=== PATIENT | male | born 1940 | race Hispanic/Latino ===

== ENCOUNTER 2023-02-10 13:29 | Inpatient (IN) | payer OTHER ==
--- OUTSIDE RECORDS SUMMARY | 2023-02-10 13:38 | XMS REPORT | Continuity of Care Document ---
:1940 Author Organization [facility] t Address [address] [place] [address] [place] [id number] Care Team Providers Name Role Phone Mallory Cameron MD Primary Care Physician [phone] MALLORY CAMERON Attending Clinician Unavailable Doctor Unassigned, [place] Attending Clinician Unavailable Mallory Cameron MD Attending Clinician Hossein Herzog Rahil Attending Clinician Unavailable Deniz GREGORIO, Steph Asif Attending Clinician Unavailable TEVIN COLEY Attending Clinician Unavailable Emily Recinos DO Attending Clinician Ronald Scott DO Attending Clinician Tevin Coley MD Attending Clinician ROB DEGROOT Attending Clinician Unavailable Katlyn Mccormack MD Attending Clinician Eyad Garcia MD Attending Clinician Ravinder Porras MD Attending Clinician Rob Degroot MD Attending Clinician Miguel Amezcua Attending Clinician MIGUEL CHAHAL Attending Clinician Unavailable Valentina Del Toro DO Attending Clinician VALENTINA DEL TORO Attending Clinician Unavailable VALENTINA DEL TORO Attending Clinician Unavailable Ige-[place]_J_AH Attending Clinician Unavailable Hossein Herzog Rahil Admitting Clinician Unavailable TEVIN COLEY Admitting Clinician Unavailable Tevin Coley MD Admitting Clinician ROB DEGROOT Admitting Clinician Unavailable Rob Degroot MD Admitting Clinician ANDREIA GREENWOOD Admitting Clinician Unavailable Ige-Odmariluz_J_AH Admitting Clinician Unavailable Payers Payer Name Policy Type Policy Number Effective Date Expiration Date S alexa MEDICARE PART A [id number] 2022 \\T\\ B 00:00:00 MCR MCR [id number] [facility] [place] - [id number] 2019 [place] 00:00:00 (MEDICARE REPLACEMENT/ADVANT AGE - HMO) Problems Condition Condition Condition Status Onset Resolution Last Treating Co mments Source Name Details Category Date Date Treatment Clinician Date Pulmonary Pulmonary Disease Active Uni vers hypertensi hypertensi 4-22 it y of on on 00:00: [place] [facility] Morbid Morbid Disease Active Univers obesity obesity 4-22 ity of 00:00: [place] [facility] COVID-19 COVID-19 Disease Active Unive rs virus virus 4-21 ity of infection infection 00:00: [place] 00 [facility] Acute Acute Disease Active Univers respirator respirator 4-21 it y of y failure y failure 00:00: [place] with with 00 Medical hypoxia hypoxia Branch Acute on Acute on Disease Active 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 00:00: [place] failure failure 00 Medical with with Branch preserved preserved ejection ejection fraction fraction (HFpEF) (HFpEF) Hypotensio Hypotensio Disease Active U nivers n n 4-21 ity of 00:00: [place] [facility] Type 2 Type 2 Disease Active Univers diabetes diabetes 4-21 ity of mellitus mellitus 00:00: [place] with other with other 00 Me dical specified specified Bran ch complicati complicati on on Sepsis Sepsis Disease Active Univers 4-14 ity of 00:00: [place] [facility] KERMIT (acute KERMIT (acute Disease Active U nivers kidney kidney 2-28 ity of injury) injury) 00:00: [place] [facility] Acute Acute Disease Active Univers kidney kidney 2-28 ity of injury injury 00:00: [place] superimpos superimpos 00 Me dical ed on CKD ed on CKD Bran ch Chronic Chronic Disease Active Univers stasis stasis 2-24 ity of dermatitis [place]itis [place] right 00 Medica l lower lower Branch extremity extremity Lower Lower Disease Active Univers extremity extremity 2-24 ity of lymphadeno [place]adeno [place] 00 Medical Branch Rhabdomyol Rhabdomyol Disease Active U nivers ysis ysis 2-21 ity of 00:00: [place] [facility] Non-trauma Non-trauma Disease Active U nivers tic tic 2-21 ity of rhabdomyol rhabdomyol 00:[place] y[place] ysis 00 Medical Branch No known No known Disease Unive rs active active ity of problems problems [facility] Allergies, Adverse Reactions, Alerts Allergy Allergy Status Severity Reaction(s) Onset Inactive Treating Comm ents Source Name Type Date Date Clinician NO KNOWN Drug Active Univers ALLERGIE Class ity of S [facility] Social History Social Habit Start Date Stop Date Quantity Comments Source Gender identity Universit y of [facility] Sexual orientation Univer sity of [facility] History SDOH Social Unive rsity of Connections [facility] Med ical Together Branch History SDOH Social Unive rsity of Connections [facility] Branch History SDOH Social Unive rsity of Connections [place] [facility] History SDOH Social Unive rsity of Connections [place] [facility] Meet[facility] History of tobacco Passive smoker Un iversity of use [facility] Alcohol intake 2022-11-17 2022-11-17 .29 /d University of 00:00:00 00:00:[address] [facility] Exposure to 2022-10-03 2022-10-13 Not sure University of SARS-CoV-2 (event) 00:00:00 14:00:[address] [facility] History of Social 2022-10-13 2022-10-13 Univers ity of function 00:00:00 00:00:[address] [facility] History SDOH 2022-08-30 2022-08-30 1 University o f Alcohol Frequency 00:00:00 00:00:00 [place] M ed[facility] Branch History SDOH Social 2022-08-30 2022-08-30 5 Unive rsity of Connections Phone 00:00:00 00:00:00 [place] M edical Branch History SDOH Social 2022-08-30 2022-08-30 5 Unive rsity of Connections Living 00:00:00 00:00:00 [place] [facility] History SDOH 2022-08-30 2022-08-30 2 University o f Physical Activity 00:00:00 00:00:00 [place] M edical DPW Branch History SDOH 2022-08-30 2022-08-30 1 University o f Physical Activity 00:00:00 00:00:00 [place] M edical MPS Branch History SDOH 2022-08-30 2022-08-30 5 University o f Financial 00:00:00 00:00:00 [place] [facility] History SDOH Food 2022-08-30 2022-08-30 1 Univers ity of Worry 00:00:00 00:00:00 [place] [facility] History SDOH Food 2022-08-30 2022-08-30 1 Univers ity of Scarcity 00:00:00 00:00:00 [place] [facility] History SDOH 2022-08-30 2022-08-30 2 University o f Transport Med 00:00:00 00:00:00 [place] Medic al Branch History SDOH 2022-08-30 2022-08-30 2 University o f Transport Non-Med 00:00:00 00:00:00 [place] M edical Branch History SDOH 2022-08-30 2022-08-30 2 University o f Housing Unable to 00:00:00 00:00:00 [place] M edical Pay Branch History SDOH 2022-08-30 2022-08-30 1 University o f Housing Places 00:00:00 00:00:00 [place] Medi tayo Lived Branch History SDOH 2022-08-30 2022-08-30 2 University o f Housing Homeless 00:00:00 00:00:00 [place] Me dical Last Year Branch Tobacco use and 2022-08-27 2022-08-27 Smokeless Universit y of exposure 00:00:00 00:00:00 tobacco non-user [place] Me dical Branch Education 2022-08-27 2022-08-27 21 University 00:00:00 00:00:00 [place] [facility] History SDOH 2022-07-06 2022-07-06 0 University o f Alcohol Std Drinks 00:00:00 00:00:00 [place] [facility] History SDOH 2022-07-06 2022-07-06 1 University o f Alcohol Binge 00:00:00 00:00:00 [facility] Branch Sex [birth year] At [birth year] Universit y of 00:00:00 00:00:[address] [facility] Smoking Status Start Date Stop Date Source Never smoked tobacco [facility] Medications Ordered Filled Start Stop Current Ordering Indication Dosage Frequency Signature Comments Components Source Medication Medication Date Date Medication? Clinician (SIG) Name Name hydrALAZINE Yes [id number] 100mg Take 1 Univers 100 mg 8-23 tablet by ity of tablet 00:00: mouth in [place] [address] the Medical morning Branch and 1 tablet at noon and 1 tablet in the evening. hydrALAZINE Yes [id number] 100mg Take 1 Univers 100 mg 8-23 tablet by ity of tablet 00:00: mouth in [place] [address] the Medical morning Branch and 1 tablet at noon and 1 tablet in the evening. SEMGLEE,INS 0 Yes Univer s ULIN 7-19 ity of GLARGINE-YF 00:00: [place] GN, 100 00 Medical unit/mL Branch Soln SEMGLEE,INS 2022-0 Yes Univer s ULIN 7-19 ity of GLARGINE-YF 00:00: [place] GN, 100 00 Medical unit/mL Branch Soln SEMGLEE,INS 2022-0 Yes Univer s ULIN 7-19 ity of GLARGINE-YF 00:00: [place] GN, 100 00 Medical unit/mL Branch Soln SEMGLEE,INS 2022-0 Yes Univer s ULIN 7-19 ity of GLARGINE-YF 00:00: [place] GN, 100 00 Medical unit/mL Branch Soln SEMGLEE,INS 2022-0 Yes Univer s ULIN 7-19 ity of GLARGINE-YF 00:00: [place] GN, 100 00 Medical unit/mL Branch Soln SEMGLEE,INS 2022-0 Yes Univer s ULIN 7-19 ity of GLARGINE-YF 00:00: [place] GN, 100 00 Medical unit/mL Ibrahima Eli furosemide 2022-0 Yes [id number] 40mg Take 1 Univers (LASIX) 40 7- 00 tablet by ity of mg tablet 00:00: [place] the Medical morning. Branch furosemide 2022-0 Yes [id number] 40mg Take 1 Univers (LASIX) 40 7- 00 tablet by ity of mg tablet 00:00: [place] the Medical morning. Branch furosemide 2022-0 Yes [id number] 40mg Take 1 Univers (LASIX) 40 7- 00 tablet by ity of mg tablet 00:00: [place] the Medical morning. Branch furosemide 2022-0 Yes [id number] 40mg Take 1 Univers (LASIX) 40 7- 00 tablet by ity of mg tablet 00:00: [place] the Medical morning. Branch furosemide 2022-0 Yes [id number] 40mg Take 1 Univers (LASIX) 40 7- 00 tablet by ity of mg tablet 00:00: [place] the Medical morning. Branch furosemide 2022-0 Yes [id number] 40mg Take 1 Univers (LASIX) 40 7- 00 tablet by ity of mg tablet 00:00: [place] the Medical morning. Branch furosemide 2022-0 Yes [id number] 40mg Take 1 Univers (LASIX) 40 7- 00 tablet by ity of mg tablet 00:00: [place] the Medical morning. Branch furosemide 2022-0 Yes [id number] 40mg Take 1 Univers (LASIX) 40 7- 00 tablet by ity of mg tablet 00:00: [place] the Medical morning. Branch furosemide 2022-0 Yes [id number] 40mg Take 1 Univers (LASIX) 40 7- 00 tablet by ity of mg tablet 00:00: [place] the Medical morning. Branch finasteride 2022-0 Yes [id number] 5mg Take 1 Univers 5 mg tablet 6-27 tablet by ity of 00:00: mouth in [place] 00 the Medical morning. Branch magnesium 3-0 Yes [id number] 400mg Take 1 Univers oxide 400 6-27 00 tablet by ity o f mg (241.3 00:00: [place] mg 00 the Medical magnesium) morning. Branc h tablet docusate 2022-0 Yes [id number] 100mg Take 1 Un merissa 100 mg 6-27 capsule by ity of capsule 00:00: mouth in [place] the Medical morning Branch and 1 capsule in the evening. finasteride 2022-0 Yes [id number] 5mg Take 1 Univers 5 mg tablet 6-27 tablet by ity of 00:00: mouth in [place] the Medical morning. Branch magnesium 2022-0 Yes [id number] 400mg Take 1 Univers oxide 400 6-27 00 tablet by ity o f mg (241.3 00:00: [place] mg 00 the Medical magnesium) morning. Branc h tablet docusate 2022-0 Yes [id number] 100mg Take 1 Un mer[place] 100 mg 6-27 capsule by ity of capsule 00:00: mouth in [place] the Medical morning Branch and 1 capsule in the evening. finasteride 2022-0 Yes [id number] 5mg Take 1 Univers 5 mg tablet 6-27 tablet by ity of 00:00: mouth in [place] the Medical morning. Branch magnesium 2022-0 Yes [id number] 400mg Take 1 Univers oxide 400 6-27 00 tablet by ity o f mg (241.3 00:00: [place] mg 00 the Medical magnesium) morning. Branc h tablet docusate 2022-0 Yes [id number] 100mg Take 1 Un mer[place] 100 mg 6-27 capsule by ity of capsule 00:00: mouth in [place] the Medical morning Branch and 1 capsule in the evening. finasteride 2022-0 Yes [id number] 5mg Take 1 Univers 5 mg tablet 6-27 tablet by ity of 00:00: mouth in [place] the Medical morning. Branch magnesium 3-0 Yes [id number] 400mg Take 1 Univers oxide 400 6-27 00 tablet by ity o f mg (241.3 00:00: [place] mg 00 the Medical magnesium) morning. Branc h tablet docusate 2022-0 Yes [id number] 100mg Take 1 Un mer[place] 100 mg 6-27 capsule by ity of capsule 00:00: mouth in [place] 00 the Medical morning Branch and 1 capsule in the evening. finasteride 2022-0 Yes [id number] 5mg Take 1 Univers 5 mg tablet 6-27 tablet by ity of 00:00: mouth in [place] 00 the Medical morning. Branch magnesium 2022-0 Yes [id number] 400mg Take 1 Univers oxide 400 6-27 00 tablet by ity o f mg (241.3 00:00: [place] mg 00 the Medical magnesium) morning. Branc h tablet docusate 2022-0 Yes [id number] 100mg Take 1 Un merissa 100 mg 6-27 capsule by ity of capsule 00:00: mouth in [place] the Medical morning Branch and 1 capsule in the evening. finasteride 2022-0 Yes [id number] 5mg Take 1 Univers 5 mg tablet 6-27 tablet by ity of 00:00: mouth in [place] the Medical morning. Branch magnesium 2022-0 Yes [id number] 400mg Take 1 Univers oxide 400 6-27 00 tablet by ity o f mg (241.3 00:00: [facility]) morning. Branc h tablet docusate 2022-0 Yes [id number] 100mg Take 1 Un merissa 100 mg 6-27 capsule by ity of capsule 00:00: mouth in [place] 00 the Medical morning Branch and 1 capsule in the evening. finasteride 2022-0 Yes [id number] 5mg Take 1 Univers 5 mg tablet 6-27 tablet by ity of 00:00: mouth in [place] 00 the Medical morning. Branch magnesium 2022-0 Yes [id number] 400mg Take 1 Univers oxide 400 6-27 00 tablet by ity o f mg (241.3 00:00: [facility] Medical magnesium) morning. Branc h tablet docusate 2022-0 Yes [id number] 100mg Take 1 Un mer[place] 100 mg 6-27 capsule by ity of capsule 00:00: mouth in [place] 00 the Medical morning Branch and 1 capsule in the evening. finasteride 2022-0 Yes [id number] 5mg Take 1 Univers 5 mg tablet 6-27 tablet by ity of 00:00: mouth in [place] the Medical morning. Branch magnesium 3-0 Yes [id number] 400mg Take 1 Univers oxide 400 6-27 00 tablet by ity o f mg (241.3 00:00: [place] mg 00 the Medical magnesium) morning. Branc h tablet docusate 2022-0 Yes [id number] 100mg Take 1 Un merissa 100 mg 6-27 capsule by ity of capsule 00:00: mouth in [place] the Medical morning Branch and 1 capsule in the evening. finasteride 2022-0 Yes [id number] 5mg Take 1 Univers 5 mg tablet 6-27 tablet by ity of 00:00: mouth in [place] the Medical morning. Branch magnesium 2022-0 Yes [id number] 400mg Take 1 Univers oxide 400 6-27 00 tablet by ity o f mg (241.3 00:00: [facility] the Medical magnesium) morning. Branc h tablet docusate 2022-0 Yes [id number] 100mg Take 1 Un mer[place] 100 mg 6-27 capsule by ity of capsule 00:00: mouth in [place] the Medical morning Branch and 1 capsule in the evening. finasteride 2022-0 Yes [id number] 5mg Take 1 Univers 5 mg tablet 6-27 tablet by ity of 00:00: mouth in [place] the Medical morning. Branch magnesium 2022-0 Yes [id number] 400mg Take 1 Univers oxide 400 6-27 00 tablet by ity o f mg (241.3 00:00: [facility] the Medical magnesium) morning. Branc h tablet docusate 2022-0 Yes [id number] 100mg Take 1 Un merissa 100 mg 6-27 capsule by ity of capsule 00:00: mouth in [place] the Medical morning Branch and 1 capsule in the evening. finasteride 2022-0 Yes [id number] 5mg Take 1 Univers 5 mg tablet 6-27 tablet by ity of 00:00: mouth in [place] the Medical morning. Branch magnesium 3-0 Yes [id number] 400mg Take 1 Univers oxide 400 6-27 00 tablet by ity o f mg (241.3 00:00: [place] mg 00 the Medical magnesium) morning. Branc h tablet docusate Yes [id number] 100mg Take 1 Un merissa 100 mg 6-27 capsule by ity of capsule 00:00: mouth in [place] 00 the Medical morning Branch and 1 capsule in the evening. insulin 0 2022- No inject Univers glargine 6-20 06-20 under the ity o f 100 unit/mL 14:31: 00:00 skin 2 [place] injection 21 :00 (two) Medical times Branch daily. 40 hs and 20 am tamsulosin Yes [id number] .4mg Take 1 Univers 0.4 mg 24 6-20 capsule by ity of hr capsule 00:00: mouth in [place] 00 the Medical morning. Branch pravastatin Yes [id number] TAKE 4 Univers 20 mg 6-20 TABLETS BY ity of tablet 00:00: MOUTH [place] 00 EVERY DAY Medical AT BEDTIME Branch insulin 2022-0 Yes [id number] 40 hs and Univers glargine 6-20 20 am ity of 100 unit/mL 00:00: [place] injection 00 Medical Branch tamsulosin 0 Yes [id number] .4mg Take 1 Univers 0.4 mg 24 6-20 capsule by ity of hr capsule 00:00: mouth in [place] 00 the Medical morning. Branch pravastatin 2022-0 Yes [id number] TAKE 4 Univers 20 mg 6-20 TABLETS BY ity of tablet 00:00: MOUTH [place] 00 EVERY DAY Medical AT BEDTIME Branch insulin 2022-0 Yes [id number] 40 hs and Univers glargine 6-20 20 am ity of 100 unit/mL 00:00: [place] injection 00 Medical Branch tamsulosin 2022-0 Yes [id number] .4mg Take 1 Univers 0.4 mg 24 6-20 capsule by ity of hr capsule 00:00: mouth in [place] 00 the Medical morning. Branch pravastatin 2022-0 Yes [id number] TAKE 4 Univers 20 mg 6-20 TABLETS BY ity of tablet 00:00: MOUTH [place] 00 EVERY DAY Medical AT BEDTIME Branch insulin 2022-0 Yes [id number] 40 hs and Univers glargine 6-20 20 am ity of 100 unit/mL 00:00: [place] injection 00 Medical Branch tamsulosin 2022-0 Yes [id number] .4mg Take 1 Univers 0.4 mg 24 6-20 capsule by ity of hr capsule 00:00: mouth in [place] 00 the Medical morning. Branch pravastatin 2022-0 Yes [id number] TAKE 4 Univers 20 mg 6-20 TABLETS BY ity of tablet 00:00: MOUTH [place] 00 EVERY DAY Medical AT BEDTIME Branch insulin 3-0 Yes [id number] 40 hs and Univers glargine 6-20 20 am ity of 100 unit/mL 00:00: [place] injection 00 Medical Branch tamsulosin 3-0 Yes [id number] .4mg Take 1 Univers 0.4 mg 24 6-20 capsule by ity of hr capsule 00:00: mouth in [place] 00 the Medical morning. Branch pravastatin 2022-0 Yes [id number] TAKE 4 Univers 20 mg 6-20 TABLETS BY ity of tablet 00:00: MOUTH [place] 00 EVERY DAY Medical AT BEDTIME Branch insulin 2022-0 Yes [id number] 40 hs and Univers glargine 6-20 20 am ity of 100 unit/mL 00:00: [place] injection 00 Medical Branch tamsulosin 3-0 Yes [id number] .4mg Take 1 Univers 0.4 mg 24 6-20 capsule by ity of hr capsule 00:00: mouth in [place] 00 the Medical morning. Branch pravastatin 2022-0 Yes [id number] TAKE 4 Univers 20 mg 6-20 TABLETS BY ity of tablet 00:00: MOUTH [place] 00 EVERY DAY Medical AT BEDTIME Branch insulin 3-0 Yes [id number] 40 hs and Univers glargine 6-20 20 am ity of 100 unit/mL 00:00: [place] injection 00 Medical Branch tamsulosin 3-0 Yes [id number] .4mg Take 1 Univers 0.4 mg 24 6-20 capsule by ity of hr capsule 00:00: mouth in [place] 00 the Medical morning. Branch pravastatin 2022-0 Yes [id number] TAKE 4 Univers 20 mg 6-20 TABLETS BY ity of tablet 00:00: MOUTH [place] 00 EVERY DAY Medical AT BEDTIME Branch insulin 3-0 Yes [id number] 40 hs and Univers glargine 6-20 20 am ity of 100 unit/mL 00:00: [place] injection 00 Medical Branch tamsulosin 3-0 Yes [id number] .4mg Take 1 Univers 0.4 mg 24 6-20 capsule by ity of hr capsule 00:00: mouth in [place] 00 the Medical morning. Branch pravastatin 2022-0 Yes [id number] TAKE 4 Univers 20 mg 6-20 TABLETS BY ity of tablet 00:00: MOUTH [place] 00 EVERY DAY Medical AT BEDTIME Branch insulin 3-0 Yes [id number] 40 hs and Univers glargine 6-20 20 am ity of 100 unit/mL 00:00: [place] injection 00 Medical Branch tamsulosin 3-0 Yes [id number] .4mg Take 1 Univers 0.4 mg 24 6-20 capsule by ity of hr capsule 00:00: mouth in [place] 00 the Medical morning. Branch pravastatin 2022-0 Yes [id number] TAKE 4 Univers 20 mg 6-20 TABLETS BY ity of tablet 00:00: MOUTH [place] 00 EVERY DAY Medical AT BEDTIME Branch insulin 3-0 Yes [id number] 40 hs and Univers glargine 6-20 20 am ity of 100 unit/mL 00:00: [place] injection 00 Medical Branch tamsulosin 3-0 Yes [id number] .4mg Take 1 Univers 0.4 mg 24 6-20 capsule by ity of hr capsule 00:00: mouth in [place] 00 the Medical morning. Branch pravastatin 2022-0 Yes [id number] TAKE 4 Univers 20 mg 6-20 TABLETS BY ity of tablet 00:00: MOUTH [place] 00 EVERY DAY Medical AT BEDTIME Branch insulin 3-0 Yes [id number] 40 hs and Univers glargine 6-20 20 am ity of 100 unit/mL 00:00: [place] injection 00 Medical Branch tamsulosin 3-0 Yes [id number] .4mg Take 1 Univers 0.4 mg 24 6-20 capsule by ity of hr capsule 00:00: mouth in [place] 00 the Medical morning. Branch pravastatin 2022-0 Yes [id number] TAKE 4 Univers 20 mg 6-20 TABLETS BY ity of tablet 00:00: MOUTH [place] 00 EVERY DAY Medical AT BEDTIME Branch insulin 3-0 Yes [id number] 40 hs and Univers glargine 6-20 20 am ity of 100 unit/mL 00:00: [place] injection 00 Medical Branch tamsulosin 3-0 Yes [id number] .4mg Take 1 Univers 0.4 mg 24 6-20 capsule by ity of hr capsule 00:00: mouth in [place] 00 the Medical morning. Branch pravastatin 2022-0 Yes [id number] TAKE 4 Univers 20 mg 6-20 TABLETS BY ity of tablet 00:00: MOUTH [place] 00 EVERY DAY Medical AT BEDTIME Branch insulin 2022-0 Yes [id number] 40 hs and Univers glargine 6-20 20 am ity of 100 unit/mL 00:00: [place] injection 00 Medical Branch tamsulosin 2022-0 Yes [id number] .4mg Take 1 Univers 0.4 mg 24 6-20 capsule by ity of hr capsule 00:00: mouth in [place] 00 the Medical morning. Branch pravastatin 2022-0 Yes [id number] TAKE 4 Univers 20 mg 6-20 TABLETS BY ity of tablet 00:00: MOUTH [place] 00 EVERY DAY Medical AT BEDTIME Branch insulin 2022-0 Yes [id number] 40 hs and Univers glargine 6-20 20 am ity of 100 unit/mL 00:00: [place] injection 00 Medical Branch tamsulosin 2022-0 Yes [id number] .4mg Take 1 Univers 0.4 mg 24 6-20 capsule by ity of hr capsule 00:00: mouth in [place] 00 the Medical morning. Branch pravastatin 2022-0 Yes [id number] TAKE 4 Univers 20 mg 6-20 TABLETS BY ity of tablet 00:00: MOUTH [place] 00 EVERY DAY Medical AT BEDTIME Branch insulin 2022-0 Yes [id number] 40 hs and Univers glargine 6-20 20 am ity of 100 unit/mL 00:00: [place] injection 00 Medical Branch tamsulosin 2022-0 Yes [id number] .4mg Take 1 Univers 0.4 mg 24 6-20 capsule by ity of hr capsule 00:00: mouth in [place] 00 the Medical morning. Branch pravastatin 2022-0 Yes [id number] TAKE 4 Univers 20 mg 6-20 TABLETS BY ity of tablet 00:00: MOUTH [place] 00 EVERY DAY Medical AT BEDTIME Branch insulin 3-0 Yes [id number] 40 hs and Univers glargine 6-20 20 am ity of 100 unit/mL 00:00: [place] injection 00 Medical Branch tamsulosin 3-0 Yes [id number] .4mg Take 1 Univers 0.4 mg 24 6-20 capsule by ity of hr capsule 00:00: mouth in [place] 00 the Medical morning. Branch pravastatin 2022-0 Yes [id number] TAKE 4 Univers 20 mg 6-20 TABLETS BY ity of tablet 00:00: MOUTH [place] 00 EVERY DAY Medical AT BEDTIME Branch insulin 2022-0 Yes [id number] 40 hs and Univers glargine 6-20 20 am ity of 100 unit/mL 00:00: [place] injection 00 Medical Branch sulfamethox 2022-0 Yes [id number] 1{tbl} Take 1 Univers azole-trime 6-07 tablet by ity of thoprim 00:00: mouth in [place] (BACTRIM 00 the Medical DS) 800-160 morning Branc h mg per and 1 tablet tablet in the evening. sulfamethox 2022-0 Yes [id number] 1{tbl} Take 1 Univers azole-trime 6-07 tablet by ity of thoprim 00:00: mouth in [place] (BACTRIM 00 the Medical DS) 800-160 morning Branc h mg per and 1 tablet tablet in the evening. sulfamethox 2022-0 Yes [id number] 1{tbl} Take 1 Univers azole-trime 6-07 tablet by ity of thoprim 00:00: mouth in [place] (BACTRIM 00 the Medical DS) 800-160 morning Branc h mg per and 1 tablet tablet in the evening. sulfamethox 2022-0 Yes [id number] 1{tbl} Take 1 Univers azole-trime 6-07 tablet by ity of thoprim 00:00: mouth in [place] (BACTRIM 00 the Medical DS) 800-160 morning Branc h mg per and 1 tablet tablet in the evening. sulfamethox 2022-0 Yes [id number] 1{tbl} Take 1 Univers azole-trime 6-07 tablet by ity of thoprim 00:00: mouth in [place] (BACTRIM 00 the Medical DS) 800-160 morning Branc h mg per and 1 tablet tablet in the evening. sulfamethox 2022-0 2022- No [id number] 1{tbl} Take 1 Univers azole-trime 6-07 07-05 tablet by it y of thoprim 00:00: 00:00 mouth in [place] (BACTRIM 00 :00 the Medical DS) 800-160 morning Branc h mg per and 1 tablet tablet in the evening. sulfamethox 2022-0 2022- No [id number] 1{tbl} Take 1 Univers azole-trime 6-07 07-05 tablet by it y of thoprim 00:00: 00:00 mouth in [place] (BACTRIM 00 :00 the Medical DS) 800-160 morning Branc h mg per and 1 tablet tablet in the evening. sulfamethox 2022-0 2022- No [id number] 1{tbl} Take 1 [facility] azole-trime 6-07 07-05 tablet by it y of thoprim 00:00: 00:00 mouth in [place] (BACTRIM 00 :00 the Medical DS) 800-160 morning Branc h mg per and 1 tablet tablet in the evening. sulfamethox 2022-0 2022- No [id number] 1{tbl} Take 1 [facility] azole-trime 6-07 07-05 tablet by it y of thoprim 00:00: 00:00 mouth in [place] (BACTRIM 00 :00 the Medical DS) 800-160 morning Branc h mg per and 1 tablet tablet in the evening. insulin 2022-0 Yes inject [facility] glargine 5-31 under the it[place] of 100 unit/mL 14:23: [place] 30 (two) Medical times Branch daily. 40 hs and 20 am insulin 3-0 Yes inject [facility] glargine 5-31 under the ity of 100 unit/mL 14:23: skin [place] injection 30 (two) Medical times Branch daily. 40 hs and 20 am insulin 3-0 Yes inject [facility] glargine 5-31 under the ity of 100 unit/mL 14:23: skin [place] injection 30 (two) Medical times Branch daily. 40 hs and 20 am insulin 2023-0 Yes inject [facility] glargine 5-31 under the ity of 100 unit/mL 14:23: skin [place] injection 30 (two) Medical times Branch daily. 40 hs and 20 am insulin 2023-0 Yes inject [facility] glargine 5-31 under the ity of 100 unit/mL 14:23: skin [place] injection 30 (two) Medical times Branch daily. 40 hs and 20 am insulin 2023-0 Yes inject [facility] glargine 5-31 under the ity of 100 unit/mL 14:23: skin [place] injection 30 (two) Medical times Branch daily. 40 hs and 20 am magnesium 2023-0 Yes 400mg Take 1 Unive rs oxide 400 5-23 tablet by ity o f mg (241.3 00:00: mouth [place] mg 00 the Medical magnesium) morning. Branc h tablet pravastatin 2022-0 Yes TAKE 4 Univ ers 20 mg 5-23 TABLETS BY ity of tablet 00:00: MOUTH [place] 00 EVERY DAY Medical AT BEDTIME Branch magnesium 2023-0 Yes 400mg Take 1 Unive rs oxide 400 5-23 tablet by ity o f mg (241.3 00:00: mouth in [place] mg 00 the Medical magnesium) morning. Branc h tablet pravastatin 2022-0 Yes TAKE 4 Univ ers 20 mg 5-23 TABLETS BY ity of tablet 00:00: MOUTH [place] 00 EVERY DAY Medical AT BEDTIME Branch magnesium 3-0 Yes 400mg Take 1 Unive rs oxide 400 5-23 tablet by ity o f mg (241.3 00:00: mouth in [place] mg 00 the Medical magnesium) morning. Branc h tablet pravastatin 2022-0 Yes TAKE 4 Univ ers 20 mg 5-23 TABLETS BY ity of tablet 00:00: MOUTH [place] 00 EVERY DAY Medical AT BEDTIME Branch magnesium 3-0 Yes 400mg Take 1 Unive rs oxide 400 5-23 tablet by ity o f mg (241.3 00:00: mouth [place] mg 00 the Medical magnesium) morning. Branc h tablet pravastatin 3-0 Yes TAKE 4 Univ ers 20 mg 5-23 TABLETS BY ity of tablet 00:00: MOUTH [place] 00 EVERY DAY Medical AT BEDTIME Branch magnesium 2023-0 Yes 400mg Take 1 Unive rs oxide 400 5-23 tablet by ity o f mg (241.3 00:00: mouth [place] mg 00 the Medical magnesium) morning. Branc h tablet pravastatin 3-0 Yes TAKE 4 Univ ers 20 mg 5-23 TABLETS BY ity of tablet 00:00: MOUTH [place] 00 EVERY DAY Medical AT BEDTIME Branch magnesium 2023-0 Yes 400mg Take 1 Unive rs oxide 400 5-23 tablet by ity o f mg (241.3 00:00: mouth in [place] mg 00 the Medical magnesium) morning. Branc h tablet pravastatin 3-0 Yes TAKE 4 Univ ers 20 mg 5-23 TABLETS BY ity of tablet 00:00: MOUTH [place] 00 EVERY DAY Medical AT BEDTIME Branch magnesium 3-0 Yes 400mg Take 1 Unive rs oxide 400 5-23 tablet by ity o f mg (241.3 00:00: mouth [place] mg 00 the Medical magnesium) morning. Branc h tablet magnesium 3-0 Yes 400mg Take 1 Unive rs oxide 400 5-23 tablet by ity o f mg (241.3 00:00: mouth [place] mg 00 the Medical magnesium) morning. Branc h tablet magnesium 3-0 3- No 400mg Take 1 Univ ers oxide 400 5-23 06-27 tablet by ity of mg (241.3 00:00: 00:00 mouth in [place] mg 00 :00 the Medical magnesium) morning. Branc h tablet magnesium 3-0 3- No 400mg Take 1 Univ ers oxide 400 5-23 06-27 tablet by ity of mg (241.3 00:00: 00:00 mouth in [place] mg 00 :00 the Medical magnesium) morning. Branc h tablet magnesium 3-0 3- No 400mg Take 1 Univ ers oxide 400 5-23 06-27 tablet by ity of mg (241.3 00:00: 00:00 mouth in [place] mg 00 :00 the Medical magnesium) morning. Branc h tablet pravastatin 3-0 3- No TAKE 4 Uni vers 20 mg 5-23 06-20 TABLETS BY ity of tablet 00:00: 00:00 MOUTH [place] 00 :00 EVERY DAY Medical AT BEDTIME Branch finasteride 3-0 Yes 5mg Take 1 Univ ers 5 mg tablet 5-22 tablet by ity of 00:00: mouth in [place] 00 the Medical morning. Branch finasteride 3-0 Yes 5mg Take 1 Univ ers 5 mg tablet 5-22 tablet by ity of 00:00: mouth in [place] 00 the Medical morning. Branch finasteride 3-0 Yes 5mg Take 1 Univ ers 5 mg tablet 5-22 tablet by ity of 00:00: mouth in [place] 00 the Medical morning. Branch finasteride 3-0 Yes 5mg Take 1 Univ ers 5 mg tablet 5-22 tablet by ity of 00:00: mouth in [place] 00 the Medical morning. Branch finasteride 2023-0 Yes 5mg Take 1 Univ ers 5 mg tablet 5-22 tablet by ity of 00:00: mouth in [place] 00 the Medical morning. Branch finasteride 2023-0 Yes 5mg Take 1 Univ ers 5 mg tablet 5-22 tablet by ity of 00:00: mouth in [place] 00 the Medical morning. Branch finasteride 2023-0 Yes 5mg Take 1 Univ ers 5 mg tablet 5-22 tablet by ity of 00:00: mouth in [place] 00 the Medical morning. Branch finasteride 2023-0 Yes 5mg Take 1 Univ ers 5 mg tablet 5-22 tablet by ity of 00:00: mouth in [place] 00 the Medical morning. Branch finasteride 2023-0 2023- No 5mg Take 1 Uni vers 5 mg tablet 10-04- tablet by it y of 00:00: 00:00 mouth in [place] 00 :00 the Medical morning. Branch finasteride 2023-0 2023- No 5mg Take 1 Uni vers 5 mg tablet 10-04- tablet by it y of 00:00: 00:00 mouth in [place] 00 :00 the Medical morning. Branch finasteride 2023-0 2023- No 5mg Take 1 Uni vers 5 mg tablet 10-04- tablet by it y of 00:00: 00:00 mouth in [place] 00 :00 the Medical morning. Branch HUMALOG 2022-0 Yes INJECT 6 Univer s U-100 4-26 UNITS ity of INSULIN 100 00:00: SUBCUTANEO [place] unit/mL 00 USLY IN Medical solution THE Branch MORNING AND 6 UNITS AT NOON AND 6 UNITS IN THE EVENING WITH MEALS HUMALOG 2022-0 Yes INJECT 6 Univer s U-100 4-26 UNITS ity of INSULIN 100 00:00: SUBCUTANEO [place] unit/mL 00 USLY IN Medical solution THE Branch MORNING AND 6 UNITS AT NOON AND 6 UNITS IN THE EVENING WITH MEALS HUMALOG 2022-0 Yes INJECT 6 Univer s U-100 4-26 UNITS ity of INSULIN 100 00:00: SUBCUTANEO [place] unit/mL 00 USLY IN Medical solution THE Branch MORNING AND 6 UNITS AT NOON AND 6 UNITS IN THE EVENING WITH MEALS HUMALOG 2022-0 Yes INJECT 6 Univer s U-100 4-26 UNITS ity of INSULIN 100 00:00: SUBCUTANEO [place] unit/mL 00 USLY IN Medical solution THE Branch MORNING AND 6 UNITS AT NOON AND 6 UNITS IN THE EVENING WITH MEALS HUMALOG Yes INJECT 6 Univer s U-100 4-26 UNITS ity of INSULIN 100 00:00: SUBCUTANEO [place] unit/mL 00 USLY IN Medical solution THE Branch MORNING AND 6 UNITS AT NOON AND 6 UNITS IN THE EVENING WITH MEALS HUMALOG Yes INJECT 6 Univer s U-100 4-26 UNITS ity of INSULIN 100 00:00: SUBCUTANEO [place] unit/mL 00 USLY IN Medical solution THE Branch MORNING AND 6 UNITS AT NOON AND 6 UNITS IN THE EVENING WITH MEALS sodium 0 2022- No 30g 30 g, Univers polystyrene 4-25 04-25 Oral, ity of sulfonate 14:30: 16:12 ONCE, 1 [place] (KAYEXALATE 00 :00 dose, On Medi tayo ) 15 Tue Branch gram/60 mL 09/07/22 at suspension 0930, 30 g Routine insulin Yes 40U 40 Units, Unive rs glargine 4-25 Subcutaneo ity o f (LANTUS 02:00: us, Q, [place] U-100) 00 First dose Medical injection (after Branch 40 Units last modificati on) on Tue09/06/22 at 2100, Until Discontinu ed, Routine budesonide- Yes [id number] 2{puff} Inhale 2 Univers formoteroL 4-25 Puffs in ity o f 160-4.5 00:00: the [place] mcg/actuati 00 morning Medic al on inhaler and 2 Branch Puffs in the evening. albuterol Yes [id number] 2.5mg Inhale 3 Univers 2.5 mg /3 4-25 mL every 6 ity of mL (0.083 00:00: (six) [place] %) 00 hours as Medical nebulizer needed for Bran ch solution Wheezing or Shortness of Breath. polyethylen Yes [id number] 17g Take 1 Univers e glycol 4-25 Packet by ity of 3350 17 00:00: mouth as [place] gram powder 00 needed for Me dical Constipati Branch on. docusate Yes [id number] 100mg Take 1 Un merissa 100 mg 4-25 capsule by ity of capsule 00:00: mouth in [place] 00 the Medical morning Branch and 1 capsule in the evening. calcium 2022-0 Yes [id number] 500mg Take 2 Uni vers carbonate-v 4-25 tablets by it y of itamin D3 00:00: mouth in [facility] 250 00 the [facility] mg-3.125 morning Branch mcg (125 and 2 unit) per tablets in tablet the evening. Take with meals. insulin 0 Yes [id number] 35U inject 35 U nivers glargine 4-25 Units ity of 100 unit/mL 00:00: under the [place] injection 00 skin at Medical bedtime. Branch Insulin 0 Yes [id number] 6U inject 6 Un merissa Lispro, 4-25 Units ity of Human, 00:00: under the [place] (HUMALOG 00 skin in [facility] U-100 the Branch INSULIN) morning 100 unit/mL and 6 cartridge Units at noon and 6 Units in the evening. inject with meals. budesonide- Yes [id number] 2{puff} Inhale 2 Univers formoteroL 4-25 Puffs in ity o f 160-4.5 00:00: the [place] mcg/actuati 00 morning Medic al on inhaler and 2 Branch Puffs in the evening. albuterol 0 Yes [id number] 2.5mg Inhale 3 Univers 2.5 mg /3 4-25 mL every 6 ity of mL (0.083 00:00: (six) [place] %) 00 hours as Medical nebulizer needed for Bran ch solution Wheezing or Shortness of Breath. polyethylen 0 Yes [id number] 17g Take 1 Univers e glycol 4-25 Packet by ity of 3350 17 00:00: mouth as [place] gram powder 00 needed for Me dical Constipati Branch on. docusate 0 Yes [id number] 100mg Take 1 Un merissa 100 mg 4-25 capsule by ity of capsule 00:00: mouth in [place] 00 the Medical morning Branch and 1 capsule in the evening. calcium 2022-0 Yes [id number] 500mg Take 2 Uni vers carbonate-v 4-25 tablets by it y of itamin D3 00:00: mouth in [place] 250 00 the Medical mg-3.125 morning Branch mcg (125 and 2 unit) per tablets in tablet the evening. Take with meals. insulin 2022-0 Yes [id number] 35U inject 35 U nivers glargine 4-25 Units ity of 100 unit/mL 00:00: under the [place] injection 00 skin at Medical bedtime. Branch Insulin 2022-0 Yes [id number] 6U inject 6 Un [place] Lispro, 4-25 Units ity of Human, 00:00: under the [place] (HUMALOG 00 skin in Medical U-100 the Branch INSULIN) morning 100 unit/mL and 6 cartridge Units at noon and 6 Units in the evening. inject with meals. budesonide- 2022-0 Yes [id number] 2{puff} Inhale 2 Univers formoteroL 4-25 Puffs in ity o f 160-4.5 00:00: the [place] mcg/actuati 00 morning Medic al on inhaler and 2 Branch Puffs in the evening. albuterol 2022-0 Yes [id number] 2.5mg Inhale 3 Univers 2.5 mg /3 4-25 mL every 6 ity of mL (0.083 00:00: (six) [place] %) 00 hours as Medical nebulizer needed for Bran ch solution Wheezing or Shortness of Breath. polyethylen 2022-0 Yes [id number] 17g Take 1 Univers e glycol 4-25 Packet by ity of 3350 17 00:00: mouth as [place] gram powder 00 needed for Me dical Constipati Branch on. docusate 2022-0 Yes [id number] 100mg Take 1 Un mer[place] 100 mg 4-25 capsule by ity of capsule 00:00: mouth in [place] 00 the Medical morning Branch and 1 capsule in the evening. calcium 2022-0 Yes [id number] 500mg Take 2 Uni vers carbonate-v 4-25 tablets by it y of itamin D3 00:00: mouth in [facility] s 250 00 the Medical mg-3.125 morning Branch mcg (125 and 2 unit) per tablets in tablet the evening. Take with meals. insulin 2022-0 Yes [id number] 35U inject 35 U nivers glargine 4-25 Units ity of 100 unit/mL 00:00: under the [place] injection 00 skin at Medical bedtime. Branch Insulin 2022-0 Yes [id number] 6U inject 6 Un [place] Lispro, 4-25 Units ity of Human, 00:00: under the [place] (HUMALOG 00 skin in Medical U-100 the Branch INSULIN) morning 100 unit/mL and 6 cartridge Units at noon and 6 Units in the evening. inject with meals. docusate 2022-0 Yes [id number] 100mg Take 1 Un mer[place] 100 mg 4-25 capsule by ity of capsule 00:00: mouth in [place] 00 the [facility] morning [place] and 1 capsule in the evening. docusate 2022-0 Yes [id number] 100mg Take 1 Un mer[place] 100 mg 4-25 capsule by ity of capsule 00:00: mouth in [place] 00 the [facility] morning [place] and 1 capsule in the evening. docusate 2022-0 Yes [id number] 100mg Take 1 Un merissa 100 mg 4-25 capsule by ity of capsule 00:00: mouth in [place] [address] the [facility] and 1 capsule in the evening. docusate 2022-0 Yes [id number] 100mg Take 1 Un merissa 100 mg 4-25 capsule by ity of capsule 00:00: mouth in [place] [address] the [facility] and 1 capsule in the evening. docusate 2022-0 Yes [id number] 100mg Take 1 Un merissa 100 mg 4-25 capsule by ity of capsule 00:00: mouth in [place] [address] the [facility] and 1 capsule in the evening. docusate 2022-0 Yes [id number] 100mg Take 1 Un mer[place] 100 mg 4-25 capsule by ity of capsule 00:00: mouth in [place] [address] the [facility] and 1 capsule in the evening. docusate 2022-0 Yes [id number] 100mg Take 1 Un merissa 100 mg 4-25 capsule by ity of capsule 00:00: mouth in [place] [address] the [facility] and 1 capsule in the evening. docusate 3-0 Yes [id number] 100mg Take 1 Un merissa 100 mg 4-25 capsule by ity of capsule 00:00: mouth in [place] [address] the [facility] and 1 capsule in the evening. docusate 3-0 Yes [id number] 100mg Take 1 Un merissa 100 mg 4-25 capsule by ity of capsule 00:00: mouth in [place] 00 the Medical morning Branch and 1 capsule in the evening. budesonide- Yes [id number] 2{puff} Inhale 2 Univers formoteroL 4-25 Puffs in ity o f 160-4.5 00:00: the [place] mcg/actuati 00 morning Medic al on inhaler and 2 Branch Puffs in the evening. albuterol Yes [id number] 2.5mg Inhale 3 Univers 2.5 mg /3 4-25 mL every 6 ity of mL (0.083 00:00: (six) [place] %) 00 hours as Medical nebulizer needed for Bran ch solution Wheezing or Shortness of Breath. polyethylen 0 Yes [id number] 17g Take 1 Univers e glycol 4-25 Packet by ity of 3350 17 00:00: mouth as [place] gram powder 00 needed for Me dical Constipati Branch on. docusate 0 Yes [id number] 100mg Take 1 Un [place] 100 mg 4-25 capsule by ity of capsule 00:00: mouth in [place] 00 the Medical morning Branch and 1 capsule in the evening. calcium Yes [id number] 500mg Take 2 Uni vers carbonate-v 4-25 tablets by it y of itamin D3 00:00: mouth in [facility] s 250 00 the [facility] mg-3.125 morning Branch mcg (125 and 2 unit) per tablets in tablet the evening. Take with meals. insulin Yes [id number] 35U inject 35 U nivers glargine 4-25 Units ity of 100 unit/mL 00:00: under the [place] injection 00 skin at Medical bedtime. Branch Insulin 0 Yes [id number] 6U inject 6 Un [place]issa Lispro, 4-25 Units ity of Human, 00:00: under the [place] (HUMALOG 00 skin in Medical U-100 the Branch INSULIN) morning 100 unit/mL and 6 cartridge Units at noon and 6 Units in the evening. inject with meals. docusate 0 2022- No [id number] 100mg Take 1 U nivers 100 mg 4-25 06-27 capsule by ity of capsule 00:00: 00:00 mouth in [place] 00 :00 the Medical morning Branch and 1 capsule in the evening. docusate 2022- No [id number] 100mg Take 1 U nivers 100 mg 09-07- capsule by ity of capsule 00:00: 00:00 mouth in [place] 00 :00 the Medical morning Branch and 1 capsule in the evening. docusate 2022- No [id number] 100mg Take 1 U nivers 100 mg -07 11- capsule by ity of capsule 00:00: 00:00 mouth in [place] 00 :00 the Medical morning Branch and 1 capsule in the evening. budesonide- 3- No [id number] 2{puff} Inhale 2 Univers formoteroL -07 10-31 Puffs in ity of 160-4.5 00:00: 00:00 the [place] mcg/actuati 00 :00 morning Medic al on inhaler and 2 Branch Puffs in the evening. albuterol 2022- No [id number] 2.5mg Inhale 3 Univers 2.5 mg /3 09-07- mL every 6 ity of mL (0.083 00:00: 00:00 (six) [place] %) 00 :00 hours as Medical nebulizer needed for Bran ch solution Wheezing or Shortness of Breath. polyethylen 2022- No [id number] 17g Take 1 Univers e glycol 09-07 Packet by ity o f 3350 17 00:00: 00:00 mouth as [place] gram powder 00 :00 needed for Me dical Constipati Branch on. calcium 2022- No [id number] 500mg Take 2 Un [place]issa carbonate-v 09-07-31 tablets by i ty of itamin D3 00:00: 00:00 mouth in [place] 00 :00 the Medical mg-3.125 morning Branch mcg (125 and 2 unit) per tablets in tablet the evening. Take with meals. insulin 2022- No [id number] 35U inject 35 Univers glargine 4-25 05-31 Units ity of 100 unit/mL 00:00: 00:00 under the [place] injection 00 :00 skin at Medical bedtime. Branch Insulin 3- No [id number] 6U inject 6 U nivers Lispro, - 05-31 Units ity of Human, 00:00: 00:00 under the [place] (HUMALOG 00 :00 skin in Medical U-100 the Branch INSULIN) morning 100 unit/mL and 6 cartridge Units at noon and 6 Units in the evening. inject with meals. budesonide- 2022- No [id number] 2{puff} Inhale 2 Univers formoteroL 09-07-31 Puffs in ity of 160-4.5 00:00: 00:00 the [place] mcg/actuati 00 :00 morning Medic al on inhaler and 2 Branch Puffs in the evening. albuterol 2022- No [id number] 2.5mg Inhale 3 Univers 2.5 mg /3 09-07- mL every 6 ity of mL (0.083 00:00: 00:00 (six) [place] %) 00 :00 hours as Medical nebulizer needed for Bran ch solution Wheezing or Shortness of Breath. polyethylen 2022- No [id number] 17g Take 1 Univers e glycol 09-07 Packet by analisa babb f 3350 17 00:00: 00:00 mouth as [place] gram powder 00 :00 needed for Me dical Constipati Branch on. calcium 2022- No [id number] 500mg Take 2 Un [place] carbonate-v 09-07 tablets by iram castro of itamin D3 00:00: 00:00 mouth in [place] 00 :00 the Medical mg-3.125 morning Branch mcg (125 and 2 unit) per tablets in tablet the evening. Take with meals. insulin 2022- No [id number] 35U inject 35 Univers glargine 09-07-31 Units ity of 100 unit/mL 00:00: 00:00 under the [place] injection 00 :00 skin at Medical bedtime. Branch Insulin 2022- No [id number] 6U inject 6 U nivers Lispro, 09-07-31 Units ity of Human, 00:00: 00:00 under the [place] (HUMALOG 00 :00 skin in Medical U-100 the Branch INSULIN) morning 100 unit/mL and 6 cartridge Units at noon and 6 Units in the evening. inject with meals. hydrALAZINE 2022- No [id number] 100mg Take 1 Univers 100 mg 4-25 05-26 tablet by ity of tablet 00:00: 04:59 mouth in [place] 00 :00 the [facility] morning [place] and 1 tablet at noon and 1 tablet in the evening. Do all this for 30 days. furosemide 2022- No [id number] 40mg Take 1 Univers 40 mg 4-25 05-26 tablet by ity of tablet 00:00: 04:59 mouth in [place] 00 :00 the [facility] for 30 days. hydrALAZINE 2022- No [id number] 100mg Take 1 Univers 100 mg 4-25 05-26 tablet by ity of tablet 00:00: 04:59 mouth in [place] 00 :00 the [facility] and 1 tablet at noon and 1 tablet in the evening. Do all this for 30 days. furosemide 2022- No [id number] 40mg Take 1 Univers 40 mg 4-25 05-26 tablet by ity of tablet 00:00: 04:59 mouth in [place] 00 :00 the [facility] for 30 days. hydrALAZINE 2022- No [id number] 100mg Take 1 Univers 100 mg 4-25 05-26 tablet by ity of tablet 00:00: 04:59 mouth in [place] 00 :00 the [facility] and 1 tablet at noon and 1 tablet in the evening. Do all this for 30 days. furosemide 2022- No [id number] 40mg Take 1 Univers 40 mg 4-25 05-26 tablet by ity of tablet 00:00: 04:59 mouth in [place] 00 :00 the [facility] for 30 days. predniSONE 2022- No [id number] 40mg Take 2 Univers 20 mg 4-25 04-29 tablets by ity of tablet 00:00: 04:59 mouth in [place] 00 :00 the [facility] for 3 days. predniSONE 2022-2022- No [id number] 40mg Take 2 Univers 20 mg 4-25 04-29 tablets by ity of tablet 00:00: 04:59 mouth in [place] 00 :00 the [facility] for 3 days. insulin Yes 10U 10 Units, Unive rs lispro 4-24 Subcutaneo ity of (human) 22:00: us, TID [place] (HumaLOG 00 MEALS, Medical U-100) First dose Branch injection (after 10 Units last modificati on) on 09/06/22 at 1700, Until Discontinu ed, Routine hydrALAZINE Yes 100mg 100 mg, Un [place] (APRESOLINE 24 Oral, TID, it y of ) tablet 20:15: First dose [place] 100 mg 00 (after Medical last Branch modificati on) on 09/06/22 at 1515, Until Discontinu ed, Routine furosemide Yes 20mg 20 mg, Unive rs (LASIX) 09-05 Slow IV ity of injection 14:00: Push, [place] 20 mg 00 DAILY, Medical First dose Branch (after last modificati on) on 09/05/22 at 0900, Until Discontinu ed, Routine insulin 2022- No 12U 12 Units, Univ ers lispro 09-05 Subcutaneo ity of (human) 13:00: 19:39 us, TID [place] (HumaLOG 00 :02 MEALS, Medical U-100) First dose Branch injection (after 12 Units last modificati on) on 09/05/22 at 0800, Until Discontinu ed, Routine Sliding Yes Subcutaneo Univ ers Scale 09-05 us, TID ity of Insulin - 02:00: MEALS+HS, [place] Lispro 00 First dose Medical (HumaLOG) + on Sat Branch Fsbg 09/04/22 at Testing 2100, Until Discontinu ed, Routine insulin 2022- No 45U 45 Units, Univ ers glargine 09-05 Subcutaneo ity of (LANTUS 02:00: 19:39 us, QHS, [place] U-100) 00 :02 First dose Medical injection (after Branch 45 Units last modificati on) on 09/04/22 at 2100, Until Discontinu ed, Routine insulin 2022- No 10U 10 Units, Univ ers lispro 09-04 Subcutaneo ity of (human) 17:00: 22:37 us, TID [place] (HumaLOG 00 :05 MEALS, Medical U-100) First dose Branch injection (after 10 Units last modificati on) on 09/04/22 at 1200, Until Discontinu ed, Routine hydrALAZINE No 50mg 50 mg, Uni vers (APRESOLINE 09-04 Oral, TID, i ty of ) tablet 50 13:30: 19:33 First dose [place] mg 00 :18 on Tue [facility] 09/04/22 at Branch 0830, Until Discontinu ed, Routine insulin 2022- No 35U 35 Units, Univ ers glargine 09-04 Subcutaneo ity of (LANTUS 02:00: 13:24 us, QHS, [place] U-100) 00 :34 First dose Medical injection (after Branch 35 Units last modificati on) on Tue09/03/22 at 2100, Until Discontinu ed, Routine docusate Yes 100mg 100 mg, Unive rs (COLACE) 09-04 Oral, BID, ity o f capsule 100 01:00: First dose [place] mg 00 on Tue [facility] 09/03/22 at Branch 2000, Until Discontinu ed, Routine polyethylen Yes 17g 17 g, Unive rs e glycol 09-03 Oral, ity of 3350 powder 23:30: DAILY, [place] 17 g 00 First dose Medical on Tue [place] 09/03/22 at 1830, Until Discontinu ed, Routine bisacodyL Yes 10mg 10 mg, Univer s (DULCOLAX) 09-03 Rectal, ity of suppository 23:23: QHSPRN, [place] 10 mg 08 Starting Medical on Tue [place] 09/03/22 at 1823, Until Discontinu ed, Routine, Constipati on unresolved by oral medication s insulin 2022- No 8U 8 Units, Unive rs lispro 09-03 Subcutaneo ity of (human) 22:00: 13:24 us, TID [place] (HumaLOG 00 :34 MEALS, Medical U-100) First dose Branch injection 8 (after Units last modificati on) on Tue09/03/22 at 1700, Until Discontinu ed, Routine insulin 2022- No 5U 5 Units, Unive rs lispro 09-03 Subcutaneo ity of (human) 13:00: 19:53 us, TID [place] (HumaLOG 00 :47 MEALS, Medical U-100) First dose Branch injection 5 on Fri Units 09/03/22 at 0800, Until Discontinu ed, Routine insulin 2022- No 25U 25 Units, [facility] ers glargine 09-03 Subcutaneo ity of (LANTUS 02:00: 19:53 us, QHS, [place] U-100) 00 :47 First dose Medical injection (after Branch 25 Units last modificati on) on Tue09/02/22 at 2100, Until Discontinu ed, Routine dexamethaso No 6mg 6 mg, Univ ers ne sod phos 09-02 Intravenou i ty of PF 17:30: 13:59 s, DAILY, [place] injection 6 00 :00 10 doses, Med ical mg First dose Branch on Tue09/02/22 at 1230, Last dose on Tue09/11/22 at 0900, 1 mL sulfur 2022- No [id number] 5mL 5 mL, Un [place] hexafluorid 09-02 00 Intravenou i ty of e microsphr 17:15: 17:15 s, ONCE, 1 [place] (LUMASON) 00 :00 dose, On Medica l injection 5 [place] Branch mL 09/02/22 at 1215, Routine
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 Restricted medication : [employer] furosemide 2022- No 20mg 20 mg, Univ ers (LASIX) 09-02 Slow IV ity of injection 14:30: 20:01 Push, [place] 20 mg 00 :50 Q12H, Medical First dose Branch on Tue09/02/22 at 0930, Until Discontinu ed, Routine midodrine 2022- No 5mg 5 mg, Univer s (PROAMATINE 09-02 Oral, TID, i ty of ) tablet 5 01:00: 13:45 First dose [place] mg 00 :03 on Tue Medical 09/01/22 at Branch 2000, Until Discontinu ed, Routine calcium 2022- No 2g 2 g, IV Univer s gluconate 2 09-02 Infusion, it y of g in NaCl 00:00: 02:44 at 200 [place] 100 mL 00 :00 mL/hr Medical (ISO-OSM) Administer Bran ch RTU IV over 30 infusion 2 Minutes, g ONCE, 1 dose, On Tue09/01/22 at 1900, Routine albumin 2022-2022- No 25g 25 g, IV Unive rs (ALBUMINAR 09-0120 Infusion, ity of 25%) 25 % 23:45: 01:36 ONCE, 1 [place] injection 00 :00 dose, On Medica l 25 g Tue Branch 09/01/22 at 1845, 100 mL
[place]ma cation: NON-APPROV ED INDICATION - PHARMACY WILL CALL ORDERING PROVIDER<b r>Specific Indication : Acute on chronic HFpEF in setting of hypotensio n
Facul ty Requesting Approval: TEVIN COLEY magnesium 2022- No 2g 2 g, IV Univ ers sulfate in 09-01 Piggyback, it y of water 2 23:15: 04:21 Administer [place] gram/50 mL 00 :00 over 60 Medica l (4 %) Minutes, Branch infusion 2 ONCE, 1 g dose, On Tue09/01/22 at 1815, Routine NaCl 0.9% 2022- No 500mL at 999 Univ ers (NS) bolus 09-01 mL/hr, 500 it y of infusion 23:15: 04:49 mL, IV [place] 500 mL 00 :02 Piggyback, Medical ONCE, 1 Branch dose, On Tue09/01/22 at 1815, STAT furosemide 2022- No 60mg 60 mg, IV U nivers (LASIX) 09-01 Push, ity of injection 01:00: 22:22 Q12H, [place] 60 mg 00 :11 First dose Medical (after Branch last modificati on) on Tue08/31/22 at 2000, Until Discontinu ed, Routine benzonatate Yes 100mg 100 mg, Un merissa (TESSALON 4-18 Oral, Q8H, ity of PERLES) 19:00: First dose [place] capsule 100 00 tue Medica l mg 08/31/22 at Branch 1400, Until Discontinu ed, Routine furosemide 2022- No 40mg 40 mg, Univ ers (LASIX) 08-31 Oral, ity of tablet 40 18:00: 20:42 ONCE, 1 [place] mg 00 :00 dose, On Medical [facility] 08/31/22 at 1300, Routine furosemide 2022- No 40mg 40 mg, IV U nivers (LASIX) 08-31 Push, ity of injection 01:00: 17:09 Q12H, [place] 40 mg 00 :33 First dose Medical on [facility] 08/30/22 at 2000, Until Discontinu ed, Routine levalbutero Yes 1.25mg 1.25 mg, Univers l (XOPENEX) 08-31 Inhalation it y of nebulizer 00:38: , TIDPRN, [place] solution 48 Starting Medical 1.25 mg on [facility] 08/30/22 at 1938, Until Discontinu ed, Routine, Wheezing, Shortness of Breath ammonium Yes Topical, Unive rs lactate 08-30 DAILY, ity of (LAC-HYDRIN 21:30: First dose [place] ) 12 % 00 on [facility] Medical cream 08/30/22 at Branch 1630, Until Discontinu ed, Routine calcium 2022- No 1g 1 g, IV Univer s gluconate 1 08-30 Infusion, it y of g in NaCl 14:45: 14:30 at 100 [place] 50 mL 00 :00 mL/hr Medical (ISO-OSM) Administer Bran ch RTU IV over 30 infusion 1 Minutes, g ONCE, 1 dose, On [facility] 08/30/22 at 0945, Routine calcium Yes 2{tbl} 500 mg (2 Uni vers carbonate-v 08-29 tablet), ity of itamin D3 22:00: Oral, BID [place] (OSCAL-250 00 MEALS, Medical + D) 250 First dose Branc h mg-3.125 (after mcg (125 last unit) per modificati tablet 500 on) on Sun mg 08/29/22 at 1700, Until Discontinu ed, Routine calcium 2022-0 2022- No 1g 1 g, IV Univer s gluconate 1 08-29 Infusion, it y of g in NaCl 20:00: 22:51 at 100 [place] 50 mL 00 :35 mL/hr Medical (ISO-OSM) Administer Bran ch RTU IV over 30 infusion 1 Minutes, g ONCE, 1 dose, On [place] 08/29/22 at 1500, Routine KCL 2022- No 40meq 40 mEq, Univers (KLOR-CON 08-29 Oral, ity of M20) tablet 14:30: 17:08 ONCE, 1 [place] 40 mEq 00 :00 dose, On Medical [place] Branch 08/29/22 at 0930, Routine heparin Yes 5000U 5,000 Univers (porcine) -16 Units, ity of injection 13:00: Subcutaneo [place] 5,000 Units 00 us, Q12H, Med ical First dose Branch on [place] 08/29/22 at 0800, Until Discontinu ed, Routine calcium 2022- No 1{tbl} 250 mg (1 Un mer[place] carbonate-v 08-29 tablet), ity of itamin D3 13:00: 13:36 Oral, BID [place] (OSCAL-250 00 :10 MEALS, Medical + D) 250 First dose Branc h mg-3.125 on [place] mcg (125 08/29/22 at unit) per 0800, tablet 250 Until mg Discontinu ed, Routine insulin 2022- No 10U 10 Units, [facility] ers glargine 08-29 04-20 Subcutaneo ity of (LANTUS 02:00: 23:44 us, [facility], [place] U-100) 00 :25 First dose Medical injection (after Branch 10 Units last modificati on) on [place] 08/28/22 at 2100, Until Discontinu ed, Routine lactobacill 2022-0 Yes .5mg 0.5 mg, Uni vers us 4-15 Oral, ity of acidophilus 19:30: DAILY, [place] tablet 0.5 00 First dose Med ical mg on [facility] 08/28/22 at 1430, Until Discontinu ed, Routine tamsulosin 2022-0 Yes .4mg 0.4 mg, Univ ers (FLOMAX) 4-15 Oral, ity of capsule 0.4 14:00: DAILY, [place] mg 00 First dose Medical on [facility] 08/28/22 at 0900, Until Discontinu ed, Routine verapamil 2022- No 360mg 360 mg, Uni vers SR (CALAN 08-28 Oral, ity of SR) ER 14:00: 22:30 DAILY, [place] tablet 360 00 :20 First dose Med ical mg on [place] Branch 08/28/22 at 0900, Until Discontinu ed, Routine furosemide 2022- No 40mg 40 mg, [facility] ers (LASIX) 08-28 Oral, ity of tablet 40 14:00: 20:26 QAM+PM, [place] mg 00 :41 First dose Medical on [facility] 08/28/22 at 0900, Until Discontinu ed, Routine potassium No 10meq 10 mEq, IV Univers chloride in 08-28 Piggyback, i ty of water 10 14:00: 20:28 Q1H, 6 [place] mEq/100 mL 00 :00 doses, Medical RTU 10 mEq First dose Bra nch on [place] 08/28/22 at 0900, Last dose on [place] 08/28/22 at 1400, Administer over 60 Minutes, 100 mL enoxaparin No 30mg 30 mg, [facility] ers (LOVENOX) 08-28 Subcutaneo ity of injection 14:00: 19:58 us, DAILY, [place] 30 mg 00 :23 First dose Medical on [facility] 08/28/22 at 0900, Until Discontinu ed, Routine budesonide- Yes 2{puff} 2 Puff, Univers formoteroL 08-28 Inhalation ity of (SYMBICORT) 13:00: , BID, [place] 160-4.5 00 First dose Medica l mcg/actuati on [facility] on inhaler 08/28/22 at 2 Puff 0800, Until Discontinu ed, Routine metoprolol 2022- No 50mg 50 mg, [facility] ers tartrate 08-28 Oral, BID, ity of (LOPRESSOR) 13:00: 21:52 First dose [place] tablet 50 00 :38 on [place] Medical mg 08/28/22 at Branch 0800, Until Discontinu ed, Routine KCL No 40meq 40 mEq, Univers (KLOR-CON 08-28 Oral, ity of M20) tablet 12:30: 13:43 ONCE, 1 [place] 40 mEq 00 :00 dose, On Medical Sat Branch 08/28/22 at 0730, Routine cefTRIAXone 2022- No 1000mg 1,000 mg, Univers (ROCEPHIN) 08-2819 IV ity of 1,000 mg in 04:30: 04:51 Piggyback, [place] NaCl 0.9% 00 :00 Q24H ABX, Medic al (NS) 100 mL 5 doses, Bran ch MINI-BAG First dose on Tue08/27/22 at 2330, Last dose on Tue08/31/22 at 2330, Administer over 30 Minutes, 100 mL
Reas on for Anti-Infec tive: Empiric Therapy for Suspected Infection< br>Empiric Therapy Site: Respirator y
Durat ion of therapy: 5 days azithromyci 2022- No 500mg 500 mg, IV Univers n 08-28 Piggyback, ity of (ZITHROMAX) 04:30: 19:28 Q24H ABX, [place] 500 mg in 00 :40 5 doses, Medica l NaCl 0.9% First dose Bran ch (NS) 250 mL on Tue VIAL-MATE 08/27/22 at IV 2330, Last piggyback dose on Tue08/31/22 at 2330, Administer over 60 Minutes, 250 mL
Reas on for Anti-Infec tive: Empiric Therapy for Suspected Infection< br>Empiric Therapy Site: Respirator y
Durat ion of therapy: 5 days levalbutero Yes 1.25mg 1.25 mg, Univers l (XOPENEX) 08-28 Inhalation it y of nebulizer 03:30: , TID, [place] solution 00 First dose Medic al 1.25 mg on Fri Branch 08/27/22 at 2230, Until Discontinu ed HYDROcodone Yes 1{tbl} 1 tablet, Univers -acetaminop 08-28 Oral, ity of hen (NORCO) 03:24: Q6HPRN, [place] 10-325 mg 27 Starting Medica l tablet 1 on Fri Branch tablet 08/27/22 at 2224, Until Discontinu ed, Routine, Pain (scale 7-10) acetaminoph Yes 650mg 650 mg, Un merissa en 08-28 Oral, ity of (TYLENOL) 03:24: Q6HPRN, [place] tablet 650 17 Starting Medic al mg on Tue Branch 08/27/22 at 2224, Until Discontinu ed, Routine, Pain (scale 1-3) NaCl 0.9% 2022- No 1000mL at 50 Univ ers (NS) IV 08-28-18 mL/hr, IV ity of infusion 01:15: 00:38 Infusion, [place] 1,000 mL 00 :29 CONTINUOUS Medic al , Starting Branch on Tue08/27/22 at 2015, Until 08/30/22 at 1938, Routine Sliding No Subcutaneo Uni vers Scale 08-27 us, TID ity of Insulin - 22:00: 22:37 MEALS+HS, [place] Lispro 00 :04 First dose Medical (HumaLOG) + on Tue Branch Fsbg 08/27/22 at Testing 1700, Until Discontinu ed, Routine enoxaparin 2022- No 40mg 40 mg, Univ ers (LOVENOX) 08-27 Subcutaneo ity of injection 22:00: 12:17 us, DAILY, [place] 40 mg 00 :20 First dose Medical on Tue Branch 08/27/22 at 1700, Until Discontinu ed, Routine calcium 2022- No 1g 1 g, IV Univer s gluconate 1 08-27 Infusion, it y of g in NaCl 19:30: 19:20 at 100 [place] 50 mL 00 :00 mL/hr Medical (ISO-OSM) Administer Bran ch RTU IV over 30 infusion 1 Minutes, g ONCE, 1 dose, On Tue08/27/22 at 1430, Routine aspirin 2022- No 324mg 324 mg, Unive rs chewable 08-27 Oral, ity of tablet 324 18:45: 18:13 ONCE, 1 [place] mg 00 :00 dose, On Medical Fri Branch 08/27/22 at 1345, Routine glucagon Yes 1mg 1 mg, Univers (GLUCAGEN 08-27 Intramuscu ity of DIAGNOSTIC 18:43: lar, PRN, [place] KIT) 55 Starting Medical injection 1 on Fri Branch mg 08/27/22 at 1343, Until Discontinu ed, MARIZA, Blood Glucose < or = 70 mg/dL and patient is NPO, unable to swallow or has mental changes. dextrose 50 2022-0 Yes 25mL 25 mL, Univ ers % in water 08-27 Slow IV ity of (D50W) 18:43: Push, PRN, [place] injection 55 Starting Medica l 25 mL on Fri Branch 08/27/22 at 1343, Until Discontinu ed, MARIZA, Blood Glucose < or = 70 mg/dL and patient is NPO, unable to swallow or has mental status changes. acetaminoph 2022-0 202- No 650mg 650 mg, U nivers en 08-2714 Oral, ity of (TYLENOL) 16:15: 16:22 ONCE, 1 [place] tablet 650 00 :00 dose, On Medic al mg Fri Branch 08/27/22 at 1115, MARIZA furosemide 2022-0 Yes 40mg 40 mg, Unive rs (LASIX) 3-04 Oral, ity of tablet 40 15:00: QAM+PM, [place] mg 00 First dose Medical on Sat Branch 07/17/22 at 0900, Until Discontinu ed, Routine tamsulosin 2022-0 Yes [id number] .4mg Take 1 Univers 0.4 mg 24 3-04 capsule by ity of hr capsule 00:00: mouth in [place] 00 the Medical morning. Branch tamsulosin 3-0 Yes [id number] .4mg Take 1 Univers 0.4 mg 24 3-04 capsule by ity of hr capsule 00:00: mouth in [place] 00 the Medical morning. Branch tamsulosin 3-0 Yes [id number] .4mg Take 1 Univers 0.4 mg 24 3-04 capsule by ity of hr capsule 00:00: mouth in [place] 00 the Medical morning. Branch tamsulosin 3-0 Yes [id number] .4mg Take 1 Univers 0.4 mg 24 3-04 capsule by ity of hr capsule 00:00: mouth in [place] 00 the Medical morning. Branch tamsulosin 3-0 Yes [id number] .4mg Take 1 Univers 0.4 mg 24 3-04 capsule by ity of hr capsule 00:00: mouth in [place] 00 the Medical morning. Branch tamsulosin 3-0 Yes [id number] .4mg Take 1 Univers 0.4 mg 24 3-04 capsule by ity of hr capsule 00:00: mouth in [place] 00 the Medical morning. Branch tamsulosin 2023-0 Yes [id number] .4mg Take 1 Univers 0.4 mg 24 3-04 capsule by ity of hr capsule 00:00: mouth in [place] 00 the Medical morning. Branch tamsulosin 2023-0 Yes [id number] .4mg Take 1 Univers 0.4 mg 24 3-04 capsule by ity of hr capsule 00:00: mouth in [place] 00 the Medical morning. Branch tamsulosin 3-0 Yes [id number] .4mg Take 1 Univers 0.4 mg 24 3-04 capsule by ity of hr capsule 00:00: mouth in [place] 00 the Medical morning. Branch tamsulosin 3-0 Yes [id number] .4mg Take 1 Univers 0.4 mg 24 3-04 capsule by ity of hr capsule 00:00: mouth in [place] 00 the Medical morning. Branch furosemide 3-0 Yes [id number] 40mg Take 1 Univers 40 mg 3-04 tablet by ity of tablet 00:00: mouth [place] 00 every Medical morning Branch and evening. tamsulosin 3-0 Yes [id number] .4mg Take 1 Univers 0.4 mg 24 3-04 capsule by ity of hr capsule 00:00: mouth in [place] 00 the Medical morning. Branch tamsulosin 3-0 Yes [id number] .4mg Take 1 Univers 0.4 mg 24 3-04 capsule by ity of hr capsule 00:00: mouth in [place] 00 the Medical morning. Branch tamsulosin 2023-0 2023- No [id number] .4mg Take 1 Univers 0.4 mg 24 3-04 06-20 capsule by ity of hr capsule 00:00: 00:00 mouth in [place] 00 :00 the Medical morning. Branch furosemide 2023-0 2023- No [id number] 40mg Take 1 Univers 40 mg 3-04 04-25 tablet by ity of tablet 00:00: 00:00 mouth [place] 00 :00 every Medical morning Branch and evening. ceFEPIme 2023-0 2023- No 1000mg 1,000 mg, U nivers (MAXIPIME) 07-16 IV ity of 1,000 mg in 15:15: 06:59 Piggyback, [place] NaCl 0.9% 00 :00 Q8H ABX, Medica l (NS) 50 mL 11 doses, Bran ch MINI-BAG First dose (after last modificati on) on Tue07/16/22 at 0915, Last dose on Tue07/19/22 at 1715, Administer over 240 Minutes, 50 mL
Reas on for Anti-Infec tive: Documented Infection< br>Documen anupama Infection Site: Urine
D uration of Therapy: 7 days furosemide 2022- No 40mg 40 mg, [facility] ers (LASIX) 07-16 Slow IV ity of injection 10:45: 10:07 Push, [place] 40 mg 00 :00 ONCE, 1 Medical dose, On Branch Tue07/16/22 at 0445, MARIZA cloNIDine 2022- No .1mg 0.1 mg, [facility] ers (CATAPRES) 07-16 Oral, ity of tablet 0.1 10:00: 09:56 ONCE, 1 [place] mg 00 :00 dose, On Medical Tue07/16/22 Branch at 0400, MARIZA cloNIDine 0 2022- No .1mg 0.1 mg, [facility] ers (CATAPRES) 07-16 Oral, ity of tablet 0.1 08:30: 07:58 ONCE, 1 [place] mg 00 :00 dose, On Medical Tue07/16/22 Branch at 0230, STAT furosemide 2022- No 40mg 40 mg, [facility] ers (LASIX) 07-16 Slow IV ity of injection 02:00: 15:05 Push, [place] 40 mg 00 :09 Q12H, Medical First dose Branch (after last modificati on) on [place] 07/15/22 at 2000, Until Discontinu ed, Routine budesonide- Yes [id number] 2{puff} Inhale 2 Univers formoteroL 3-03 Puffs in ity o f 160-4.5 00:00: the [place] mcg/actuati 00 morning Medic al on inhaler and 2 Branch Puffs in the evening. albuterol 2022-0 Yes [id number] 2.5mg Inhale 3 Univers 2.5 mg /3 3-03 mL 4 ity of mL (0.083 00:00: (four) [place] %) 00 times Medical nebulizer daily. Branch solution hydrALAZINE 2022-0 Yes [id number] 50mg Take 1 Univers 50 mg 3-03 tablet by ity of tablet 00:00: mouth [place] 00 every 6 Medical (six) Branch hours. insulin 2022-0 Yes [id number] 26U inject 26 Univers glargine 3-03 Units ity of 100 unit/mL 00:00: under the [place] injection 00 skin every Medi tayo 24 Branch (twenty-fo ur) hours. budesonide- 2022- No [id number] 2{puff} Inhale 2 Univers formoteroL 3-03 04-25 Puffs in ity of 160-4.5 00:00: 00:00 the [place] mcg/actuati 00 :00 morning Medic al on inhaler and 2 Branch Puffs in the evening. albuterol 2022-0 3- No [id number] 2.5mg Inhale 3 Univers 2.5 mg /3 3-03 04-25 mL 4 ity of mL (0.083 00:00: 00:00 (four) [place] %) 00 :00 times Medical nebulizer daily. Branch solution hydrALAZINE 2022-0 3- No [id number] 50mg Take 1 Univers 50 mg 3-03 04-25 tablet by ity of tablet 00:00: 00:00 mouth [place] 00 :00 every 6 Medical (six) Branch hours. insulin 0 2022- No [id number] 26U inject 26 Univers glargine 3-03 04-25 Units ity of 100 unit/mL 00:00: 00:00 under the [place] injection 00 :00 skin every Medi tayo 24 Branch (twenty-fo ur) hours. NaCl 0.9% 2022- No [id number] 1000mg Infuse Univers (NS) PgBk 3-03 03-07 1,000 mg ity o f 50 mL with 00:00: 05:59 every 8 [place] ceFEPIme 1 00 :00 (eight) Medica l gram SolR hours for Branc h 1,000 mg 3 days. insulin Yes 6U 6 Units, Univer s lispro -02 Subcutaneo ity of (human) 23:00: us, TID [place] (HumaLOG 00 MEALS, Medical U-100) First dose Branch injection 6 on [place] Units 07/15/22 at 1700, Until Discontinu ed, Routine Sliding 0 Yes Subcutaneo Univ ers Scale 3-02 us, TID ity of Insulin - 23:00: MEALS+HS, [place] Lispro 00 First dose Medical (HumaLOG) + (after Branch Fsbg last Testing modificati on) on [place] 07/15/22 at 1700, Until Discontinu ed, Routine insulin Yes 26U 26 Units, Unive rs glargine 07-15 Subcutaneo ity o f (LANTUS 23:00: us, Q24H, [place] U-100) 00 First dose Medical injection on Tue Branch 26 Units 07/15/22 at 1700, Until Discontinu ed, Routine tamsulosin Yes .4mg 0.4 mg, [facility] ers (FLOMAX) 07-15 Oral, ity of capsule 0.4 16:15: DAILY, [place] mg 00 First dose Medical on Tue Branch 07/15/22 at 1015, Until Discontinu ed, Routine hydrALAZINE Yes 50mg 50 mg, [facility] ers (APRESOLINE 02 Oral, Q6H, it y of ) tablet 50 12:30: First dose [place] mg 00 on Tue Medical 07/15/22 at Branch 0630, Until Discontinu ed, Routine insulin NPH 2022- No 15U 15 Units, Univers (HUMULIN N) 07-14 Subcutaneo i ty of injection 23:00: 21:50 us, QPM, [place] 15 Units 00 :32 First dose Medic al on Tue Branch 07/14/22 at 1700, Until Discontinu ed, Routine ceFEPIme 2022- No 1000mg 1,000 mg, U nivers (MAXIPIME) 07-14 IV ity of 1,000 mg in 15:30: 15:00 Piggyback, [place] NaCl 0.9% 00 :15 Q12H ABX, Medic al (NS) 50 mL 12 doses, Bran ch MINI-BAG First dose (after last modificati on) on Tue07/14/22 at 0930, Last dose on Tue07/19/22 at 2130, Administer over 240 Minutes, 50 mL
Reas on for Anti-Infec tive: Documented Infection< br>Documen anupama Infection Site: Urine
D uration of Therapy: 7 days Sliding 2022- No Subcutaneo Uni vers Scale 07-1302 us, TID ity of Insulin - 23:00: 21:50 MEALS+HS, [place] Lispro 00 :32 First dose Medical (HumaLOG) + on Tue Branch Fsbg 07/13/22 at Testing 1700, Until Discontinu ed, Routine ceFEPIme 2022- No 1000mg 1,000 mg, U nivers (MAXIPIME) 07-13 IV ity of 1,000 mg in 15:30: 15:02 [place], [place] NaCl 0.9% 00 :31 Q12H ABX, Medic al (NS) 50 mL 14 doses, Bran ch MINI-BAG First dose on Tue07/13/22 at 0930, Last dose on Tue07/19/22 at 213, Administer over 30 Minutes, 50 mL
Reas on for Anti-Infec tive: Documented Infection< br>Documen anupama Infection Site: Urine
D uration of Therapy: 7 days vancomycin 2022- No 2000mg 2,000 mg, Univers (VANCOCIN) 07-13 IV ity of 2,000 mg in 02:15: 05:09 [place], [place] NaCl 0.9% 00 :00 ONCE, 1 Medical (NS) 500 mL dose, On [facility] piggyback Tue07/12/22 at 2015, Administer over 120 Minutes, 500 mL
Reas on for Anti-Infec tive: Documented Infection< br>Documen anupama Infection Site: Skin / Soft Tissue
Duration of Therapy: 7 days heparin Yes 5000U 5,000 Univers (porcine) 07-13 Units, ity of injection 02:00: Subcutaneo [place] 5,000 Units 00 us, Q12H, Med ical First dose Branch on Tue07/12/22 at 1999, Until Discontinu ed, Routine furosemide 2022- No 80mg 80 mg, Univ ers (LASIX) 07-13 03 Slow IV ity of injection 02:00: 17:48 Push, [place] 80 mg 00 :15 Q12H, Medical First dose Branch (after last modificati on) on Tue07/12/22 at 1999, Until Discontinu ed, Routine cefTRIAXone 2022- No 1000mg 1,000 mg, Univers (ROCEPHIN) 07-13 Intravenou it y of 1,000 mg in 02:00: 14:54 s, Q24H [place] NaCl 0.9% 00 :17 ABX, 7 Medical (NS) 50 mL doses, Branch MINI-BAG First dose on Tue07/12/22 at 1999, Last dose on Tue07/18/22 at 1999, Administer over 30 Minutes, 50 mL
Reas on for Anti-Infec tive: Documented Infection& lt;br>Docu mented Infection Site: Urine
D uration of Therapy: 7 days methylpredn 2022- No 80mg 80 mg, Uni vers isolone sod 07-12 Intravenou i ty of succ 23:00: 23:06 s, ONCE, 1 [place] (SOLU-MEDRO 00 :00 dose, On Medi tayo L) Mon Branch injection 07/12/22 at 80 mg 1700, 2 mL sulfur 2022- No [id number] 5mL 5 mL, [facility] ers hexafluorid 07-12 Intravenou i ty of e microsphr 20:27: 20:27 s, ONCE, 1 [place] (LUMASON) 00 :00 dose, On Medica l injection 5 Mon Branch mL 07/12/22 at 1445, Routine
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 Restricted medication : SHIRA LANDRY albuterol Yes 2.5mg 2.5 mg, Univ ers (PROVENTIL) 07-12 Inhalation it y of 2.5 mg /3 15:30: , QID, [place] mL (0.083 00 First dose Medi tayo %) (after Branch nebulizer last solution modificati 2.5 mg on) on Tue07/12/22 at 0930, Until Discontinu ed, Routine ipratropium 2022-0 Yes .5mg 0.5 mg, Uni vers (ATROVENT) 07-12 Inhalation ity of 0.02 % 15:30: , QID, [place] nebulizer 00 First dose Medi tayo solution on Tue Branch 0.5 mg 07/12/22 at 0930, Until Discontinu ed, Routine budesonide- 2022-0 Yes 2{puff} 2 Puff, Univers formoteroL 07-12 Inhalation ity of (SYMBICORT) 15:30: , BID, [place] 160-4.5 00 First dose Medica l mcg/actuati on Tue on inhaler 07/12/22 at 2 Puff 0930, Until Discontinu ed, Routine dextrometho 0 Yes 5mL 5 mL, Unive rs rphan-guaif 07-11 Oral, ity of enesin 00:31: Q6HPRN, [place] (ROBITUSSIN 52 Starting Medi tayo DM) 10-100 on Tue mg/5 mL 07/10/22 at solution 5 1831, mL Until Discontinu ed, Routine, Cough albuterol 2022-0 2022- No 2.5mg 2.5 mg, Uni vers (PROVENTIL) 07-09 Inhalation i ty of 2.5 mg /3 13:41: 15:27 , Q6HPRN, [place] mL (0.083 59 :38 Starting Medica l %) on Tue nebulizer 07/09/22 at solution 0741, 2.5 mg Until Tue07/12/22 at 0927, Routine, Shortness of Breath, Wheezing hydrALAZINE 2022-0 202- No 10mg 10 mg, Uni vers (APRESOLINE 07-08 0303 Oral, ity of ) tablet 10 06:35: 15:05 Q6HPRN, [place] mg 10 :25 Starting Medical on [place] Branch 07/08/22 at 0035, Until Tue07/16/22 at 0905, Routine, SBP>160, DBP>100 nystatin 2022-0 Yes Topical, Unive rs (NYSTOP) 07-08 BID, First ity o f powder 02:00: dose on [place] 00 Wed Medical 07/07/22 at Branch 2000, Until Discontinu ed, Routine enoxaparin 2022- No 40mg 40 mg, [facility] ers (LOVENOX) 07-06 Subcutaneo ity of injection 23:00: 01:47 us, DAILY, [place] 40 mg 00 :23 First dose Medical on [facility] 07/06/22 at 1700, Until Discontinu ed, Routine ceFAZolin 2022- No 1000mg 1,000 mg, Univers (ANCEF) 07-06 Intravenou ity o f 1,000 mg in 16:00: 18:06 s, Q8H [place] NaCl 0.9% 00 :58 ABX, 15 Medical (NS) 100 mL doses, [place] MINI-BAG First dose on [facility] 07/06/22 at 1000, Last dose on [place] 07/11/22 at 0200, Administer over 30 Minutes, 100 mL
Reas on for Anti-Infec tive: Empiric Therapy for Suspected Infection< br>Empiric Therapy Site: Skin / Soft tissue
Duration of therapy: 5 days verapamiL Yes 360mg 360 mg, [facility] ers (CALAN SR) 07-06 Oral, ity of ER tablet 15:00: DAILY, [place] 360 mg 00 First dose Medical on [facility] 07/06/22 at 0900, Until Discontinu ed pantoprazol 2022- No 40mg 40 mg, Uni vers e 07-06 Oral, ity of (PROTONIX) 15:00: 20:35 DAILY, [place] EC tablet 00 :23 First dose Medi tayo 40 mg on [facility] 07/06/22 at 0900, Until Discontinu ed, Routine metoprolol Yes 50mg 50 mg, [facility] tart[facility] 07-06 Oral, BID, ity o f (LOPRESSOR) 14:00: First dose [place] tablet 50 00 on [facility] 07/06/22 at Branch 0800, Until Discontinu ed, Routine lisinopriL 2022- No 40mg 40 mg, [facility] ers (PRINIVIL,Z 07-06 Oral, BID, i ty of ESTRIL) 14:00: 00:52 First dose [place] tablet 40 00 :32 on Tue Medical mg 07/06/22 at Branch 0800, Until Discontinu ed furosemide No 40mg 40 mg, Univ ers (LASIX) 07-06 Slow IV ity of injection 14:00: 00:52 Push, [place] 40 mg 00 :33 Q12H, Medical First dose Branch on Tue07/06/22 at 0800, Until Discontinu ed, Routine Sliding No Subcutaneo Uni vers Scale 07-06 , TID ity of Insulin - 14:00: 22:28 MEALS+HS, [place] Lispro 00 :54 First dose Medical (HumaLOG) + on Tue Fsbg 07/06/22 at Testing 0800, Until Discontinu ed, Routine glucagon Yes 1mg 1 mg, Univers (GLUCAGEN 07-06 Intramuscu ity of DIAGNOSTIC 10:18: lar, PRN, [place] KIT) 57 Starting Medical injection 1 on Tue Branch mg 07/06/22 at 0418, Until Discontinu ed, MARIZA, Blood Glucose < or = 70 mg/dL and patient is NPO, unable to swallow or has mental changes. dextrose 50 Yes 25mL 25 mL, Univ ers % in water 07-06 Slow IV ity of (D50W) 10:18: Push, PRN, [place] injection 57 Starting Medica l 25 mL on [facility] Branch 07/06/22 at 0418, Until Discontinu ed, MARIZA, Blood Glucose < or = 70 mg/dL and patient is NPO, unable to swallow or has mental status changes. ondansetron Yes 4mg 4 mg, Slow Univers (ZOFRAN 07-06 IV Push, ity of (PF)) 10:18: Q6HPRN, [place] injection 4 49 Starting Medi tayo mg on Branch 07/06/22 at 0418, Until Discontinu ed, Routine, Nausea and Vomiting (N/V) acetaminoph 0 Yes 650mg 650 mg, Un merissa en 07-06 Oral, ity of (TYLENOL) 10:18: Q6HPRN, [place] tablet 650 44 Starting Medic al mg on e Branch 07/06/22 at 0418, Until Discontinu ed, Routine, Pain (scale 1-3) ceFAZolin 2022- No 1000mg 1,000 mg, Univers (ANCEF) 07-06 Intravenou ity o f 1,000 mg in 07:30: 08:31 s, ONCE, 1 [place] NaCl 0.9% 00 :00 dose, On Medica l (NS) 100 mL [place] [facility] 07/06/22 at 0130, Administer over 30 Minutes, 100 mL
Reas on for Anti-Infec tive: Documented Infection< br>Documen anupama Infection Site: Skin / Soft Tissue
Duration of Therapy: Other (see Comments) D5W 0.45% 2022- No 1000mL at 100 Uni vers NaCl 07-06 02-24 mL/hr, ity of (1/2NS) IV 04:45: 04:53 1,000 mL, [place] infusion 00 :56 IV Medical 1,000 mL Infusion, Branch CONTINUOUS , Starting on 07/05/22 at 2245, Until Rosa 07/08/22 at 2253, MARIZA insulin 2021-05 Yes [id number] 80U inject 80 Univers degludec 2-27 Units ity of ([place] skin in Medical U-200) 200 the Branch unit/mL (3 morning mL) InPn and 80 Units in the evening. insulin 2021-05- No [id number] 80U inject 80 Univers degludec 2-27 03-03 Units ity of (TRESIBA 00:00: 00:00 under the [place] FLEXTOU[place] 00 :00 skin in Medical U-200) 200 the Branch unit/mL (3 morning mL) InPn and 80 Units in the evening. pravastatin Yes [id number] 80mg Take 1 Univers 80 mg 8-17 tablet by ity of tablet 00:00: mouth at [place] 00 bedtime. [facility] Branch pravastatin Yes [id number] 80mg Take 1 Univers 80 mg 8-17 tablet by ity of tablet 00:00: mouth at [place] 00 bedtime. [facility] pravastatin Yes [id number] 80mg Take 1 Univers 80 mg 8-17 tablet by ity of tablet 00:00: mouth at [place] 00 bedtime. Medical Branch lisinopriL 2021-0 Yes [id number] 40mg Take 1 U nivers 40 mg 8-17 tablet by ity of tablet 00:00: mouth in [place] 00 the Medical morning Branch and 1 tablet in the evening. insulin 2021-0 Yes [id number] 80U inject 80 Univers degludec 8-17 Units ity of (TRESIBA 00:00: under the [facility] FLEXTOUCH 00 skin 2 Medical U-200) 200 (two) Branch unit/mL (3 times mL) InPn daily. verapamiL 2021-0 Yes [id number] 360mg Take 1 U nivers 360 mg 24 8-17 capsule by ity of hr capsule 00:00: mouth at [place] 00 bedtime. Medical Branch pravastatin 2021-0 Yes [id number] 80mg Take 1 Univers 80 mg 8-17 tablet by ity of tablet 00:00: mouth at [place] 00 bedtime. Medical Branch metoprolol 2021-0 Yes [id number] 50mg Take 1 U nivers tartrate 50 8-17 tablet by ity of mg tablet 00:00: mouth in [facility] 00 the Medical morning Branch and 1 tablet in the evening. furosemide 2021-0 Yes [id number] 40mg Take 1 Univers (LASIX) 40 8-17 tablet by ity of mg tablet 00:00: [facility] the Medical morning. Branch lisinopriL 2021-0 Yes [id number] 40mg Take 1 U nivers 40 mg 8-17 tablet by ity of tablet 00:00: mouth in [place] 00 the Medical morning Branch and 1 tablet in the evening. insulin 2021-0 Yes [id number] 80U inject 80 Univers degludec 8-17 Units ity of (TRESIBA 00:00: under the [facility] s FLEXTOUCH 00 skin 2 Medical U-200) 200 (two) Branch unit/mL (3 times mL) InPn daily. verapamiL 2021-0 Yes [id number] 360mg Take 1 U nivers 360 mg 24 8-17 capsule by ity of hr capsule 00:00: mouth at [place] 00 bedtime. Medical Branch pravastatin 2021-0 Yes [id number] 80mg Take 1 Univers 80 mg 8-17 tablet by ity of tablet 00:00: mouth at [place] [address] bedtime. Medical Branch metoprolol 2021-0 Yes [id number] 50mg Take 1 U nivers tartrate 50 8-17 tablet by ity of mg tablet 00:00: mouth in the Medical morning Branch and 1 tablet in the evening. furosemide 2021-0 Yes [id number] 40mg Take 1 Univers (LASIX) 40 8-17 tablet by ity of mg tablet 00:00: mouth in [facility] the Medical morning. Branch lisinopriL 2021-0 Yes [id number] 40mg Take 1 U nivers 40 mg 8-17 tablet by ity of tablet 00:00: mouth in [place] the [facility] morning Branch and 1 tablet in the evening. insulin 2021-0 Yes [id number] 80U inject 80 Univers degludec 8-17 Units ity of (TRESIBA 00:00: under the [facility] FLEXTOUCH 00 skin 2 Medical U-200) 200 (two) Branch unit/mL (3 times mL) InPn daily. verapamiL 2021-0 Yes [id number] 360mg Take 1 U nivers 360 mg 24 8-17 capsule by ity of hr capsule 00:00: mouth at [facility] 00 bedtime. Medical Branch pravastatin 2021-0 Yes [id number] 80mg Take 1 Univers 80 mg 8-17 tablet by ity of tablet 00:00: mouth at [place] [address] bedtime. Medical Branch metoprolol 2021-0 Yes [id number] 50mg Take 1 U nivers tartrate 50 8-17 tablet by ity of mg tablet 00:00: mouth in [facility] the Medical morning Branch and 1 tablet in the evening. furosemide 2021-0 Yes [id number] 40mg Take 1 Univers (LASIX) 40 8-17 tablet by ity of mg tablet 00:00: mouth in [facility] the Medical morning. Branch lisinopriL 2021-0 Yes [id number] 40mg Take 1 U nivers 40 mg 8-17 tablet by ity of tablet 00:00: mouth in [place] [address] the [facility] morning Branch and 1 tablet in the evening. insulin 2-0 Yes [id number] 80U inject 80 Univers degludec 8-17 Units ity of (TRESIBA 00:00: under the [facility] FLEXTOUCH 00 skin 2 Medical U-200) 200 (two) Branch unit/mL (3 times mL) InPn daily. verapamiL 2021-0 Yes [id number] 360mg Take 1 U nivers 360 mg 24 8-17 capsule by ity of hr capsule 00:00: mouth at [place] 00 bedtime. Medical Branch pravastatin 2021-0 Yes [id number] 80mg Take 1 Univers 80 mg 8-17 tablet by ity of tablet 00:00: mouth at [place] 00 bedtime. Medical Branch metoprolol 2021-0 Yes [id number] 50mg Take 1 U nivers tartrate 50 8-17 tablet by ity of mg tablet 00:00: [place] the Medical morning Branch and 1 tablet in the evening. furosemide 2021-0 Yes [id number] 40mg Take 1 Univers (LASIX) 40 8-17 tablet by ity of mg tablet 00:00: [place] the Medical morning. Branch lisinopriL 2021-0 Yes [id number] 40mg Take 1 U nivers 40 mg 8-17 tablet by ity of tablet 00:00: mouth in 00 the Medical morning Branch and 1 tablet in the evening. insulin 2021-0 Yes [id number] 80U inject 80 Univers degludec 8-17 Units ity of (TRESIBA 00:00: [place] skin 2 Medical U-200) 200 (two) Branch unit/mL (3 times mL) InPn daily. verapamiL 2021-0 Yes [id number] 360mg Take 1 U nivers 360 mg 24 8-17 capsule by ity of hr capsule 00:00: mouth at [place] 00 bedtime. Medical Branch pravastatin 2021-0 Yes [id number] 80mg Take 1 Univers 80 mg 8-17 tablet by ity of tablet 00:00: mouth at [place] 00 bedtime. Medical Branch metoprolol 2021-0 Yes [id number] 50mg Take 1 U nivers tartrate 50 8-17 tablet by ity of mg tablet 00:00: [place] the Medical morning Branch and 1 tablet in the evening. furosemide 2021-0 Yes [id number] 40mg Take 1 Univers (LASIX) 40 8-17 tablet by ity of mg tablet 00:00: [place] the Medical morning. Branch lisinopriL 2022-0 Yes [id number] 40mg Take 1 U nivers 40 mg 8-17 tablet by ity of tablet 00:00: mouth in [place] 00 the Medical morning Branch and 1 tablet in the evening. insulin 2021-0 Yes [id number] 80U inject 80 Univers degludec 8-17 Units ity of (TRESIBA 00:00: [place] 00 skin 2 Medical U-200) 200 (two) Branch unit/mL (3 times mL) InPn daily. verapamiL 2021-0 Yes [id number] 360mg Take 1 U nivers 360 mg 24 8-17 capsule by ity of hr capsule 00:00: mouth at [place] 00 bedtime. Medical Branch pravastatin 2021-0 Yes [id number] 80mg Take 1 Univers 80 mg 8-17 tablet by ity of tablet 00:00: mouth at [place] [address] bedtime. Medical Branch metoprolol 2021-0 Yes [id number] 50mg Take 1 U nivers tartrate 50 8-17 tablet by ity of mg tablet 00:00: mouth in s the Medical morning Branch and 1 tablet in the evening. furosemide 2021-0 Yes [id number] 40mg Take 1 Univers (LASIX) 40 8-17 tablet by ity of mg tablet 00:00: mouth in [facility] 00 the Medical morning. Branch lisinopriL 2021-0 Yes [id number] 40mg Take 1 U nivers 40 mg 8-17 tablet by ity of tablet 00:00: mouth in [place] 00 the Medical morning Branch and 1 tablet in the evening. verapamiL 2021-0 Yes [id number] 360mg Take 1 U nivers 360 mg 24 8-17 capsule by ity of hr capsule 00:00: mouth at [place] bedtime. Medical Branch pravastatin 2021-0 Yes [id number] 80mg Take 1 Univers 80 mg 8-17 tablet by ity of tablet 00:00: mouth at [place] 00 bedtime. Medical Branch metoprolol 2021-0 Yes [id number] 50mg Take 1 U nivers tartrate 50 8-17 tablet by ity of mg tablet 00:00: mouth in [facility] 00 the Medical morning Branch and 1 tablet in the evening. furosemide 2021-0 Yes [id number] 40mg Take 1 Univers (LASIX) 40 8-17 tablet by ity of mg tablet 00:00: [place] the Medical morning. Branch verapamiL 0 Yes [id number] 360mg Take 1 U nivers 360 mg 24 8-17 capsule by ity of hr capsule 00:00: mouth at [place] 00 bedtime. Medical Branch pravastatin 0 Yes [id number] 80mg Take 1 Univers 80 mg 8-17 tablet by ity of tablet 00:00: mouth at [place] 00 bedtime. Medical Branch metoprolol Yes [id number] 50mg Take 1 U nivers tartrate 50 8-17 tablet by ity of mg tablet 00:00: [place] 00 the Medical morning Branch and 1 tablet in the evening. pravastatin 2021-0 Yes [id number] 80mg Take 1 Univers 80 mg 8-17 tablet by ity of tablet 00:00: mouth at [place] 00 bedtime. Medical Branch pravastatin 2022- No [id number] 80mg Take 1 Univers 80 mg 8-17 05-31 tablet by ity of tablet 00:00: 00:00 mouth at [place] 00 :00 bedtime. Medical Branch pravastatin 2021-2022- No [id number] 80mg Take 1 Univers 80 mg 8-17 05-31 tablet by ity of tablet 00:00: 00:00 mouth at [place] 00 :00 bedtime. Medical Branch verapamiL 2022- No [id number] 360mg Take 1 Univers 360 mg 24 8-17 04-25 capsule by ity of hr capsule 00:00: 00:00 mouth at [place] 00 :00 bedtime. Medical Branch metoprolol 2022- No [id number] 50mg Take 1 Univers tartrate 50 8-17 -25 tablet by it y of mg tablet 00:00: 00:00 mouth in [place] :00 the Medical morning Branch and 1 tablet in the evening. lisinopriL 2021-2022- No [id number] 40mg Take 1 Univers 40 mg -30 07- tablet by ity of tablet 00:00: 00:00 mouth in [place] 00 :00 the Medical morning Branch and 1 tablet in the evening. furosemide 2021-2022- No [id number] 40mg Take 1 Univers (LASIX) 40 12-30- tablet by ity of mg tablet 00:00: 00:00 mouth in [place] 00 :00 the Medical morning. Branch insulin 2021- No [id number] 80U inject 80 Univers degludec 817 12-27 Units ity of (TRESIBA 00:00: 00:00 under the [place]LEXT[place] 00 :00 skin 2 Medical U-200) 200 (two) Branch unit/mL (3 times mL) InPn daily. insulin 2021- No 75U inject 75 Univ ers degludec 08-14 08-17 Units ity of (TRESIBA 00:00: 00:00 under the [place]LE[place] 00 :00 skin 2 Medical U-200) 200 (two) Branch unit/mL (3 times mL) InPn daily. insulin 2021- No 75U inject 75 Univ ers degludec 08-14 08-17 Units ity of (TRESIBA 00:00: 00:00 under the [place]LE[place] 00 :00 skin 2 Medical U-200) 200 (two) Branch unit/mL (3 times mL) InPn daily. tadalafiL 2020-05 Yes [id number] 20mg Take 1 U nivers (CIALIS) 20 2-08 tablet by ity of mg tablet 00:00: [place] 00 needed for Medical Erectile Branch dysfunctio n. tadalafiL 2020-05 Yes [id number] 20mg Take 1 U nivers (CIALIS) 20 2-08 tablet by ity of mg tablet 00:00: mouth [place] 00 needed for Medical Erectile Branch dysfunctio n. tadalafiL 2020-05 Yes [id number] 20mg Take 1 U nivers (CIALIS) 20 2-08 tablet by ity of mg tablet 00:00: mouth [place] 00 needed for Medical Erectile Branch dysfunctio n. tadalafiL 2020-05 Yes [id number] 20mg Take 1 U nivers (CIALIS) 20 2-08 tablet by ity of mg tablet 00:00: mouth [place] 00 needed for Medical Erectile Branch dysfunctio n. tadalafiL 2020-05 Yes [id number] 20mg Take 1 U nivers (CIALIS) 20 2-08 tablet by ity of mg tablet 00:00: mouth [place] 00 needed for Medical Erectile Branch dysfunctio n. tadalafiL 2020-05 Yes [id number] 20mg Take 1 U nivers (CIALIS) 20 2-08 tablet by ity of mg tablet 00:00: mouth [place] 00 needed for Medical Erectile Branch dysfunctio n. tadalafiL 2020-05 Yes [id number] 20mg Take 1 U nivers (CIALIS) 20 2-08 tablet by ity of mg tablet 00:00: mouth [place] 00 needed for Medical Erectile Branch dysfunctio n. tadalafiL 2020-05- No [id number] 20mg Take 1 Univers (CIALIS) 20 2-08 03-03 tablet by it y of mg tablet 00:00: 00:00 mouth as [place] 00 :00 needed for Medical Erectile Branch dysfunctio n. furosemide 2020-05- No [id number] 40mg Take 1 Univers (LASIX) 40 2-08 08-17 tablet by ity of mg tablet 00:00: 00:00 mouth [place] 00 :00 daily. Medical Branch furosemide 2020-05- No [id number] 40mg Take 1 Univers (LASIX) 40 2-08 08-17 tablet by ity of mg tablet 00:00: 00:00 mouth [place] 00 :00 daily. Medical Branch insulin 2020-05 Yes [id number] 20U inject 20 Univers regular 1-12 Units ity of human 00:00: under the [place] (NOVOLIN R 00 skin 2 Medical REGULAR (two) Branch U-100 times INSULN) 100 daily unit/mL before injection breakfast and dinner. insulin 2020-05 Yes [id number] 20U inject 20 Univers regular 1-12 Units ity of human 00:00: under the [place] (NOVOLIN R 00 skin 2 Medical REGULAR (two) Branch U-100 times INSULN) 100 daily unit/mL before injection breakfast and dinner. insulin 2020-05 Yes [id number] 20U inject 20 Univers regular 1-12 Units ity of human 00:00: under the [place] (NOVOLIN R 00 skin 2 Medical REGULAR (two) Branch U-100 times INSULN) 100 daily unit/mL before injection breakfast and dinner. insulin 2020-05 Yes [id number] 20U inject 20 Univers regular 1-12 Units ity of human 00:00: under the [place] (NOVOLIN R 00 skin 2 Medical REGULAR (two) Branch U-100 times INSULN) 100 daily unit/mL before injection breakfast and dinner. insulin 2020-05 Yes [id number] 20U inject 20 Univers regular 1-12 Units ity of human 00:00: under the [place] (NOVOLIN R 00 skin 2 Medical REGULAR (two) Branch U-100 times INSULN) 100 daily unit/mL before injection breakfast and dinner. insulin 2020-05 Yes [id number] 20U inject 20 Univers regular 1-12 Units ity of human 00:00: under the [place] (NOVOLIN R 00 skin 2 Medical REGULAR (two) Branch U-100 times INSULN) 100 daily unit/mL before injection breakfast and dinner. insulin 2020-05 Yes [id number] 20U inject 20 Univers regular 1-12 Units ity of human 00:00: under the [place] (NOVOLIN R 00 skin 2 Medical REGULAR (two) Branch U-100 times INSULN) 100 daily unit/mL before injection breakfast and dinner. insulin 2020-05- No [id number] 20U inject 20 Univers regular 1-12 03-03 Units ity of human 00:00: 00:00 under the [place] (NOVOLIN R 00 :00 skin 2 Medical REGULAR (two) Branch U-100 times INSULN) 100 daily unit/mL before injection breakfast and dinner. metoprolol 2020-05- No Univer s tartrate 50 0-17 ity of mg tablet 00:00: 00:00 [place] 00 :00 Medical Branch pravastatin 2020-05- No Unive rs 80 mg -17 ity of tablet 00:00: 00:00 00 :00 Medical Branch lisinopriL 2020-05- No Univer s 40 mg 0-17 ity of tablet 00:00: 00:00 [place] 00 :00 Medical Branch verapamiL 2020-05- No Univers 360 mg 24 0-17 ity of hr capsule 00:00: 00:00 [place] 00 :00 Medical Branch metoprolol 2020-05- No Univer s tartrate 50 0 08-17 ity of mg tablet 00:00: 00:00 [place] 00 :00 [facility] Branch pravastatin 2020-05- No Unive rs 80 mg 12-30 ity of tablet 00:00: 00:00 [place] 00 :00 [facility] Branch lisinopriL 2020-05- No Univer s 40 mg 12-30 ity of tablet 00:00: 00:00 [place] 00 :00 [facility] Branch verapamiL 2020-05- No Univers 360 mg 24 12-30 ity of hr capsule 00:00: 00:00 [place] 00 :00 [facility] Immunizations Ordered Filled Date Status Comments Source Immunization Name Immunization Name SARS-COV-2 COVID-19 2020-11-02 Completed Unive rsity of VACCINE - (MODERNA) 00:00:[address] [facility] SARS-COV-2 COVID-19 2020-11-02 Completed Unive rsity of VACCINE - (MODERNA) 00:00:[address] [facility] SARS-COV-2 COVID-19 2020-11-02 Completed Unive rsity of VACCINE - (MODERNA) 00:00:[address] [facility] SARS-COV-2 COVID-19 2020-11-02 Completed Unive rsity of VACCINE - (MODERNA) 00:00:[address] [facility] SARS-COV-2 COVID-19 2020-11-02 Completed Unive rsity of VACCINE - (MODERNA) 00:00:[address] [facility] SARS-COV-2 COVID-19 2020-10-02 Completed Unive rsity of VACCINE - (MODERNA) 00:00:[address] [facility] SARS-COV-2 COVID-19 2020-10-02 Completed Unive rsity of VACCINE - (MODERNA) 00:00:[address] [facility] SARS-COV-2 COVID-19 2020-10-02 Completed Unive rsity of VACCINE - (MODERNA) 00:00:[address] [facility] SARS-COV-2 COVID-19 2020-10-02 Completed Unive rsity of VACCINE - (MODERNA) 00:00:[address] [facility] SARS-COV-2 COVID-19 2020-10-02 Completed Unive rsity of VACCINE - (MODERNA) 00:00:[address] [facility] SARS-COV-2 COVID-19 Unknown Completed Unive rsity of VACCINE - (MODERNA) [facility] SARS-COV-2 COVID-19 Unknown Completed Unive rsity of VACCINE - (MODERNA) [facility] Branch Vital Signs Vital Name Observation Time Observation Value Comments Source Systolic blood 2022-11-17 18:05:00 137 mm[Hg] Univer sity of pressure [facility] Branch Diastolic blood 2022-11-17 18:05:00 61 mm[Hg] Unive rsity of pressure [place] [facility] Heart rate 2022-11-17 18:05:00 85 /min Universi ty of [facility] Body temperature 2022-11-17 18:05:00 36.44 Yancy Univ ersity of [facility] Body weight 2022-11-17 18:05:00 125.646 kg Universi ty of [place] [facility] [place] BMI 2022-11-17 18:05:00 37.57 kg/m2 Universi ty of [facility] Systolic blood 2022-10-13 19:06:00 132 mm[Hg] Univer sity of pressure [place] [facility] Diastolic blood 2022-10-13 19:06:00 60 mm[Hg] Unive rsity of pressure [place] [facility] Heart rate 2022-10-13 19:06:00 77 /min Universi ty of [facility] Body temperature 2022-10-13 19:06:00 36.72 Yancy Univ ersity of [facility] Oxygen saturation in 2022-10-13 19:06:00 97 /min University of Arterial blood by [place] [facility] Pulse oximetry Branch Systolic blood 2022-09-07 17:15:00 178 mm[Hg] Univer sity of pressure [place] [facility] Diastolic blood 2022-09-07 17:15:00 68 mm[Hg] Unive rsity of pressure [place] [facility] Heart rate 2022-09-07 17:15:00 81 /min Universi ty of [place] [facility] Respiratory rate 2022-09-07 17:15:00 25 /min Univ ersity of [place] [facility] Oxygen saturation in 2022-09-07 17:15:00 94 /min University of Arterial blood by [place] [facility] tayo Pulse oximetry Branch Body temperature 2022-09-07 17:00:00 36.11 [place] Univ ersity of [place] [facility] Body weight 2022-09-07 10:45:00 137.032 kg Universi ty of [place] [facility] BMI 2022-09-07 10:45:00 40.97 kg/m2 Universi ty of [place] [facility] Body height 2022-08-27 23:27:00 182.9 cm Universi ty of [place] [facility] Systolic blood 2022-07-16 18:31:00 125 mm[Hg] Univer sity of pressure [place] [facility] Diastolic blood 2022-07-16 18:31:00 48 mm[Hg] Unive rsity of pressure [facility] Heart rate 2022-07-16 18:31:00 57 /min Universi ty of [facility] Body temperature 2022-07-16 18:31:00 37.06 Yancy Univ ersity of [facility] Respiratory rate 2022-07-16 18:31:00 16 /min Univ ersity of [facility] Oxygen saturation in 2022-07-16 18:31:00 94 /min [facility] Arterial blood by [facility] Pulse oximetry Branch Body weight 2022-07-16 08:59:00 136.986 kg Universi ty of [place] [facility] BMI 2022-07-16 08:59:00 40.96 kg/m2 Universi ty of [place] [facility] Body height 2022-07-16 02:04:00 182.9 cm Universi ty of [place] [facility] Systolic blood 2021-12-30 21:23:00 176 mm[Hg] Univer sity of pressure [facility] Branch Diastolic blood 2021-12-30 21:23:00 69 mm[Hg] Unive rsity of pressure [facility] Branch Heart rate 2021-12-30 21:22:00 60 /min [facility]i ty [facility] [place] [facility] Body height 2021-12-30 21:22:00 182.9 cm [facility] [place] [facility] Body weight 2021-12-30 21:22:00 135.172 kg [facility] [place] [facility] BMI 2021-12-30 21:22:00 40.42 kg/m2 [facility] [place] [facility] Procedures Procedure Date / Time Performing Clinician Source Performed HOME HEALTH - OTHER 2023-01-31 05:01:00 [facility] [place] [facility] SCANNED LAB RESULTS 2022-12-03 05:01:00 [facility] [place] EXTERNAL PROVIDER RECORDS 2022-11-22 05:01:00 Doctor Unassigned, [facility] Name [facility] HE[facility] - OTHER 2022-11-11 05:01:00 [facility] Medical [place] MEDICAL RELEASE/CLEARANCE 2022-11-03 05:01:00 Doctor Mayrassigned, [facility] FORMS [place] [facility] [place] ASSIGNMENT OF BENEFITS 2022-10-13 19:02:26 [facility] - OTHER 2022-10-06 05:01:00 Doctor Mayrassethel [facility] POCT GLUCOSE (AUTOMATED) 2022-09-07 16:55:00 Tevin Coley [facility] POCT GLUCOSE (AUTOMATED) 2022-09-07 12:48:00 Tevin Coley [facility] CBC WITHOUT DIFF 2022-09-07 09:29:00 [facility] 2022-09-07 09:29:00 Tevin Coley [facility] MAGNESIUM 2022-09-07 09:29:00 Tevin Coley [facility] BASIC METABOLIC PANEL (NA, 2022-09-07 09:29:00 Tevin Coley [facility] K, CL, CO2, GLUCOSE, BUN, Medica l Branch CREATININE, [place]) POCT GLUCOSE (AUTOMATED) 2022-09-07 01:19:00 Tevin Coley [facility] POCT GLUCOSE (AUTOMATED) 2022-09-06 21:38:00 Tevin Coley [facility] POCT GLUCOSE (AUTOMATED) 2022-09-06 16:29:00 Tevin Coley [facility] POCT GLUCOSE (AUTOMATED) 2022-09-06 12:37:00 Tevin Coley [facility] CBC WITHOUT DIFF 2022-09-06 08:54:00 [facility] 2022-09-06 08:54:00 Tevin Coley [facility] MAGNESIUM 2022-09-06 08:54:00 Vianca [facility] FERRITIN SERUM 2022-09-06 08:54:00 Ovjhon [facility] IRON 2022-09-06 08:54:00 Ovjhon [facility] TOTAL IRON BINDING 2022-09-06 08:54:00 Vianca [facility] BASIC METABOLIC PANEL (NA, 2022-09-06 08:54:00 Tevin Coley [facility] K, CL, CO2, GLUCOSE, BUN, Medica l Branch CREATININE, [place]) POCT GLUCOSE (AUTOMATED) 2022-09-06 00:42:00 Tevin Coley [facility] POCT GLUCOSE (AUTOMATED) 2022-09-05 21:19:00 Tevin Coley [facility] POCT GLUCOSE (AUTOMATED) 2022-09-05 16:22:00 Tevin Coley [facility] POCT GLUCOSE (AUTOMATED) 2022-09-05 12:54:00 [facility] 2022-09-05 10:06:00 Vianca [facility] N-TERMINAL PRO-BNP 2022-09-05 10:06:00 Vianca [facility] MAGNESIUM 2022-09-05 10:06:00 [facility] (NA, 2022-09-05 10:06:00 Tevin Coley [facility] K, CL, CO2, GLUCOSE, BUN, Medica l Branch CREATININE, [place]) POCT GLUCOSE (AUTOMATED) 2022-09-05 05:39:00 Tevin Coley [facility] POCT GLUCOSE (AUTOMATED) 2022-09-05 02:33:00 Vianca Tevin [facility] POCT GLUCOSE (AUTOMATED) 2022-09-04 21:37:00 Tevin Coley [facility] POCT GLUCOSE (AUTOMATED) 2022-09-04 16:30:00 [facility] 2022-09-04 12:24:00 OvTevin ferreira [facility] N-TERMINAL PRO-BNP 2022-09-04 08:48:00 Ovjhon [facility] MAGNESIUM 2022-09-04 08:48:00 Ovjhon [facility] BASIC METABOLIC PANEL (NA, 2022-09-04 08:48:00 Ovjhon, Tevin Whittakre [facility] K, CL, CO2, GLUCOSE, BUN, Medica l Branch CREATININE, CA) CBC WITHOUT DIFF 2022-09-04 08:48:00 Ovjhon [facility] POCT GLUCOSE (AUTOMATED) 2022-09-04 01:18:00 OvTevin ferreira [facility] POCT GLUCOSE (AUTOMATED) 2022-09-03 21:08:00 OvTevin ferreira [facility] POCT GLUCOSE (AUTOMATED) 2022-09-03 16:46:[address] [facility] 2022-09-03 14:46:00 Ovjhon Tevin [facility] POCT GLUCOSE (AUTOMATED) 2022-09-03 12:03:00 OvTevin ferreira [facility] POCT GLUCOSE (AUTOMATED) 2022-09-03 09:04:00 OvTevin ferreira [facility] N-TERMINAL PRO-BNP 2022-09-03 08:11:00 Ovjhon [facility] MAGNESIUM 2022-09-03 08:11:00 Ovjhon [facility] BASIC METABOLIC PANEL (NA, 2022-09-03 08:11:00 OvTevin ferreira [facility] K, CL, CO2, GLUCOSE, BUN, Medica l Branch CREATININE, CA) CBC WITHOUT DIFF 2022-09-03 08:11:00 Ovjhon [facility] POCT GLUCOSE (AUTOMATED) 2022-09-03 04:32:00 Tevin Coley [facility] POCT GLUCOSE (AUTOMATED) 2022-09-02 21:37:00 Tevin Coley [facility] POCT GLUCOSE (AUTOMATED) 2022-09-02 16:58:00 Tevin Coley [facility] ACUTE CARE ARTERIAL BLOOD 2022-09-02 16:46:00 Tevin Coley [facility] TRANSTHORACIC ECHO (TTE) 2022-09-02 15:58:00 OvTevin ferreira [facility] LIMITED W/ DOPPLER, COLOR Medica l Branch AND CONTRAST N-TERMINAL PRO-BNP 2022-09-02 13:29:00 Sean Bermudez K.HStanley [facility] TROPONIN I 2022-09-02 13:29:00 Sean Bermudez K.HStanley [facility] COMP. METABOLIC PANEL 2022-09-02 13:29:00 Sean Bermudez K.HStanley [facility] ([id number]) [facility] CBC WITHOUT DIFF 2022-09-02 13:29:00 Sean Bermudez K.[facility]Stan[facility] HB ECG ROUTINE & RHYTHM 2022-09-02 13:16:30 Sean Bermudez K.HStanley [facility] POCT GLUCOSE (AUTOMATED) 2022-09-02 05:08:00 Tevin Coley [facility] POCT GLUCOSE (AUTOMATED) 2022-09-02 02:22:00 Tevin Coley [facility] CBC WITH DIFF 2022-09-01 23:48:00 Vianca [facility] TROPONIN I 2022-09-01 23:48:00 Vianca [facility] BASIC METABOLIC PANEL (NA, 2022-09-01 23:48:00 Tevin Coley [facility] K, CL, CO2, GLUCOSE, BUN, Medica l Branch CREATININE, CA) XR CHEST 1 VW 2022-09-01 22:43:57 Araceli Parada [facility] ACUTE CARE ARTERIAL BLOOD 2022-09-01 22:30:00 Araceli Parada [facility] POCT GLUCOSE (AUTOMATED) 2022-09-01 21:41:00 Ronald Scott [facility] POCT GLUCOSE (AUTOMATED) 2022-09-01 16:47:00 Ronald Scott [facility] POCT GLUCOSE (AUTOMATED) 2022-09-01 13:26:00 Ronald Scott [facility] N-TERMINAL PRO-BNP 2022-09-01 10:42:00 Nikunj [facility] MAGNESIUM 2022-09-01 10:42:00 Nikunj [facility] BASIC METABOLIC PANEL (NA, 2022-09-01 10:42:00 Sheba Calvin [facility] K, CL, CO2, GLUCOSE, BUN, Medica l Branch CREATININE, CA) POCT GLUCOSE (AUTOMATED) 2022-09-01 02:27:00 Ronald Scott [facility] POCT GLUCOSE (AUTOMATED) 2022-08-31 22:02:00 Ronald Scott [facility] POCT GLUCOSE (AUTOMATED) 2022-08-31 17:55:00 Ronald Scott [facility] XR CHEST 1 VW 2022-08-31 17:35:34 Nikunj [facility] POCT GLUCOSE (AUTOMATED) 2022-08-31 13:22:00 Ronald Scott [facility] CBC WITH DIFF 2022-08-31 09:52:00 Darren Vegas [facility] BASIC METABOLIC PANEL (NA, 2022-08-31 09:52:00 Darren Vegas [facility] K, CL, CO2, GLUCOSE, BUN, Medica l Branch CREATININE, CA) POCT GLUCOSE (AUTOMATED) 2022-08-31 09:18:00 Ronald Scott [facility] POCT GLUCOSE (AUTOMATED) 2022-08-31 04:55:00 Ronald Scott [facility] POCT GLUCOSE (AUTOMATED) 2022-08-31 01:45:00 Ronald Scott [facility] POCT GLUCOSE (AUTOMATED) 2022-08-30 22:07:00 Ronald Scott [facility] IONIZED CALCIUM 2022-08-30 17:55:00 Ronald [facility] POCT GLUCOSE (AUTOMATED) 2022-08-30 17:21:00 Ronald Scott [facility] POCT GLUCOSE (AUTOMATED) 2022-08-30 13:52:00 Ronald Scott [facility] CBC WITH DIFF 2022-08-30 10:20:00 [facility] BASIC METABOLIC PANEL (NA, 2022-08-30 10:20:00 [facility], CO2, GLUCOSE, BUN, Medica l Branch CREATININE, CA) POCT GLUCOSE (AUTOMATED) 2022-08-30 00:59:00 Ronald Scott [facility] POCT GLUCOSE (AUTOMATED) 2022-08-29 22:25:00 Ronald Scott [facility] IONIZED CALCIUM 2022-08-29 17:15:00 Ronald Scott [facility] POCT GLUCOSE (AUTOMATED) 2022-08-29 17:10:00 Ronald Scott [facility] POCT GLUCOSE (AUTOMATED) 2022-08-29 13:21:00 Ronald Scott [facility] CBC WITH DIFF 2022-08-29 10:44:00 [facility] BASIC METABOLIC PANEL (NA, 2022-08-29 10:44:00 [facility], CO2, GLUCOSE, BUN, Medica l Branch CREATININE, CA) POCT GLUCOSE (AUTOMATED) 2022-08-29 01:43:00 Ronald Scott [facility] POCT GLUCOSE (AUTOMATED) 2022-08-28 22:03:00 Ronald Scott [facility] BLOOD CULTURE SCREEN 2022-08-28 20:20:00 Darren Vegas [facility] POCT GLUCOSE (AUTOMATED) 2022-08-28 16:51:00 Ronald Scott [facility] POCT GLUCOSE (AUTOMATED) 2022-08-28 12:12:00 [place], Ronald [facility] CBC WITH DIFF 2022-08-28 08:18:00 Mike [facility] BASIC METABOLIC PANEL (NA, 2022-08-28 08:18:00 Chadwick Mckeon [facility] K, CL, CO2, GLUCOSE, BUN, Medica l Branch CREATININE, CA) POCT GLUCOSE (AUTOMATED) 2022-08-28 04:46:00 Ronald Scott [facility] PNEUMOCOCCAL ANTIGEN 2022-08-28 03:52:00 Ronald Scott [facility] PROCALCITONIN 2022-08-28 01:58:00 Ronald Scott [facility] RESPIRATORY PANEL BY PCR 2022-08-28 01:58:00 Ronald Scott [facility] CREATINE KINASE 2022-08-28 01:58:[facility] 2022-08-28 01:58:00 Mike [facility] POCT GLUCOSE (AUTOMATED) 2022-08-28 01:42:00 Ronald Scott [facility] CT THORAX WO CONTRAST 2022-08-27 19:15:00 Ronald Scott [facility] XR FOREARM 2 VW RIGHT 2022-08-27 17:04:44 Emily Recinos [facility] XR WRIST 3+ VW RIGHT 2022-08-27 17:04:44 Emily Recinos [facility] XR CHEST 1 VW 2022-08-27 16:31:51 Emily Recinos [facility] HB ECG ROUTINE & RHYTHM 2022-08-27 16:20:55 Emily Recinos [facility] URINALYSIS 2022-08-27 16:18:00 Emily Recinos [facility] RAPID INFLUENZA A/B 2022-08-27 16:18:00 Emily Recinos [facility] COVID-19 (ID NOW RAPID 2022-08-27 16:18:00 Emily Recinos [facility] Medical Branch LAB ONLY COVID 2022-08-27 16:18:00 Emily Recinos [facility] INTERPRETATION [facility] TROPONIN I 2022-08-27 16:18:00 Emily Recinos [facility] COMP. METABOLIC PANEL 2022-08-27 16:18:00 Emily Recinos [facility] ([id number]) [facility] CBC WITH DIFF 2022-08-27 16:18:00 Emily Recinos [facility] POCT GLUCOSE (AUTOMATED) 2022-07-16 18:31:00 Rob Degroot iversity [facility] POCT GLUCOSE (AUTOMATED) 2022-07-16 13:08:00 Rob Degroot iversity [facility] PHOSPHORUS 2022-07-16 10:03:00 Vern [facility] MAGNESIUM 2022-07-16 10:03:00 Vern [facility] BASIC METABOLIC PANEL (NA, 2022-07-16 10:03:00 Ravinder Porras [facility] K, CL, CO2, GLUCOSE, BUN, Medica l Branch CREATININE, CA) CBC WITH DIFF 2022-07-16 10:03:00 Vern [facility] POCT GLUCOSE (AUTOMATED) 2022-07-16 03:21:00 Rob Degroot [facility] POCT GLUCOSE (AUTOMATED) 2022-07-15 22:37:00 [facility] 2022-07-15 17:44:00 [facility]ST 1 VW 2022-07-15 15:47:20 Jose [facility] PHOSPHORUS 2022-07-15 11:49:00 Vern [facility] MAGNESIUM 2022-07-15 11:49:00 Vern [facility] BASIC METABOLIC PANEL (NA, 2022-07-15 11:49:00 Ravinder Porras [facility] K, CL, CO2, GLUCOSE, BUN, Medica l Branch CREATININE, CA) CBC WITH DIFF 2022-07-15 11:49:00 Vern [facility] POCT GLUCOSE (AUTOMATED) 2022-07-15 02:49:00 [facility]) 2022-07-14 23:11:00 [facility] ([facility]OMATED) 2022-07-14 18:04:00 [facility] PO[facility]SE (AUTOMATED) 2022-07-14 13:36:00 [facility] 2022-07-14 09:52:00 Vern [facility] MAGNESIUM 2022-07-14 09:52:00 Vern [facility] BASIC METABOLIC PANEL (NA, 2022-07-14 09:52:00 Ravinder Porras [facility] K, CL, CO2, GLUCOSE, BUN, Medica l Branch CREATININE, CA) INTACT PTH CALCIUM GROUP 2022-07-14 09:52:00 Johnson Menendez [facility] VANCOMYCIN RANDOM LEVEL 2022-07-14 09:52:00 Brandy De Paz [facility] CBC WITH DIFF 2022-07-14 09:52:00 [facility]-OH 2022-07-14 09:52:00 Johnson Menendez [facility] POCT GLUCOSE (AUTOMATED) 2022-07-14 09:50:00 [facility] ([facility]) 2022-07-14 05:45:00 [facility]SE ([facility]OMATED) 2022-07-14 03:13:00 [facility] PO[facility]SE (AUTOMATED) 2022-07-14 03:12:00 [facility] PO[facility]SE ([facility]OMATED) 2022-07-14 03:09:00 [facility] PO[facility]SE (AUTOMATED) 2022-07-14 02:54:00 [facility] US RETROPERITONEAL LIMITED 2022-07-13 23:24:29 Johnson Menendez [facility] CREATININE, URINE RANDOM 2022-07-13 22:51:00 Johnson Menendez [facility] UREA NITROGEN, URINE 2022-07-13 22:51:[address] [facility] POTASSIUM, URINE RANDOM 2022-07-13 22:51:00 Johnson Menendez [facility] SODIUM, URINE RANDOM 2022-07-13 22:51:00 Johnson Menendez [facility] POCT GLUCOSE (AUTOMATED) 2022-07-13 22:24:00 [facility] PO[facility]SE (AUTOMATED) 2022-07-13 17:37:00 [facility] PO[facility]SE (AUTOMATED) 2022-07-13 13:50:00 [facility] PHOS[facility]US 2022-07-13 10:12:00 Vern [facility] CREATINE KINASE 2022-07-13 10:12:00 Gemma [facility] MAGNESIUM 2022-07-13 10:12:00 Vern [facility] BASIC METABOLIC PANEL (NA, 2022-07-13 10:12:00 Ravinder Porras [facility] K, CL, CO2, GLUCOSE, BUN, Medica l Branch CREATININE, CA) CBC WITH DIFF 2022-07-13 10:12:00 Vern [facility] BLOOD CULTURE SCREEN 2022-07-13 01:50:00 Rob Degroot [facility] CBC WITH DIFF 2022-07-13 01:50:00 Rob Degroot [facility] POCT GLUCOSE (AUTOMATED) 2022-07-13 01:50:00 [facility] PO[facility]SE (AUTOMATED) 2022-07-12 22:59:00 Eyad Garcia [facility] TRANSTHORACIC ECHO (TTE) 2022-07-12 20:29:00 Ravinder Porras [facility] COMPLETE W/ CONTRAST Medical [facility] CREATINE KINASE 2022-07-12 18:15:00 Vern [facility] BASIC METABOLIC PANEL (NA, 2022-07-12 18:15:00 Ravinder Porras [facility] K, CL, CO2, GLUCOSE, BUN, Medica l Branch CREATININE, CA) N-TERMINAL PRO-BNP 2022-07-12 18:15:00 Ravinder Porras [facility] POCT GLUCOSE (AUTOMATED) 2022-07-12 18:09:00 Eyad Garcia [facility] AC PANEL 20 + LACTIC ACID 2022-07-12 18:04:00 Ravinder Porras [facility] XR CHEST 1 VW 2022-07-12 15:57:00 Vern [facility] POCT GLUCOSE (AUTOMATED) 2022-07-12 13:31:00 Eyad Garcia [facility] POCT GLUCOSE (AUTOMATED) 2022-07-12 02:53:00 Eyad Garcia [facility] POCT GLUCOSE (AUTOMATED) 2022-07-11 23:34:00 Eyad Garcia [facility] URINE CULTURE 2022-07-11 23:28:00 [facility] URINALYSIS 2022-07-11 23:27:00 Claude [facility] POCT GLUCOSE (AUTOMATED) 2022-07-11 21:36:00 Eyad Garcia [facility] BASIC METABOLIC PANEL (NA, 2022-07-11 18:07:00 Reta Arce [facility] K, CL, CO2, GLUCOSE, BUN, Medica l Branch CREATININE, CA) CBC WITH DIFF 2022-07-11 18:07:00 Claude [facility] POCT GLUCOSE (AUTOMATED) 2022-07-11 17:43:00 Eyad [facility] POCT GLUCOSE (AUTOMATED) 2022-07-11 14:40:00 Eyad Garcia [facility] POCT GLUCOSE (AUTOMATED) 2022-07-11 13:14:00 Eyad Garcia [facility] POCT GLUCOSE (AUTOMATED) 2022-07-11 02:54:00 Eyad Garcia [facility] POCT GLUCOSE (AUTOMATED) 2022-07-10 23:11:00 Eyad Garcia [facility] POCT GLUCOSE (AUTOMATED) 2022-07-10 18:05:00 Eyad Garcia [facility] POCT GLUCOSE (AUTOMATED) 2022-07-10 14:25:00 Eyad Garcia [facility] POCT GLUCOSE (AUTOMATED) 2022-07-10 02:53:00 Eyad Garcia [facility] POCT GLUCOSE (AUTOMATED) 2022-07-09 21:43:00 Eyad Garcia [facility] XR CHEST 1 VW 2022-07-09 19:41:27 [facility] POCT GLUCOSE (AUTOMATED) 2022-07-09 18:09:00 Eyad Garcia [facility] POCT GLUCOSE (AUTOMATED) 2022-07-09 13:57:00 Eyad Garcia [facility] POCT GLUCOSE (AUTOMATED) 2022-07-09 07:25:00 Eyad Garcia [facility] POCT GLUCOSE (AUTOMATED) 2022-07-09 03:38:00 Eyad Garcia [facility] POCT GLUCOSE (AUTOMATED) 2022-07-08 23:59:00 Eyad Garcia [facility] POCT GLUCOSE (AUTOMATED) 2022-07-08 22:44:00 Eyad Garcia [facility] POCT GLUCOSE (AUTOMATED) 2022-07-08 17:29:00 Eyad Garcia [facility] POCT GLUCOSE (AUTOMATED) 2022-07-08 13:21:00 [facility]) 2022-07-08 03:18:00 Eyad Garcia Kelley [facility] POCT GLUCOSE (AUTOMATED) 2022-07-07 22:29:00 Eyad Garcia Kelley [facility] POCT GLUCOSE (AUTOMATED) 2022-07-07 17:38:00 Eyad Garcia Kelley [facility] POCT GLUCOSE (AUTOMATED) 2022-07-07 14:58:00 Eyad Garcia Kelley [facility] POCT GLUCOSE (AUTOMATED) 2022-07-07 13:56:00 Eyad Garcia [facility] CREATINE KINASE 2022-07-07 09:17:00 Claude [facility] BASIC METABOLIC PANEL (NA, 2022-07-07 09:17:00 Claude [facility] K, CL, CO2, GLUCOSE, BUN, Medica l Branch CREATININE, CA) CBC WITHOUT DIFF 2022-07-07 09:17:00 Claude [facility] N-TERMINAL PRO-BNP 2022-07-07 09:17:00 Claude [facility] POCT GLUCOSE (AUTOMATED) 2022-07-07 02:30:00 Eyad Garcia [facility] POCT GLUCOSE (AUTOMATED) 2022-07-06 22:51:00 Eyad Garcia [facility] DUPLEX VENOUS LEGS 2022-07-06 21:59:32 Claude [facility] BILATERAL - BY VASCULAR Medical Branch LAB POCT GLUCOSE (AUTOMATED) 2022-07-06 18:04:00 Eyad Garcia [facility] POCT GLUCOSE (AUTOMATED) 2022-07-06 13:39:00 Eyad Garcia [facility] CREATINE KINASE 2022-07-06 12:01:00 [facility]OL[facility] 2022-07-06 12:01:00 Eyad Garcia [facility] ([id number]) Medical Branch POCT GLUCOSE (AUTOMATED) 2022-07-06 11:42:00 Eyad Garcia [facility] POCT GLUCOSE (AUTOMATED) 2022-07-06 11:13:00 Eyad Garcia [facility] POCT GLUCOSE (AUTOMATED) 2022-07-06 10:42:00 Eyad Garcia [facility] POCT GLUCOSE (AUTOMATED) 2022-07-06 10:20:00 Eyad Garcia [facility] POCT GLUCOSE (AUTOMATED) 2022-07-06 04:37:00 Katlyn Mccormack [facility] BLOOD CULTURE SCREEN 2022-07-06 04:17:00 Katlyn Mccormack [facility] XR ANKLE 3+ VW RIGHT 2022-07-06 04:10:10 Katlyn Mccormack [facility] CREATINE KINASE 2022-07-06 04:03:00 Katlyn Mccormack [facility] COMP. METABOLIC PANEL 2022-07-06 04:03:00 Katlyn Mccormack [facility] ([id number]) [facility] CBC WITH DIFF 2022-07-06 04:03:00 Katlyn Mccormack [facility] GLYCOSYLATED HEMOGLOBIN 2022-07-06 04:03:00 Eyad Garcia [facility] (A1C) [facility] URINALYSIS 2022-07-06 04:03:00 Katlyn Mccormack [facility] HB ECG ROUTINE & RHYTHM 2022-07-06 03:34:11 Katlyn Mccormack [facility] POCT GLUCOSE (AUTOMATED) 2022-07-06 03:21:00 [facility] 2022-07-05 06:01:00 Doctor Merritt, [facility] DOCUMENTS [place] [facility] EMERGENCY SERVICES 2022-07-05 06:01:00 Doctor Merritt, [facility] AGREEMENTS AND [place] [facility] AUTHORIZATIONS INSURANCE CORRESPONDENCE 2022-02-19 05:01:00 Doctor Merritt, [facility] [place] [facility] INSURANCE CORRESPONDENCE 2022-02-05 05:01:00 Doctor Merritt, [facility] Name [facility] INSURANCE CORRESPONDENCE 2022-01-01 05:01:00 Doctor Merritt, [facility] Name [facility] POCT HEMOGLOBIN A1C TEST 2021-12-30 00:00:00 Mallory Cameron [facility] Encounters Start End Encounter Admission Attending Care Care Encounter Source Date/Time Date/Time Type Type Clinicians Facility Department ID 2022-12-08 Outpatient [facility] [id number] Common 13:40:01 [id number] [facility] 2023-02-16 2023-02-16 Outpatient Rachelle CAMERON [facility] [id number] Univers 16:15:00 16:15:00 MALLORY hauser [facility] 2023-01-31 2023-01-31 Orders Doctor ERNESTO 1.2.840.114 [id number] Univers 00:00:00 00:00:00 Only Unassigned, MIGUELANGEL 350.1.13.10 ity of [place] [facility] 4.2.7.2.686 Tristen as [phone] [address] 2023-01-04 2023-01-04 Telephone [facility] 1.2.840.114 [id number] Univers 00:00:00 00:00:00 [facility] [id number] it y of [place] 4.2.7.2.686 Tristen as CHIKIS?BLEA [phone] [address] MEDICAL OFFICE [facility] 2022-12-06 2022-12-06 Telephone [facility] 1.2.840.114 [id number] Univers 00:00:00 00:00:00 Mallory HEALTH 350.1.13.10 it y [place] 4.2.7.2.686 Tristen as CHIKIS?BLEA [phone] [address] MEDICAL OFFICE BUILDING 2022-12-06 2022-12-06 Telephone [facility] 1.2.840.114 [id number] Univers 00:00:00 00:00:00 Mallory HEALTH 350.1.13.10 it y of [place] 4.2.7.2.686 Tristen as CHIKIS?BLEA [phone] [address] MEDICAL OFFICE [facility] 2022-12-03 2022-12-03 Orders Doctor ERNESTO 1.2.840.114 [id number] Univers 00:00:00 00:00:00 Only Unassigned, MIGUELANGEL [id number] ity of [place] [facility] 4.2.7.2.686 Tristen as [phone] [address] 2022-12-01 2022-12-01 Telephone [facility] 1.2.840.114 [id number] Univers 00:00:00 00:00:00 [facility] [id number] it y of [place] 4.2.7.2.686 Tristen as CHIKIS?BLEA [id number] [address] OFFICE [facility] 2022-11-22 2022-11-22 Orders Doctor OROZCO 1.2.840.114 [id number] Univers 00:00:00 00:00:00 Only Unassigned, MIGUELANGEL 350.1.13.10 ity of [place] [facility] 4.2.7.2.686 Tristen as [phone] [address] 2022-11-17 2022-11-17 Office [facility] 1.2.840.114 [id number] Univers 13:00:00 13:30:00 Visit [facility] 350.1.13.10 it y of [place] 4.2.7.2.686 Tristen as CHIKIS?BLEA [id number] [address] OFFICE [facility] 2022-11-17 2022-11-17 Outpatient [facility] [id number] Univers 13:00:00 13:16:14 MALLORY ity [facility] 2022-11-11 2022-11-11 Orders Doctor ERNESTO 1.2.840.114 [id number] Univers 00:00:00 00:00:00 Only Unassigned, MIGUELANGEL 350.1.13.10 ity of [place] [facility] 4.2.7.2.686 Tristen as [phone] [address] 2022-11-09 2022-11-09 Refill [facility] 1.2.840.114 [id number] Univers 00:00:00 00:00:00 Mallory HEALTH 350.1.13.10 it y [place] 4.2.7.2.686 Tristen as CHIKIS?BLEA [phone] [address] MEDICAL OFFICE [facility] 2022-11-05 2022-11-05 [facility] 1.2.840.114 [id number] Univers 00:00:00 00:00:00 Mallory HEALTH 350.1.13.10 it y [place] 4.2.7.2.686 Tristen as CHIKIS?BLEA [phone] [address] MEDICAL OFFICE [facility] 2022-11-03 2022-11-03 Orders Doctor ERNESTO 1.2.840.114 [id number] Univers 00:00:00 00:00:00 Only Unassigned, MIGUELANGEL 350.1.13.10 ity of [place] [facility] 4.2.7.2.686 Tristen as [phone] [address] 2022-11-01 2022-11-01 [facility] 1.2.840.114 [id number] Univers 00:00:00 00:00:00 [facility] HEALTH 350.1.13.10 it y [place] 4.2.7.2.686 Tristen as CHIKIS?BLEA [id number] [address] MEDICAL OFFICE [facility] 2022-10-20 2022-10-20 Telephone [facility] 1.2.840.114 [id number] Univers 00:00:00 00:00:00 [facility] HEALTH 350.1.13.10 it y [place] 4.2.7.2.686 Tristen as CHIKIS?BLEA [phone] [address] MEDICAL OFFICE [facility] 2022-10-19 2022-10-19 [facility] 1.2.840.114 [id number] Univers 00:00:00 00:00:00 Mallory HEALTH 350.1.13.10 it [place] 4.2.7.2.686 Tristen as CHIKIS?BLEA [id number] [address] MEDICAL OFFICE [facility] 2022-10-19 2022-10-19 Telephone [facility] 1.2.840.114 [id number] Univers 00:00:00 00:00:00 [facility] 350.1.13.10 it y [place] 4.2.7.2.686 Tristen as CHIKIS?BLEA [id number] [address] OFFICE [facility] 2022-10-14 2022-10-14 Telephone [facility] [id number] Univers 00:00:00 00:00:00 [facility] [id number] it y of Edward [place] [id number] Tristen as CHIKIS?BLEA [phone] [address] OFFICE [facility] 2022-10-13 2022-10-13 Outpatient R [facility] [id number] [facility] 14:30:00 14:38:45 [place] ity [facility] 2022-10-13 2022-10-13 Office [facility] [id number] [facility] 14:30:00 14:38:45 Visit [facility] 350.1.13.10 it y of [place] 4.2.7.2.686 Trisetn as CHIKIS?BLEA [phone] [address] OFFICE [facility] 2022-10-13 2022-10-13 Orders Doctor OROZCO 1.2.840.114 [id number] Univers 00:00:00 00:00:00 Only Unassigned, MIGUELANGEL 350.1.13.10 ity of [place] [facility] 4.2.7.2.686 Tristen as [phone] [address] 2022-10-06 2022-10-06 Telephone [facility] 1.2.840.114 [id number] Univers 00:00:00 00:00:00 [facility] 350.1.13.10 it y of [place] 4.2.7.2.686 Tristen as CHIKIS?BLEA [id number] [address] MEDICAL OFFICE [facility] 2022-10-06 2022-10-06 Orders Doctor ERNESTO 1.2.840.114 [id number] Univers 00:00:00 00:00:00 Only Unassigned, MIGUELANGEL 350.1.13.10 ity of [place] [facility] 4.2.7.2.686 Tristen as [phone] [facility] [address] 2022-09-15 2022-10-05 Inpatient 3 ELISA Herzog CRD [id number] [facility] 19:56:00 14:19:00 Hossein 0503 Health Rehabil itation Jose Raul adame 2022-09-08 2022-09-08 Transition ROSEANN Guaman 1.2.840.114 [id number] Univers 00:00:00 00:00:00 of Care Steph CALLOWAY 350.1.13.10 i ty of [place]2.7.2.[place] [id number] [facility] [address] 2022-08-27 2022-09-07 Inpatient X VIANCA [facility] [id number] Univers 10:44:00 15:31:00 TEVIN ity of [facility] 2022-08-27 2022-09-07 Hospital Emily Recinos [facility] 1.2.84 0.114 [id number] Univers 10:44:00 15:31:00 Encounter Ronald Scott 350.1.13.10 ity of [place] 4.2.7.2.686 [facility] [phone] [facility] [address] 2022-07-05 2022-07-16 Inpatient X BABA [facility] JACKELINE [id number] Univers 21:19:00 17:02:[address] [facility] 2022-07-05 2022-07-16 [facility] Siobhanadiliatatiana Nnamdimargoth Bueno [facility] 1.2.840. 114 [id number] Univers 21:19:00 17:02:00 Encounter Eyad Garcia [facility] 350.1.13.10 ity of Ravinder Porras 4.2.7.2.686 [place] Rob Degroot [facility] [id number] [address] ([facility]) 2022-05-11 2022-05-11 [facility] 1.2.840.114 [id number] Univers 00:00:00 00:00:00 [facility] 350.1.13.10 it y of [place] 4.2.7.2.686 Tristen as CHIKIS?BLEA [id number] [address] MEDICAL OFFICE [facility] 2022-02-19 2022-02-19 Orders Doctor ERNESTO 1.2.840.114 [id number] Univers 00:00:00 00:00:00 Only Unassigned, MIGUELANGEL 350.1.13.10 ity of [place] [facility] 4.2.7.2.686 Tristen as [id number] [address] 2022-02-05 2022-02-05 Orders Doctor ERNESTO 1.2.840.114 [id number] Univers 00:00:00 00:00:00 Only Unassigned, MIGUELANGEL 350.1.13.10 ity of [place] [facility] 4.2.7.2.686 Tristen as [id number] [address] 2022-01-27 2022-01-27 Outpatient [facility] [id number] Univers 16:00:00 16:00:00 [facility] 2022-01-27 2022-01-27 Outpatient [facility] [id number] Univers 16:00:00 16:00:00 [facility] 2022-01-01 2022-01-01 Orders Doctor OROZCO 1.2.840.114 [id number] Univers 00:00:00 00:00:00 Only Unassigned, MIGUELANGEL 350.1.13.10 ity of [place] [facility]OSP[facility] 4.2.7.2.686 Tristen as [id number] [address] 2021-12-31 2021-12-31 [facility] 1.2.840.114 [id number] Univers 00:00:00 00:00:00 [facility] 350.1.13.10 it y of [place] 4.2.7.2.686 Tristen as CHIKIS?BLEA [id number] [address] MEDICAL OFFICE [facility] 2021-12-30 2021-12-30 [facility] [id number] Univers 16:15:00 16:43:34 MALLORY [facility] 2021-12-30 2021-12-30 Office [facility] 1.2.840.114 [id number] Univers 16:15:00 16:43:34 Visit [facility] 350.1.13.10 it y of [place] 4.2.7.2.686 Tristen as CHIKIS?BLEA [phone] [address] MEDICAL OFFICE [facility] 2021-12-28 2021-12-28 [facility] [id number] Univers 14:15:00 14:15:00 [facility] 2021-12-28 2021-12-28 [facility]patient [facility] [id number] Univers 14:15:00 14:15:00 [facility] 2021-12-15 2021-12-15 Orders Doctor OROZCO 1.2.840.114 [id number] Univers 00:00:00 00:00:00 Only Unassigned, MIGUELANGEL 350.1.13.10 ity of [place] [facility] 4.2.7.2.686 Tristen as [id number] [address] 2021-11-02 2021-11-02 Office [facility] 1.2.840.114 [id number] Univers 15:15:00 16:10:25 Visit [facility] 350.1.13.10 it y of [place] SANCHEZJORGE ALBERTO 4.2.7.2.686 Tristen as CHIKIS?BLEA [id number] [address] MEDICAL OFFICE [facility] 2021-11-02 2021-11-02 Outpatient [facility] [id number] Univers 15:15:00 16:10:25 MALLORY [facility] 2021-11-02 2021-11-02 Outpatient [facility] [id number] Univers 15:15:00 15:15:00 [facility] 2021-10-30 2021-10-30 [facility] 1.2.840.114 [id number] Univers 12:00:00 12:20:00 Care [facility] 350.1.13.10 it y of [place] 4.2.7.2.686 Tristen as CHIKIS?BLEA [phone] Tx tunde ALEJANDRO [address] [place] MEDICAL OFFICE [facility] 2021-10-30 2021-10-30 Outpatient R FELA [facility] [id number] Univers 12:00:00 12:00:00 MIGUEL [facility] 2021-08-18 2021-08-18 Telephone [facility] 1.2.840.114 [id number] Univers 00:00:00 00:00:00 [facility] 350.1.13.10 it y of [place] 4.2.7.2.686 Tristen as CHIKIS?BLEA [id number] Tx tunde ALEJANDRO [address] [place] [address] MEDICAL OFFICE [facility] 2021-08-13 2021-08-13 Telephone [facility] 1.2.840.114 [id number] Univers 00:00:00 00:00:00 [facility] 350.1.13.10 it y of [place] 4.2.7.2.686 Tristen as CHIKIS?BLEA [phone] Tx tunde ALEJANDRO [address] [place] [address] OFFICE [facility] 2021-08-07 2021-08-07 Telephone [facility] 1.2.840.114 [id number] [facility] 00:00:00 00:00:00 [facility] 350.1.13.10 it y of [place] 4.2.7.2.686 Tristen as CHIKIS?BLEA [id number] Tx tunde ALEJANDRO [address] [place] [address] MEDICAL OFFICE [facility] 2021-06-29 2021-06-29 Outpatient R RAKESH [facility] [id number] Univers 14:15:00 15:14:19 [facility]ALLORY [facility] 2021-06-29 2021-06-29 Office [facility] 1.2.840.114 [id number] Univers 14:15:00 15:14:19 Visit [facility] 350.1.13.10 it y of [place] 4.2.7.2.686 Tristen as CHIKIS?BLEA [phone] Tx dical KNEY [address] [place] [address] OFFICE [facility] 2021-06-25 2021-06-25 Outpatient Rachelle CAMERON [facility] [id number] Univers 10:00:00 10:00:00 MALLORY [facility] 2021-06-25 2021-06-25 Outpatient Rachelle CAMERON [facility] [id number] Univers 10:00:00 10:00:00 [facility] 2021-05-25 2021-05-25 Outpatient [facility] [id number] Univers 13:15:00 14:01:29 [facility] 2021-05-25 2021-05-25 [facility] 1.2.840.114 [id number] Univers 13:15:00 13:30:00 [place] [address].1.13.10 it y of [place] [facility] 4.2.7.2.686 Tristen as CHIKIS?BLEA [id number] Tx tunde [address] OFFICE [facility] 2021-05-25 2021-05-25 Outpatient [facility] [id number] Univers 13:15:00 13:15:00 [facility] 2021-04-22 2021-04-22 Outpatient [facility] [id number] Univers 11:00:00 11:28:28 [facility] 2021-04-22 2021-04-22 [facility] 1.2.840.114 [id number] Univers 10:55:26 11:10:26 Visit [place] [address]25.1.13.10 it y of [place] 4.2.7.2.686 Tristen as CHIKIS?BLEA [id number] T[place] mike[address] OFFICE [facility] 2021-04-22 2021-04-22 Outpatient Rachel[facility] [id number] Univers 11:00:00 11:00:00 [facility] 2021-03-27 2021-03-27 Outpatient Rachel[facility] [id number] Univers 13:30:00 14:19:09 [facility] 2021-03-27 2021-03-27 [facility] 1.2.840.114 [id number] Univers 13:40:18 14:10:18 Visit Mallory MARTINEZ 350.1.13.10 it y of [place] 4.2.7.2.686 Tristen as CHIKIS?BLEA [id number] Tx tunde ALEJANDRO [address] [place] [address] MEDICAL OFFICE BUILDING 2021-03-27 2021-03-27 Out[facility] [id number] Univers 13:30:00 13:30:00 MALLORY ity of [facility] 2021-03-27 2021-03-27 Orders Doctor ERNESTO 1.2.840.114 [id number] Univers 00:00:00 00:00:00 Only Unassigned, MIGUELANGEL 350.1.13.10 ity of [place] [facility] 4.2.7.2.686 Tristen as [phone] [facility] [address] [place] 2019-10-08 2019-10-08 Emergency Alverto, TRAUMA 1.2.667.148 [id number] Univers 18:19:03 21:38:00 [facility] 350.1.13.10 [place] [id number] [facility] [address] [place] 2019-10-08 2019-10-08 Emergency X [facility] [id number] Univers 18:19:03 21:38:00 [facility] 2019-07-04 2019-07-04 Outpatient [facility] [id number] [facility] 07:28:00 07:28:00 _J_ 12939 Family Practic e Results Test Description Test Time Test Comments Results Result Comments Source POCT GLUCOSE (AUTOMATED) 2022-09-07 16:57:00 Test Item Value Reference Range Interpretation Comme nts POCT GLU (test code = 1634767438) 189 mg/dL 70-110 H Lab Interpretation (test code = 94815-2) [facility] 13:06:28 Test Item Value Reference Range Interpretation Comments POCT GLU (test code = 7803249132) 162 mg/dL 70-110 H Lab Interpretation (test code = Abnormal 37346-0) [facility] GLUCOSE (AUTOMATED)2022-09-07 01:21:00 Test Item Value Reference Range Interpretation Comments POCT GLU (test code = 8240798941) 232 mg/dL 70-110 H Lab Interpretation (test code = Abnormal 07813-3) [facility] GLUCOSE (AUTOMATED)2022-09-06 21:39:23 Test Item Value Reference Range Interpretation Comments POCT GLU (test code = 7514139775) 195 mg/dL 70-110 H Lab Interpretation (test code = Abnormal 42864-2) [facility] GLUCOSE (AUTOMATED)2022-09-06 16:31:00 Test Item Value Reference Range Interpretation Comments POCT GLU (test code = 2287748610) 128 mg/dL 70-110 H Lab Interpretation (test code = Abnormal 13542-5) [facility] GLUCOSE (AUTOMATED)2022-09-06 12:47:36 Test Item Value Reference Range Interpretation Comments POCT GLU (test code = 1923623593) 129 mg/dL 70-110 H Lab Interpretation (test code = Abnormal 14160-6) [facility] [id number] 12:13:11 Test Item Value Reference Range Interpretation Comments FERRITIN (test code = 522.0 ng/mL 18.0-464.0 H 1096683372) CATA (test code = CATA) Biotin has been reported to cause a negative bias, interpret results relative to patient's use of biotin. Lab Interpretation (test Abnormal code = 96553-2) [facility] CenterTOTAL IRON BINDING [id number] 11:16:47 Test Item Value Reference Range Interpretation Comments TIBC (test code = 7768585926) 153 ug/dL 250-410 L % FE SAT (test code = 3181752690) 31 % 20-50 Lab Interpretation (test code = Abnormal 00891-1) [facility] Center[facility]MINAL [id number] 11:10:06 Test Item Value Reference Range Interpretation Comments NT-proBNP (test code = 84080 pg/mL <=450 H 1804847377) CATA (test code = CATA) Biotin has been reported to cause a negative bias, interpret results relative to patient's use of biotin. Lab Interpretation (test Abnormal code = 27544-5) [facility]UM2023-04-24 11:07:29 Test Item Value Reference Range Interpretation Comments MAGNESIUM (test code = 6542417450) 2.1 mg/dL 1.7-2.4 Lab Interpretation (test code = Normal 00647-4) [facility] (NA, K, CL, CO2, GLUCOSE, BUN, CREATININE, CA)2022-09-06 11:07:09 Test Item Value Reference Range Interpretation Comments NA (test code = 134 mmol/L 135-145 L 9724533566) K (test code = 5.2 mmol/L 3.5-5.0 H 5805681070) CL (test code = 98 mmol/L 98-108 2437167404) CO2 TOTAL (test code = 32 mmol/L 23-31 H 1006641852) AGAP (test code = 4 2-16 0925216125) BUN (test code = 79 mg/dL 7-23 H 6432191201) GLUCOSE (test code = 141 mg/dL 70-110 H 7744339147) CREATININE (test code = 1.65 mg/dL 0.60-1.25 H 3795773298) CALCIUM (test code = 8.2 mg/dL 8.6-10.6 L 5372874869) eGFR (test code = 40.4 mL/min/1.73m2 9786609384) CATA (test code = CATA) Association of Glomerular Filtration Rate (GFR) and Staging of Kidney Disease* + --+ --+ ------+| GFR (mL/min/1.73 m2) ?| With Kidney Damage ?| ?Without Kidney Damage+ --------+ --------+ +| ?>90 ?| ?Stage one ?| ? Normal ?+ ---+ ---+ -------+| ?60-89 ?| ?Stage two ?| ? Decreased GFR ? + --+ --+ ------+| ?30-59 ?| ?Stage three ?| ? Stage three ? + --+ --+ ------+| ?15-29 ?| ?Stage four ? | ? Stage four ?+ ---+ ---+ -------+| ?<15 (or dialysis) ? ?| ?Stage five ? | ? Stage five ?+ ---+ ---+ -------+ *Each stage assumes the associated GFR level has been in effect for at least three months. ?Stages 1 to 5, with or without kidney disease, indicate chronic kidney disease. Notes: Determination of stages one and two (with eGFR >59mL/min/1.73 m2) requires estimation of kidney damage for at least three months as defined by structural or functional abnormalities of the kidney, manifested by either:Pathological abnormalities or Markers of kidney damage (including abnormalities in the composition of the blood or urine or abnormalities in imaging tests). Lab Interpretation Abnormal (test code = 21792-0) [facility] Center[facility]20[facility] 11:06:27 Test Item Value Reference Range Interpretation Comments IRON (test code = 4170253921) 48 ug/dL 50-160 L Lab Interpretation (test code = Abnormal 39497-3) [facility] WITHOUT [id number] 09:28:19 Test Item Value Reference Range Interpretation Comments WBC (test code = 6690-2) 9.85 See_Comment [A utomated message] The system [employer] generated this result transmit anupama reference range : 4.20 - 10.70 10*3/?L. The reference range was not used to interpret this result as normal/abnormal . RBC (test code = 789-8) 3.06 See_Comment L [Au tomated message] The system [employer] generated this result transmit anupama reference range : 4.26 - 5.52 10* 6/?L. The reference r guicho was not used to interpret this result as normal/abnormal . HGB (test code = 718-7) 8.4 g/dL 12.2-16.4 L HCT (test code = 4544-3) 27.3 % 38.4-49.3 L MCH (test code = 785-6) 27.5 pg 26.1-32.7 MCV (test code = 787-2) 89.2 fL 81.7-95.6 MCHC (test code = 786-4) 30.8 g/dL 31.2-35.0 L PLT (test code = 777-3) 221 See_Comment [Au tomated message] The system [employer] generated this result transmit anupama reference range : 150 - 328 10*3/?L. The reference range was not used to interpret this result as normal/abnormal . MPV (test code = 9.1 fL 9.8-13.0 L 60411-4) RDW-CV (test code = 17.0 % 12.1-15.4 H 788-0) RDW-SD (test code = 54.6 fL 38.5-51.6 H 46332-4) NRBC x10^3 (test code = See_Comment [Au tomated message] 7986565065) The system [employer] generated this result transmit anupama reference range : 10*3/?L. The reference range was not used to interpret this result as normal/abnormal . NRBC/100 WBC (test code 0.0 See_Comment [Au tomated message] = 9639076297) The system [employer] generated this result transmit anupama reference range : 0.0 - 10.0 /100 WBC s. The reference r guicho was not used to interpret this result as normal/abnormal . IPF % (test code = 4647647421) Lab Interpretation (test Abnormal code = 71838-9) [facility] GLUCOSE (AUTOMATED)2022-09-06 00:53:18 Test Item Value Reference Range Interpretation Comments POCT GLU (test code = 7791718103) 251 mg/dL 70-110 H Lab Interpretation (test code = Abnormal 06518-0) [facility] GLUCOSE (AUTOMATED)2022-09-05 21:39:55 Test Item Value Reference Range Interpretation Comments POCT GLU (test code = 1322449977) 271 mg/dL 70-110 H Lab Interpretation (test code = Abnormal 61016-8) [facility] GLUCOSE (AUTOMATED)2022-09-05 16:23:58 Test Item Value Reference Range Interpretation Comments POCT GLU (test code = 6695368764) 205 mg/dL 70-110 H Lab Interpretation (test code = Abnormal 17831-0) [facility] GLUCOSE (AUTOMATED)2022-09-05 12:57:55 Test Item Value Reference Range Interpretation Comments POCT GLU (test code = 6030956425) 225 mg/dL 70-110 H Lab Interpretation (test code = Abnormal 51752-8) [facility] GLUCOSE (AUTOMATED)2022-09-05 05:45:41 Test Item Value Reference Range Interpretation Comments POCT GLU (test code = 2461617081) 299 mg/dL 70-110 H Lab Interpretation (test code = Abnormal 58828-8) [facility] GLUCOSE (AUTOMATED)2022-09-05 02:44:31 Test Item Value Reference Range Interpretation Comments POCT GLU (test code = 0475641865) 315 mg/dL 70-110 H Lab Interpretation (test code = Abnormal 29255-7) [facility] GLUCOSE (AUTOMATED)2022-09-04 21:43:28 Test Item Value Reference Range Interpretation Comments POCT GLU (test code = 3645205572) 406 mg/dL 70-110 H Lab Interpretation (test code = Abnormal 11171-6) [facility] GLUCOSE (AUTOMATED)2022-09-04 16:35:07 Test Item Value Reference Range Interpretation Comments POCT GLU (test code = 1797510991) 319 mg/dL 70-110 H Lab Interpretation (test code = Abnormal 50432-9) [facility] GLUCOSE (AUTOMATED)2022-09-04 12:27:35 Test Item Value Reference Range Interpretation Comments POCT GLU (test code = 7359472506) 301 mg/dL 70-110 H Lab Interpretation (test code = Abnormal 65821-8) [facility] GLUCOSE (AUTOMATED)2022-09-04 01:19:42 Test Item Value Reference Range Interpretation Comments POCT GLU (test code = 9958286869) 295 mg/dL 70-110 H Lab Interpretation (test code = Abnormal 50974-6) [facility] GLUCOSE (AUTOMATED)2022-09-03 21:11:19 Test Item Value Reference Range Interpretation Comments POCT GLU (test code = 5265618250) 279 mg/dL 70-110 H Lab Interpretation (test code = Abnormal 50296-0) [facility] GLUCOSE (AUTOMATED)2022-09-03 16:48:44 Test Item Value Reference Range Interpretation Comments POCT GLU (test code = 6125597211) 298 mg/dL 70-110 H Lab Interpretation (test code = Abnormal 60555-1) [facility] GLUCOSE (AUTOMATED)2022-09-03 14:53:37 Test Item Value Reference Range Interpretation Comments POCT GLU (test code = 5507119802) 360 mg/dL 70-110 H Lab Interpretation (test code = Abnormal 84436-3) [facility] 12:05:35 Test Item Value Reference Range Interpretation Comments POCT GLU (test code = 9902289950) 311 mg/dL 70-110 H Lab Interpretation (test code = Abnormal 04507-3) [facility] [id number] 09:24:12 Test Item Value Reference Range Interpretation Comments NT-proBNP (test code = 9510 pg/mL <=450 H 5772691609) CATA (test code = CATA) Biotin has been reported to cause a negative bias, interpret results relative to patient's use of biotin. Lab Interpretation (test Abnormal code = 86688-2) [facility]-21 09:17:32 Test Item Value Reference Range Interpretation Comments MAGNESIUM (test code = 5761889225) 1.9 mg/dL 1.7-2.4 Lab Interpretation (test code = Normal 43388-6) [facility] (NA, K, CL, CO2, GLUCOSE, BUN, CREATININE, CA)2022-09-03 09:17:12 Test Item Value Reference Range Interpretation Comments NA (test code = 135 mmol/L 135-145 6386721710) K (test code = 4.4 mmol/L 3.5-5.0 8524341865) CL (test code = 101 mmol/L 98-108 0043241424) CO2 TOTAL (test code = 24 mmol/L 23-31 6703407262) AGAP (test code = 10 2-16 9716025967) BUN (test code = 71 mg/dL 7-23 H 1272824828) GLUCOSE (test code = 314 mg/dL 70-110 H 9785267871) CREATININE (test code = 1.80 mg/dL 0.60-1.25 H 6874330365) CALCIUM (test code = 7.6 mg/dL 8.6-10.6 L 7443967123) eGFR (test code = 36.6 mL/min/1.73m2 1625298192) CATA (test code = CATA) Association of Glomerular Filtration Rate (GFR) and Staging of Kidney Disease* + --+ --+ ------+| GFR (mL/min/1.73 m2) ?| With Kidney Damage ?| ?Without Kidney Damage+ --------+ --------+ +| ?>90 ?| ?Stage one ?| ? Normal ?+ ---+ ---+ -------+| ?60-89 ?| ?Stage two ?| ? Decreased GFR ? + --+ --+ ------+| ?30-59 ?| ?Stage three ?| ? Stage three ? + --+ --+ ------+| ?15-29 ?| ?Stage four ? | ? Stage four ?+ ---+ ---+ -------+| ?<15 (or dialysis) ? ?| ?Stage five ? | ? Stage five ?+ ---+ ---+ -------+ *Each stage assumes the associated GFR level has been in effect for at least three months. ?Stages 1 to 5, with or without kidney disease, indicate chronic kidney disease. Notes: Determination of stages one and two (with eGFR >59mL/min/1.73 m2) requires estimation of kidney damage for at least three months as defined by structural or functional abnormalities of the kidney, manifested by either:Pathological abnormalities or Markers of kidney damage (including abnormalities in the composition of the blood or urine or abnormalities in imaging tests). Lab Interpretation Abnormal (test code = 74190-7) [facility]22-[facility] 09:05:39 Test Item Value Reference Range Interpretation Comments POCT GLU (test code = 0984034846) 355 mg/dL 70-110 H Lab Interpretation (test code = Abnormal 57247-6) [facility] WITHOUT [id number] 09:00:15 Test Item Value Reference Range Interpretation Comments WBC (test code = 6690-2) 4.52 See_Comment [A utomated message] The system [employer] generated this result transmit anupama reference range : 4.20 - 10.70 10*3/?L. The reference range was not used to interpret this result as normal/abnormal . RBC (test code = 789-8) 2.70 See_Comment L [Au tomated message] The system [employer] generated this result transmit anupama reference range : 4.26 - 5.52 10* 6/?L. The reference r guicho was not used to interpret this result as normal/abnormal . HGB (test code = 718-7) 7.5 g/dL 12.2-16.4 L HCT (test code = 4544-3) 23.6 % 38.4-49.3 L MCH (test code = 785-6) 27.8 pg 26.1-32.7 MCV (test code = 787-2) 87.4 fL 81.7-95.6 MCHC (test code = 786-4) 31.8 g/dL 31.2-35.0 PLT (test code = 777-3) 201 See_Comment [Au tomated message] The system [employer] generated this result transmit anupama reference range : 150 - 328 10*3/?L. The reference range was not used to interpret this result as normal/abnormal . MPV (test code = 9.6 fL 9.8-13.0 L 52878-8) RDW-CV (test code = 16.8 % 12.1-15.4 H 788-0) RDW-SD (test code = 52.4 fL 38.5-51.6 H 60045-8) NRBC x10^3 (test code = See_Comment [Au tomated message] 7747434743) The system [employer] generated this result transmit anupama reference range : 10*3/?L. The reference range was not used to interpret this result as normal/abnormal . NRBC/100 WBC (test code 0.0 See_Comment [Au tomated message] = 1784192965) The system [facility] generated this result transmit anupama reference range : 0.0 - 10.0 /100 WBC s. The reference r guicho was not used to interpret this result as normal/abnormal . IPF % (test code = 9007303521) Lab Interpretation (test Abnormal code = 78159-9) [facility] GLUCOSE (AUTOMATED)2022-09-03 04:35:30 Test Item Value Reference Range Interpretation Comments POCT GLU (test code = 2468730657) 395 mg/dL 70-110 H Lab Interpretation (test code = Abnormal 99182-4) [facility] GLUCOSE (AUTOMATED)2022-09-02 21:38:31 Test Item Value Reference Range Interpretation Comments POCT GLU (test code = 9139252268) 343 mg/dL 70-110 H Lab Interpretation (test code = Abnormal 22875-2) [facility] 17:01:38 Test Item Value Reference Range Interpretation Comments POCT GLU (test code = 2593081736) 263 mg/dL 70-110 H Lab Interpretation (test code = Abnormal 51667-0) [id number] 14:59:18 Test Item Value Reference Range Interpretation Comments TROPONIN I (test code = 0.014 ng/mL <=0.034 2471764626) CATA (test code = CATA) Reference (Normal) Range (defined by the 99th percentile reference limit): <= 0.034 ng/mL Note: Cardiac troponin begins to rise 3-4 hours after the onset of ischemia. Repeat in 4-6 hours if the sample was drawn within 3-4 hours of the onset of the symptom and found normal. Diagnosis of myocardial injury is made with acute changes in cTn concentrations with at least one serial sample above the 99th percentile upper reference limit (URL), taken together with the patient's clinical presentation. Biotin has been reported to cause a negative bias, interpret results relative to patient's use of biotin. Lab Interpretation Normal (test code = 11950-7) [id number] 14:56:16 Test Item Value Reference Range Interpretation Comments NT-proBNP (test code = 74949 pg/mL <=450 H 4907392777) CATA (test code = CATA) Biotin has been reported to cause a negative bias, interpret results relative to patient's use of biotin. Lab Interpretation (test Abnormal code = 97243-4) [facility] ([id number])2022-09-02 14:47:37 Test Item Value Reference Range Interpretation Comments NA (test code = 140 mmol/L 135-145 1512815593) K (test code = 3.7 mmol/L 3.5-5.0 8710839692) CL (test code = 103 mmol/L 98-108 3668639918) CO2 TOTAL (test code = 27 mmol/L 23-31 6188769095) AGAP (test code = 10 2-16 8659811725) BUN (test code = 74 mg/dL 7-23 H 4836164552) GLUCOSE (test code = 170 mg/dL 70-110 H 4900760802) CREATININE (test code = 1.62 mg/dL 0.60-1.25 H 6111149925) TOTAL BILI (test code = 0.5 mg/dL 0.1-1.1 3656902927) CALCIUM (test code = 7.7 mg/dL 8.6-10.6 L 6217058886) T PROTEIN (test code = 6.1 g/dL 6.3-8.2 L 3156908012) ALBUMIN (test code = 3.0 g/dL 3.5-5.0 L 6646711334) ALK PHOS (test code = 123 U/L 34-122 H 9564716627) ALTv (test code = 30 U/L 5-50 1742-6) AST(SGOT) (test code = 26 U/L 13-40 5439824250) eGFR (test code = 41.3 mL/min/1.73m2 8361181367) CATA (test code = CATA) Association of Glomerular Filtration Rate (GFR) and Staging of Kidney Disease* + --+ --+ ------+| GFR (mL/min/1.73 m2) ?| With Kidney Damage ?| ?Without Kidney Damage+ --------+ --------+ +| ?>90 ?| ?Stage one ?| ? Normal ?+ ---+ ---+ -------+| ?60-89 ?| ?Stage two ?| ? Decreased GFR ? + --+ --+ ------+| ?30-59 ?| ?Stage three ?| ? Stage three ? + --+ --+ ------+| ?15-29 ?| ?Stage four ? | ? Stage four ?+ ---+ ---+ -------+| ?<15 (or dialysis) ? ?| ?Stage five ? | ? Stage five ?+ ---+ ---+ -------+ *Each stage assumes the associated GFR level has been in effect for at least three months. ?Stages 1 to 5, with or without kidney disease, indicate chronic kidney disease. Notes: Determination of stages one and two (with eGFR >59mL/min/1.73 m2) requires estimation of kidney damage for at least three months as defined by structural or functional abnormalities of the kidney, manifested by either:Pathological abnormalities or Markers of kidney damage (including abnormalities in the composition of the blood or urine or abnormalities in imaging tests). Lab Interpretation Abnormal (test code = 53758-1) [facility] WITHOUT [id number] 14:30:33 Test Item Value Reference Range Interpretation Comments WBC (test code = 6690-2) 6.00 See_Comment [A utomated message] The system [employer] generated this result transmit anupama reference range : 4.20 - 10.70 10*3/?L. The reference range was not used to interpret this result as normal/abnormal . RBC (test code = 789-8) 2.68 See_Comment L [Au tomated message] The system [employer] generated this result transmit anupama reference range : 4.26 - 5.52 10* 6/?L. The reference r guicho was not used to interpret this result as normal/abnormal . HGB (test code = 718-7) 7.3 g/dL 12.2-16.4 L HCT (test code = 4544-3) 23.9 % 38.4-49.3 L MCH (test code = 785-6) 27.2 pg 26.1-32.7 MCV (test code = 787-2) 89.2 fL 81.7-95.6 MCHC (test code = 786-4) 30.5 g/dL 31.2-35.0 L PLT (test code = 777-3) 184 See_Comment [Au tomated message] The system [employer] generated this result transmit anupama reference range : 150 - 328 10*3/?L. The reference range was not used to interpret this result as normal/abnormal . MPV (test code = 10.5 fL 9.8-13.0 21770-0) RDW-CV (test code = 17.0 % 12.1-15.4 H 788-0) RDW-SD (test code = 54.1 fL 38.5-51.6 H 79917-6) NRBC x10^3 (test code = See_Comment [Au tomated message] 4176149017) The system [employer] generated this result transmit anupama reference range : 10*3/?L. The reference range was not used to interpret this result as normal/abnormal . NRBC/100 WBC (test code 0.0 See_Comment [Au tomated message] = 9550354311) The system [employer] generated this result transmit anupama reference range : 0.0 - 10.0 /100 WBC s. The reference r guicho was not used to interpret this result as normal/abnormal . IPF % (test code = 5449129771) Lab Interpretation (test Abnormal code = 64199-2) [facility] GLUCOSE (AUTOMATED)2022-09-02 05:10:05 Test Item Value Reference Range Interpretation Comments POCT GLU (test code = 7809807164) 298 mg/dL 70-110 H Lab Interpretation (test code = Abnormal 01292-6) [facility] GLUCOSE (AUTOMATED)2022-09-02 02:25:15 Test Item Value Reference Range Interpretation Comments POCT GLU (test code = 1768835121) 327 mg/dL 70-110 H Lab Interpretation (test code = Abnormal 75832-6) [facility] GLUCOSE (AUTOMATED)2022-09-01 21:42:43 Test Item Value Reference Range Interpretation Comments POCT GLU (test code = 7043219624) 325 mg/dL 70-110 H Lab Interpretation (test code = Abnormal 77753-6) [facility] GLUCOSE (AUTOMATED)2022-09-01 16:49:03 Test Item Value Reference Range Interpretation Comments POCT GLU (test code = 3814189063) 308 mg/dL 70-110 H Lab Interpretation (test code = Abnormal 05694-7) [facility] GLUCOSE (AUTOMATED)2022-09-01 13:26:40 Test Item Value Reference Range Interpretation Comments POCT GLU (test code = 5337339854) 257 mg/dL 70-110 H Lab Interpretation (test code = Abnormal 89955-5) [facility] [id number] 12:42:03 Test Item Value Reference Range Interpretation Comments NT-proBNP (test code = 69724 pg/mL <=450 H 2613375079) CATA (test code = CATA) Biotin has been reported to cause a negative bias, interpret results relative to patient's use of biotin. Lab Interpretation (test Abnormal code = 43560-5) [facility] 11:22:39 Test Item Value Reference Range Interpretation Comments MAGNESIUM (test code = 0546514225) 1.6 mg/dL 1.7-2.4 L Lab Interpretation (test code = Abnormal 67424-6) [facility] (NA, K, CL, CO2, GLUCOSE, BUN, CREATININE, CA)2022-09-01 11:22:33 Test Item Value Reference Range Interpretation Comments NA (test code = 139 mmol/L 135-145 6617747292) K (test code = 4.3 mmol/L 3.5-5.0 0991612474) CL (test code = 102 mmol/L 98-108 6433300130) CO2 TOTAL (test code = 25 mmol/L 23-31 1984559508) AGAP (test code = 12 2-16 5475781644) BUN (test code = 79 mg/dL 7-23 H 2101274355) GLUCOSE (test code = 203 mg/dL 70-110 H 3395198160) CREATININE (test code = 1.64 mg/dL 0.60-1.25 H 3600555918) CALCIUM (test code = 7.1 mg/dL 8.6-10.6 L 3874054634) eGFR (test code = 40.7 mL/min/1.73m2 1355885410) CATA (test code = CATA) Association of Glomerular Filtration Rate (GFR) and Staging of Kidney Disease* + --+ --+ ------+| GFR (mL/min/1.73 m2) ?| With Kidney Damage ?| ?Without Kidney Damage+ --------+ --------+ +| ?>90 ?| ?Stage one ?| ? Normal ?+ ---+ ---+ -------+| ?60-89 ?| ?Stage two ?| ? Decreased GFR ? + --+ --+ ------+| ?30-59 ?| ?Stage three ?| ? Stage three ? + --+ --+ ------+| ?15-29 ?| ?Stage four ? | ? Stage four ?+ ---+ ---+ -------+| ?<15 (or dialysis) ? ?| ?Stage five ? | ? Stage five ?+ ---+ ---+ -------+ *Each stage assumes the associated GFR level has been in effect for at least three months. ?Stages 1 to 5, with or without kidney disease, indicate chronic kidney disease. Notes: Determination of stages one and two (with eGFR >59mL/min/1.73 m2) requires estimation of kidney damage for at least three months as defined by structural or functional abnormalities of the kidney, manifested by either:Pathological abnormalities or Markers of kidney damage (including abnormalities in the composition of the blood or urine or abnormalities in imaging tests). Lab Interpretation Abnormal (test code = 56528-1) [facility] GLUCOSE (AUTOMATED)2022-09-01 02:45:08 Test Item Value Reference Range Interpretation Comments POCT GLU (test code = 3541803001) 277 mg/dL 70-110 H Lab Interpretation (test code = Abnormal 17785-6) [facility] GLUCOSE (AUTOMATED)2022-08-31 22:03:31 Test Item Value Reference Range Interpretation Comments POCT GLU (test code = 0558580030) 266 mg/dL 70-110 H Lab Interpretation (test code = Abnormal 86477-5) [facility] GLUCOSE (AUTOMATED)2022-08-31 17:56:20 Test Item Value Reference Range Interpretation Comments POCT GLU (test code = 3563252405) 241 mg/dL 70-110 H Lab Interpretation (test code = Abnormal 83013-1) [facility] GLUCOSE (AUTOMATED)2022-08-31 13:23:49 Test Item Value Reference Range Interpretation Comments POCT GLU (test code = 7416333388) 135 mg/dL 70-110 H Lab Interpretation (test code = Abnormal 03112-8) [facility] GLUCOSE (AUTOMATED)2022-08-31 09:27:25 Test Item Value Reference Range Interpretation Comments POCT GLU (test code = 9265590370) 259 mg/dL 70-110 H Lab Interpretation (test code = Abnormal 28050-5) [facility] GLUCOSE (AUTOMATED)2022-08-31 04:57:24 Test Item Value Reference Range Interpretation Comments POCT GLU (test code = 5205775658) 420 mg/dL 70-110 H Lab Interpretation (test code = Abnormal 31061-0) [facility] GLUCOSE (AUTOMATED)2022-08-31 01:46:30 Test Item Value Reference Range Interpretation Comments POCT GLU (test code = 6024529775) 358 mg/dL 70-110 H Lab Interpretation (test code = Abnormal 75264-3) [facility]:10:09 Test Item Value Reference Range Interpretation Comments POCT GLU (test code = 8155247443) 315 mg/dL 70-110 H Lab Interpretation (test code = Abnormal 07374-9) [facility] 17:21:37 Test Item Value Reference Range Interpretation Comments POCT GLU (test code = 9053748240) 304 mg/dL 70-110 H Lab Interpretation (test code = Abnormal 44125-1) [facility] GLUCOSE (AUTOMATED)2022-08-30 13:52:58 Test Item Value Reference Range Interpretation Comments POCT GLU (test code = 4915045493) 180 mg/dL 70-110 H Lab Interpretation (test code = Abnormal 22341-7) [facility] 01:01:15 Test Item Value Reference Range Interpretation Comments POCT GLU (test code = 3729852638) 297 mg/dL 70-110 H Lab Interpretation (test code = Abnormal 28387-6) [facility]22-[facility]29 22:26:37 Test Item Value Reference Range Interpretation Comments POCT GLU (test code = 8760875278) 319 mg/dL 70-110 H Lab Interpretation (test code = Abnormal 90203-6) [facility] 17:11:51 Test Item Value Reference Range Interpretation Comments POCT GLU (test code = 7536842361) 256 mg/dL 70-110 H Lab Interpretation (test code = Abnormal 54703-7) [facility] 13:23:07 Test Item Value Reference Range Interpretation Comments POCT GLU (test code = 5437799340) 226 mg/dL 70-110 H Lab Interpretation (test code = Abnormal 89334-1) [facility] GLUCOSE (AUTOMATED)2022-08-29 01:44:55 Test Item Value Reference Range Interpretation Comments POCT GLU (test code = 2421478679) 258 mg/dL 70-110 H Lab Interpretation (test code = Abnormal 36109-8) [facility] GLUCOSE (AUTOMATED)2022-08-28 22:14:24 Test Item Value Reference Range Interpretation Comments POCT GLU (test code = 9976072049) 258 mg/dL 70-110 H Lab Interpretation (test code = Abnormal 87830-0) [facility] GLUCOSE (AUTOMATED)2022-08-28 16:56:34 Test Item Value Reference Range Interpretation Comments POCT GLU (test code = 9313710481) 290 mg/dL 70-110 H Lab Interpretation (test code = Abnormal 92453-0) [facility] GLUCOSE (AUTOMATED)2022-08-28 12:23:24 Test Item Value Reference Range Interpretation Comments POCT GLU (test code = 3103603497) 101 mg/dL 70-110 Lab Interpretation (test code = Normal 21370-9) [facility] METABOLIC PANEL (NA, K, CL, CO2, GLUCOSE, BUN, CREATININE, CA)2022-08-28 11:32:42 Test Item Value Reference Range Interpretation Comments NA (test code = 145 mmol/L 135-145 0101732808) K (test code = 2.4 mmol/L 3.5-5.0 LL 0563397374) CL (test code = 103 mmol/L 98-108 3988139737) CO2 TOTAL (test code = 33 mmol/L 23-31 H 1146096034) AGAP (test code = 9 2-16 2411263773) BUN (test code = 98 mg/dL 7-23 H 7218903489) GLUCOSE (test code = 88 mg/dL 70-110 0955508147) CREATININE (test code = 1.78 mg/dL 0.60-1.25 H 0640201867) CALCIUM (test code = 6.2 mg/dL 8.6-10.6 L 0546912557) eGFR (test code = 37.1 mL/min/1.73m2 7607957474) CATA (test code = CATA) Association of Glomerular Filtration Rate (GFR) and Staging of Kidney Disease* + --+ --+ ------+| GFR (mL/min/1.73 m2) ?| With Kidney Damage ?| ?Without Kidney Damage+ --------+ --------+ +| ?>90 ?| ?Stage one ?| ? Normal ?+ ---+ ---+ -------+| ?60-89 ?| ?Stage two ?| ? Decreased GFR ? + --+ --+ ------+| ?30-59 ?| ?Stage three ?| ? Stage three ? + --+ --+ ------+| ?15-29 ?| ?Stage four ? | ? Stage four ?+ ---+ ---+ -------+| ?<15 (or dialysis) ? ?| ?Stage five ? | ? Stage five ?+ ---+ ---+ -------+ *Each stage assumes the associated GFR level has been in effect for at least three months. ?Stages 1 to 5, with or without kidney disease, indicate chronic kidney disease. Notes: Determination of stages one and two (with eGFR >59mL/min/1.73 m2) requires estimation of kidney damage for at least three months as defined by structural or functional abnormalities of the kidney, manifested by either:Pathological abnormalities or Markers of kidney damage (including abnormalities in the composition of the blood or urine or abnormalities in imaging tests). Lab Interpretation Abnormal (test code = 94746-4) [facility] WITH [id number] 09:18:37 Test Item Value Reference Range Interpretation Comments WBC (test code = 5.72 See_Comment [Automated 6589-2) message] The sy stem which generated this result transmitted reference range : 4.20 - 10.70 10*3/?L. The reference range was not used to interpret this result as normal/abnormal . RBC (test code = 2.94 See_Comment L [Automated 101-8) message] The sy stem which generated this result transmitted reference range : 4.26 - 5.52 10*6/?L. The reference range was not used to interpret this result as normal/abnormal . HGB (test code = 8.1 g/dL 12.2-16.4 L 718-7) HCT (test code = 25.7 % 38.4-49.3 L 4544-3) MCV (test code = 87.4 fL 81.7-95.6 787-2) MCH (test code = 27.6 pg 26.1-32.7 785-6) MCHC (test code = 31.5 g/dL 31.2-35.0 786-4) RDW-SD (test code = 51.4 fL 38.5-51.6 56224-1) RDW-CV (test code = 16.1 % 12.1-15.4 H 788-0) PLT (test code = 174 See_Comment [Automated 777-3) message] The sy stem which generated this result transmitted reference range : 150 - 328 10*3/ ?L. The reference r guicho was not used to interpret this result as normal/abnormal . MPV (test code = 10.9 fL 9.8-13.0 63289-5) NRBC/100 WBC (test 0.0 See_Comment [Automat ed code = 0188060627) message] The system which generated this result transmitted reference range : 0.0 - 10.0 /100 WBCs. The refer ence range was not u sed to interpret th is result as normal/abnormal . NRBC x10^3 (test code See_Comment [Auto mated = 7186782699) message] The s ystem which generated this result transmitted reference range : 10*3/?L. The reference range was not used to interpret this result as normal/abnormal . GRAN MAT (NEUT) % 67.6 % (test code = 770-8) IMM GRAN % (test code 1.20 % = 2899887469) LYMPH % (test code = 17.7 % 736-9) MONO % (test code = 12.6 % 5905-5) EOS % (test code = 0.7 % 713-8) BASO % (test code = 0.2 % 706-2) GRAN MAT x10^3(ANC) 3.87 10*3/uL 1.99-6.95 (test code = 1044836919) IMM GRAN x10^3 (test 0.07 10*3/uL 0.00-0.06 H code = 1466257129) LYMPH x10^3 (test code 1.01 10*3/uL 1.09-3.23 L = 731-0) MONO x10^3 (test code 0.72 10*3/uL 0.36-1.02 = 742-7) EOS x10^3 (test code = 0.04 10*3/uL 0.06-0.53 L 711-2) BASO x10^3 (test code 0.01-0.09 = 704-7) Lab Interpretation Abnormal (test code = 19954-3) [facility] 07:11:11 Test Item Value Reference Range Interpretation Comments Procalcitonin (test 0.52 ng/mL <=0.07 H code = 2873006718) CATA (test code = CATA) INTERPRETATION OF PROCALCITONIN RESULTS IN ADULTS >= 18 YEARS OF AGE Initiation and discontinuation of antibiotics on patients with suspected or confirmed Lower Respiratory Tract Infection in Adults >= 18 years of age. + +-------- --------+ + -----+|Procalcitonin |Interpretation ?|Antibiotic ? ? |Considerations ? |ng/mL ? | ?|recommendation | ? + +-------- --------+ + -----+| <0.1 ? | Bacterial ? ? ?| Strongly ? ? ?| ? | ?| infection very | discouraged ? | Overruling: ? | ?| unlikely ? ? ? | ? | ? Clinically unstable ? ? ? + +-------- --------+ + ? High risk for adverse ? ? | <0.25 ?| Bacterial ? ? ?| Discouraged ? | ? outcome ? | ?| infection ? ? ?| ? | ? SEE IMPORTANT NOTE ?| ?| unlikely ? ? ? | ? | ? + +-------- --------+ + -----+| >=0.25 ? ? ? | Bacterial ? ? ?| Encouraged ? ?| ? | ?| infection ? ? ?| ? | ? | ?| likely ? | ? | Consider treatment failure ?+ +------- ---------+ -+ if levels does not decrease | >0.5 ? | Bacterial ? ? ?| Strongly ? ? ?| appropriately ? | ?| infection very | encouraged ? ?| ? | ?| likely ? | ? | ? + +-------- --------+ + -----+ Discontinuation of antibiotics in high-acuity patients with suspected or confirmed sepsis in Adults >= 18 years of age. + +-------- --------+ + -----+|Procalcitonin |Interpretation ?|Antibiotic ? ? |Considerations ? |ng/mL ? | ?|recommendation | ? + +-------- --------+ + -----+| <0.25 ?| Bacterial ? ? ?| Strongly ? ? ?| ? | ?| infection very | discouraged ? | Overruling: ? | ?| unlikely ? ? ? | ? | ? Clinically unstable ? ? ? + +-------- --------+ + ? High risk for adverse ? ? | <0.5 or drop | Bacterial ? ? ?| Discouraged ? | ? outcome ? | >80% from ? ?| infection ? ? ?| ? | ? SEE IMPORTANT NOTE ?| highest PCT ?| unlikely ? ? ? | ? | ? | level ?| ?| ? | ? + +-------- --------+ + -----+| >=0.5 ?| Bacterial ? ? ?| Encouraged ? ?| ? | ?| infection ? ? ?| ? | ? | ?| likely ? | ? | Consider treatment failure ?+ +------- ---------+ -+ if levels does not decrease | >1.0 ? | Bacterial ? ? ?| Strongly ? ? ?| appropriately ? | ?| infection very | encouraged ? ?| ? | ?| likely ? | ? | ? + +-------- --------+ + -----+ Percentage of drop of Procalcitonin calculation for Discontinuation of antibiotics in high-acuity patients with suspected or confirmed sepsis in Adults >= 18 years of age. ? Procalcitonin highest{}-Procalcitonin current{}Delta Procalcitonin = x100% ? Procalcitonin current {} IMPORTANT NOTE: Procalcitonin may be elevated without bacterial infection by physiologic stress related to trauma, pearson, chronic dialysis, metastatic cancer, surgery in the past seven days, malaria, some fungal infections, and some forms of vasculitis. The interpretation algorithm may not apply to patients with immunosuppression (equivalent of >10 mg of prednisone daily), HIV with CD4 cell count < 350 cells/mm3, active malignancy on systemic chemotherapy, solid organ transplant or hematopoietic stem cell transplantation, or hospital acquired pneumonia. Additionally, some clinical trials of procalcitonin have excluded patients with shock requiring vasopressor use, acute respiratory failure requiring mechanical ventilation, or those with known lung abscess/empyema. For further information please refer to:[email or web address] Lab Interpretation Abnormal (test code = 49612-9) [facility] 04:52:21 Test Item Value Reference Range Interpretation Comments POCT GLU (test code = 8107337768) 183 mg/dL 70-110 H Lab Interpretation (test code = Abnormal 10152-5) [facility] [id number] 03:00:03 Test Item Value Reference Range Interpretation Comments TROPONIN I (test code = 0.072 ng/mL <=0.034 H 8066870151) CATA (test code = CATA) Reference (Normal) Range (defined by the 99th percentile reference limit): <= 0.034 ng/mL Note: Cardiac troponin begins to rise 3-4 hours after the onset of ischemia. Repeat in 4-6 hours if the sample was drawn within 3-4 hours of the onset of the symptom and found normal. Diagnosis of myocardial injury is made with acute changes in cTn concentrations with at least one serial sample above the 99th percentile upper reference limit (URL), taken together with the patient's clinical presentation. Biotin has been reported to cause a negative bias, interpret results relative to patient's use of biotin. Lab Interpretation Abnormal (test code = 97899-8) [facility] [id number] 02:48:03 Test Item Value Reference Range Interpretation Comments CK (test code = 0002429928) 71 U/L 33-194 Lab Interpretation (test code = Normal 11779-5) [facility] GLUCOSE (AUTOMATED)2022-08-28 01:42:51 Test Item Value Reference Range Interpretation Comments POCT GLU (test code = 0004923759) 329 mg/dL 70-110 H Lab Interpretation (test code = Abnormal 95681-7) [facility] GLUCOSE (AUTOMATED)2022-07-16 18:36:28 Test Item Value Reference Range Interpretation Comments POCT GLU (test code = 8423674438) 227 mg/dL 70-110 H Lab Interpretation (test code = Abnormal 71378-5) [facility] GLUCOSE (AUTOMATED)2022-07-16 13:24:09 Test Item Value Reference Range Interpretation Comments POCT GLU (test code = 2737563890) 246 mg/dL 70-110 H Lab Interpretation (test code = Abnormal 39885-2) [facility] GLUCOSE (AUTOMATED)2022-07-16 03:22:45 Test Item Value Reference Range Interpretation Comments POCT GLU (test code = 5665381763) 222 mg/dL 70-110 H Lab Interpretation (test code = Abnormal 70834-5) [facility] GLUCOSE (AUTOMATED)2022-07-15 22:38:20 Test Item Value Reference Range Interpretation Comments POCT GLU (test code = 6816446848) 239 mg/dL 70-110 H Lab Interpretation (test code = Abnormal 16537-3) [facility] GLUCOSE (AUTOMATED)2022-07-15 17:45:35 Test Item Value Reference Range Interpretation Comments POCT GLU (test code = 0612715284) 286 mg/dL 70-110 H Lab Interpretation (test code = Abnormal 17687-8) [facility] METABOLIC PANEL (NA, K, CL, CO2, GLUCOSE, BUN, CREATININE, CA)2022-07-15 14:04:22 Test Item Value Reference Range Interpretation Comments NA (test code = 145 mmol/L 135-145 9465224478) K (test code = 4.6 mmol/L 3.5-5.0 1620351751) CL (test code = 104 mmol/L 98-108 2847980240) CO2 TOTAL (test code = 34 mmol/L 23-31 H 2177928295) AGAP (test code = 7 2-16 1190245531) BUN (test code = 100 mg/dL 7-23 H 1226369540) GLUCOSE (test code = 177 mg/dL 70-110 H 8456258720) CREATININE (test code = 1.54 mg/dL 0.60-1.25 H 5322248888) CALCIUM (test code = 8.1 mg/dL 8.6-10.6 L 8095957212) eGFR (test code = 43.8 mL/min/1.73m2 3735060035) CATA (test code = CATA) Association of Glomerular Filtration Rate (GFR) and Staging of Kidney Disease* + --+ --+ ------+| GFR (mL/min/1.73 m2) ?| With Kidney Damage ?| ?Without Kidney Damage+ --------+ --------+ +| ?>90 ?| ?Stage one ?| ? Normal ?+ ---+ ---+ -------+| ?60-89 ?| ?Stage two ?| ? Decreased GFR ? + --+ --+ ------+| ?30-59 ?| ?Stage three ?| ? Stage three ? + --+ --+ ------+| ?15-29 ?| ?Stage four ? | ? Stage four ?+ ---+ ---+ -------+| ?<15 (or dialysis) ? ?| ?Stage five ? | ? Stage five ?+ ---+ ---+ -------+ *Each stage assumes the associated GFR level has been in effect for at least three months. ?Stages 1 to 5, with or without kidney disease, indicate chronic kidney disease. Notes: Determination of stages one and two (with eGFR >59mL/min/1.73 m2) requires estimation of kidney damage for at least three months as defined by structural or functional abnormalities of the kidney, manifested by either:Pathological abnormalities or Markers of kidney damage (including abnormalities in the composition of the blood or urine or abnormalities in imaging tests). Lab Interpretation Abnormal (test code = 41519-2) [facility] Test Item Value Reference Range Interpretation Comments PHOSPHORUS (test code = 8582049008) 3.4 mg/dL 2.5-5.0 Lab Interpretation (test code = Normal 83600-2) [facility] 12:21:48 Test Item Value Reference Range Interpretation Comments MAGNESIUM (test code = 4752243229) 2.3 mg/dL 1.7-2.4 Lab Interpretation (test code = Normal 00661-7) [facility] WITH [id number] 12:01:26 Test Item Value Reference Range Interpretation Comments WBC (test code = 6.59 See_Comment [Automated 6690-2) message] The sy stem which generated this result transmitted reference range : 4.20 - 10.70 10*3/?L. The reference range was not used to interpret this result as normal/abnormal . RBC (test code = 4.73 See_Comment [Automated 789-8) message] The sy stem which generated this result transmitted reference range : 4.26 - 5.52 10*6/?L. The reference range was not used to interpret this result as normal/abnormal . HGB (test code = 13.4 g/dL 12.2-16.4 718-7) HCT (test code = 44.2 % 38.4-49.3 4544-3) MCV (test code = 93.4 fL 81.7-95.6 787-2) MCH (test code = 28.3 pg 26.1-32.7 785-6) MCHC (test code = 30.3 g/dL 31.2-35.0 L 786-4) RDW-SD (test code = 51.8 fL 38.5-51.6 H 45402-6) RDW-CV (test code = 14.9 % 12.1-15.4 788-0) PLT (test code = 245 See_Comment [Automated 777-3) message] The sy stem which generated this result transmitted reference range : 150 - 328 10*3/ ?L. The reference r guicho was not used to interpret this result as normal/abnormal . MPV (test code = 9.8 fL 9.8-13.0 32478-3) NRBC/100 WBC (test 0.0 See_Comment [Automat ed code = 8200998417) message] The system which generated this result transmitted reference range : 0.0 - 10.0 /100 WBCs. The refer ence range was not u sed to interpret th is result as normal/abnormal . NRBC x10^3 (test code See_Comment [Auto mated = 9952615950) message] The s ystem which generated this result transmitted reference range : 10*3/?L. The reference range was not used to interpret this result as normal/abnormal . GRAN MAT (NEUT) % 80.2 % (test code = 770-8) IMM GRAN % (test code 0.60 % = 6308553729) LYMPH % (test code = 8.5 % 736-9) MONO % (test code = 10.2 % 5905-5) EOS % (test code = 0.3 % 713-8) BASO % (test code = 0.2 % 706-2) GRAN MAT x10^3(ANC) 5.29 10*3/uL 1.99-6.95 (test code = 6904093302) IMM GRAN x10^3 (test 0.04 10*3/uL 0.00-0.06 code = 5721509619) LYMPH x10^3 (test code 0.56 10*3/uL 1.09-3.23 L = 731-0) MONO x10^3 (test code 0.67 10*3/uL 0.36-1.02 = 742-7) EOS x10^3 (test code = 0.06-0.53 L 711-2) BASO x10^3 (test code 0.01-0.09 = 704-7) Lab Interpretation Abnormal (test code = 87001-8) [facility] GLUCOSE (AUTOMATED)2022-07-15 02:50:26 Test Item Value Reference Range Interpretation Comments POCT GLU (test code = 5128464706) 265 mg/dL 70-110 H Lab Interpretation (test code = Abnormal 92574-6) [facility] GLUCOSE (AUTOMATED)2022-07-14 23:14:44 Test Item Value Reference Range Interpretation Comments POCT GLU (test code = 8682015228) 290 mg/dL 70-110 H Lab Interpretation (test code = Abnormal 72257-7) [facility] [id number] 19:41:55 Test Item Value Reference Range Interpretation Comments PTH-INTACT (test code = 116.4 pg/mL 12.0-88.0 H 7037094016) PTH-CA Interpretation Furthe r clinical (test code = 8800825451) arturo a needed for interpretation. CALCIUM (test code = 7.6 mg/dL 8.6-10.6 L 2899211588) Lab Interpretation (test Abnormal code = 07781-6) [facility], [id number] 18:50:36 Test Item Value Reference Range Interpretation Comments VIT D 25OH (test code = 25-80 L 07573-5) CATA (test code = CATA) Deficiency: <20 ng/mLInsufficiency: 20-24 ng/mLOptimal: 25-80 ng/mL Lab Interpretation (test Abnormal code = 34127-1) [facility]14 18:11:38 Test Item Value Reference Range Interpretation Comments POCT GLU (test code = 8817434182) 228 mg/dL 70-110 H Lab Interpretation (test code = Abnormal 59362-0) [facility] GLUCOSE (AUTOMATED)2022-07-14 13:37:32 Test Item Value Reference Range Interpretation Comments POCT GLU (test code = 7669981717) 211 mg/dL 70-110 H Lab Interpretation (test code = Abnormal 86738-6) [facility] CenterVancomycin Random [id number] 11:45:18 Test Item Value Reference Range Interpretation Comments VANCO RANDOM (test code = 9.9 ug/mL 4959247473) [facility] 11:40:18 Test Item Value Reference Range Interpretation Comments PHOSPHORUS (test code = 2301309449) 6.1 mg/dL 2.5-5.0 H Lab Interpretation (test code = Abnormal 49239-5) [facility] 11:40:18 Test Item Value Reference Range Interpretation Comments MAGNESIUM (test code = 0112542694) 2.6 mg/dL 1.7-2.4 H Lab Interpretation (test code = Abnormal 00325-4) [facility] (NA, K, CL, CO2, GLUCOSE, BUN, CREATININE, CA)2022-07-14 11:40:18 Test Item Value Reference Range Interpretation Comments NA (test code = 141 mmol/L 135-145 5376040561) K (test code = 4.9 mmol/L 3.5-5.0 6381003689) CL (test code = 106 mmol/L 98-108 0384102018) CO2 TOTAL (test code = 31 mmol/L 23-31 7442041795) AGAP (test code = 4 2-16 3776271558) BUN (test code = 113 mg/dL 7-23 H 6019749834) GLUCOSE (test code = 283 mg/dL 70-110 H 2528655249) CREATININE (test code = 2.46 mg/dL 0.60-1.25 H 4390221315) CALCIUM (test code = 7.6 mg/dL 8.6-10.6 L 9587473689) eGFR (test code = 25.5 mL/min/1.73m2 6441673649) CATA (test code = CATA) Association of Glomerular Filtration Rate (GFR) and Staging of Kidney Disease* + --+ --+ ------+| GFR (mL/min/1.73 m2) ?| With Kidney Damage ?| ?Without Kidney Damage+ --------+ --------+ +| ?>90 ?| ?Stage one ?| ? Normal ?+ ---+ ---+ -------+| ?60-89 ?| ?Stage two ?| ? Decreased GFR ? + --+ --+ ------+| ?30-59 ?| ?Stage three ?| ? Stage three ? + --+ --+ ------+| ?15-29 ?| ?Stage four ? | ? Stage four ?+ ---+ ---+ -------+| ?<15 (or dialysis) ? ?| ?Stage five ? | ? Stage five ?+ ---+ ---+ -------+ *Each stage assumes the associated GFR level has been in effect for at least three months. ?Stages 1 to 5, with or without kidney disease, indicate chronic kidney disease. Notes: Determination of stages one and two (with eGFR >59mL/min/1.73 m2) requires estimation of kidney damage for at least three months as defined by structural or functional abnormalities of the kidney, manifested by either:Pathological abnormalities or Markers of kidney damage (including abnormalities in the composition of the blood or urine or abnormalities in imaging tests). Lab Interpretation Abnormal (test code = 24284-8) [facility] WITH [id number] 10:24:08 Test Item Value Reference Range Interpretation Comments WBC (test code = 6.24 See_Comment [Automated 6690-2) message] The sy stem which generated this result transmitted reference range : 4.20 - 10.70 10*3/?L. The reference range was not used to interpret this result as normal/abnormal . RBC (test code = 4.39 See_Comment [Automated 789-8) message] The sy stem which generated this result transmitted reference range : 4.26 - 5.52 10*6/?L. The reference range was not used to interpret this result as normal/abnormal . HGB (test code = 12.4 g/dL 12.2-16.4 718-7) HCT (test code = 41.0 % 38.4-49.3 4544-3) MCV (test code = 93.4 fL 81.7-95.6 787-2) MCH (test code = 28.2 pg 26.1-32.7 785-6) MCHC (test code = 30.2 g/dL 31.2-35.0 L 786-4) RDW-SD (test code = 51.2 fL 38.5-51.6 17523-4) RDW-CV (test code = 14.8 % 12.1-15.4 788-0) PLT (test code = 226 See_Comment [Automated 777-3) message] The sy stem which generated this result transmitted reference range : 150 - 328 10*3/ ?L. The reference r guicho was not used to interpret this result as normal/abnormal . MPV (test code = 9.7 fL 9.8-13.0 L 21520-3) NRBC/100 WBC (test 0.0 See_Comment [Automat ed code = 6925114269) message] The system which generated this result transmitted reference range : 0.0 - 10.0 /100 WBCs. The refer ence range was not u sed to interpret th is result as normal/abnormal . NRBC x10^3 (test code See_Comment [Auto mated = 2033874724) message] The s ystem which generated this result transmitted reference range : 10*3/?L. The reference range was not used to interpret this result as normal/abnormal . GRAN MAT (NEUT) % 86.5 % (test code = 770-8) IMM GRAN % (test code 0.50 % = 9638690827) LYMPH % (test code = 5.1 % 736-9) MONO % (test code = 7.9 % 5905-5) EOS % (test code = 0.0 % 713-8) BASO % (test code = 0.0 % 706-2) GRAN MAT x10^3(ANC) 5.40 10*3/uL 1.99-6.95 (test code = 8970793011) IMM GRAN x10^3 (test 0.03 10*3/uL 0.00-0.06 code = 9098517283) LYMPH x10^3 (test code 0.32 10*3/uL 1.09-3.23 L = 731-0) MONO x10^3 (test code 0.49 10*3/uL 0.36-1.02 = 742-7) EOS x10^3 (test code = 0.06-0.53 L 711-2) BASO x10^3 (test code 0.01-0.09 = 704-7) Lab Interpretation Abnormal (test code = 57032-2) [facility] GLUCOSE (AUTOMATED)2022-07-14 10:01:30 Test Item Value Reference Range Interpretation Comments POCT GLU (test code = 7100829073) 281 mg/dL 70-110 H Lab Interpretation (test code = Abnormal 25496-9) [facility] GLUCOSE (AUTOMATED)2022-07-14 05:48:04 Test Item Value Reference Range Interpretation Comments POCT GLU (test code = 5447812552) 347 mg/dL 70-110 H Lab Interpretation (test code = Abnormal 64355-0) [facility] GLUCOSE (AUTOMATED)2022-07-14 03:20:12 Test Item Value Reference Range Interpretation Comments POCT GLU (test code = 420 mg/dL 70-110 H Notifi ed Provider 9049110488) Lab Interpretation (test Abnormal code = 98352-5) [facility] GLUCOSE (AUTOMATED)2022-07-14 03:20:12 Test Item Value Reference Range Interpretation Comments POCT GLU (test code = 4539218793) 324 mg/dL 70-110 H Lab Interpretation (test code = Abnormal 79300-9) [facility] GLUCOSE (AUTOMATED)2022-07-14 03:20:12 Test Item Value Reference Range Interpretation Comments POCT GLU (test code = 6143106345) 307 mg/dL 70-110 H Lab Interpretation (test code = Abnormal 29017-1) [facility] GLUCOSE (AUTOMATED)2022-07-14 02:58:06 Test Item Value Reference Range Interpretation Comments POCT GLU (test code = 3960829617) 318 mg/dL 70-110 H Lab Interpretation (test code = Abnormal 54182-5) [facility] GLUCOSE (AUTOMATED)2022-07-13 22:34:50 Test Item Value Reference Range Interpretation Comments POCT GLU (test code = 9945272436) 306 mg/dL 70-110 H Lab Interpretation (test code = Abnormal 86020-7) [facility] [id number] 22:30:56 Test Item Value Reference Range Interpretation Comments CK (test code = 0494698956) 1057 U/L 33-194 H Lab Interpretation (test code = Abnormal 07561-7) [facility] GLUCOSE (AUTOMATED)2022-07-13 17:41:03 Test Item Value Reference Range Interpretation Comments POCT GLU (test code = 4992816482) 308 mg/dL 70-110 H Lab Interpretation (test code = Abnormal 77791-8) [facility] GLUCOSE (AUTOMATED)2022-07-13 14:40:01 Test Item Value Reference Range Interpretation Comments POCT GLU (test code = 6297429284) 263 mg/dL 70-110 H Lab Interpretation (test code = Abnormal 57529-3) [facility] 11:03:10 Test Item Value Reference Range Interpretation Comments PHOSPHORUS (test code = 1112123326) 8.4 mg/dL 2.5-5.0 H Lab Interpretation (test code = Abnormal 17064-0) [facility]10 Test Item Value Reference Range Interpretation Comments MAGNESIUM (test code = 9472146077) 2.9 mg/dL 1.7-2.4 H Lab Interpretation (test code = Abnormal 38160-1) [facility] METABOLIC PANEL (NA, K, CL, CO2, GLUCOSE, BUN, CREATININE, CA)2022-07-13 11:03:09 Test Item Value Reference Range Interpretation Comments NA (test code = 139 mmol/L 135-145 2961864179) K (test code = 5.0 mmol/L 3.5-5.0 4403561478) CL (test code = 104 mmol/L 98-108 0318134031) CO2 TOTAL (test code = 28 mmol/L 23-31 1288589248) AGAP (test code = 7 2-16 7936343693) BUN (test code = 107 mg/dL 7-23 H 8759434612) GLUCOSE (test code = 262 mg/dL 70-110 H 9541885889) CREATININE (test code = 3.03 mg/dL 0.60-1.25 H 6099845391) CALCIUM (test code = 7.4 mg/dL 8.6-10.6 L 3881212464) eGFR (test code = 20.1 mL/min/1.73m2 6438213747) CATA (test code = CATA) Association of Glomerular Filtration Rate (GFR) and Staging of Kidney Disease* + --+ --+ ------+| GFR (mL/min/1.73 m2) ?| With Kidney Damage ?| ?Without Kidney Damage+ --------+ --------+ +| ?>90 ?| ?Stage one ?| ? Normal ?+ ---+ ---+ -------+| ?60-89 ?| ?Stage two ?| ? Decreased GFR ? + --+ --+ ------+| ?30-59 ?| ?Stage three ?| ? Stage three ? + --+ --+ ------+| ?15-29 ?| ?Stage four ? | ? Stage four ?+ ---+ ---+ -------+| ?<15 (or dialysis) ? ?| ?Stage five ? | ? Stage five ?+ ---+ ---+ -------+ *Each stage assumes the associated GFR level has been in effect for at least three months. ?Stages 1 to 5, with or without kidney disease, indicate chronic kidney disease. Notes: Determination of stages one and two (with eGFR >59mL/min/1.73 m2) requires estimation of kidney damage for at least three months as defined by structural or functional abnormalities of the kidney, manifested by either:Pathological abnormalities or Markers of kidney damage (including abnormalities in the composition of the blood or urine or abnormalities in imaging tests). Lab Interpretation Abnormal (test code = 61325-8) [facility] WITH [id number] 10:21:03 Test Item Value Reference Range Interpretation Comments WBC (test code = 6.13 See_Comment [Automated 2435-2) message] The sy stem which generated this result transmitted reference range : 4.20 - 10.70 10*3/?L. The reference range was not used to interpret this result as normal/abnormal . RBC (test code = 4.36 See_Comment [Automated 892-8) message] The sy stem which generated this result transmitted reference range : 4.26 - 5.52 10*6/?L. The reference range was not used to interpret this result as normal/abnormal . HGB (test code = 12.2 g/dL 12.2-16.4 718-7) HCT (test code = 40.8 % 38.4-49.3 4544-3) MCV (test code = 93.6 fL 81.7-95.6 787-2) MCH (test code = 28.0 pg 26.1-32.7 785-6) MCHC (test code = 29.9 g/dL 31.2-35.0 L 786-4) RDW-SD (test code = 53.2 fL 38.5-51.6 H 11069-4) RDW-CV (test code = 15.2 % 12.1-15.4 788-0) PLT (test code = 196 See_Comment [Automated 857-3) message] The sy stem which generated this result transmitted reference range : 150 - 328 10*3/ ?L. The reference r guicho was not used to interpret this result as normal/abnormal . MPV (test code = 9.5 fL 9.8-13.0 L 41413-4) NRBC/100 WBC (test 0.0 See_Comment [Automat ed code = 1134831572) message] The system which generated this result transmitted reference range : 0.0 - 10.0 /100 WBCs. The refer ence range was not u sed to interpret th is result as normal/abnormal . NRBC x10^3 (test code See_Comment [Auto mated = 5622912870) message] The s ystem which generated this result transmitted reference range : 10*3/?L. The reference range was not used to interpret this result as normal/abnormal . GRAN MAT (NEUT) % 91.6 % (test code = 770-8) IMM GRAN % (test code 0.30 % = 0926633041) LYMPH % (test code = 5.5 % 736-9) MONO % (test code = 2.4 % 5905-5) EOS % (test code = 0.0 % 713-8) BASO % (test code = 0.2 % 706-2) GRAN MAT x10^3(ANC) 5.61 10*3/uL 1.99-6.95 (test code = 9551258634) IMM GRAN x10^3 (test 0.00-0.06 code = 7313308059) LYMPH x10^3 (test code 0.34 10*3/uL 1.09-3.23 L = 731-0) MONO x10^3 (test code 0.15 10*3/uL 0.36-1.02 L = 742-7) EOS x10^3 (test code = 0.06-0.53 L 711-2) BASO x10^3 (test code 0.01-0.09 = 704-7) Lab Interpretation Abnormal (test code = 52980-3) [facility] GLUCOSE (AUTOMATED)2022-07-13 01:55:13 Test Item Value Reference Range Interpretation Comments POCT GLU (test code = 4771132611) 194 mg/dL 70-110 H Lab Interpretation (test code = Abnormal 32635-3) [facility] GLUCOSE (AUTOMATED)2022-07-12 23:01:35 Test Item Value Reference Range Interpretation Comments POCT GLU (test code = 2540908048) 190 mg/dL 70-110 H Lab Interpretation (test code = Abnormal 87470-6) [facility] [id number] 18:51:11 Test Item Value Reference Range Interpretation Comments NT-proBNP (test code = 1780 pg/mL <=450 H 9836552415) CATA (test code = CATA) Biotin has been reported to cause a negative bias, interpret results relative to patient's use of biotin. Lab Interpretation (test Abnormal code = 86012-6) [facility] [id number] 18:43:09 Test Item Value Reference Range Interpretation Comments CK (test code = 0556408176) 782 U/L 33-194 H Lab Interpretation (test code = Abnormal 34222-7) [facility] (NA, K, CL, CO2, GLUCOSE, BUN, CREATININE, CA)2022-07-12 18:43:09 Test Item Value Reference Range Interpretation Comments NA (test code = 137 mmol/L 135-145 2661743945) K (test code = 4.8 mmol/L 3.5-5.0 7897015972) CL (test code = 104 mmol/L 98-108 2437173356) CO2 TOTAL (test code = 26 mmol/L 23-31 9923654972) AGAP (test code = 7 2-16 1337187859) BUN (test code = 102 mg/dL 7-23 H 4407341889) GLUCOSE (test code = 160 mg/dL 70-110 H 6413418460) CREATININE (test code = 2.83 mg/dL 0.60-1.25 H 6362155184) CALCIUM (test code = 7.3 mg/dL 8.6-10.6 L 4387107676) eGFR (test code = 21.7 mL/min/1.73m2 9121527412) CATA (test code = CATA) Association of Glomerular Filtration Rate (GFR) and Staging of Kidney Disease* + --+ --+ ------+| GFR (mL/min/1.73 m2) ?| With Kidney Damage ?| ?Without Kidney Damage+ --------+ --------+ +| ?>90 ?| ?Stage one ?| ? Normal ?+ ---+ ---+ -------+| ?60-89 ?| ?Stage two ?| ? Decreased GFR ? + --+ --+ ------+| ?30-59 ?| ?Stage three ?| ? Stage three ? + --+ --+ ------+| ?15-29 ?| ?Stage four ? | ? Stage four ?+ ---+ ---+ -------+| ?<15 (or dialysis) ? ?| ?Stage five ? | ? Stage five ?+ ---+ ---+ -------+ *Each stage assumes the associated GFR level has been in effect for at least three months. ?Stages 1 to 5, with or without kidney disease, indicate chronic kidney disease. Notes: Determination of stages one and two (with eGFR >59mL/min/1.73 m2) requires estimation of kidney damage for at least three months as defined by structural or functional abnormalities of the kidney, manifested by either:Pathological abnormalities or Markers of kidney damage (including abnormalities in the composition of the blood or urine or abnormalities in imaging tests). Lab Interpretation Abnormal (test code = 80024-1) [facility] + Lactic [id number] 18:20:56 Test Item Value Reference Range Interpretation Comments PH (test code = 2) 7.40 7.35-7.45 PCO2 (test code = 41 See_Comment [Automate d 1454426174) message] The sy stem which generated this result transmitted reference range : 35 - 45 mmHg. The reference range was not used to interpret this result as normal/abnormal . PO2 (test code = 81 See_Comment [Automated 4415094975) message] The sy stem which generated this result transmitted reference range : 80 - 100 mmHg. The reference range was not used to interpret this result as normal/abnormal . HCO3 (test code = 25 See_Comment [Automate d 7274851346) message] The sy stem which generated this result transmitted reference range : 22 - 26 mEq/L. The reference range was not used to interpret this result as normal/abnormal . BE (test code = 0.2 See_Comment [Automated 6743988720) message] The sy stem which generated this result transmitted reference range : -3.0 - 3.0 mEq/ L. The reference r guicho was not used to interpret this result as normal/abnormal . THB (test code = 13.1 g/dL 13.5-18.0 L 9661028694) %O2HB (test code = 93.5 % 94.0-99.0 L 4876704420) %COHB ART (test code = 1.7 % 0.0-1.5 H 2436211565) %METHB ART (test code = 0.6 % 0.4-1.5 2976721393) VOL%O2 ART (test code = 17.3 % 15.0-23.0 0340754314) NA (test code = 138 mmol/L 135-145 3909087702) K+ (test code = 4.7 mmol/L 3.5-5.0 6453518522) AC CA IONZ (test code = 4.10 mg/dL 4.50-5.30 L 4276592911) GLUCOSE (test code = 164 mg/dL 70-110 H 9077586202) LACTIC ACID (test code 0.72 mmol/L 0.50-2.20 = 7972068491) Lab Interpretation Abnormal (test code = 94959-5) [facility] GLUCOSE (AUTOMATED)2022-07-12 18:10:06 Test Item Value Reference Range Interpretation Comments POCT GLU (test code = 5855666619) 168 mg/dL 70-110 H Lab Interpretation (test code = Abnormal 84869-5) [facility] GLUCOSE (AUTOMATED)2022-07-12 13:33:16 Test Item Value Reference Range Interpretation Comments POCT GLU (test code = 4144055336) 158 mg/dL 70-110 H Lab Interpretation (test code = Abnormal 22503-0) [facility] GLUCOSE (AUTOMATED)2022-07-12 02:54:47 Test Item Value Reference Range Interpretation Comments POCT GLU (test code = 6125470041) 161 mg/dL 70-110 H Lab Interpretation (test code = Abnormal 03999-6) [facility] GLUCOSE (AUTOMATED)2022-07-11 23:35:31 Test Item Value Reference Range Interpretation Comments POCT GLU (test code = 3883824390) 177 mg/dL 70-110 H Lab Interpretation (test code = Abnormal 04427-8) [facility] GLUCOSE (AUTOMATED)2022-07-11 21:37:32 Test Item Value Reference Range Interpretation Comments POCT GLU (test code = 1973803999) 212 mg/dL 70-110 H Lab Interpretation (test code = Abnormal 12619-2) [facility] GLUCOSE (AUTOMATED)2022-07-11 18:03:13 Test Item Value Reference Range Interpretation Comments POCT GLU (test code = 1303994705) 223 mg/dL 70-110 H Lab Interpretation (test code = Abnormal 59636-5) [facility] GLUCOSE (AUTOMATED)2022-07-11 14:41:26 Test Item Value Reference Range Interpretation Comments POCT GLU (test code = 2721940521) 185 mg/dL 70-110 H Lab Interpretation (test code = Abnormal 87131-1) [facility] GLUCOSE (AUTOMATED)2022-07-11 13:16:28 Test Item Value Reference Range Interpretation Comments POCT GLU (test code = 2277846047) 215 mg/dL 70-110 H Lab Interpretation (test code = Abnormal 85965-5) [facility] GLUCOSE (AUTOMATED)2022-07-11 02:55:24 Test Item Value Reference Range Interpretation Comments POCT GLU (test code = 5679752712) 266 mg/dL 70-110 H Lab Interpretation (test code = Abnormal 63666-3) [facility] GLUCOSE (AUTOMATED)2022-07-10 23:12:15 Test Item Value Reference Range Interpretation Comments POCT GLU (test code = 8641614392) 181 mg/dL 70-110 H Lab Interpretation (test code = Abnormal 25547-2) [facility] GLUCOSE (AUTOMATED)2022-07-10 18:06:30 Test Item Value Reference Range Interpretation Comments POCT GLU (test code = 1587591616) 195 mg/dL 70-110 H Lab Interpretation (test code = Abnormal 07065-8) [facility] GLUCOSE (AUTOMATED)2022-07-10 14:26:08 Test Item Value Reference Range Interpretation Comments POCT GLU (test code = 7868379452) 114 mg/dL 70-110 H Lab Interpretation (test code = Abnormal 04822-2) [facility] GLUCOSE (AUTOMATED)2022-07-10 02:54:41 Test Item Value Reference Range Interpretation Comments POCT GLU (test code = 7033031519) 171 mg/dL 70-110 H Lab Interpretation (test code = Abnormal 19155-1) [facility] 21:44:03 Test Item Value Reference Range Interpretation Comments POCT GLU (test code = 4025297432) 152 mg/dL 70-110 H Lab Interpretation (test code = Abnormal 69511-3) [facility] GLUCOSE (AUTOMATED)2022-07-09 18:10:11 Test Item Value Reference Range Interpretation Comments POCT GLU (test code = 0805030491) 176 mg/dL 70-110 H Lab Interpretation (test code = Abnormal 70771-2) [facility] GLUCOSE (AUTOMATED)2022-07-09 13:58:10 Test Item Value Reference Range Interpretation Comments POCT GLU (test code = 2157089020) 122 mg/dL 70-110 H Lab Interpretation (test code = Abnormal 74344-4) [facility] GLUCOSE (AUTOMATED)2022-07-09 07:26:45 Test Item Value Reference Range Interpretation Comments POCT GLU (test code = 0208312984) 208 mg/dL 70-110 H Lab Interpretation (test code = Abnormal 03504-0[facility] 03:38:49 Test Item Value Reference Range Interpretation Comments POCT GLU (test code = 8946980409) 313 mg/dL 70-110 H Lab Interpretation (test code = Abnormal 30210-8) [facility] GLUCOSE (AUTOMATED)2022-07-09 00:00:27 Test Item Value Reference Range Interpretation Comments POCT GLU (test code = 6249761635) 295 mg/dL 70-110 H Lab Interpretation (test code = Abnormal 88820-8) [facility] 22:45:20 Test Item Value Reference Range Interpretation Comments POCT GLU (test code = 5387022167) 182 mg/dL 70-110 H Lab Interpretation (test code = Abnormal 06841-8) [facility] 17:31:11 Test Item Value Reference Range Interpretation Comments POCT GLU (test code = 9554345868) 157 mg/dL 70-110 H Lab Interpretation (test code = Abnormal 89212-5) [facility] GLUCOSE (AUTOMATED)2022-07-08 13:22:18 Test Item Value Reference Range Interpretation Comments POCT GLU (test code = 2144054902) 315 mg/dL 70-110 H Lab Interpretation (test code = Abnormal 68405-9) [facility] GLUCOSE (AUTOMATED)2022-07-08 03:19:18 Test Item Value Reference Range Interpretation Comments POCT GLU (test code = 9434135600) 153 mg/dL 70-110 H Lab Interpretation (test code = Abnormal 35433-9) [facility] GLUCOSE (AUTOMATED)2022-07-07 22:31:16 Test Item Value Reference Range Interpretation Comments POCT GLU (test code = 1918350475) 189 mg/dL 70-110 H Lab Interpretation (test code = Abnormal 86029-4) [facility] GLUCOSE (AUTOMATED)2022-07-07 17:39:20 Test Item Value Reference Range Interpretation Comments POCT GLU (test code = 8805990840) 127 mg/dL 70-110 H Lab Interpretation (test code = Abnormal 38221-2) [facility] GLUCOSE (AUTOMATED)2022-07-07 14:58:59 Test Item Value Reference Range Interpretation Comments POCT GLU (test code = 4713087108) 131 mg/dL 70-110 H Lab Interpretation (test code = Abnormal 22497-4) [facility] GLUCOSE (AUTOMATED)2022-07-07 13:58:11 Test Item Value Reference Range Interpretation Comments POCT GLU (test code = 2742837416) 66 mg/dL 70-110 L Lab Interpretation (test code = Abnormal 71520-4) [facility] GLUCOSE (AUTOMATED)2022-07-07 02:32:10 Test Item Value Reference Range Interpretation Comments POCT GLU (test code = 5396067592) 153 mg/dL 70-110 H Lab Interpretation (test code = Abnormal 04013-2) [facility] GLUCOSE (AUTOMATED)2022-07-06 22:52:13 Test Item Value Reference Range Interpretation Comments POCT GLU (test code = 6638087366) 135 mg/dL 70-110 H Lab Interpretation (test code = Abnormal 77724-0) [facility] GLUCOSE (AUTOMATED)2022-07-06 18:05:47 Test Item Value Reference Range Interpretation Comments POCT GLU (test code = 3274061987) 170 mg/dL 70-110 H Lab Interpretation (test code = Abnormal 47790-9) [facility] GLUCOSE (AUTOMATED)2022-07-06 13:41:06 Test Item Value Reference Range Interpretation Comments POCT GLU (test code = 7593834947) 112 mg/dL 70-110 H Lab Interpretation (test code = Abnormal 33158-3) [facility] GLUCOSE (AUTOMATED)2022-07-06 11:56:40 Test Item Value Reference Range Interpretation Comments POCT GLU (test code = 8847954780) 112 mg/dL 70-110 H Lab Interpretation (test code = Abnormal 13687-7) [facility] GLUCOSE (AUTOMATED)2022-07-06 11:19:55 Test Item Value Reference Range Interpretation Comments POCT GLU (test code = 6487190768) 75 mg/dL 70-110 Lab Interpretation (test code = Normal 99403-7) [facility] GLUCOSE (AUTOMATED)2022-07-06 10:45:01 Test Item Value Reference Range Interpretation Comments POCT GLU (test code = 7558966992) 65 mg/dL 70-110 L Lab Interpretation (test code = Abnormal 63675-2) [facility] GLUCOSE (AUTOMATED)2022-07-06 10:26:42 Test Item Value Reference Range Interpretation Comments POCT GLU (test code = 2117680184) 26 mg/dL 70-110 LL Lab Interpretation (test code = Abnormal 74441-3) [facility] GLUCOSE (AUTOMATED)2022-07-06 04:40:48 Test Item Value Reference Range Interpretation Comments POCT GLU (test code = 8304582045) 92 mg/dL 70-110 Lab Interpretation (test code = Normal 39602-9) [facility] GLUCOSE (AUTOMATED)2022-07-06 03:26:01 Test Item Value Reference Range Interpretation Comments POCT GLU (test code = 9805324834) 61 mg/dL 70-110 L Lab Interpretation (test code = Abnormal 55687-5) [facility] HEMOGLOBIN A1C [id number] 21:48:00 Test Item Value Reference Range Interpretation Comments POCT HBA1C (test code = 4548-4) 9.4 % 4-6 A Lab Interpretation (test code = Abnormal 21410-3) [facility] [id number] 21:48:00 Test Item Value Reference Range Interpretation Comments POCT HBA1C (test code = 4548-4) 9.4 % 4-6 A Lab Interpretation (test code = Abnormal 51037-2) [facility]"
[2023-02-10] MEDS ORDERED: NA CHLORIDE 0.9% 100 ML ONE (14:17)
[2023-02-10] MEDS ORDERED: PIPERACIL/TAZO 3.375 GM VIAL IV ONE (14:17)
--- NOTE | 2023-02-10 14:17 | RAD REPORT ---
EXAM DESCRIPTION: RAD - Foot Right 3 View - 02/10/2023 2:07 pm CLINICAL HISTORY: rule out osteo COMPARISON: No comparisons TECHNIQUE: Right foot, 3 views. FINDINGS: Pronounced forefoot soft tissue swelling, most notable along the big toe, with soft tissue irregularity. No discrete foci of soft tissue gas. Subtle cortical lucency along the lateral head of the big toe proximal phalanx, as well as questionab le cortical lucency along the plantar aspect of the distal phalanx. No fracture, dislocation or periosteal reaction. Scattered degenerative changes. Vascular phlebolith along the anterior lower leg and other vascular c alcifications noted IMPRESSION: Findings concerning for osteomyelitis at the head of the big toe proximal phalanx latera lly and possibly along the plantar aspect of the distal phalanx.
[2023-02-10 14:18] LABS: Absolute Lymphocytes (CBC) 0.9 K/uL (0.7-4.9); Hematocrit 33.1 % (39.6-49.0); Lymphocytes % 7.5 % (15.3-44.8); MCV 83.2 fL (80-100); MPV 7.5 fL (7.6-11.3); Platelets 287 thou/uL (152-406); RBC Red Blood Cell Count 3.97 M/uL (4.33-5.43)
[2023-02-10 14:30] LABS: Protime INR 1.12
[2023-02-10 14:37] LABS: Albumin 2.7 g/dL (3.4-5.0); Bilirubin Total 0.5 mg/dL (0.2-1.0); Potassium 4.2 mEq/L (3.5-5.1)
--- NOTE | 2023-02-10 14:49 | EDPHYS ---
Physician Documentation [facility] Name: Donell Schneider Age: 82 yrs Sex: Male : 1940 Arrival Date: 02/10/2023 Time: 13:29 Bed 3 Private MD: ED Physician Anand Badillo HPI: 02/10 14:02 This 82 yrs old Male presents to ER via Ambulatory with complaints of Toe rn Injury, Other. 14:02 The patient presents with an injury, pain, swelling. The complaints affect the right rn foot. Onset: The symptoms/episode began/occurred 2 week(s) ago. Modifying factors: The symptoms are alleviated by nothing, the symptoms are aggravated by nothing. Severity of symptoms: At their worst the symptoms were moderate, in the emergency department the symptoms are unchanged. The patient has not experienced similar symptoms in the past. Patient reports was trying to cut toenails 2 weeks ago using pruning angel from the garage. Did okay initially but right great toe began to swell and turn blue.. Historical: - Allergies: 13:42 No Known Allergies; nj1 - PMHx: 13:42 Diabetes mellitus; Hypertensive disorder; Hypercholesterolemia; Congestive heart nj1 failure; Chronic obstructive lung disease; - PSHx: 13:42 Hernia repair, abdominal; nj1 - Immunization history:: Client reports receiving the 2nd dose of the Covid vaccine. - Social history:: Smoking status: Patient denies any tobacco usage or history of. - Family history:: not pertinent. - Hospitalizations: : No recent hospitalization is reported. ROS: 14:02 MS/extremity: Positive for swelling, warmth, rn Exam: 14:01 Constitutional: This is a well developed, well nourished patient who is awake, alert, rn and in no acute distress. Cardiovascular: Regular rate and rhythm. MS/ Extremity: Right great toe with significant swelling and fluctuance, bluish discoloration with warmth. Patient with peripheral neuropathy and cannot appreciate pain to wound 17:06 ECG was reviewed by the Attending Physician. rn Vital Signs: 13:36 BP 138 / 52; Pulse 62; Resp 18; Temp 98.8; Pulse Ox 96% ; Weight 117.48 kg; Height 6 nj1 ft. 0 in. ; Pain 0/10; 14:19 BP 155 / 66; Pulse 67; Resp 18; Pulse Ox 94% on R/A; ld1 15:51 BP 166 / 53; Pulse 72; Resp 18; Pulse Ox 94% on R/A; ph 16:59 BP 164 / 70; Pulse 67; Resp 18; Pulse Ox 92% on R/A; ld1 19:30 BP 140 / 49; Pulse 63; Resp 18; Pulse Ox 96% on R/A; cm10 13:36 Body Mass Index 35.13 (117.48 kg, 182.88 cm) nj1 13:36 Pain Scale: Adult nj1 MDM: 13:33 Patient medically screened. rn 14:46 Differential diagnosis: cellulitis, Osteomyelitis. Data reviewed: vital signs, nurses rn notes, lab test result(s), radiologic studies, plain films, and as a result, I will admit patient. Consideration of Admission/Observation Patient was admitted/placed on observation. Escalation of care including admission/observation considered. 14:47 Management of patient was discussed with the following: Ride Mechanic: wilson Avila rn patient admitted to hospitalist service with IV Zosyn coverage. Independent interpretation of the following test(s) in the Emergency Department X-Ray: My interpretation is X-ray right foot shows possible osteo involving the right first toe per my interpretation. Care significantly affected by the following chronic conditions: Diabetes, Hypertension. Counseling: I had a detailed discussion with the patient and/or guardian regarding the historical points, exam findings, and any diagnostic results supporting the discharge/admit diagnosis, lab results, radiology results, the need for further work-up and treatment in the hospital. 02/10 13:47 Order name: Blood Culture Adult (2) rn 02/10 13:47 Order name: CBC with Diff; Complete Time: 14:42 rn 02/10 13:47 Order name: CMP; Complete Time: 14:42 rn 02/10 13:47 Order name: Lactate w/ 2H reflex if indic.; Complete Time: 14:42 rn 02/10 13:47 Order name: Protime (+inr); Complete Time: 14:42 rn 02/10 13:47 Order name: Ptt, Activated; Complete Time: 14:42 rn 02/10 15:49 Order name: Lactate w/ 2H reflex if indic. EDMS 02/10 15:49 Order name: Urinalysis w/ reflexes EDNE 02/10 15:49 Order name: Basic Metabolic Panel EDNE 02/10 15:49 Order name: Basic Metabolic Panel EDMS 02/10 15:49 Order name: Basic Metabolic Panel EDMS 02/10 15:49 Order name: Basic Metabolic Panel EDMS 02/10 15:49 Order name: CBC with Automated Diff EDMS 02/10 15:49 Order name: CBC with Automated Diff EDMS 02/10 15:49 Order name: CBC with Automated Diff EDMS 02/10 15:49 Order name: CBC with Automated Diff EDMS 02/10 15:49 Order name: Magnesium EDMS 02/10 15:49 Order name: Magnesium EDMS 02/10 15:49 Order name: Magnesium EDMS 02/10 15:49 Order name: Magnesium EDMS 02/10 15:49 Order name: Phosphorus EDMS 02/10 15:49 Order name: Phosphorus EDMS 02/10 15:49 Order name: Phosphorus EDMS 02/10 15:49 Order name: Phosphorus EDMS 02/10 13:47 Order name: XRAY Foot RIGHT 3 View; Complete Time: 14:42 rn 02/10 13:47 Order name: EKG; Complete Time: 13:48 rn 02/10 15:49 Order name: CONS Physician Consult EDMS 02/10 15:49 Order name: NPO EDMS 02/10 15:58 Order name: No Concentrated Sweets Diet EDMS 02/10 13:47 Order name: Accucheck; Complete Time: 13:58 rn 02/10 13:47 Order name: Cardiac monitoring; Complete Time: 14:03 rn 02/10 13:47 Order name: EKG - Nurse/Tech; Complete Time: 14:03 rn 02/10 13:47 Order name: IV Saline Lock - Large Bore; Complete Time: 13:59 rn 02/10 13:47 Order name: Labs collected and sent; Complete Time: 13:59 rn 02/10 13:47 Order name: O2 Per Protocol; Complete Time: 13:59 rn 02/10 13:47 Order name: O2 Sat Monitoring; Complete Time: 13:59 rn 02/10 13:47 Order name: Vital Signs; Complete Time: 13:58 rn EC:06 Rate is 63 beats/min. Rhythm is regular. QRS [place] is Normal. [place] interval is normal. QRS rn interval is normal. QT interval is normal. No Q waves. T waves are Normal. No ST changes noted. Clinical impression: Normal ECG. Interpreted by me. Reviewed by me. Administered Medications: 14:19 Drug: Piperacillin-Tazobactam IVPB 3.375 grams IVPB once over 60 mins; (mix in NS 100 ld1 mL) Route: IVPB; Infused Over: 60 mins; Site: right antecubital; 19:41 Follow up: Response: No adverse reaction; IV Status: Completed infusion cm10 14:56 Drug: NS 0.9% IV 500 ml IV at bolus once Route: IV; Rate: bolus; Site: right ph antecubital; 19:40 Follow up: Response: No adverse reaction; IV Status: Completed infusion; IV Intake: cm10 500ml Disposition Summary: 02/10/23 14:48 Hospitalization Ordered Notes: Hospitalization Status: Inpatient Admission rn Provider: Jreald Bravo [facility]n [facility] rn Condition: Stable rn Problem: new rn Symptoms: have improved rn Bed/Room Type: Standard rn Room Assignment: 213(02/10/23 17:17) rd2 Diagnosis - Osteomyelitis, unspecified - Right 1st toe rn - Cellulitis of right toe rn Forms: - Medication Reconciliation Form rn - SBAR form rn - Leadership Thank You Letter rn Signatures: Dispatcher [employer] EDMS Anand Badillo MD MD rn Hall, Patricia RN RN Lolly Kee RN RN ld1 Kathy Chao, RN RN rd2 Ailyn Pereira, RN RN nj1 Leandra Bell RN cm10 Corrections: (The following items were deleted from the chart) 17:17 14:48 rn rd2
--- NOTE | 2023-02-10 14:49 | ER ---
Nurse's Notes [facility] Name: Donell Schneider Age: 82 yrs Sex: Male : 1940 Arrival Date: 02/10/2023 Time: 13:29 Bed 3 Private MD: Diagnosis: Osteomyelitis, unspecified-Right 1st toe;Cellulitis of right toe Presentation: 02/10 13:36 Chief complaint: Patient's son or daughter states: Instructed to come to ED by Dr elmira Camacho. Pt has been getting wound care on right big toe. Has home health coming to see patient, toe has gotten more swollen. Dr Camacho to come see patient in ED. Coronavirus screen: Vaccine status: Patient reports receiving the 2nd dose of the covid vaccine. Ebola Screen: Patient denies travel to an Ebola-affected area in the 21 days before illness onset. Initial Sepsis Screen: Does the patient meet any 2 criteria? No. Patient's initial sepsis screen is negative. Does the patient have a suspected source of infection? No. Patient's initial sepsis screen is negative. Risk Assessment: Do you want to hurt yourself or someone else? Patient reports no desire to harm self or others. Onset of symptoms was January 2023. 13:36 Method Of Arrival: Ambulatory [facility] 13:36 Acuity: SATHYA 3 nj1 Historical: - Allergies: 13:42 No Known Allergies; nj1 - PMHx: 13:42 Diabetes mellitus; Hypertensive disorder; Hypercholesterolemia; Congestive heart nj1 failure; Chronic obstructive lung disease; - PSHx: 13:42 Hernia repair, abdominal; nj1 - Immunization history:: Client reports receiving the 2nd dose of the Covid vaccine. - Social history:: Smoking status: Patient denies any tobacco usage or history of. - Family history:: not pertinent. - Hospitalizations: : No recent hospitalization is reported. Screenin:01 [facility] ED Fall Risk Assessment (Adult) History of falling in the last 3 months, ph including since admission No falls in past 3 months (0 pts) Confusion or Disorientation No (0 pts) Intoxicated or Sedated No (0 pts) Impaired Gait Yes (1 pt) Mobility Assist Device Used Yes (1 pt) Altered Elimination Yes (1 pt) Score/Fall Risk Level 3 or more points = High Risk Oriented to surroundings, Maintained a safe environment, Hourly rounding (assess needs \T\ fall precautionary measures) done, Used ambulatory aids as needed (educated on \T\ assisted with). Abuse screen: Denies threats or abuse. Denies injuries from another. Nutritional screening: No deficits noted. Tuberculosis screening: No symptoms or risk factors identified. Assessment: 13:59 General: Appears in no apparent distress. comfortable, Behavior is calm, cooperative, ph appropriate for age. Pain: Complains of pain in right foot. Neuro: Level of Consciousness is awake, alert, obeys commands, Oriented to person, place, time, situation. Cardiovascular: Capillary refill < 3 seconds in bilateral fingers Patient's skin is warm and dry. Respiratory: Airway is patent Respiratory effort is even, unlabored. GI: No signs and/or symptoms were reported involving the gastrointestinal system. Derm: Skin is pink, warm \T\ dry. Derm: Wound noted plantar aspect of right first toe, right first toe and Right first toenail. Musculoskeletal: Circulation, motion, and sensation intact. Range of motion: intact in all extremities. Musculoskeletal:. 14:19 Reassessment: Patient appears in no apparent distress at this time. No changes from ld1 previously documented assessment. Patient and/or family updated on plan of care and expected duration. Pain level reassessed. Patient is alert, oriented x 3, equal unlabored respirations, skin warm/dry/pink. 15:55 Reassessment: Patient appears in no apparent distress at this time. Patient and/or ph family updated on plan of care and expected duration. Pain level reassessed. Patient is alert, oriented x 3, equal unlabored respirations, skin warm/dry/pink. Son's contact info: Stephen Schneider [phone]. 16:59 Reassessment: Patient appears in no apparent distress at this time. No changes from ld1 previously documented assessment. Patient and/or family updated on plan of care and expected duration. Pain level reassessed. Patient is alert, oriented x 3, equal unlabored respirations, skin warm/dry/pink. 17:44 Reassessment: Attempted to call report twice. Nurse denying phone call. ld1 Vital Signs: 13:36 BP 138 / 52; Pulse 62; Resp 18; Temp 98.8; Pulse Ox 96% ; Weight 117.48 kg; Height 6 nj1 ft. 0 in. ; Pain 0/10; 14:19 BP 155 / 66; Pulse 67; Resp 18; Pulse Ox 94% on R/A; ld1 15:51 BP 166 / 53; Pulse 72; Resp 18; Pulse Ox 94% on R/A; ph 16:59 BP 164 / 70; Pulse 67; Resp 18; Pulse Ox 92% on R/A; ld1 19:30 BP 140 / 49; Pulse 63; Resp 18; Pulse Ox 96% on R/A; cm10 13:36 Body Mass Index 35.13 (117.48 kg, 182.88 cm) nj1 13:36 Pain Scale: Adult [facility] ED Course: 13:32 Patient arrived in ED. ts1 13:33 Anand Badillo MD is Attending Physician. rn 13:42 Triage completed. nj1 13:45 Arm band placed on left wrist. nj1 14:01 Patient has correct armband on for positive identification. Bed in low position. Call ph light in reach. Side rails up X 1. Pulse ox on. NIBP on. Door closed. Noise minimized. Warm blanket given. 14:09 XRAY Foot RIGHT 3 View In Process Unspecified. EDMS 14:19 Lolly Trinidad, JG is Primary Nurse. ld1 14:19 No provider procedures requiring assistance completed. Inserted saline lock: 20 gauge ld1 in right antecubital area, using aseptic technique. Blood collected. 14:48 Jerald Bravo MD is Hospitalizing Provider. rn 19:41 Provided Education on: ER Process and procedures. . cm10 19:42 Patient admitted, IV remains in place. cm10 Administered Medications: 14:19 Drug: Piperacillin-Tazobactam IVPB 3.375 grams IVPB once over 60 mins; (mix in NS 100 ld1 mL) Route: IVPB; Infused Over: 60 mins; Site: right antecubital; 19:41 Follow up: Response: No adverse reaction; IV Status: Completed infusion cm10 14:56 Drug: NS 0.9% IV 500 ml IV at bolus once Route: IV; Rate: bolus; Site: right ph antecubital; 19:40 Follow up: Response: No adverse reaction; IV Status: Completed infusion; IV Intake: cm10 500ml Medication: 14:01 VIS not applicable for this client. ph Intake: 19:40 IV: 500ml; Total: 500ml. cm10 Outcome: 14:48 Decision to Hospitalize by Provider. rn 19:41 Admitted to Med/surg accompanied by nurse, via stretcher, room 213, Report called to cm10 JG Sevilla 19:41 Condition: good 19:58 Patient left the ED. 10 Signatures: Dispatcher [employer] EDMS Anand Badillo MD MD rn Hall, Patricia RN RN Lolly Trinidad RN RN ld1 Ailyn Pereira RN RN nj1 Araceli Jose PAS PAS ts1 Leandra Bell, RN RN 10
[2023-02-10] MEDS ORDERED: NA CHLORIDE 0.9% 500 ML ONE (15:02)
[2023-02-10] MEDS ORDERED: PIPER TAZO 3.375 GM in NA CHLORIDE 0.9% 100 ML IV SCH (17:00)
--- NOTE | 2023-02-10 17:35 | P.HP ---
Certification for Inpatient Patient admitted to: Inpatient With expected LOS: >2 Midnights Patient will require the following post-hospital care: Home Health Services Practitioner: I am a practitioner with admitting privileges, knowledge of patient current condition, hospital course, and medical plan of care. Services: Services provided to patient in accordance with Admission requirements found in Title 42 Section 412.3 of the Code of Federal Regulations Patient History Date of Service: 02/10/23 Reason for admission: right great toe injury History of Present Illness: Donell Schneider is an 82-year-old male with past medical history of hypertension, hypothyroidism, insulin-dependent diabetes type 2, BPH who presents to the ER with pain to right great toe. Patient reports clipping his toenails with garden angel approximately 3 weeks ago. He stopped when he noticed the bleeding. Patient reports not feeling much pain in his feet likely due to neuropathy. Right great toe with large purple blister present, right foot x-ray revealing osteomyelitis to big toe proximal phalanx laterally and possibly on plantar aspect. White blood cells 12.6, platelets 287, lactic 2.2, blood pressure 165/115, Zosyn started and will continue as inpatient. General surgery, Dr. Camacho consulted and requesting admission for I&D of right great toe. Allergies No Known Allergies Allergy (Verified 12/03/22 12:32) Home Medications: Docusate [Colace Cap] 100 mg PO DAILY 12/03/22 Finasteride [Proscar] 5 mg PO DAILY 12/03/22 Furosemide [Lasix] 40 mg PO DAILY 12/03/22 Hydralazine HCl 100 mg PO BID 12/03/22 Insulin Glargine,Hum.rec.anlog [Lantus] 20 unit SQ DAILY 12/03/22 Insulin Glargine,Hum.rec.anlog [Lantus] 40 unit SQ BEDTIME 12/03/22 Magnesium Oxide [Mag 0X Tab] 400 mg PO DAILY 12/03/22 Pravastatin Sodium 20 mg PO BEDTIME 12/03/22 Tamsulosin [Flomax] 0.4 mg PO DAILY 12/03/22 - Past Medical/Surgical History Diabetic: Yes - Social History Alcohol use: Yes Review of Systems General: Malaise Eyes: Unremarkable ENT: Unremarkable Respiratory: Unremarkable Cardiovascular: Unremarkable Gastrointestinal: Unremarkable Genitourinary: Unremarkable Musculoskeletal: Foot Pain (Right foot mild pain) Integumentary: Other (purple blister to right great toe) Neurological: Unremarkable Physical Examination - Physical Exam General: Alert, In no apparent distress, Oriented x3 HEENT: Atraumatic, Normocephalic, PERRLA Neck: Supple, 2+ carotid pulse no bruit, JVD not distended Respiratory: Clear to auscultation bilaterally, Normal air movement Cardiovascular: Normal pulses, Regular rate/rhythm, Normal S1 S2, Edema (BLE) Capillary refill: <2 Seconds Gastrointestinal: Normal bowel sounds, Hypoactive, Soft and benign (Obese) Musculoskeletal: No clubbing, Swelling (BLE) Integumentary: Erythema (Right great toe) Neurological: Normal speech, Normal strength at 5/5 x4 extr - Studies Laboratory Data (last 24 hrs) 02/10/23 02/10/23 02/10/23 14:00 14:00 14:00 WBC 12.60 H Hgb 11.1 L Hct 33.1 L Plt Count 287 PT 12.3 INR 1.12 APTT 37.7 H Sodium 137 Potassium 4.2 BUN 43 H Creatinine 1.51 H Glucose 279 H Total Bilirubin 0.5 AST 16 ALT 23 Alkaline Phosphatase 72 Assessment and Plan - Plan Assessment and Plan Osteomylitis of right great toe -General surgery consulted -plan for surgery -NPO after midnight -Zosyn -WBC 12.6, lactic 2.2 will repeat 0.9 KERMIT -BUN/Creatinine 43/1.51 -IVF Anemic H/H 11.1/33.1 BPH -leo (POA) -UA -will consult urology for recommendations Hypothyroidism -restart home medication HTN -restart home medications Full Code DVT ppx: SCD to left leg LOS > 2 nights NPO after midnight Discharge Plan: Home Plan to discharge in: Greater than 2 days - Advance Directives Does patient have a Living Will: No Does patient have a Durable POA for Healthcare: No
[2023-02-10] MEDS ORDERED: INSULIN REGULAR (HUMAN) 100 UNIT/ML SQ SCH (20:31)
[2023-02-10] MEDS ORDERED: D50W 25 GM/50 ML SYRINGE IV PRN (20:31)
[2023-02-10] MEDS ORDERED: GLUCAGON 1 MG/VIAL IM PRN (20:31)
[2023-02-10] MEDS ORDERED: D10W 125 ML IV PRN (20:38)
[2023-02-10] MEDS: NA CHLORIDE 0.9% 1,000 ML IV SCH (22:57)
[2023-02-10] MEDS: PIPER TAZO 3.375 GM in NA CHLORIDE 0.9% 100 ML IV SCH (22:57)
[2023-02-11 03:40] LABS: Absolute Lymphocytes (CBC) 1.1 K/uL (0.7-4.9); Hematocrit 30.6 % (39.6-49.0); MCV 83.2 fL (80-100); MPV 7.3 fL (7.6-11.3); Platelets 271 thou/uL (152-406); RBC Red Blood Cell Count 3.68 M/uL (4.33-5.43)
[2023-02-11 04:11] LABS: Magnesium 2.4 mg/dL (1.6-2.4); Phosphorus 3.5 mg/dL (2.5-4.9); Potassium 3.8 mEq/L (3.5-5.1)
[2023-02-11 04:39] VITALS: BMI 50.5
[2023-02-11] MEDS: PIPER TAZO 3.375 GM in NA CHLORIDE 0.9% 100 ML IV SCH ×2 (05:46→15:42)
[2023-02-11] MEDS: INSULIN REGULAR (HUMAN) 100 UNIT/ML SQ SCH (12:00)
--- NOTE | 2023-02-11 12:13 | RAD REPORT ---
EXAM DESCRIPTION: MRI - Foot Right Wo Cont - 02/11/2023 12:02 pm CLINICAL HISTORY: eval for osteo COMPARISON: Foot Right 3 View dated 02/10/2023 TECHNIQUE MR imaging obtained of the right foot using a noncontrast osteomyelitis protocol. FINDINGS: Abnormal T1 hypointensity, T2 hyperintensity within the great toe distal and proximal phal anx. The signal abnormality is within the proximal aspect of the distal phalanx and distal aspect of the proximal phalanx consistent with the presence of osteomyelitis. There is edema present within the subcutaneous tissues. Along the dorsal aspect of the toe there is evidence of abnormal soft tissue t hickening which extends along the extensor tendon although with of the level of the metatarsal. . No fractures identified. IMPRESSION: Positive for osteomyelitis involving the great toe distal and proximal phalanx. No absce ss identified.
[2023-02-11] MEDS ORDERED: NA CHLORIDE 0.9% 1,000 ML ONE (13:01)
[2023-02-11] MEDS ORDERED: FENTANYL CITR 100 MCG/2 ML ONE (13:39)
[2023-02-11] MEDS ORDERED: ONDANSETRON 4 MG/2 ML VIAL ONE (13:39)
[2023-02-11] MEDS ORDERED: propofoL 200 MG/20 ML VIAL IV ONE (13:39)
[2023-02-11] MEDS ORDERED: LIDOCAINE 2% MPF 5 ML VIAL ONE (13:40)
[2023-02-11] MEDS ORDERED: BUPIVACAINE 0.25% PF 30 ML VIAL ONE (13:47)
--- NOTE | 2023-02-11 14:14 | EKG ---
Test Date: 2023-02-10 Test Time: 14:13:12 Scale Expert: Yefri SUN MEASUREMENT RESULTS: Intervals: Rate: 63 VA: 160 QRSD: 96 QT: 428 QTc: 437 [place]: P: 49 VA: 160 QRS: 48 T: 16 INTERPRETIVE STATEMENTS: Normal sinus rhythm Normal ECG Compared to ECG 12/03/2022 12:44:32 Sinus bradycardia no longer present Electronically Signed On 02-11-23 14:11:50 CDT by Brant Marcos
--- NOTE | 2023-02-11 14:59 | P.OP ---
Preoperative diagnosis: RIGHT Great Toe Osteomyelitis Postoperative diagnosis: RIGHT Great Toe Osteomyelitis Primary procedure: Amputation of RIGHT Great Toe Anesthesia: GETA + Local Estimated blood loss: <5cc Specimen: Great Toe Findings: Osteomyelitis, abscess Complications: None Transferred to: Recovery Room Condition: Good
--- NOTE | 2023-02-11 15:01 | P.PN ---
Subjective Date of Service: 02/11/23 Chief Complaint: right great toe injury Subjective: No new changes, NPO (for surgery) HPI 02/10: Donell Schneider is an 82-year-old male with past medical history of hypertension, hypothyroidism, insulin-dependent diabetes type 2, BPH who presents to the ER with pain to right great toe. Patient reports clipping his toenails with garden angel approximately 3 weeks ago. He stopped when he noticed the bleeding. Patient reports not feeling much pain in his feet likely due to neuropathy. Right great toe with large purple blister present, right foot x-ray revealing osteomyelitis to big toe proximal phalanx laterally and possibly on plantar aspect. White blood cells 12.6, platelets 287, lactic 2.2, blood pressure 165/115, Zosyn started and will continue as inpatient. General surgery, Dr. Camacho consulted and requesting admission for I&D of right great toe. 02/11: patient awake in bed, alert and oriented but at times confused. Patient does not know home medications at this time, will need to reach out to son for medication list. NPO since midnight, surgery planned for today. Hyperglycemic through the night, adjustments made to SSI. Patient denies fever, chills, N/V/D, CP, SOB, and ARBOLEDA. Review of Systems General: Unremarkable Eyes: Unremarkable ENT: Unremarkable Respiratory: Unremarkable Cardiovascular: Unremarkable Gastrointestinal: Unremarkable Musculoskeletal: Foot Pain (right great toe pain, mild) Integumentary: Other (right great toe with purple blister and red foot) Neurological: Confusion Physical Examination - Vital Signs Temperature: 97.6 F Blood Pressure: 186/78 Pulse: 58 Respirations: 18 Pulse Ox (%): 97 - Physical Exam General: Alert, In no apparent distress, Oriented x3 HEENT: Atraumatic, Normocephalic, PERRLA Neck: Supple, 2+ carotid pulse no bruit, JVD not distended Respiratory: Clear to auscultation bilaterally, Normal air movement Cardiovascular: Edema (to right foot and leg) Capillary refill: <2 Seconds Gastrointestinal: Normal bowel sounds Musculoskeletal: No clubbing, No contractures, Erythema (to right foot) Integumentary: Skin breakdown (right great toe) Neurological: Normal gait, Normal speech, Normal strength at 5/5 x4 extr Assessment And Plan - Plan Assessment and Plan Osteomylitis of right great toe -General surgery managing -plan for surgery today -NPO since midnight -Zosyn -WBC 10.7 -Consult wound care Hypertensive -BP 158/65 -HR 56 -continue to monitor Diabetes mellitus type 2 -Serum glucose 204, accucheck 244 this AM -Accucheck with SSI -SSI moderate, change from yesterday KERMIT -BUN/Creatinine 34/1.33 -IVF Anemic H/H 10.4/30.6 BPH -leo (POA) -UA -will consult urology for recommendations Hypothyroidism -restart home medication HTN -restart home medications Full Code DVT ppx: SCD to left leg LOS > 2 nights NPO after midnight Discharge Plan: Home (resume home health for leo and now wound care) Plan to discharge in: Greater than 2 days Time Spent Managing PTS Care (In Minutes): 35
[2023-02-11] MEDS ORDERED: HYDROCODONE/APAP 5/325 MG TAB PO PRN (15:17)
[2023-02-11] MEDS: NA CHLORIDE 0.9% 1,000 ML IV SCH (15:42)
--- NOTE | 2023-02-11 15:56 | CON ---
History Of Present Illness: Donell Schneider is an 82-year-old male with significant history of diabetes mellitus and diabetic neuropathy, coming in after cutting his big toenail with garden scissors. The patient also bumped his foot when he was walking outside in the yard and then purplish discoloration and swelling of the big toe. He has significant past medical history of hypertension, hypothyroidis m, insulin-dependent diabetes mellitus type 2, benign prostatic hypertrophy with indwelling Jacques cat heter. Denies any headache, nausea, vomiting, chest pain, abdominal pain, constipation, or diarrhea; currently on Zosyn. Past Medical History: As per HPI. Social History: Nonsmoker, nondrinker. Family History: Noncontributory. Medications: See [place] for medications. Allergies: NO KNOWN DRUG ALLERGIES. Review of Systems: A 10-point review was performed. Physical Examination: General: This is an 82-year-old male, lying in bed, about to go for an MRI. Vital SIGNS: Temperature 97.7, pulse 59, respirations 16, and blood pressure 152/57. HEENT: Unremarkable. Neck: Supple. Lungs: Clear to auscultation. Heart: S1 and S2 regular. Abdomen: Soft, nontender. Bowel sounds present. Extremities: Right foot big toe eschar tissue and purplish discoloration with bullae formation noted . Laboratory Data: Shows WBC 10, down from previous labs; hemoglobin 10, and platelets are 275. BUN i s 34 and creatinine 1.3 with GFR of 54. Micro data pending cultures. X-ray of the foot concerning osteomyelitis of the big toe. Assessment And Plan: Osteomyelitis of right big toe with diabetic foot ulcer, status post traumatic injury from garden scissors. We will recommend to continue Zosyn. Consider giving tetanus booster. Apply Betadine to the wound site and cover with Kerlix and gauze. Consider opening the bullae lesio n and pending cultures from the fluid of the bullae. Diabetes mellitus, diabetic neuropathy, hypothy roidism, and benign prostatic hypertrophy. We will continue current treatment for 6 weeks. Consider adding vancomycin if MRSA comes back positive. We will follow the patient closely. Thank you, Dr. Bravo, for consulting. NF/MODL Voice ID: [id number] Report ID: [id number]
[2023-02-11] MEDS ORDERED: VANCOMYCIN 1.25 GM in NA CHLORIDE 0.9% 250 ML IVPB ONE (17:00)
[2023-02-11] MEDS: CEFEPIME 2 GM in NA CHLORIDE 0.9% 100 ML IV SCH (17:25)
[2023-02-11] MEDS ORDERED: VANCOMYCIN 1.5 GM in NA CHLORIDE 0.9% 500 ML IVPB SCH (19:00)
--- NOTE | 2023-02-12 01:18 | OP ---
Date of Procedure: 02/11/2023 Surgeon: Desean Camacho MD, Brief Hpi: This is an 82-year-old male known to me from hospitalization in the past who presents aft er injuring his right great toe with a pruning shear several weeks ago. The toe got progressively wo rse infected. He came to the hospital. MRI showed evidence of osteomyelitis of the right great toe into the distal and proximal phalanx. He had worsening swelling, pain, tenderness, and drainage of a bscess material and this was deemed appropriate for operative intervention. Preoperative Diagnosis: Right great toe osteomyelitis. Postoperative Diagnosis: Right great toe osteomyelitis. Procedure Performed: Amputation of right great toe. Anesthesia: General endotracheal plus local with 0.25% Marcaine. Estimated Blood Loss: 5 cc. Specimen: Right great toe and culture sent for aerobic and anaerobic speciation. Findings: Osteomyelitis with abscess appreciated, abscess traveled all the way to the proximal inter phalangeal joint construct to the metatarsophalangeal joint. Complications: None immediate. Disposition: Patient transferred to recovery room in good condition. Procedure In Detail: After informed consent was obtained, the patient was brought to the operating r oom, prepped and draped in the usual sterile fashion. After adequate anesthesia achieved, I made a p lantar flap distribution incision over the right great toe down through subcutaneous tissues with a 1 0 blade down to subcutaneous tissues. Electrocautery was used to dissect down circumferentially arou nd. Ultimately, I exposed the metatarsophalangeal joint using electrocautery. I then used a periost eal elevator to push back periosteum and allow for separation using sharp dissection of the tissues a nd tendons attached to the phalanx. At this point, the phalanx was removed in its entirety, sent off for pathologic examination. There was still abscess type material. This was all cultured for both aerobic and anaerobic speciation. The area was copiously irrigated until completely clear. All nonv iable tissue was debrided sharply and with a combination of electrocautery as well. After good hemos tasis was achieved, I reapproximated the edges of the incision based on the plantar flap using interr upted 2-0 nylon sutures and placed a Vashe soaked wick into the incision to allow for drainage and co ntinue antibiotic application and then a sterile dressing placed over the top. The patient tolerated the procedure without complications, transferred to PACU in good condition. All counts were correct at the end of the case. ANABELLA/ABDIEL Voice ID: [id number] Report ID: [id number]
[2023-02-12 04:16] LABS: Absolute Lymphocytes (CBC) 1.1 K/uL (0.7-4.9); Hematocrit 27.9 % (39.6-49.0); MPV 7.4 fL (7.6-11.3); Platelets 299 thou/uL (152-406); RBC Red Blood Cell Count 3.33 M/uL (4.33-5.43)
[2023-02-12 04:35] LABS: Magnesium 2.2 mg/dL (1.6-2.4); Phosphorus 3.3 mg/dL (2.5-4.9); Potassium 4.1 mEq/L (3.5-5.1)
[2023-02-12] MEDS: CEFEPIME 2 GM in NA CHLORIDE 0.9% 100 ML IV SCH ×2 (04:57→16:30)
[2023-02-12] MEDS ORDERED: GLUCAGON 1 MG/VIAL IM PRN (08:06)
[2023-02-12] MEDS ORDERED: D50W 25 GM/50 ML SYRINGE IV PRN (08:06)
[2023-02-12] MEDS: INSULIN REGULAR (HUMAN) 100 UNIT/ML SQ SCH ×5 (08:36→23:14)
--- NOTE | 2023-02-12 11:27 | P.PN ---
Subjective Date of Service: 02/12/23 Chief Complaint: right great toe injury Subjective: Tolerating diet HPI 02/10: Donell Schneider is an 82-year-old male with past medical history of hypertension, hypothyroidism, insulin-dependent diabetes type 2, BPH who presents to the ER with pain to right great toe. Patient reports clipping his toenails with garden angel approximately 3 weeks ago. He stopped when he noticed the bleeding. Patient reports not feeling much pain in his feet likely due to neuropathy. Right great toe with large purple blister present, right foot x-ray revealing osteomyelitis to big toe proximal phalanx laterally and possibly on plantar aspect. White blood cells 12.6, platelets 287, lactic 2.2, blood pressure 165/115, Zosyn started and will continue as inpatient. General surgery, Dr. Camacho consulted and requesting admission for I&D of right great toe. 02/11: patient awake in bed, alert and oriented but at times confused. Patient does not know home medications at this time, will need to reach out to son for medication list. NPO since midnight, surgery planned for today. Hyperglycemic through the night, adjustments made to SSI. Patient denies fever, chills, N/V/D, CP, SOB, and ARBOLEDA. 02/12: Patient awake in bed this AM, no acute distress, resting comfortably. R ight great toe amputation yesterday, pain level is low. Blood culture showing gram positive cocci in clusters, pairs, and chains, sensitivity pending. Patient denies fever, chills, ARBOLEDA, abdominal pain, CP, and SOB. <Kriss Steele - Last Filed: 02/12/23 11:40> Date of Service: 02/12/23 <Jerald Bravo - Last Filed: 02/12/23 18:29> Review of Systems General: Unremarkable Eyes: Unremarkable ENT: Unremarkable Respiratory: Unremarkable Cardiovascular: Unremarkable Gastrointestinal: Unremarkable Musculoskeletal: Foot Pain (right foot pain s/p great toe amputation) Neurological: Unremarkable <Kriss Steele - Last Filed: 02/12/23 11:40> Physical Examination - Vital Signs Temperature: 98.2 F Blood Pressure: 152/52 Pulse: 60 Respirations: 16 Pulse Ox (%): 91 - Studies Microbiology Data (last 24 hrs): 02/10/23 14:17 Blood - Blood Blood Culture Gram Stain - Final 02/10/23 14:17 Blood - Blood Gram Stain - Final <Kriss Steele - Last Filed: 02/12/23 11:40> - Studies Microbiology Data (last 24 hrs): 02/10/23 14:17 Blood - Blood Blood Culture Gram Stain - Final 02/10/23 14:17 Blood - Blood Gram Stain - Final <Jerald Bravo - Last Filed: 02/12/23 18:29> Assessment And Plan - Plan Assessment and Plan Osteomylitis of right great toe -General surgery managing -right great toe amputation -tolerating PO diet -cefepime and vanc -WBC 10.8 -blood culture showing gram positive cocci in clusters, chains, and pairs -following for sensitivity Hypertensive -BP 173/74 -HR 61 -started home hydralazine -continue to monitor Diabetes mellitus type 2 -Serum glucose 180, accucheck 172 this AM -Accucheck with SSI -SSI moderate, change from yesterday KERMIT -BUN/Creatinine 32/1.22 -IVF Anemic H/H 9.5/27.9 BPH -leo (POA) -UA -will consult urology for recommendations Hypothyroidism -restart home medication Full Code DVT ppx: SCD to left leg LOS > 2 nights NPO after midnight Discharge Plan: Home Plan to discharge in: Greater than 2 days Time Spent Managing PTS Care (In Minutes): 35 <Kriss Steele - Last Filed: 02/12/23 11:40> Physician Review: Patient Assessed, Agree with Above Assessment and Plan Physician Review Additional Text: 1/ blood cultures returned positive for coagulase-positive Staphylococcus. He is currently on vancomycin and cefepime. Repeat blood cultures have been obtained. Transthoracic echocardiogram was requested. He appears well clinically and his pain is well controlled. Jerald Bravo M.D. <Jerald Bravo - Last Filed: 02/12/23 18:29>
[2023-02-12] MEDS ORDERED: HOME MED 1 EA UNK (Hydralazine Hcl [Hydralazine Hcl] 100 MG Tablet) PO SCH (14:00)
[2023-02-12] MEDS: HYDRALAZINE HCL 25 MG TABLET PO SCH ×2 (16:30→22:49)
[2023-02-12] MEDS ORDERED: VANCOMYCIN 1 GM in NA CHLORIDE 0.9% 250 ML IVPB SCH (17:00)
[2023-02-12] MEDS ORDERED: HOME MED 1 EA UNK (Pravastatin Sodium [Pravastatin Sodium] 20 MG Tablet) PO SCH (21:00)
[2023-02-12] MEDS: NA CHLORIDE 0.9% 1,000 ML IV SCH (21:20)
[2023-02-12] MEDS: ATORVASTATIN 10 MG TAB PO SCH (22:50)
[2023-02-13 03:44] LABS: Absolute Lymphocytes (CBC) 1.1 K/uL (0.7-4.9); Hematocrit 30.9 % (39.6-49.0); Lymphocytes % 11.3 % (15.3-44.8); MCV 83.6 fL (80-100); MPV 7.9 fL (7.6-11.3); Platelets 274 thou/uL (152-406)
[2023-02-13 04:08] LABS: Phosphorus 2.4 mg/dL (2.5-4.9)
[2023-02-13] MEDS: CEFEPIME 2 GM in NA CHLORIDE 0.9% 100 ML IV SCH (07:23)
[2023-02-13] MEDS: CEFAZOLIN 1 GM in NA CHLORIDE 0.9% 50 ML IVPB SCH ×2 (08:39→17:01)
[2023-02-13] MEDS: TAMSULOSIN 0.4 MG SR CAP PO SCH (08:39)
[2023-02-13] MEDS: HYDRALAZINE HCL 25 MG TABLET PO SCH ×3 (08:39→22:27)
[2023-02-13] MEDS: INSULIN REGULAR (HUMAN) 100 UNIT/ML SQ SCH ×4 (08:39→21:00)
[2023-02-13] MEDS: FINASTERIDE 5 MG TAB PO SCH (08:40)
--- NOTE | 2023-02-13 10:59 | P.PN ---
Subjective Date of Service: 02/13/23 Chief Complaint: right great toe injury HPI 02/10: Donell Schneider is an 82-year-old male with past medical history of hypertension, hypothyroidism, insulin-dependent diabetes type 2, BPH who presents to the ER with pain to right great toe. Patient reports clipping his toenails with garden angel approximately 3 weeks ago. He stopped when he noticed the bleeding. Patient reports not feeling much pain in his feet likely due to neuropathy. Right great toe with large purple blister present, right foot x-ray revealing osteomyelitis to big toe proximal phalanx laterally and possibly on plantar aspect. White blood cells 12.6, platelets 287, lactic 2.2, blood pressure 165/115, Zosyn started and will continue as inpatient. General surgery, Dr. Camacho consulted and requesting admission for I&D of right great toe. 02/11: patient awake in bed, alert and oriented but at times confused. Patient does not know home medications at this time, will need to reach out to son for medication list. NPO since midnight, surgery planned for today. Hyperglycemic through the night, adjustments made to SSI. Patient denies fever, chills, N/V/D, CP, SOB, and ARBOLEDA. 02/12: Patient awake in bed this AM, no acute distress, resting comfortably. Right great toe amputation yesterday, pain level is low. Blood culture showing gram positive cocci in clusters, pairs, and chains, sensitivity pending. Patient denies fever, chills, ARBOLEDA, abdominal pain, CP, and SOB. 02/13: Donell is awake sitting on the side of the bed eating breakfast but says he doesn't have much of an appetite. Bilateral peripheral pulses, dressing to right foot C/D/I, Edema to right leg. BP stable on home hydralazine, on RA, and denies fever,chills, CP, SOB, ARBOLEDA, abdominal pain, and n/v/d. Likely PICC tomorrow if culutres are 48 hours cleared. <Kriss Steele - Last Filed: 02/13/23 11:05> Date of Service: 02/13/23 <Jerald Bravo - Last Filed: 02/13/23 18:19> Review of Systems 10-point ROS is otherwise unremarkable <Kriss Steele - Last Filed: 02/13/23 11:05> Physical Examination - Vital Signs Temperature: 98.0 F Blood Pressure: 194/66 Pulse: 68 Respirations: 18 Pulse Ox (%): 94 - Physical Exam General: Alert, In no apparent distress, Oriented x3 HEENT: Atraumatic, Normocephalic, PERRLA Neck: Supple, 2+ carotid pulse no bruit, JVD not distended Respiratory: Clear to auscultation bilaterally, Normal air movement Cardiovascular: Normal pulses, Regular rate/rhythm, Normal S1 S2, Edema (RLE) Capillary refill: <2 Seconds Gastrointestinal: Normal bowel sounds, Soft and benign Musculoskeletal: No clubbing, No swelling, No contractures Integumentary: Other (surgical wound to right foot) Neurological: Normal speech, Normal strength at 5/5 x4 extr, Normal tone Urinary: Leo catheter (chronic leo for BPH) - Studies Microbiology Data (last 24 hrs): 02/10/23 14:17 Blood - Blood Aerobic Blood Culture - Final Staph Aureus 02/10/23 14:17 Blood - Blood Blood Culture Gram Stain - Final 02/10/23 14:17 Blood - Blood Anaerobic Blood Culture - Final Staph Aureus 02/10/23 14:17 Blood - Blood Gram Stain - Final <Kriss Steele - Last Filed: 02/13/23 11:05> - Studies Microbiology Data (last 24 hrs): 02/10/23 14:17 Blood - Blood Aerobic Blood Culture - Final Staph Aureus 02/10/23 14:17 Blood - Blood Blood Culture Gram Stain - Final 02/10/23 14:17 Blood - Blood Anaerobic Blood Culture - Final Staph Aureus 02/10/23 14:17 Blood - Blood Gram Stain - Final <Jerald Bravo - Last Filed: 02/13/23 18:19> Assessment And Plan - Plan Physical Exam General: Alert, In no apparent distress, Oriented x3 HEENT: Atraumatic, Normocephalic, PERRLA Neck: Supple, 2+ carotid pulse no bruit, JVD not distended Respiratory: Clear to auscultation bilaterally, Normal air movement Cardiovascular: Normal pulses, Regular rate/rhythm, Normal S1 S2, Edema (RLE) Capillary refill: <2 Seconds Gastrointestinal: Normal bowel sounds, Soft and benign Musculoskeletal: No clubbing, No swelling, No contractures Integumentary: Other (surgical wound to right foot) Neurological: Normal speech, Normal strength at 5/5 x4 extr, Normal tone Urinary: Leo catheter (chronic leo for BPH) Assessment and Plan Osteomylitis of right great toe -General surgery managing -right great toe amputation, romulo bandage -tolerating PO diet -cefepime and vanc -WBC 9.6 -blood culture showing MSSA -likely PICC tomorrow based on culutres 48 hrs cleared Hypertensive -BP 162/53 -HR 67 -home hydralazine 100 mg TID -continue to monitor Diabetes mellitus type 2 -Serum glucose 206 -Accucheck with SSI moderate KERMIT -BUN/Creatinine 30/1.27 -IVF Anemic -H/H 10.4/30.9 -stable BPH -leo (POA) -UA -will consult urology for recommendations Hypothyroidism - home medication not listed Full Code DVT ppx: SCD to left leg LOS > 2 nights ADA Physician Review: Patient Assessed, Agree with Above Assessment and Plan <Kriss Steele - Last Filed: 02/13/23 11:05> Physician Review: Patient Assessed, Agree with Above Assessment and Plan Physician Review Additional Text: He was seen on rounds this morning. He is doing well clinically. 2/4 blood cultures have returned positive for methicillin-sensitive Staphylococcus Aureus. Transthoracic echocardiogram is pending for tomorrow to evaluate for valvular vegetations. Once his blood cultures have been negative for 48 hours, plan for PICC line placement as he will require IV antibiotics as an outpatient. Jerald Bravo MD <Jerald Bravo - Last Filed: 02/13/23 18:19>
--- NOTE | 2023-02-13 12:33 | CON ---
Date of Consultation: 02/11/2023 Brief History Of Present Illness: The patient is a pleasant 82-year-old man known to me from previou s encounters, who was using shrub trimmers to cut his toenails recently about a week and a half to 2 weeks ago. On several occasions possibly as far as 3 weeks ago on multiple occasions, he was trimmin g the right great toe and noted that the area started to bleed. He did not have much pain from the a ashish and as he has a history of neuropathy, as such the toe continued to get larger, swollen, red, and drainage and a foul odor emanated from that and as such he came to the emergency room. When this oc curred he originally called my office after which we confirmed required immediate evaluation. As suc h, we sent him to the ER and he was compliant. He went to the ER with a swollen great toe of the rig ht foot. Past Medical History: Significant for hypertension, hypothyroidism, diabetes, BPH, neuropathy. Allergies: NO KNOWN DRUG ALLERGIES. Medications: Home medications include Colace, Proscar, Lasix, hydralazine, Lantus, Mag-Ox, pravastat in, Flomax. Social History: He drinks alcohol socially. He denies recreational drug use. Denies smoking curren tly. Review of Systems: 10-point review of systems other than HPI, denies. Physical Examination: At the time of examination: Vital Signs: Blood pressure 115/59, pulse 89, respiratory rate 16, temperature 97.7. O2 sat was 96% on room air. General: He is awake, alert, and oriented. Psychiatric: He is appropriate, conversive. HEENT: Normocephalic. Sclerae anicteric. Mucous membranes moist. Oropharynx clear. Neck: Supple without JVD. Chest: Normal expansion and excursion. Cardiovascular: Regular rate and rhythm. Pulmonary: Clear to auscultation bilaterally. Abdomen: Soft. EXTREMITIES: Focused exam of his extremities, looking at his right great toe it is red, tender, swol stoney, draining abscess type material consistent with a significant infection to the area with cellulit is coming out of the foot. Laboratory Data: Revealed a white blood cell count of 10.7, hemoglobin 10.4, hematocrit 30.6, platel et of 271, neutrophil 78%. Sodium 141, potassium 3.8, chloride 108, carbon dioxide 28, BUN 34, creat inine 1.3, glucose is 204, phosphorus 3.4. His magnesium was 2.4. He had an imaging performed, whic h included MRI which was officially read as positive for osteomyelitis involving the right great toe distal and proximal phalanx. No abscess appreciated. Assessment And Plan: This is an 82-year-old male who comes in with osteomyelitis of the right great toe after an injury using pruning angel. 1.IV fluid hydration. 2.Medical management. 3.IV antibiotics. 4.I have explained the risks, benefits, and alternatives of debridement and likely amputation of the right great toe including, but not limited to bleeding, infection, damage to surrounding tissues, ne ed for further operation and procedures. The patient agrees to proceed as indicated. ANABELLA/ABDIEL Voice ID: [id number] Report ID: [id number]
[2023-02-13] MEDS: NA CHLORIDE 0.9% 1,000 ML IV SCH (12:40)
[2023-02-13] MEDS: ATORVASTATIN 10 MG TAB PO SCH (22:27)
[2023-02-14] MEDS: CEFAZOLIN 1 GM in NA CHLORIDE 0.9% 50 ML IVPB SCH ×2 (01:30→09:14)
[2023-02-14] MEDS: NA CHLORIDE 0.9% 1,000 ML IV SCH ×2 (01:31→13:20)
[2023-02-14] MEDS: MELATONIN 5 MG TABLET PO PRN ×2 (01:51→20:20)
[2023-02-14 03:25] LABS: Magnesium 1.9 mg/dL (1.6-2.4); Phosphorus 2.3 mg/dL (2.5-4.9); Potassium 3.9 mEq/L (3.5-5.1)
[2023-02-14] MEDS ORDERED: NA CHLORIDE 0.9% 50 ML ONE (08:58)
[2023-02-14] MEDS ORDERED: POTASSIUM CL SA 10 MEQ TAB PO ONE (09:00)
[2023-02-14] MEDS: POTASS/SODIUM PHOSPHATE 1 PKT POWD.PACK PO SCH ×3 (09:00→10:00)
[2023-02-14] MEDS: HYDRALAZINE HCL 25 MG TABLET PO SCH ×3 (09:07→20:16)
[2023-02-14] MEDS: INSULIN REGULAR (HUMAN) 100 UNIT/ML SQ SCH ×4 (09:08→20:17)
[2023-02-14] MEDS: TAMSULOSIN 0.4 MG SR CAP PO SCH (09:08)
[2023-02-14] MEDS: Mupirocin NASAL 2 APPL/1 GM TUBE NAS SCH ×2 (09:08→20:17)
[2023-02-14] MEDS: FINASTERIDE 5 MG TAB PO SCH (09:14)
--- NOTE | 2023-02-14 09:18 | P.PN ---
Subjective Date of Service: 02/14/23 Chief Complaint: right great toe injury Subjective: No C/O voiced Patient seen and examined at bedside. In no apparent distress, breathing comfortably on room air. Denies any new or worsening complaints at this time. No acute events reported over the weekend. Review of Systems Unremarkable Physical Examination - Vital Signs Temperature: 97.9 F Blood Pressure: 165/85 Pulse: 59 Respirations: 18 Pulse Ox (%): 91 - Physical Exam General: Alert, In no apparent distress, Oriented x3 HEENT: Atraumatic, Normocephalic Neck: Supple Respiratory: Clear to auscultation bilaterally, Normal air movement (on room air) Cardiovascular: Normal S1 S2, Edema (BLE 1+) Gastrointestinal: Normal bowel sounds, No tenderness Musculoskeletal: Other (s/p amputation right 1st toe on 02/11) Integumentary: Other (amputation site dressing with serosanguineous drainage) Neurological: Normal speech - Studies Laboratory Data - Reviewed Microbiology Data (last 24 hrs): 02/10/23 14:17 Blood - Blood Aerobic Blood Culture - Final Staph Aureus 02/10/23 14:17 Blood - Blood Blood Culture Gram Stain - Final 02/10/23 14:17 Blood - Blood Anaerobic Blood Culture - Final Staph Aureus 02/10/23 14:17 Blood - Blood Gram Stain - Final Imagings Data: - Reviewed Medications List Reviewed: Yes Assessment And Plan - Plan Problem List Osteomyelitis of Right Great toe Bacteremia Diabetes mellitus type II Hypertension Hypothyroidism BPH Osteomyelitis Bacteremia, Staphyloccocus aureus - MRI right foot 02/11: "Positive for osteomyelitis involving the great toe distal and proximal phalanx. No abscess identified." - Wound cultures 02/11: Staphylococcus aureus - Blood cultures 02/10: Staphylococcus aureus - repeat blood cultures 02/12: pending - Leukocytosis resolved. Afebrile - Zosyn switched to Ancef on 02/12 following wound and blood culture/sensitivity results - s/p amputation of right great toe on 02/[address] Camacho Recommendations - staph bacteremia: Continue antibiotic therapy for 14 days. - Osteomyelitis of right great toe s/p amputation on 02/11. - Continue wound care per Dr. Camacho. - Strict blood glucose control - Follow up with Dr. Camacho as outpatient and wound care Case discussed with Maranda Kay Physician Review: Patient Assessed, Agree with Above Assessment and Plan
--- NOTE | 2023-02-14 09:37 | P.PN ---
Subjective Date of Service: 02/14/23 Chief Complaint: right great toe injury HPI 02/10: Donell Schneider is an 82-year-old male with past medical history of hypertension, hypothyroidism, insulin-dependent diabetes type 2, BPH who presents to the ER with pain to right great toe. Patient reports clipping his toenails with garden angel approximately 3 weeks ago. He stopped when he noticed the bleeding. Patient reports not feeling much pain in his feet likely due to neuropathy. Right great toe with large purple blister present, right foot x-ray revealing osteomyelitis to big toe proximal phalanx laterally and possibly on plantar aspect. White blood cells 12.6, platelets 287, lactic 2.2, blood pressure 165/115, Zosyn started and will continue as inpatient. General surgery, Dr. Camacho consulted and requesting admission for I&D of right great toe. 02/11: patient awake in bed, alert and oriented but at times confused. Patient does not know home medications at this time, will need to reach out to son for medication list. NPO since midnight, surgery planned for today. Hyperglycemic through the night, adjustments made to SSI. Patient denies fever, chills, N/V/D, CP, SOB, and ARBOLEDA. 02/12: Patient awake in bed this AM, no acute distress, resting comfortably. Right great toe amputation yesterday, pain level is low. Blood culture showing gram positive cocci in clusters, pairs, and chains, sensitivity pending. Patient denies fever, chills, ARBOLEDA, abdominal pain, CP, and SOB. 02/13: Donell is awake sitting on the side of the bed eating breakfast but says he doesn't have much of an appetite. Bilateral peripheral pulses, dressing to right foot C/D/I, Edema to right leg. BP stable on home hydralazine, on RA, and denies fever,chills, CP, SOB, ARBOLEDA, abdominal pain, and n/v/d. Likely PICC tomorrow if culutres are 48 hours cleared. 02/14: He is awake in bed, getting positioned to eat breakfast but c/o not having a big appetitie and some pain to the RLE, blood glucose remains elevated, will start lantus 7 units HS. RLE edema, will need to elevate the leg. He denies fever, chills, Abdominal pain, ARBOLEDA, and N/V. Review of Systems 10-point ROS is otherwise unremarkable Physical Examination - Vital Signs Temperature: 97.9 F Blood Pressure: 165/85 Pulse: 59 Respirations: 18 Pulse Ox (%): 91 - Studies Microbiology Data (last 24 hrs): 02/10/23 14:17 Blood - Blood Aerobic Blood Culture - Final Staph Aureus 02/10/23 14:17 Blood - Blood Blood Culture Gram Stain - Final 02/10/23 14:17 Blood - Blood Anaerobic Blood Culture - Final Staph Aureus 02/10/23 14:17 Blood - Blood Gram Stain - Final Medications List Reviewed: Yes Assessment And Plan - Plan Physical Exam General: Alert, In no apparent distress, Oriented x3 HEENT: Atraumatic, Normocephalic, PERRLA Neck: Supple, 2+ carotid pulse no bruit, JVD not distended Respiratory: Clear to auscultation bilaterally, Normal air movement Cardiovascular: Normal pulses, Regular rate/rhythm, Normal S1 S2, Edema (RLE) Capillary refill: <2 Seconds Gastrointestinal: Normal bowel sounds, Soft and benign Musculoskeletal: No clubbing, right hand swelling, No contractures Integumentary: Other (surgical wound to right foot) Extremities: RLE 2+ edema with romulo bandage C/D/I, LLE 1+ edema, right hand swolling Neurological: Normal speech, Normal strength at 5/5 x4 extr, Normal tone Urinary: Leo catheter (chronic leo for BPH) Assessment and Plan Osteomylitis of right great toe Bacteremia -General surgery managing -right great toe amputation 02/11, romulo bandage -tolerating PO diet -cefepime and vanc stopped changed to Ancef -blood culture showing MSSA -likely PICC ordered- will need ancef IV x 14 days for bacteremia Hypertensive -BP 165/85 -HR 67 -home hydralazine 100 mg TID -continue to monitor Diabetes mellitus type 2 -Serum glucose 281 -start lantus 7 units HS -Accucheck with SSI moderate KERMIT -BUN/Creatinine 30/1.27 -IVF Anemic -H/H 10.4/30.9 -stable BPH -leo (POA) -UA -will consult urology for recommendations Hypothyroidism - home medication not listed Full Code DVT ppx: SCD to left leg LOS > 2 nights ADA Resume HH for chronic leo and now surgical wound care Discharge Plan: Home Physician Review: Patient Assessed, Agree with Above Assessment and Plan Time Spent Managing PTS Care (In Minutes): 35
[2023-02-14] MEDS: CEFAZOLIN SODIUM 2 GM in NA CHLORIDE 0.9% 50 ML IVPB SCH (18:01)
[2023-02-14] MEDS: ATORVASTATIN 10 MG TAB PO SCH (20:16)
[2023-02-14] MEDS: INSULIN GLARGINE 100 UNIT/ML SQ SCH (20:18)
[2023-02-15] MEDS: CEFAZOLIN SODIUM 2 GM in NA CHLORIDE 0.9% 50 ML IVPB SCH ×3 (00:58→17:17)
[2023-02-15] MEDS: NA CHLORIDE 0.9% 1,000 ML IV SCH (02:40)
--- NOTE | 2023-02-15 07:05 | ECHO ---
HEIGHT: 5 ft 0 in WEIGHT: 258 lb 15.985 oz DATE OF STUDY: 02/14/[address]: Jerald Bravo MD 2-DIMENSIONAL: YES M.MODE: YES DOPPLER: YES COLOR FLOW: YES TDS: PORTABLE: YES DEFINITY: BUBBLE STUDY: DIAGNOSIS: GRAM POSITIVE BACTEREMIA CARDIAC HISTORY: CATHERIZATION: NO SURGERY: NO PROSTHETIC VALVE: NO PACEMAKER: NO MEASUREMENTS (cm) DIASTOLIC (NORMALS) SYSTOLIC (NORMALS) IVSd 1.3 (0.6-1.2) LA Diam 4.2 (1.9-4.0) LVEF 58% LVIDd 4.7 (3.5-5.7) LVIDs 3.3 (2.0-3.5) %FS 31% LVPWd 1.4 (0.6-1.2) Ao Diam 3.1 (2.0-3.7) 2 DIMENSIONAL ASSESSMENT: RIGHT ATRIUM: NORMAL LEFT ATRIUM: ENLARGED RIGHT VENTRICLE: NORMAL LEFT VENTRICLE: LEFT VENTRICULAR HYPERTROPHY TRICUSPID VALVE: MILD TRICUSPID REGURGITATION MITRAL VALVE: MILD MITRAL REGURGITATION PULMONIC VALVE: NORMAL AORTIC VALVE: MILD AORTIC INSUFFICIENCY PERICARDIAL EFFUSION: NONE AORTIC ROOT: NORMAL LEFT VENTRICULAR WALL MOTION: NORMAL DOPPLER/COLOR FLOW: SEE BELOW COMMENTS: 1. NORMAL LEFT VENTRICULAR EJECTION FRACTION 55-60% 2. MILD CONCENTRIC LEFT VENTRICULAR HYPERTROPHY 3. LEFT ATRIAL ENLARGEMENT 4. MODERATE DIASTOLIC DYSFUNCTION 5. MILD TRICUSPID REGURGITATION, MITRAL REGURGITATION, AORTIC INSUFFICIENCY 6. NO CLEAR VEGETATION IS SEEN 7. 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
--- NOTE | 2023-02-15 09:01 | P.PN ---
Date of Service: 02/15/23 Chief Complaint: right great toe injury Subjective: No acute events reported overnight. Denies any new or worsening complaints at this time. Physical Examination - Vital Signs Temp Pulse Resp BP Pulse Ox 98.0 F 56 20 158/70 H 93 02/15/23 04:00 02/15/23 04:00 02/15/23 04:00 02/15/23 04:00 02/15/23 04:00 - Physical Exam General: Alert, In no apparent distress, Oriented x3 HEENT: Atraumatic, Normocephalic Neck: Supple Respiratory: Clear to auscultation bilaterally, Normal air movement. On room air. Cardiovascular: Normal S1 S2. BLE edema 1+. Gastrointestinal: Normal bowel sounds, No tenderness Musculoskeletal: Other (s/p amputation right 1st toe on 02/11) Integumentary: Amputation site dressing clean dry and intact. Neurological: Normal speech - Studies Laboratory Data - Reviewed Microbiology Data 02/10/23 14:17 Blood - Blood Aerobic Blood Culture - Final Staph Aureus 02/10/23 14:17 Blood - Blood Blood Culture Gram Stain - Final 02/10/23 14:17 Blood - Blood Anaerobic Blood Culture - Final Staph Aureus 02/10/23 14:17 Blood - Blood Gram Stain - Final Imagings Data: - Reviewed Medications List: Reviewed Assessment And Plan - Plan Problem List Osteomyelitis of Right Great toe Bacteremia Diabetes mellitus type II Hypertension Hypothyroidism BPH Staphyloccocus aureus Bacteremia secondary to Osteomyelitis, Diabetic Foot Ulcer - MRI right foot 02/11: "Positive for osteomyelitis involving the great toe distal and proximal phalanx. No abscess identified." - Wound cultures 02/11: Staphylococcus aureus - Blood cultures 02/10: Staphylococcus aureus - repeat blood cultures 02/12: pending - Leukocytosis resolved. Afebrile - Zosyn switched to Ancef on 02/12 following wound and blood culture/sensitivity results - s/p amputation of right great toe on 02/[address] Camacho Recommendations - staph bacteremia: Continue antibiotic therapy for 14 days. On Cefazolin, continue. - Osteomyelitis of right great toe s/p amputation on 02/11. - Continue wound care per Dr. Camacho. - Strict blood glucose control - Follow up with Dr. Camacho as outpatient and wound care Case discussed with Maranda Kya
[2023-02-15] MEDS: TAMSULOSIN 0.4 MG SR CAP PO SCH (09:20)
[2023-02-15] MEDS: Mupirocin NASAL 2 APPL/1 GM TUBE NAS SCH ×2 (09:20→20:46)
[2023-02-15] MEDS: HYDRALAZINE HCL 25 MG TABLET PO SCH ×3 (09:20→20:46)
[2023-02-15] MEDS: INSULIN REGULAR (HUMAN) 100 UNIT/ML SQ SCH ×4 (09:20→20:46)
[2023-02-15] MEDS: FINASTERIDE 5 MG TAB PO SCH (09:20)
--- NOTE | 2023-02-15 10:22 | P.PN ---
Subjective Date of Service: 02/15/23 Chief Complaint: right great toe injury HPI 02/10: Donell Schneider is an 82-year-old male with past medical history of hypertension, hypothyroidism, insulin-dependent diabetes type 2, BPH who presents to the ER with pain to right great toe. Patient reports clipping his toenails with garden angel approximately 3 weeks ago. He stopped when he noticed the bleeding. Patient reports not feeling much pain in his feet likely due to neuropathy. Right great toe with large purple blister present, right foot x-ray revealing osteomyelitis to big toe proximal phalanx laterally and possibly on plantar aspect. White blood cells 12.6, platelets 287, lactic 2.2, blood pressure 165/115, Zosyn started and will continue as inpatient. General surgery, Dr. Camacho consulted and requesting admission for I&D of right great toe. 02/11: patient awake in bed, alert and oriented but at times confused. Patient does not know home medications at this time, will need to reach out to son for medication list. NPO since midnight, surgery planned for today. Hyperglycemic through the night, adjustments made to SSI. Patient denies fever, chills, N/V/D, CP, SOB, and ARBOLEDA. 02/12: Patient awake in bed this AM, no acute distress, resting comfortably. Right great toe amputation yesterday, pain level is low. Blood culture showing gram positive cocci in clusters, pairs, and chains, sensitivity pending. Patient denies fever, chills, ARBOLEDA, abdominal pain, CP, and SOB. 02/13: Donell is awake sitting on the side of the bed eating breakfast but says he doesn't have much of an appetite. Bilateral peripheral pulses, dressing to right foot C/D/I, Edema to right leg. BP stable on home hydralazine, on RA, and denies fever,chills, CP, SOB, ARBOLEDA, abdominal pain, and n/v/d. Likely PICC tomorrow if culutres are 48 hours cleared. 02/14: He is awake in bed, getting positioned to eat breakfast but c/o not having a big appetitie and some pain to the RLE, blood glucose remains elevated, will start lantus 7 units HS. RLE edema, will need to elevate the leg. He denies fever, chills, Abdominal pain, ARBOLEDA, and N/V. 02/15: Donell is awake lying in bed holding his right arm c/o of aching, right hand swollen but he states this is normal. IVF stopped at this time that is infusing into the right arm. He stated he wants to ambulate in the hallway. Review of Systems Musculoskeletal: Arm Pain (Right arm aches) Physical Examination - Vital Signs Temperature: 98.0 F Blood Pressure: 158/70 Pulse: 56 Respirations: 20 Pulse Ox (%): 93 - Studies Medications List Reviewed: Yes Assessment And Plan - Plan Physical Exam General: Alert, In no apparent distress, Oriented x3 HEENT: Atraumatic, Normocephalic, PERRLA Neck: Supple, 2+ carotid pulse no bruit, JVD not distended Respiratory: Clear to auscultation bilaterally, Normal air movement Cardiovascular: Normal pulses, Regular rate/rhythm, Normal S1 S2, Edema (RLE) Capillary refill: <2 Seconds Gastrointestinal: Normal bowel sounds, Soft and benign Musculoskeletal: No clubbing, right hand swelling, No contractures Integumentary: Other (surgical wound to right foot) Extremities: RLE 2+ edema with romulo bandage C/D/I, LLE 1+ edema, right hand swelling Neurological: Normal speech, Normal strength at 5/5 x4 extr, Normal tone Urinary: Leo catheter (chronic leo for BPH) Assessment and Plan Osteomylitis of right great toe Bacteremia -General surgery managing -right great toe amputation 02/11, romulo bandage -tolerating PO diet -cefepime and vanc stopped changed to Ancef -blood culture showing MSSA -likely PICC ordered- will need ancef IV x 14 days for bacteremia Hypertensive -BP 158/70 -HR 56 -home hydralazine 100 mg TID -continue to monitor Diabetes mellitus type 2 -Serum glucose 198 AM (02/15) -start lantus 7 units HS -Accucheck with SSI moderate KERMIT -BUN/Creatinine 25/1.08- improving -IVF Anemic -H/H 10.4/30.9 -stable BPH -leo (POA) -UA -will consult urology for recommendations Hypothyroidism - home medication not listed Full Code DVT ppx: SCD to left leg LOS > 2 nights ADA Resume HH for chronic leo and now surgical wound care Discharge Plan: Home Physician Review: Patient Assessed, Agree with Above Assessment and Plan Time Spent Managing PTS Care (In Minutes): 35
[2023-02-15] MEDS: ATORVASTATIN 10 MG TAB PO SCH (20:46)
[2023-02-15] MEDS: MELATONIN 5 MG TABLET PO PRN (20:47)
[2023-02-15] MEDS: INSULIN GLARGINE 100 UNIT/ML SQ SCH (20:47)
[2023-02-15 21:40] VITALS: O2SAT 92
[2023-02-16] MEDS: CEFAZOLIN SODIUM 2 GM in NA CHLORIDE 0.9% 50 ML IVPB SCH ×2 (03:20→09:20)
[2023-02-16 08:45] LABS: Potassium 4.1 mEq/L (3.5-5.1)
[2023-02-16] MEDS ORDERED: INSULIN GLARGINE 100 UNIT/ML SQ SCH (09:00)
[2023-02-16] MEDS: HYDRALAZINE HCL 25 MG TABLET PO SCH ×2 (09:20→14:17)
[2023-02-16] MEDS: TAMSULOSIN 0.4 MG SR CAP PO SCH (09:20)
[2023-02-16] MEDS: Mupirocin NASAL 2 APPL/1 GM TUBE NAS SCH (09:20)
[2023-02-16] MEDS: FINASTERIDE 5 MG TAB PO SCH (09:25)
--- NOTE | 2023-02-16 09:31 | P.PN ---
Date of Service: 02/16/23 Chief Complaint: right great toe injury Subjective: Improving. Patient seen and examined at bedside. No acute events reported overnight. He denies any new or worsening complaints at this time. Continue current plan of care. Physical Examination Temp Pulse Resp BP Pulse Ox 98.8 F 59 16 163/73 H 90 L 02/16/23 08:00 02/16/23 08:00 02/16/23 08:00 02/16/23 08:00 02/16/23 08:00 General: Alert, In no apparent distress, Oriented x3 HEENT: Atraumatic, Normocephalic Neck: Supple Respiratory: Clear to auscultation bilaterally, Normal air movement. On room air. Cardiovascular: Normal S1 S2. BLE edema 1+. Gastrointestinal: Normal bowel sounds, No tenderness Musculoskeletal: Other (s/p amputation right 1st toe on 02/11) Integumentary: Amputation site dressing clean dry and intact. Neurological: Normal speech - Studies Laboratory Data - Reviewed Microbiology Data - Reviewed Imagings Data: - Reviewed Medications List: Reviewed Assessment And Plan Problem List Osteomyelitis of Right Great toe Bacteremia Diabetes mellitus type II Hypertension Hypothyroidism BPH Staphyloccocus aureus Bacteremia secondary to Osteomyelitis, Diabetic Foot Ulcer - MRI right foot 02/11: "Positive for osteomyelitis involving the great toe distal and proximal phalanx. No abscess identified." - Wound cultures 02/11: Staphylococcus aureus - Blood cultures 02/10: Staphylococcus aureus - repeat blood cultures 02/12: pending - Leukocytosis resolved. Afebrile - Zosyn switched to Ancef on 02/12 following wound and blood culture/sensitivity results - s/p amputation of right great toe on 02/[address] Camacho Recommendations - staph bacteremia: Continue antibiotic therapy for 14 days with Cefazolin IV. - Osteomyelitis of right great toe s/p amputation on 02/11. - Continue wound care per Dr. Camacho. - Strict blood glucose control - Follow up with Dr. Camacho as outpatient Case discussed with Maranda Kay
--- NOTE | 2023-02-16 12:24 | RAD REPORT ---
EXAM DESCRIPTION: XR Chest, 1 View CLINICAL HISTORY: Picc line placement TECHNIQUE: Frontal view of the chest. COMPARISON: No relevant prior studies available. FINDINGS: Lungs: Mild central pulmonary vascular and interstitial prominence and patchy bilateral perihilar opacities. Pleural space: Unremarkable. No pneumothorax. Heart: Unremarkable. No cardiomegaly. Mediastinum: Unremarkable. Bones/joints: Multilevel spondylosis. No acute fracture. Vasculature: Thoracic aortic atherosclerosis. Tubes, lines and devices: Left upper extremity PICC tip is difficult to visualize. The distal vis ualized portion projects over the brachiocephalic superior vena cava junction. IMPRESSION: 1. Left upper extremity PICC tip is difficult to visualize. The distal visualized po rtion projects over the brachiocephalic superior vena cava junction. 2. Findings which may be related to mild pulmonary congestion. Superimposed infection not exclude d. Electronically signed by: Kwan Collier MD 02/16/2023 1:17 AM CDT Due to temporary technical issues with the PACS/Fluency reporting system, reports are being signed by the in house radiologist without review as a courtesy to ensure prompt reporting. The interpreting r adiologist is fully responsible for the content of the report.
[2023-02-16] MEDS ORDERED: D50W 25 GM/50 ML SYRINGE IV PRN (13:36)
[2023-02-16] MEDS ORDERED: GLUCAGON 1 MG/VIAL IM PRN (13:36)
--- NOTE | 2023-02-16 15:20 | P.DS ---
Admission Date: 02/10/23 Discharge Date: 02/16/23 Disposition: DC HOME/HOME HEALTH CARE Discharge Condition: GOOD Reason for Admission: right great toe injury Brief History of Present Illness: Donell Schneider is an 82-year-old male with past medical history of hypertension, hypothyroidism, insulin-dependent diabetes type 2, BPH who presents to the ER with pain to right great toe. Patient reports clipping his toenails with garden angel approximately 3 weeks ago. He stopped when he noticed the bleeding. Patient reports not feeling much pain in his feet likely due to neuropathy. Right great toe with large purple blister present, right foot x-ray revealing osteomyelitis to big toe proximal phalanx laterally and possibly on plantar aspect. White blood cells 12.6, platelets 287, lactic 2.2, blood pressure 165/115, Zosyn started and will continue as inpatient. General surgery, Dr. Camacho consulted and requesting admission for I&D of right great toe. Hospital Course: Donell Schneider is a pleasant 82-year-old male with a past medical history significant for hypertension, hypothyroidism, insulin-dependent diabetes type 2, BPH who was admitted to the [facility] on [text] for osteomyelitis of right great toe. Donell Freedman was treated for osteomyelitis of the right great toe after cutting his toenails with garden angel. Dr. Camacho was consulted and performed surgery on On [date], [text] was seen on morning rounds and deemed medically stable for discharge. [text] was discharged with instructions to schedule follow-up appointments with [text]. [text] was provided prescriptions for [text]. The patient and family members were given the opportunity to ask questions and reported no further questions. Furthermore, all questions were answered to the best of my ability. A copy of this discharge summary will be sent to the above providers to facilitate continuity of care. Today, I personally spent [text] minutes with [text], of which greater than 50% of the time was spent in patient education, counseling, and coordination of care as described above. Donell Schneider is an 82-year-old male with past medical history of hypertension, hypothyroidism, insulin-dependent diabetes type 2, BPH who presents to the ER with pain to right great toe. Patient reports clipping his toenails with garden angel approximately 3 weeks ago. He stopped when he noticed the bleeding. Patient reports not feeling much pain in his feet likely due to neuropathy. Right great toe with large purple blister present, right foot x-ray revealing o steomyelitis to big toe proximal phalanx laterally and possibly on plantar aspect. White blood cells 12.6, platelets 287, lactic 2.2, blood pressure 165/115, Zosyn started and will continue as inpatient. General surgery, Dr. Camacho consulted and requesting admission for I&D of right great toe. Osteomylitis of right great toe -General surgery consulted -plan for surgery -NPO after midnight -Zosyn -WBC 12.6, lactic 2.2 will repeat 0.9 KERMIT -BUN/Creatinine 43/1.51 -IVF Anemic H/H 11.1/33.1 BPH -leo (POA) -UA -will consult urology for recommendations Hypothyroidism -restart home medication HTN -restart home medications Physical Exam General: Alert, In no apparent distress, Oriented x3 HEENT: Atraumatic, Normocephalic, PERRLA Neck: Supple, 2+ carotid pulse no bruit, JVD not distended Respiratory: Clear to auscultation bilaterally, Normal air movement Cardiovascular: Normal pulses, Regular rate/rhythm, Normal S1 S2, Edema (RLE) Capillary refill: <2 Seconds Gastrointestinal: Normal bowel sounds, Soft and benign Musculoskeletal: No clubbing, right hand swelling, No contractures Integumentary: Other (surgical wound to right foot) Extremities: RLE 2+ edema with romulo bandage C/D/I, LLE 1+ edema, right hand swelling Neurological: Normal speech, Normal strength at 5/5 x4 extr, Normal tone Urinary: Leo catheter (chronic leo for BPH) Vital Signs/Physical Exam: Temp Pulse Resp BP Pulse Ox 97.2 F 64 18 159/71 H 90 L 02/16/23 12:00 02/16/23 12:00 02/16/23 12:00 02/16/23 12:00 02/16/23 12:00 Laboratory Data at Discharge: WBC 9.60 thou/uL (4.3-10.9) 02/13/23 03:02 Hgb 10.4 g/dL (13.6-17.9) L D 02/13/23 03:02 Hct 30.9 % (39.6-49.0) L 02/13/23 03:02 Plt Count 274 thou/uL (152-406) 02/13/23 03:02 PT 12.3 SECONDS (9.5-12.5) 02/10/23 14:00 INR 1.12 02/10/23 14:00 APTT 37.7 SECONDS (24.3-36.9) H 02/10/23 14:00 Sodium 139 mEq/L (136-145) 02/16/23 08:13 Potassium 4.1 mEq/L (3.5-5.1) 02/16/23 08:13 BUN 23 mg/dL (7-18) H 02/16/23 08:13 Creatinine 1.02 mg/dL (0.70-1.30) 02/16/23 08:13 Glucose 225 mg/dL (74-106) H 02/16/23 08:13 Phosphorus 3.0 mg/dL (2.5-4.9) 02/15/23 02:03 Magnesium 2.0 mg/dL (1.6-2.4) 02/15/23 02:03 Total Bilirubin 0.5 mg/dL (0.2-1.0) 02/10/23 14:00 AST 16 U/L (15-37) 02/10/23 14:00 ALT 23 U/L (16-61) 02/10/23 14:00 Alkaline Phosphatase 72 U/L (45-117) 02/10/23 14:00 Home Medications: Docusate [Colace Cap*] 100 mg PO DAILY 12/03/22 Finasteride [Proscar*] 5 mg PO DAILY 12/03/22 Furosemide [Lasix*] 40 mg PO DAILY 12/03/22 Hydralazine HCl 100 mg PO TID 12/03/22 Insulin Glargine,Hum.rec.anlog [Lantus] 40 unit SQ BEDTIME 12/03/22 Magnesium Oxide [Mag 0X*] 400 mg PO DAILY 12/03/22 Tamsulosin [Flomax*] 0.4 mg PO DAILY 12/03/22 Atorvastatin Calcium [Lipitor*] 10 mg PO BEDTIME #30 tab 02/16/23 Mupirocin Calcium [Bactroban Nasal*] 1 appl HANS BID #1 tube 02/16/23 New Medications: Mupirocin Calcium [Bactroban Nasal*] 1 appl HANS BID #1 tube Atorvastatin Calcium [Lipitor*] 10 mg PO BEDTIME #30 tab Physician Discharge Instructions: Disharge home with family support Walking with assistance Diabetic diet Home health for wound shelter health for continued leo catheter shelter health for physical therapy strengthening Follow up with urologist for Leo catheter management Follow up with PCP in one week Follow up with Dr Camacho in one week Medications changes: Mupirocin for surgical wound care atorvastatin at bedtime IV ancef to be completed Diet: ADA Activity: Ad avani Followup: Desean Camacho MD [Primary Care Provider] -
[2023-02-16 16:56] VITALS: TEMP 98.2
[2023-02-16 17:32] VITALS: BP 155/70
[2023-02-16] MEDS ORDERED: INSULIN REGULAR (HUMAN) 100 UNIT/ML SQ SCH (18:00)
--- NOTE | 2023-02-16 18:19 | P.DS ---
Admission Date: 02/10/23 Discharge Date: 02/16/23 Disposition: DC HOME/HOME HEALTH CARE Discharge Condition: GOOD Reason for Admission: right great toe injury Brief History of Present Illness: Donell Schneider is an 82-year-old male with past medical history of hypertension, hypothyroidism, insulin-dependent diabetes type 2, BPH who presents to the ER with pain to right great toe. Patient reports clipping his toenails with garden angel approximately 3 weeks ago. He stopped when he noticed the bleeding. Patient reports not feeling much pain in his feet likely due to neuropathy. Right great toe with large purple blister present, right foot x-ray revealing osteomyelitis to big toe proximal phalanx laterally and possibly on plantar aspect. White blood cells 12.6, platelets 287, lactic 2.2, blood pressure 165/115, Zosyn started and will continue as inpatient. General surgery, Dr. Camacho consulted and requesting admission for I&D of right great toe. Hospital Course: Donell Schneider is a pleasant 82-year-old male with a past medical history significant for hypertension, hypothyroidism, insulin-dependent diabetes type 2, BPH who was admitted to the [facility] on 02/10/23 for osteomyelitis of right great toe. Donell Schneider was treated for osteomyelitis of the right great toe after cutting his toenails with garden angel. Dr. Camacho was consulted and performed surgery on 02/11/23 for amputation of right great toe. Dr. Rodriguez was consulted for IV antibiotic therapy. Recommendations for 14 days of IV ancef was received and he tolerated well. Donell was placed on NC OVN (02/15), Room air sats at 94%. Will resume HH for chronic leo, wound care for surgical wound on right foot, and seen by Physical Therapy and appropriate for Home health PT. His son was present for IV antibiotic therapy. On 02/10/23, Donell Schneider was seen on morning rounds and deemed medically stable for discharge. Donell Schneider was discharged with instructions to schedule follow- up appointments with Dr Camacho and PCP. Donell Schneider was provided prescriptions for atorvastatin and mupiricin. The patient and family members were given the opportunity to ask questions and reported no further questions. Furthermore, all questions were answered to the best of my ability. A copy of this discharge summary will be sent to the above providers to facilitate continuity of care. Today, I personally spent 55 minutes with Donell Schneider, of which greater than 50% of the time was spent in patient education, counseling, and coordination of care as described above. Physical Exam General: Alert, In no apparent distress, Oriented x3 HEENT: Atraumatic, Normocephalic, PERRLA Neck: Supple, 2+ carotid pulse no bruit, JVD not distended Respiratory: Clear to auscultation bilaterally, Normal air movement Cardiovascular: Normal pulses, Regular rate/rhythm, Normal S1 S2, Edema (RLE) Capillary refill: <2 Seconds Gastrointestinal: Normal bowel sounds, Soft and benign Musculoskeletal: No clubbing, right hand swelling, No contractures Integumentary: Other (surgical wound to right foot) Extremities: RLE 2+ edema with romulo bandage C/D/I, LLE 1+ edema, right hand swelling Neurological: Normal speech, Normal strength at 5/5 x4 extr, Normal tone Urinary: Leo catheter (chronic leo for BPH) Vital Signs/Physical Exam: Temp Pulse Resp BP Pulse Ox 98.2 F 59 20 155/70 H 91 02/16/23 16:00 02/16/23 16:00 02/16/23 16:00 02/16/23 16:30 02/16/23 16:00 Laboratory Data at Discharge: WBC 9.60 thou/uL (4.3-10.9) 02/13/23 03:02 Hgb 10.4 g/dL (13.6-17.9) L D 02/13/23 03:02 Hct 30.9 % (39.6-49.0) L 02/13/23 03:02 Plt Count 274 thou/uL (152-406) 02/13/23 03:02 PT 12.3 SECONDS (9.5-12.5) 02/10/23 14:00 INR 1.12 02/10/23 14:00 APTT 37.7 SECONDS (24.3-36.9) H 02/10/23 14:00 Sodium 139 mEq/L (136-145) 02/16/23 08:13 Potassium 4.1 mEq/L (3.5-5.1) 02/16/23 08:13 BUN 23 mg/dL (7-18) H 02/16/23 08:13 Creatinine 1.02 mg/dL (0.70-1.30) 02/16/23 08:13 Glucose 225 mg/dL (74-106) H 02/16/23 08:13 Phosphorus 3.0 mg/dL (2.5-4.9) 02/15/23 02:03 Magnesium 2.0 mg/dL (1.6-2.4) 02/15/23 02:03 Total Bilirubin 0.5 mg/dL (0.2-1.0) 02/10/23 14:00 AST 16 U/L (15-37) 02/10/23 14:00 ALT 23 U/L (16-61) 02/10/23 14:00 Alkaline Phosphatase 72 U/L (45-117) 02/10/23 14:00 Home Medications: Docusate [Colace Cap*] 100 mg PO DAILY 12/03/22 Finasteride [Proscar*] 5 mg PO DAILY 12/03/22 Furosemide [Lasix*] 40 mg PO DAILY 12/03/22 Hydralazine HCl 100 mg PO TID 12/03/22 Insulin Glargine,Hum.rec.anlog [Lantus] 40 unit SQ BEDTIME 12/03/22 Magnesium Oxide [Mag 0X*] 400 mg PO DAILY 12/03/22 Tamsulosin [Flomax*] 0.4 mg PO DAILY 12/03/22 Atorvastatin Calcium [Lipitor*] 10 mg PO BEDTIME #30 tab 02/16/23 Mupirocin Calcium [Bactroban Nasal*] 1 appl HANS BID #1 tube 02/16/23 New Medications: Mupirocin Calcium [Bactroban Nasal*] 1 appl HANS BID #1 tube Atorvastatin Calcium [Lipitor*] 10 mg PO BEDTIME #30 tab Physician Discharge Instructions: Disharge home with family support Walking with assistance Diabetic diet Home health for wound [facility]-way health for continued leo catheter [facility] health for physical therapy strengthening Follow up with urologist for Leo catheter management Follow up with PCP in one week Follow up with Dr Camacho in one week Medications changes: Mupirocin for surgical wound care atorvastatin at bedtime IV ancef to be completed Diet: ADA Activity: Ad avani Followup: Desean Camacho MD [Primary Care Provider] -
== END 2023-02-16 17:51 | disposition home health service (06) | DRG 853 ==
LOC: ER 13:29 → ERHOLD 15:36 → 2ND 19:49
PROVIDERS: ADMIT Internal Medicine; ATTEND Hospitalist
PROC: 02HV33Z Insertion of Infusion Device into Superior Vena Cava, Percutaneous Approach (ICD-10-PCS; 2023-02-11)
PROC: 0Y6P0Z0 Detachment at Right 1st Toe, Complete, Open Approach (ICD-10-PCS; principal; 2023-02-11 13:45)
DX: A41.01 Sepsis due to Methicillin susceptible Staphylococcus aureus (principal); G92.9 Unspecified toxic encephalopathy; M86.8X8 Other osteomyelitis, other site; Z68.43 Body mass index [BMI] 50.0-59.9, adult; N17.9 Acute kidney failure, unspecified; L03.031 Cellulitis of right toe; E66.9 Obesity, unspecified; E11.69 Type 2 diabetes mellitus with other specified complication; E11.42 Type 2 diabetes mellitus with diabetic polyneuropathy; E11.65 Type 2 diabetes mellitus with hyperglycemia; E11.621 Type 2 diabetes mellitus with foot ulcer; L97.519 Non-pressure chronic ulcer of other part of right foot with unspecified severity; E78.00 Pure hypercholesterolemia, unspecified; D64.9 Anemia, unspecified; I10 Essential (primary) hypertension; E03.9 Hypothyroidism, unspecified; N40.0 Benign prostatic hyperplasia without lower urinary tract symptoms; J44.9 Chronic obstructive pulmonary disease, unspecified; Z79.4 Long term (current) use of insulin; Z79.899 Other long term (current) drug therapy
CPT/HCPCS: 36415; 36569; 71045; 80048; 80053; 80202; 82947; 83605; 83735; 84100; 85025; 85610; 85730; 87040; 87070; 87075; 87077; 87186; 87205; 88305; 88311; 93005; 93306; 96365; 96366; 97116; 97161; 97530; 99285; J0690; J0692; J1815; J2001; J2405; J2543; J2704; J3010; J7030; J7040; J7050

== ENCOUNTER 2024-05-29 10:00 | Day surgery (SDC) | payer OTHER ==
[2024-05-24 11:46] LABS: Absolute Eosinophils 0.1 K/uL (0-0.5); Absolute Lymphocytes (CBC) 1.3 K/uL (0.7-4.9); Absolute Monocytes 0.4 K/uL (0.1-1.3); Absolute Neutrophil 4.9 K/uL (1.8-8.0); Basophils % 0.5 % (0-1.3); Eosinophils % 1.2 % (0-4.4); Hematocrit 35.3 % (39.6-49.0); Hemoglobin 11.4 g/dL (13.6-17.9); Lymphocytes % 19.4 % (15.3-44.8); MCH 27.5 pg (27.0-35.0); MCHC 32.3 g/dL (32.0-36.0); MCV 85.3 fL (80-100); MPV 7.4 fL (7.6-11.3); Monocytes % 6.4 % (3.3-12.3); Neutrophils % 72.5 % (41.7-73.7); Nucleated Red Blood Cells % 0.1 % (0-0); Platelets 356 thou/uL (152-406); RBC Red Blood Cell Count 4.13 M/uL (4.33-5.43); Red Cell Distribution Width 17.2 % (12.1-15.2)
[2024-05-24 11:48] LABS: PT Prothrombin Time 12.3 SECONDS (9.4-12.5); Protime INR 1.1
[2024-05-24 12:22] LABS: Anion Gap 14.3 mEq/L (5.0-15.0); Potassium 4.3 mEq/L (3.5-5.1)
--- NOTE | 2024-05-24 13:15 | RAD REPORT ---
EXAMINATION: TWO VIEW CHEST XR CLINICAL INDICATION: Male, 83 years old. [facility] Pre-op pending suprapubic cath placement. Hypertension TECHNIQUE: 2 view radiographs of the chest were performed. COMPARISON: CT chest 04/24/2024. Chest radiograph 02/16/2023 FINDINGS: Nodular right lower lobe opacities, appears stable compared to the prior CT. Blunting of the left cos tophrenic angle, may relate to subsegmental atelectasis. No pneumothorax or sizable effusion. The heart is normal in size. Mediastinal contours are unremarkable. IMPRESSION: No acute abnormalities. Chronic appearing findings as above.
--- NOTE | 2024-05-28 10:56 | EKG ---
Test Date: 2024-05-24 Test Time: 11:28:15 Money Examiner: ANJEL MEASUREMENT RESULTS: Intervals: Rate: 67 NV: 178 QRSD: 96 QT: 450 QTc: 475 [place]: P: 65 NV: 178 QRS: -7 T: 51 INTERPRETIVE STATEMENTS: Normal sinus rhythm Low voltage QRS Prolonged QT Abnormal ECG Compared to ECG 02/10/2023 14:13:12 Low QRS voltage now present Prolonged QT interval now present Electronically Signed On 05-28-24 10:51:42 CLERK CARRIER by Abelino Chris
[~2024-05-29 10:00] MED LIST: CIPROFLOXACIN 400mg IV 400 MG/200 ML BAG IV ONE
[2024-05-29] MEDS ORDERED: CIPROFLOXACIN 400mg IV 400 MG/200 ML BAG IV ONE (10:13)
[2024-05-29] MEDS: NA CHLORIDE 0.9% 1,000 ML ONE ×2 (10:45→14:49)
[2024-05-29] MEDS ORDERED: FENTANYL CITR 100 MCG/2 ML ONE (13:23)
[2024-05-29] MEDS ORDERED: ROCURONIUM 50 MG/5 ML VIAL IV ONE (13:23)
[2024-05-29] MEDS ORDERED: ONDANSETRON 4 MG/2 ML VIAL ONE (13:23)
[2024-05-29] MEDS ORDERED: LIDOCAINE 1% MPF 5 ML VIAL ONE (13:23)
[2024-05-29] MEDS ORDERED: propofoL 200 MG/20 ML VIAL IV ONE (13:23)
--- NOTE | 2024-05-29 14:33 | P.OP ---
Date of Service: 05/29/24 Preoperative diagnoses: Chronic urinary retention Chronic indwelling Jacques catheter Traumatic mid urethral hypospadias Metastatic prostate cancer on ADT Postoperative diagnoses: Chronic urinary retention Chronic indwelling Jacques catheter Traumatic mid urethral hypospadias Metastatic prostate cancer on ADT Principal procedures: Cystoscopy Bladder irrigation Suprapubic cystostomy 18 Panamanian suprapubic catheter placement Indication for procedure: 83-year-old gentleman who initially was seen and lost to follow-up with an elevated PSA. He returned nearly a year later with a PSA that had gone from around 20 to over 600. This was associated with the presence of metastatic disease widely observed on imaging, and he was counseled that this was likely metastatic prostate cancer and initiated on androgen deprivation therapy with Casodex for the flare and Eligard 22.5 mg for maintenance. He has subsequently consulted with medical oncology and management of his metastatic prostate cancer will continue from there. Meanwhile, with regard to his chronic urinary retention with an indwelling Jacques catheter, we counseled him on the opportunity for evaluation to include urodynamics to determine if he had adequate detrusor function and might be eligible for religious of his ability to void, but because he is grossly immobile at this point, he and his son elected to forego any efforts at further evaluation to determine if he might be able to restore voiding surgically and instead to have a suprapubic catheter placed. Procedure note: The patient was consented in the preoperative holding area before being transferred to the operative suite where general anesthesia was induced. He was given ciprofloxacin for 2 mg IV antimicrobial prophylaxis and pneumoboots were provided for DVT prophylaxis. He had been given antimicrobial therapy with Bactrim as an outpatient starting on Tuesday. He was placed in the lithotomy position, padded and secured to the table appropriately. His suprapubic region was shaved, prepped with Betadine where as his genitalia was prepped with Hibiclens and draped in standard fashion after the indwelling urethral Jacques catheter was removed. Using a 22 Panamanian rigid cystoscope, I traversed his urethra and beyond some nonocclusive stricture disease in the perineal bulbar urethra, navigating through the prostatic urethra and into his bladder beyond an elevated bladder neck. Upon entry into the bladder, I decompressed the fluid and some slightly cloudy appearing urine. The bladder was markedly trabeculated with Dome diverticular formation. As a result, I filled his bladder and irrigated it several times with saline to clarify the urine. I then retrograde filled his bladder and distended with approximately 40 cm of water pressure before placing him in the steep Trendelenburg position. I then removed the cystoscope, leaving his bladder full, and passed the Lowsley device via his urethra into his bladder. I then navigated the device tip into the desired suprapubic region where I could palpate it beneath the skin. I then incised the skin approximately 1 cm over the device tip down to the device using a 15 blade, and then passed the device through the incised tissues into the operative field through the skin. At this point, I opened the Lowsley device and placed an 18 Panamanian catheter into its jaws. I then retracted the device back into his bladder and then released the catheter from the device within. Before inflating the balloon, I passed the cystoscope back via his urethra into his bladder, and found the tip of the catheter in the bulbar urethra. As a result, I backed the catheter into the bladder lumen and under direct vision filled the balloon with about 25 cc of sterile water. The balloon did inflate appropriately, and the catheter was situated. I then secured the catheter to the skin using 2-0 nylon suture. I then remove the cystoscope and took the patient out of the steep Trendelenburg position. He was then taken out of the lithotomy position, and awakened from general anesthesia. A dressing was applied around the suprapubic cystostomy site, and the catheter was secured to his left upper thigh using a StatLock. He was then transferred to a stretcher before being transferred to the recovery room in good condition. Complications: None Discharge disposition: Follow-up should be established in about 6 to 8 weeks time for next suprapubic catheter exchange with another 18 Panamanian Jacques catheter. Surveillance culture may be obtained at that time. Antimicrobial prophylaxis may be provided with Bactrim. Findings and Operative Technique
[2024-05-29] MEDS ORDERED: CODEINE 30MG/APAP 300MG TAB PO PRN (14:51)
== END 2024-05-29 16:06 | disposition home or self-care (01) ==
LOC: OR 10:00
PROVIDERS: ATTEND Urology
PROC: 0T9B00Z Drainage of Bladder with Drainage Device, Open Approach (ICD-10-PCS; principal; 2024-05-29 13:00)
DX: N40.1 Benign prostatic hyperplasia with lower urinary tract symptoms (principal); R33.9 Retention of urine, unspecified; Q54.1 Hypospadias, penile; C79.51 Secondary malignant neoplasm of bone; C61 Malignant neoplasm of prostate
CPT/HCPCS: 51040; 93005; 87088; 85025; 87086; 80048; 36415; 85610; 82947 ×2; 87077 ×2; 87186 ×2; 71046; J2704; J2003; J3010; J2405; J0744; J7030 ×2

== ENCOUNTER 2024-09-21 12:52 | Inpatient (IN) | payer OTHER ==
--- OUTSIDE RECORDS SUMMARY | 2024-09-21 14:33 | XMS REPORT | Continuity of Care Document ---
Author Name Unknown Address [address] [facility] [address] [place] [address] [facility] Address [address] 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 Role Phone Sandy Conecpcion Primary Care Physician Mallory Cameron MD Attending Clinician + [phone] Emily Hernández MA Attending Clinician [phone] Maria Shaikh RN Attending Clinician UnavailYoly Land RN Attending Clinician UnaTEVIN Dasilva Attending Clinician Unavailable Haider Donohue DO Attending Clinician [phone] Tevin Coley MD Attending Clinician [phone] Bobby Merida MD Attending Clinician [phone] LEO PARDO Attending Clinician Unavailable LEO PARDO Attending Clinician Unavailable Leo Pardo DO Attending Clinician [phone] Carolyn Jacobs RN Attending Clinician [phone] MALLORY CAMERON Attending Clinician Unavai Hossein Freedman Rahil Attending Clinician Unavail able Morro GREGORIO, Peewee Aguirre Attending Clinician Unavail able Haider Donohue DO Attending Clinician [phone] Vianca SNIDER, Tevin Attending Clinician [phone] Ayala SNIDER, Bobby Attending Clinician [phone] Mallory Cameron MD Attending Clinician + [phone] Doctor Unassigned, [place] Attending Clinician U sulaiman Yoder YEAST PUSHER, Rosy Attending Clinician [phone] Unknown, Attending Attending Clinician Unavailab ROSY Lee Attending Clinician Unavailable Deniz GREGORIO, Steph Asif Attending Clinician Unavail able Emily Recinos DO Attending Clinician [phone] Ronald Scott DO Attending Clinician [phone] ROB DEGROOT Attending Clinician Unavailable Katlyn Mccormack MD Attending Clinician [phone] Eyad Garcia MD Attending Clinician [phone] Ravinder Porras MD Attending Clinician [phone] Rob Degroot MD Attending Clinician [phone] Israel RIVERA, Miguel Attending Clinician [phone] MIGUEL CHAHAL Attending Clinician Unavailable Valentina Del Toro DO Attending Clinician [phone] VALENTINA DEL TORO Attending Clinician Unavailable VALENTINA DEL TORO Attending Clinician Unavailable Ige-Odunuga_J_AH Attending Clinician Unavailable BOBBY MERIDA Admitting Clinician Unavailable Ayala SNIDER, Bobby Admitting Clinician [phone] Hossein Herzog Rahil Admitting Clinician Unavail able Ayala SNIDER, Bobby Admitting Clinician [phone] TEVIN COLEY Admitting Clinician Unavailable Tevin Coley MD Admitting Clinician [phone] ROB DEGROOT Admitting Clinician Unavailable Rob Degroot MD Admitting Clinician [phone] ANDREIA GREENWOOD Admitting Clinician Unavailable Ige-Oduntr_J_AH Admitting Clinician Unavailable Payers Payer Name Policy Type Policy Number Effective Date Expirati on Date Source [facility] [id number] [employer] (MEDICARE REPLACEMENT/ADVANT AGE - HMO) [id number] 2019 00:00:00 Problems Condition Name Condition Details Condition Category Status Onset Date Resolution Date Last Treatment Date Treating Clinician Comments Source Fever, unspecifie d fever cause Fever, unspecifie d fever cause Disease Active 6-12 00:00: 00 [facility] Pulmonary hypertensi on Pulmonary hypertensi on Disease Active 09-04 00:00: 00 [facility] Morbid obesity Morbid obesity Disease Active 09-04 00:00: 00 [facility] COVID-19 virus infection COVID-19 virus infection Disease Active 09-03 00:00: 00 [facility] Acute respirator y failure with hypoxia Acute respirator y failure with hypoxia Disease Active 09-03 00:00: 00 [facility] Acute on chronic heart failure with preserved ejection fraction (HFpEF) Acute on chronic heart failure with preserved ejection fraction (HFpEF) Disease Active 09-03 00:00: 00 [facility] Hypotensio n Hypotensio n Disease Active 09-03 00:00: 00 [facility] Type 2 diabetes mellitus with other specified complicati on Type 2 diabetes mellitus with other specified complicati on Disease Active 09-03 00:00: 00 [facility] Sepsis Sepsis Disease Active -14 00:00: 00 [facility] JACQUELINE (acute kidney injury) JACQUELINE (acute kidney injury) Disease Active 07-13 00:00: 00 [facility] Acute kidney injury superimpos ed on CKD Acute kidney injury superimpos ed on CKD Disease Active 07-13 00:00: 00 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 Chronic stasis dermatitis of right lower extremity Chronic stasis dermatitis of right lower extremity Disease Active 07-09 00:00: 00 [facility] Lower extremity lymphadeno chayito Lower extremity lymphadeno chayito Disease Active 07-09 00:00: 00 [facility] Rhabdomyol ysis Rhabdomyol ysis Disease Active 07-06 00:00: 00 [facility] Non-trauma tic rhabdomyol ysis Non-trauma tic rhabdomyol ysis Disease Active 07-06 00:00: 00 [facility] No known active problems No known active problems Disease 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 Problem Common [facility] Type 2 diabetes mellitus with other specified complicati on Type 2 diabetes mellitus with other specified complicati on Problem [facility] Nutritiona l anaemia Other specified nutritiona l anemias Problem [facility] Malignant tumor of prostate CA of prostate Problem Common [facility] Indwelling urinary catheter, device (physical object) Indwelling catheter present on admission Problem [facility] Essential hypertensi on Benign essential HTN Problem Common [facility] [id number] Suprapubic catheter Problem [facility] [id number] Elevated PSA Problem [facility] [id number] Urinary retention Problem [facility] [id number] BPH loc w urin obs/LUTS Problem [facility] [id number] Detrusor dysfunctio n Problem [facility] [id number] Detrusor instabilit y Problem [facility] [id number] DSD (detrusor and sphincter dyssynergi a) Problem [facility] [id number] Indwelling urethral catheter present Problem [facility] Allergies, Adverse Reactions, Alerts Allergy Name Allergy Type Status Severity Reaction(s) Onset Date Inactive Date Treating Clinician Comments Source NO KNOWN ALLERGIE S Drug Class Active [facility] Social History Social Habit Start Date Stop Date Quantity Comments Source Gender identity [facility] History of Occupation [facility] History SDOH Social Connections Get Together [facility] History SDOH Social Connections [facility] SDOH Social Connections Membership [facility] History SDOH Social Connections Meetings [facility] History of Tobacco Use [facility] Sex Assigned At [facility] Alcoholic beverage intake 2024-06-21 00:00:00 2024-06-21 00:00:00 .29 /d [facility] Alcohol intake 2023-06-08 00:00:00 2023-06-08 00:00:00 .29 /d [facility] Exposure to SARS-CoV-2 (event) 2022-10-03 00:00:00 2022-10-13 14:00:00 Not sure [facility] History of Social function 2022-10-13 00:00:00 2022-10-13 00:00:00 [facility] History SDOH Alcohol Frequency 2022-08-30 00:00:00 2022-08-30 00:00:00 1 [facility] History SDOH Social Connections Phone 2022-08-30 00:00:00 2022-08-30 00:00:00 5 [facility] History SDOH Social Connections Living 2022-08-30 00:00:00 2022-08-30 00:00:00 5 [facility] History SDOH Physical Activity DPW 2022-08-30 00:00:00 2022-08-30 00:00:00 2 [facility] History SDOH Physical Activity MPS 2022-08-30 00:00:00 2022-08-30 00:00:00 1 [facility] History SDOH Financial 2022-08-30 00:00:00 2022-08-30 00:00:00 5 [facility] History SDOH Food Worry 2022-08-30 00:00:00 2022-08-30 00:00:00 1 [facility] History SDOH Food Scarcity 2022-08-30 00:00:00 2022-08-30 00:00:00 1 [facility] History SDOH Transport Med 2022-08-30 00:00:00 2022-08-30 00:00:00 2 [facility] History SDOH Transport Non-Med 2022-08-30 00:00:00 2022-08-30 00:00:00 2 [facility] History SDOH Housing Unable to Pay 2022-08-30 00:00:00 2022-08-30 00:00:00 2 [facility] History SDOH Housing Places Lived 2022-08-30 00:00:00 2022-08-30 00:00:00 1 [facility] History SDOH Housing Homeless Last Year 2022-08-30 00:00:00 2022-08-30 00:00:00 2 [facility] Tobacco use and exposure 2022-08-27 00:00:00 2022-08-27 00:00:00 Smokeless tobacco non-user [facility] Education 2022-08-27 00:00:00 2022-08-27 00:00:00 21 [facility] History SDOH Alcohol Std Drinks 2022-07-06 00:00:00 2022-07-06 00:00:00 0 [facility] History SDOH Alcohol Binge 2022-07-06 00:00:00 2022-07-06 00:00:00 1 [facility] Smoking Status Start Date Stop Date Source Never smoked tobacco [facility] Medications Ordered Medication Name Filled Medication Name Start Date Stop Date Current Medication? Ordering Clinician Indication Dosage Frequency Signature (SIG) Comments Components Source ergocalcife rol, vitamin d2, 1,250 mcg (50,000 unit) capsule 07-02 00:00: 00 07-07 05:59 :00 Yes [id number] Take 1 capsule by mouth weekly for [address] [facility] lactulose (CEPHULAC) solution 30 mL 06-27 23:00: 00 06-27 23:00 :00 No 30mL 30 mL, Oral, ONCE, 1 dose, On Tue06/27/24 at 1700, STAT [facility] bisacodyL (DULCOLAX) suppository 10 mg 06-27 22:15: 00 06-27 23:00 :00 No 10mg 10 mg, Rectal, ONCE, 1 dose, On Tue06/27/24 at 1615, KALE [facility] hydrALAZINE (APRESOLINE ) tablet 50 mg 06-27 20:00: 00 06-28 00:44 :12 No [id number] 50mg 50 mg, Oral, Q8H, First dose (after last modificati on) on Tue06/27/24 at 1400, Until Discontinu ed, Routine [facility] predniSONE 5 mg tablet 06-27 18:44: 12 Yes 5mg Take 1 tablet by mouth in the morning and 1 tablet in the evening. [facility] abiraterone 500 mg Tab 06-27 18:44: 12 Yes 1000mg Take 2 tablets by mouth daily [facility] bumetanide 1 mg tablet 06-27 16:26: 47 06-27 00:00 :00 No 1mg Take 1 tablet by mouth every morning and evening. [facility] magnesium oxide 400 mg magnesium Tab 06-27 16:26: 47 06-27 00:00 :00 No 40mg Take 40 mg by mouth in the morning. [facility] calcium carbonate (OSCAL-500) tablet 500 mg 06-27 02:00: 00 Yes [id number] 500mg 500 mg, Oral, BID, First dose (after last modificati on) on Tue06/26/24 at 2000, Until Discontinu ed, Routine [facility] polyethylen e glycol 3350 powder 17 g 06-27 02:00: 00 06-28 00:44 :12 No [id number] 17g 17 g, Oral, DAILY, First dose on Tue06/26/24 at 2000, Until Discontinu ed, Routine [facility] hydrALAZINE 100 mg tablet 06-27 00:00: 00 07-28 04:59 :00 Yes [id number] 50mg Take 0.5 tablets by mouth in the morning and 0.5 tablets at noon and 0.5 tablets in the evening. Do all this for [address] [facility] calcium carbonate 500 mg calcium (1,250 mg) tablet 06-27 00:00: 00 07-28 04:59 :00 Yes [id number] 500mg Take 1 tablet by mouth in the morning and 1 tablet in the evening. Do all this for [address] [facility] docusate (COLACE) 100 mg capsule 06-27 00:00: 00 07-28 04:59 :00 Yes [id number] 100mg Take 1 capsule by mouth 2 (two) times daily as needed for Constipati on for up to [address] [facility] sennosides (SENNA) 8.6 mg tablet 06-27 00:00: 00 07-28 04:59 :00 Yes [id number] 8.6mg Take 1 tablet by mouth in the morning for [address] [facility] cefdinir 300 mg capsule 06-27 00:00: 00 07-02 05:59 :00 No [id number] 300mg Take 1 capsule by mouth every 12 (twelve) hours for [address] [facility] hydrALAZINE (APRESOLINE ) tablet 50 mg 06-26 14:00: 00 06-27 15:35 :07 No [id number] 50mg 50 mg, Oral, BID, First dose on Tue06/26/24 at 0800, Until Discontinu ed, Routine [facility] ergocalcife rol (vitamin d2) (CALCIFEROL ) capsule 50,000 Units 06-25 15:00: 00 Yes [id number] 50,000 Units, Oral, QWEEKLY, First dose (after last reorder) on Tue06/25/24 at 0900, Until Discontinu ed, Routine [facility] NaCl 0.9% (NS) IV infusion 1,000 mL 06-25 14:45: 00 06-27 01:54 :58 No 1000mL at 50 mL/hr, IV Infusion, CONTINUOUS , Starting on 06/25/24 at 0845, Until Tu06/26/24 at 1954, Routine [facility] predniSONE (DELTASONE) tablet 5 mg 06-24 22:30: 00 06-28 00:44 :12 No 5mg 5 mg, Oral, BIDAC, First dose (after last modificati on) on 06/24/24 at 1630, Until Discontinu ed, Routine [facility] it[facility] calcium carbonate (OSCAL-500) tablet 500 mg 06-24 18:00: 00 06-26 21:09 :09 No 500mg 500 mg, Oral, QID, First dose (after last modificati on) on 06/24/24 at 1200, Until Discontinu ed, Routine [facility] it[facility] bumetanide (BUMEX) tablet 1 mg 06-24 15:00: 00 06-25 05:32 :55 No 1mg 1 mg, Oral, QAM+PM, First dose on 06/24/24 at 0900, Until Discontinu ed, Routine [facility] it[facility] abiraterone (ZYTIGA) Tab 1,000 mg 06-24 03:00: 00 06-28 00:44 :12 No 1000mg 1,000 mg, Oral, QHS, First dose on 06/23/24 at 2100, Until Discontinu ed, Routine [facility] it[facility] predniSONE (DELTASONE) tablet 5 mg 06-24 02:00: 00 06-24 16:41 :42 No 5mg 5 mg, Oral, BID, First dose on 06/23/24 at 2000, Until Discontinu ed, Routine [facility] it[facility] ergocalcife rol (vitamin d2) (CALCIFEROL ) capsule 50,000 Units 06-23 15:00: 00 06-24 14:12 :00 No [id number] 50,000 Units, Oral, DAILY, 2 doses, First dose on Tue06/23/24 at 0900, Last dose on Tue06/24/24 at 0900, Routine [facility] calcium carbonate (OSCAL-500) tablet 500 mg 06-23 14:00: 00 06-24 16:45 :48 No 500mg 500 mg, Oral, BID MEALS, First dose on Tue06/23/24 at 0800, Until Discontinu ed, Routine [facility] azithromyci n (ZITHROMAX) tablet 500 mg 06-23 03:45: 00 06-23 14:24 :00 No 500mg 500 mg, Oral, DAILY, 2 doses, First dose on Tue06/22/24 at 2145, Last dose on Tue06/23/24 at 0900, Routine, Reason for Anti-Infec tive: Documented Infection, Documented Infection Site: Respirator y, Duration of Therapy: Other (see Comments) [facility] atorvastati n (LIPITOR) tablet 10 mg 06-23 03:00: 00 06-28 00:44 :12 No 10mg 10 mg, Oral, QHS, First dose on Tue06/22/24 at 2100, Until Discontinu ed, Routine [facility] cefTRIAXone (ROCEPHIN) 1,000 mg in water for injection, sterile 10 mL IV Push 06-23 02:00: 00 06-28 00:44 :12 No 1000mg 1,000 mg, Slow IV Push, Q24H ABX, First dose on Tue06/22/24 at 2000, Until Discontinu ed, Routine, Reason for Anti-Infec tive: Empiric Therapy for Suspected Infection, Empiric Therapy Site: Urine, Duration of therapy: [address] [facility] NaCl 0.9% (NS) IV infusion 1,000 mL 06-23 02:00: 00 06-25 14:41 :11 No 1000mL at 100 mL/hr, IV Infusion, CONTINUOUS , Starting on Tue06/22/24 at 2000, Until Tue06/25/24 at 0841, Routine [facility] calcitrioL (ROCALTROL) capsule 0.5 mcg 06-23 01:00: 00 Yes .5ug 0.5 mcg, Oral, BIDPC, First dose (after last modificati on) on Tue06/22/24 at 1900, Until Discontinu ed, Routine [facility] it[facility] finasteride (PROSCAR) tablet 5 mg 06-22 15:00: 00 06-28 00:44 :12 No 5mg 5 mg, Oral, DAILY, First dose on Tue06/22/24 at 0900, Until Discontinu ed, Routine [facility] insulin glargine (LANTUS U-100) injection 20 Units 06-22 14:00: 00 06-28 00:44 :12 No 20U 20 Units, Subcutaneo us, BID, First dose on Tue06/22/24 at 0800, Until Discontinu ed, Routine [facility] it[facility] docusate (COLACE) capsule 100 mg 06-22 14:00: 00 06-28 00:44 :12 No 100mg 100 mg, Oral, BID, First dose on Tue06/22/24 at 0800, Until Discontinu ed, Routine [facility] hydrALAZINE (APRESOLINE ) tablet 100 mg 06-22 14:00: 00 06-24 16:40 :41 No 100mg 100 mg, Oral, TID, First dose on Tue06/22/24 at 0800, Until Discontinu ed, Routine [facility] heparin (porcine) injection 5,000 Units 06-22 12:00: 00 06-28 00:44 :12 No [id number] 5,000 Units, Subcutaneo us, Q8H, First dose on Tue06/22/24 at 0600, Until Discontinu ed, Routine [facility] it[facility] calcium gluconate 2 g in NaCl 100 mL (ISO-OSM) RTU IV infusion 2 g 06-22 11:15: 00 06-22 11:44 :00 No 2g 2 g, IV Infusion, at 200 mL/hr Administer over 30 Minutes, ONCE, 1 dose, On Tue06/22/24 at 0515, Routine [facility] calcium gluconate 1 g in NaCl 50 mL (ISO-OSM) RTU IV infusion 1 g 06-22 05:45: 00 06-22 05:50 :00 No 1g 1 g, IV Infusion, at 100 mL/hr Administer over 30 Minutes, ONCE, 1 dose, On Tue06/21/24 at 2345, Routine [facility] azithromyci n (ZITHROMAX) 500 mg in NaCl 0.9% (NS) 250 mL piggyback 06-22 03:45: 00 06-22 04:45 :00 No 500mg 500 mg, IV Piggyback, Q24H ABX, 1 dose, First dose on Tue06/21/24 at 2145, Administer over 60 Minutes, 250 mL, Reason for Anti-Infec tive: Empiric Therapy for Suspected Infection, Empiric Therapy Site: Respirator y, Duration of therapy: [address] [facility] Sliding Scale Insulin-Reg ular 06-22 03:00: 00 06-28 00:44 :12 No Subcutaneo us, AC+HS, First dose on Tue06/21/24 at 2100, Until Discontinu ed, Routine [facility] glucagon HCL injection 1 mg 06-22 02:46: 24 06-28 00:44 :[address] [facility] dextrose 50 % in water (D50W) injection 25 mL 06-22 02:46: 24 06-28 00:44 :[address] [facility] ondansetron (ZOFRAN (PF)) injection 4 mg 06-22 02:46: 14 06-28 00:44 :[address] [facility] acetaminoph en (TYLENOL) tablet 650 mg 06-22 02:45: 59 06-28 00:44 :12 No 650mg 650 mg, Oral, Q6HPRN, Starting on Rosa 06/21/24 at 2045, Until 06/27/24 at 1844, Routine, Pain (scale 1-3) [facility] cefTRIAXone (ROCEPHIN) injection 1,000 mg 06-22 01:00: 00 06-22 00:57 :00 No 1000mg 1,000 mg, Slow IV Push, Q24H ABX, 1 dose, First dose on Rosa 06/21/24 at 1900, KALE, Reason for Anti-Infec tive: Empiric Therapy for Suspected Infection, Empiric Therapy Site: Urine, Duration of therapy: Once (ED) [facility] Eligard Eligard 2023-05 00:00: 00 No 22.5mg [facility] cefTRIAXone Sodium cefTRIAXone Sodium 2023-05 00:00: 00 No 250mg [facility] furosemide 40 mg tablet 10-28 13:21: 36 06-27 00:00 :00 No 1 tablet Orally Once a day [facility] HYDROcodone -acetaminop hen 5-325 mg tablet 10-28 13:21: 36 06-21 00:00 :00 No 1 tablet as needed Orally every [address] [facility] pravastatin 20 mg tablet 10-28 13:21: 36 06-21 00:00 :00 No 1 tablet Orally Once a day [facility] amoxicillin -clavulanat e 875-125 mg per tablet 10-28 00:00: 00 11-08 04:59 :00 No [id number] 1{tbl} Take 1 tablet by mouth in the morning and 1 tablet in the evening. Do all this for [address] [facility] NaCl 0.9% (NS) IV infusion 1,000 mL 10-27 16:15: 00 Yes 1000mL at 75 mL/hr, IV Infusion, CONTINUOUS , Starting on Tue10/28/23 at 1115, Until Discontinu ed, Routine Univers [facility] sodium bicarbonate (ANTACID (SODIUM BICARBONATE )) tablet 650 mg 10-27 15:15: 00 Yes 650mg 650 mg, Oral, BIDPC, First dose on Tue10/28/23 at 1130, Until Discontinu ed, Routine [facility] spironolact one (ALDACTONE) tablet 25 mg 10-27 14:00: 00 Yes 25mg 25 mg, Oral, DAILY, First dose (after last modificati on) on Tue10/28/23 at 0900, Until Discontinu ed, Routine [facility] it[facility] bumetanide (BUMEX) tablet 1 mg 10-27 14:00: 00 10-27 15:10 :04 No 1mg 1 mg, Oral, DAILY, First dose (after last modificati on) on Tue10/28/23 at 0900, Until Discontinu ed, Routine [facility] it[facility] pravastatin (PRAVACHOL) tablet 20 mg 10-27 02:00: 00 Yes 20mg 20 mg, Oral, QHS, First dose on Tue10/27/23 at 2100, Until Discontinu ed, Routine [facility] hydrALAZINE (APRESOLINE ) tablet 50 mg 10-27 01:00: 00 10-27 15:10 :04 No 50mg 50 mg, Oral, BID, First dose (after last modificati on) on Tue10/27/23 at 2000, Until Discontinu ed, Routine [facility] it[facility] finasteride (PROSCAR) tablet 5 mg 10-26 14:00: 00 Yes 5mg 5 mg, Oral, DAILY, First dose on Tue10/27/23 at 0900, Until Discontinu ed, Routine [facility] enoxaparin (LOVENOX) injection 40 mg 10-26 14:00: 00 Yes 40mg 40 mg, Subcutaneo us, DAILY, First dose on Tue10/27/23 at 0900, Until Discontinu ed, Routine [facility] spironolact one (ALDACTONE) tablet 25 mg 10-26 14:00: 00 10-26 15:40 :50 No 25mg 25 mg, Oral, DAILY, First dose on Tue10/27/23 at 0900, Until Discontinu ed, Routine Univers [facility] dapaglifloz in propanediol (FARXIGA) tablet 10 mg 10-26 14:00: 00 10-26 15:40 :50 No 10mg 10 mg, Oral, DAILY, First dose on Tue10/27/23 at 0900, Until Discontinu ed, Routine, Is this a home medication ? Yes, Has this patient brought their own medication ? No, Pharmacy will dispense the medication from inpatient. [facility] bumetanide (BUMEX) tablet 1 mg 10-26 14:00: 00 10-26 15:40 :50 No 1mg 1 mg, Oral, QAM+PM, First dose on Tue10/27/23 at 0900, Until Discontinu ed, Routine Univers [facility] insulin glargine (LANTUS U-100) injection 30 Units 10-26 13:00: 00 Yes 30U 30 Units, Subcutaneo us, BID, First dose on Tue10/27/23 at 0800, Until Discontinu ed, Routine [facility] docusate (COLACE) capsule 100 mg 10-26 13:00: 00 Yes 100mg 100 mg, Oral, BID, First dose on Tue10/27/23 at 0800, Until Discontinu ed, Routine [facility] hydrALAZINE (APRESOLINE ) tablet 100 mg 10-26 13:00: 00 10-26 15:41 :15 No 100mg 100 mg, Oral, TID, First dose on Tue10/27/23 at 0800, Until Discontinu ed, Routine [facility] Sliding Scale Insulin-Reg ular 10-26 12:30: 00 Yes Subcutaneo us, AC+HS, First dose on Tue10/27/23 at 0730, Until Discontinu ed, Routine Univers [facility] glucagon (GLUCAGEN DIAGNOSTIC KIT) injection 1 mg 10-26 11:04: 10 Yes 1mg 1 mg, Intramuscu lar, PRN, Starting on Rosa 10/27/23 at 0604, Until Discontinu ed, KALE, Blood Glucose < or = 70 mg/dL and patient is NPO, unable to swallow or has mental changes. [facility] dextrose 50 % in water (D50W) injection 25 mL 10-26 11:04: 10 Yes 25mL 25 mL, Slow IV Push, PRN, Starting on Rosa 10/27/23 at 0604, Until Discontinu ed, KALE, Blood Glucose < or = 70 mg/dL and patient is NPO, unable to swallow or has mental status changes. [facility] piperacilli n-tazobacta m (ZOSYN) 3.375 g in NaCl 0.9% (NS) 100 mL MINI-BAG 10-26 09:00: 00 10-31 08:59 :00 No 3.375g 3.375 g, IV Piggyback, Q8H ABX, 15 doses, First dose (after last reorder) on [place] 10/27/23 at 0400, Last dose on 10/31/23 at 2000, Administer over 4 Hours, 100 mL, Reason for Anti-Infec tive: Empiric Therapy for Suspected Infection, Empiric Therapy Site: Urine, Duration of therapy: Once (ED) [facility] ondansetron (ZOFRAN (PF)) injection 4 mg 10-26 04:14: [address] [facility] HYDROcodone -acetaminop hen (NORCO) 10-325 mg tablet 1 tablet 10-26 04:14: 53 Yes 1{tbl} [facility] acetaminoph en (TYLENOL) tablet 650 mg 10-26 04:14: [address] [facility] acetaminoph en (TYLENOL) tablet 650 mg 10-26 03:45: 00 10-26 03:44 :00 No 650mg 650 mg, Oral, ONCE, 1 dose, On Tue10/26/23 at 2245, [facility] piperacilli n-tazobacta m (ZOSYN) 3.375 g in NaCl 0.9% (NS) 100 mL MINI-BAG 10-26 00:45: 00 10-26 01:46 :00 No 3.375g 3.375 g, IV Piggyback, ONCE, 1 dose, On Tue10/26/23 at 1945, Administer over 30 Minutes, 100 mL, Reason for Anti-Infec tive: Empiric Therapy for Suspected Infection, Empiric Therapy Site: Urine, Duration of therapy: Once (ED) [facility] SPIRONOLACT ONE 25 mg tablet 12 00:00: 00 06-21 00:00 :00 No [id number] 00 25mg TAKE 1 TABLET BY MOUTH IN THE MORNING [facility] SPIRONOLACT ONE 25 mg tablet 5-14 00:00: 00 10-25 00:00 :00 No [id number] 00 25mg TAKE 1 TABLET BY MOUTH IN THE MORNING [facility] SPIRONOLACT ONE 25 mg tablet -15 00:00: 00 09-26 00:00 :00 No [id number] 00 25mg TAKE 1 TABLET BY MOUTH IN THE MORNING [facility] bumetanide 1 mg tablet 4-03 00:00: 00 06-21 00:00 :00 No 1mg TAKE 1 TABLET BY MOUTH IN THE MORNING AND [address] [facility] BUMETANIDE 1 mg tablet 3-05 00:00: 00 Yes 1mg TAKE 1 TABLET BY MOUTH IN THE MORNING AND [address] [facility] hydrALAZINE 100 mg tablet 2-12 00:00: 00 06-27 00:00 :00 No [id number] 100mg Take 1 tablet by mouth in the morning and 1 tablet at noon and 1 tablet in the evening. [facility] SPIRONOLACT ONE 25 mg tablet 2-06 00:00: 00 08-28 00:00 :00 No [id number] 00 25mg TAKE 1 TABLET BY MOUTH IN THE MORNING [facility] insulin glargine 100 unit/mL injection 06-13 00:00: 00 Yes [id number] 40 am [address] [facility] dapaglifloz in propanediol (FARXIGA) 10 mg tablet 06-08 00:00: 00 06-21 00:00 :00 No [id number] 10mg Take 1 tablet by mouth in the morning. [facility] furosemide 40 mg tablet 05-29 11:22: 50 Yes 1 tablet Orally Once a day [facility] HYDROcodone -acetaminop hen 5-325 mg tablet 05-29 11:22: 50 Yes 1 tablet as needed Orally every [address] [facility] pravastatin 20 mg tablet 05-29 11:22: 50 Yes 1 tablet Orally Once a day [facility] insulin glargine 100 unit/mL injection 05-29 00:00: 00 06-13 00:00 :00 No [id number] 40 am [address] [facility] atorvastati n 10 mg tablet 05-23 00:00: 00 Yes [id number] 10mg Take 1 tablet by mouth at bedtime. [facility] bumetanide 1 mg tablet 2022-05 00:00: 00 07-18 00:00 :00 No 1mg Take 1 tablet by mouth in the morning and 1 tablet in the evening. [facility] spironolact one 25 mg tablet 2022-05 00:00: 00 06-21 00:00 :00 No 25mg Take 1 tablet by mouth in the morning. [facility] dapaglifloz in propanediol (XIGA) 10 mg tablet 2022-05 00:00: 00 06-08 00:00 :00 No 10mg Take 1 tablet by mouth in the morning. [facility] pravastatin 20 mg tablet 2022-05 00:00: 00 05-23 00:00 :00 No [id number] TAKE 4 TABLETS BY MOUTH EVERY DAY AT BEDTIME [facility] SANTYL 250 unit/gram ointment 2022-05 0-18 00:00: 00 06-21 00:00 :[address] [facility] sulfamethox azole-trime thoprim 800-160 mg per tablet 2022-05 0-18 00:00: 00 06-21 00:00 :[address] [facility] bumetanide 1 mg tablet 2022-05 0-12 00:00: 00 03-28 00:00 :00 No 1mg Take 1 tablet by mouth in the morning and 1 tablet in the evening. [facility] FARXIGA 10 mg tablet 2022-05 0-12 00:00: 00 03-28 00:00 :00 No 10mg Take 1 tablet by mouth in the morning. [facility] spironolact one 25 mg tablet 2022-05 0-12 00:00: 00 03-28 00:00 :00 No 25mg Take 1 tablet by mouth in the morning. [facility] hydrALAZINE 100 mg tablet 8-23 00:00: 00 06-25 00:00 :00 No [id number] 100mg Take 1 tablet by mouth in the morning and 1 tablet at noon and 1 tablet in the evening. [facility] Lantus 100 UNIT/ML Lantus 100 UNIT/ML 7- 00:00: 00 No Lantus 100 UNIT/ML SEMGLEE,INS ULIN GLARGINE-YF GN, 100 unit/mL Soln 7- 00:00: 00 06-13 00:00 :[address] [facility] furosemide (LASIX) 40 mg tablet 7-05 00:00: 00 03-08 00:00 :00 No [id number] 00 40mg Take 1 tablet by mouth in the morning. [facility] finasteride 5 mg tablet 6-27 00:00: 00 Yes [id number] 5mg Take 1 tablet by mouth in the morning. [facility] docusate 100 mg capsule 11-09 00:00: 00 Yes [id number] 100mg Take 1 capsule by mouth in the morning and 1 capsule in the evening. [facility] magnesium oxide 400 mg (241.3 mg magnesium) tablet 11-09 00:00: 00 06-21 00:00 :00 No [id number] 00 400mg Take 1 tablet by mouth in the morning. [facility] insulin glargine 100 unit/mL injection 11-02 14:31: 21 11-02 00:00 :00 No inject under the skin 2 (two) times daily. 40 hs and [address] [facility] insulin glargine 100 unit/mL injection 11-02 00:00: 00 05-29 00:00 :00 No [id number] 40 hs and [address] [facility] pravastatin 20 mg tablet 11-02 00:00: 00 03-28 00:00 :00 No [id number] TAKE 4 TABLETS BY MOUTH EVERY DAY AT BEDTIME [facility] sulfamethox azole-trime thoprim (BACTRIM DS) 800-160 mg per tablet 10-20 00:00: 00 11-17 00:00 :00 No [id number] 1{tbl} Take 1 tablet by mouth in the morning and 1 tablet in the evening. [facility] insulin glargine 100 unit/mL injection 10-13 14:23: 30 Yes inject under the skin 2 (two) times daily. 40 hs [address] [facility] magnesium oxide 400 mg (241.3 mg magnesium) tablet 10-05 00:00: 00 11-09 00:00 :00 No 400mg Take 1 tablet by mouth in the morning. [facility] pravastatin 20 mg tablet 10-05 00:00: 00 11-02 00:00 :00 No 1 tablet Orally Once a day [facility] finasteride 5 mg tablet 10-04 00:00: 00 11-09 00:00 :00 No 5mg Take 1 tablet by mouth in the morning. [facility] HUMALOG U-100 INSULIN 100 unit/mL solution 09-08 00:00: 00 06-27 00:00 :00 No INJECT 6 UNITS SUBCUTANEO USLY IN THE MORNING AND 6 UNITS AT NOON AND 6 UNITS IN THE EVENING WITH MEALS [facility] sodium polystyrene sulfonate (KAYEXALATE ) 15 gram/60 mL suspension 30 g 09-07 14:30: 00 09-07 16:12 :00 No 30g 30 g, Oral, ONCE, 1 dose, On Tue09/07/22 at 0930, Routine [facility] insulin glargine (LANTUS U-100) injection 40 Units 09-07 02:00: 00 Yes 40U 40 Units, Subcutaneo us, QHS, First dose (after last modificati on) on Tue09/06/22 at 2100, Until Discontinu ed, Routine [facility] docusate 100 mg capsule 09-07 00:00: 00 11-09 00:00 :00 No [id number] 100mg Take 1 capsule by mouth in the morning and 1 capsule in the evening. [facility] budesonide- formoteroL 160-4.5 mcg/actuati on inhaler 09-07 00:00: 00 10-13 00:00 :00 No [id number] 2{puff} Inhale 2 Puffs in the morning and 2 Puffs in the evening. [facility] albuterol 2.5 mg /3 mL (0.083 %) nebulizer solution 09-07 00:00: 00 10-13 00:00 :00 No [id number] 2.5mg Inhale 3 mL every 6 (six) hours as needed for Wheezing or Shortness of Breath. [facility] polyethylen e glycol 3350 17 gram powder 09-07 00:00: 00 10-13 00:00 :00 No [id number] 17g Take 1 Packet by mouth as needed for Constipati on. [facility] calcium carbonate-v itamin D3 250 mg-3.125 mcg (125 unit) per tablet 09-07 00:00: 00 10-13 00:00 :00 No [id number] 500mg Take 2 tablets by mouth in the morning and 2 tablets in the evening. Take with meals. [facility] insulin glargine 100 unit/mL injection 09-07 00:00: 00 10-13 00:00 :00 No [id number] 35U inject 35 Units under the skin at bedtime. [facility] Insulin Lispro, Human, (HUMALOG U-100 INSULIN) 100 unit/mL cartridge 09-07 00:00: 00 10-13 00:00 :00 No [id number] 6U inject 6 Units under the skin in the morning and 6 Units at noon and 6 Units in the evening. inject with meals. [facility] hydrALAZINE 100 mg tablet 09-07 00:00: 00 10-08 04:59 :00 No [id number] 100mg Take 1 tablet by mouth in the morning and 1 tablet at noon and 1 tablet in the evening. Do all this for [address] [facility] furosemide 40 mg tablet 09-07 00:00: 00 10-08 04:59 :00 No [id number] 40mg 1 tablet Orally Once a day [facility] predniSONE 20 mg tablet 09-07 00:00: 00 09-11 04:59 :00 No [id number] 40mg Take 2 tablets by mouth in the morning for [address] [facility] insulin lispro (human) (HumaLOG U-100) injection 10 Units 09-06 22:00: 00 Yes 10U 10 Units, Subcutaneo us, TID MEALS, First dose (after last modificati on) on Tue09/06/22 at 1700, Until Discontinu ed, Routine [facility] hydrALAZINE (APRESOLINE ) tablet 100 mg 09-06 20:15: 00 Yes 100mg 100 mg, Oral, TID, First dose (after last modificati on) on 09/06/22 at 1515, Until Discontinu ed, Routine [facility] furosemide (LASIX) injection 20 mg 09-05 14:00: 00 Yes 20mg 20 mg, Slow IV Push, DAILY, First dose (after last modificati on) on 09/05/22 at 0900, Until Discontinu ed, Routine [facility] insulin lispro (human) (HumaLOG U-100) injection 12 Units 09-05 13:00: 00 09-06 19:39 :02 No 12U 12 Units, Subcutaneo us, TID MEALS, First dose (after last modificati on) on 09/05/22 at 0800, Until Discontinu ed, [facility] - Lispro (HumaLOG) + Fsbg Testing 09-05 02:00: 00 Yes Subcutaneo us, TID MEALS+HS, First dose on 09/04/22 at 2100, Until Discontinu ed, Routine [facility] insulin glargine (LANTUS U-100) injection 45 Units 09-05 02:00: 00 09-06 19:39 :02 No 45U 45 Units, Subcutaneo us, QHS, First dose (after last modificati on) on 09/04/22 at 2100, Until Discontinu ed, [facility]ine [facility] insulin lispro (human) (HumaLOG U-100) injection 10 Units 09-04 17:00: 00 09-04 22:37 :05 No 10U 10 Units, Subcutaneo us, TID MEALS, First dose (after last modificati on) on 09/04/22 at 1200, Until Discontinu ed, Routine [facility] hydrALAZINE (APRESOLINE ) tablet 50 mg 09-04 13:30: 00 09-06 19:33 :18 No 50mg 50 mg, Oral, TID, First dose on 09/04/22 at 0830, Until Discontinu ed, Routine [facility] insulin glargine (LANTUS U-100) injection 35 Units 09-04 02:00: 00 09-04 13:24 :34 No 35U 35 Units, Subcutaneo us, QHS, First dose (after last modificati on) on Tue09/03/22 at 2100, Until Discontinu ed, Routine [facility] docusate (COLACE) capsule 100 mg 09-04 01:00: 00 Yes 100mg 100 mg, Oral, BID, First dose on Tue09/03/22 at 2000, Until Discontinu ed, Routine [facility] polyethylen e glycol 3350 powder 17 g 09-03 23:30: 00 Yes 17g 17 g, Oral, DAILY, First dose on Tue09/03/22 at 1830, Until Discontinu ed, Routine [facility] bisacodyL (DULCOLAX) suppository 10 mg 09-03 23:23: 08 Yes 10mg 10 mg, Rectal, QHSPRN, Starting on Tue09/03/22 at 1823, Until Discontinu ed, Routine, Constipati on unresolved by oral medication s [facility] insulin lispro (human) (HumaLOG U-100) injection 8 Units 09-03 22:00: 00 09-04 13:24 :34 No 8U 8 Units, Subcutaneo us, TID MEALS, First dose (after last modificati on) on Tue09/03/22 at 1700, Until Discontinu ed, Routine [facility] insulin lispro (human) (HumaLOG U-100) injection 5 Units 09-03 13:00: 00 09-03 19:53 :47 No 5U 5 Units, Subcutaneo us, TID MEALS, First dose on Tue09/03/22 at 0800, Until Discontinu ed, Routine [facility] insulin glargine (LANTUS U-100) injection 25 Units 09-03 02:00: 00 09-03 19:53 :47 No 25U 25 Units, Subcutaneo us, QHS, First dose (after last modificati on) on Tue09/02/22 at 2100, Until Discontinu ed, Routine [facility] dexamethaso ne sod phos PF injection 6 mg 09-02 17:30: 00 09-12 13:59 :00 No 6mg 6 mg, Intravenou s, DAILY, 10 doses, First dose on Tue09/02/22 at 1230, Last dose on Tue09/11/22 at 0900, 1 mL [facility] sulfur hexafluorid e microsphr (LUMASON) injection 5 mL 09-02 17:15: 00 09-02 17:15 :00 No [id number] 00 5mL 5 mL, Intravenou s, ONCE, 1 dose, On Tue09/02/22 at 1215, Routine
cruise staff member approving Restricted medication : TAWANA PARTIDA [facility] furosemide (LASIX) injection 20 mg 09-02 14:30: 00 09-04 20:01 :50 No 20mg 20 mg, Slow IV Push, Q12H, First dose on Tue09/02/22 at 0930, Until Discontinu ed, Routine [facility] midodrine (PROAMATINE ) tablet 5 mg 09-02 01:00: 00 09-03 13:45 :03 No 5mg 5 mg, Oral, TID, First dose on Tue09/01/22 at 2000, Until Discontinu ed, Routine [facility] calcium gluconate 2 g in NaCl 100 mL (ISO-OSM) RTU IV infusion 2 g 09-02 00:00: 00 09-02 02:44 :00 No 2g 2 g, IV Infusion, at 200 mL/hr Administer over 30 Minutes, ONCE, 1 dose, On Tue09/01/22 at 1900, Routine [facility] albumin (ALBUMINAR 25%) 25 % injection 25 g 09-01 23:45: 00 09-02 01:36 :00 No 25g 25 g, IV Infusion, ONCE, 1 dose, On Tue09/01/22 at 1845, 100 mL
[place] cation: NON-APPROV ED INDICATION - PHARMACY WILL CALL ORDERING PROVIDER<b r>Specific Indication : Acute on chronic HFpEF in setting of hypotensio n
Facul ty Requesting Approval: TEVIN COLEY [facility] magnesium sulfate in water 2 gram/50 mL (4 %) infusion 2 g 09-01 23:15: 00 09-02 04:21 :00 No 2g 2 g, IV Piggyback, Administer over 60 Minutes, ONCE, 1 dose, On Tue09/01/22 at 1815, Routine [facility] NaCl 0.9% (NS) bolus infusion 500 mL 09-01 23:15: 00 09-02 04:49 :02 No 500mL at 999 mL/hr, 500 mL, IV Piggyback, ONCE, 1 dose, On Tue09/01/22 at 1815, STAT [facility] furosemide (LASIX) injection 60 mg 09-01 01:00: 00 09-01 22:22 :11 No 60mg 60 mg, IV Push, Q12H, First dose (after last modificati on) on Tue08/31/22 at 2000, Until Discontinu ed, Routine [facility] benzonatate (TESSALON PERLES) capsule 100 mg 08-31 19:00: 00 Yes 100mg 100 mg, Oral, Q8H, First dose on Tue08/31/22 at 1400, Until Discontinu ed, Routine [facility] furosemide (LASIX) tablet 40 mg 08-31 18:00: 00 08-31 20:42 :00 No 40mg 40 mg, Oral, ONCE, 1 dose, On Tue08/31/22 at 1300, Routine [facility] furosemide (LASIX) injection 40 mg 08-31 01:00: 00 08-31 17:09 :33 No 40mg 40 mg, IV Push, Q12H, First dose on Tue08/30/22 at 2000, Until Discontinu ed, Routine [facility] levalbutero l (XOPENEX) nebulizer solution 1.25 mg 08-31 00:38: 48 Yes 1.25mg 1.25 mg, Inhalation , TIDPRN, Starting on Tue08/30/22 at 1938, Until Discontinu ed, Routine, Wheezing, Shortness of Breath [facility] ammonium lactate (LAC-HYDRIN ) 12 % cream 08-30 21:30: 00 Yes Topical, DAILY, First dose on Tue08/30/22 at 1630, Until Discontinu ed, Routine [facility] calcium gluconate 1 g in NaCl 50 mL (ISO-OSM) RTU IV infusion 1 g 08-30 14:45: 00 08-30 14:30 :00 No 1g 1 g, IV Infusion, at 100 mL/hr Administer over 30 Minutes, ONCE, 1 dose, On Tue08/30/22 at 0945, Routine [facility] calcium carbonate-v itamin D3 (OSCAL-250 + D) 250 mg-3.125 mcg (125 unit) per tablet 500 mg 08-29 22:00: 00 Yes 2{tbl} 500 mg (2 tablet), Oral, BID MEALS, First dose (after last modificati on) on Tue08/29/22 at 1700, Until Discontinu ed, Routine [facility] calcium gluconate 1 g in NaCl 50 mL (ISO-OSM) RTU IV infusion 1 g 08-29 20:00: 00 08-29 22:51 :35 No 1g 1 g, IV Infusion, at 100 mL/hr Administer over 30 Minutes, ONCE, 1 dose, On Tue08/29/22 at 1500, Routine [facility] KCL (KLOR-CON M20) tablet 40 mEq 08-29 14:30: 00 08-29 17:08 :00 No 40meq 40 mEq, Oral, ONCE, 1 dose, On Tue08/29/22 at 0930, Routine [facility] heparin (porcine) injection 5,000 Units 08-29 13:00: 00 Yes 5000U 5,000 Units, Subcutaneo us, Q12H, First dose on 08/29/22 at 0800, Until Discontinu ed, Routine [facility] calcium carbonate-v itamin D3 (OSCAL-250 + D) 250 mg-3.125 mcg (125 unit) per tablet 250 mg 08-29 13:00: 00 08-29 13:36 :10 No 1{tbl} 250 mg (1 tablet), Oral, BID MEALS, First dose on [place] 08/29/22 at 0800, Until Discontinu ed, Routine [facility] insulin glargine (LANTUS U-100) injection 10 Units 08-29 02:00: 00 09-02 23:44 :25 No 10U 10 Units, Subcutaneo us, QHS, First dose (after last modificati on) on 08/28/22 at 2100, Until Discontinu ed, Routine [facility] lactobacill us acidophilus tablet 0.5 mg 08-28 19:30: 00 Yes .5mg 0.5 mg, Oral, DAILY, First dose on 08/28/22 at 1430, Until Discontinu ed, Routine [facility] verapamil SR (CALAN SR) ER tablet 360 mg 08-28 14:00: 00 09-01 22:30 :20 No 360mg 360 mg, Oral, DAILY, First dose on 08/28/22 at 0900, Until Discontinu ed, Routine [facility] furosemide (LASIX) tablet 40 mg 08-28 14:00: 00 08-30 20:26 :41 No 40mg 40 mg, Oral, QAM+PM, First dose on 08/28/22 at 0900, Until Discontinu ed, Routine [facility] potassium chloride in water 10 mEq/100 mL RTU 10 mEq 08-28 14:00: 00 08-28 20:28 :00 No 10meq 10 mEq, IV Piggyback, Q1H, 6 doses, First dose on 08/28/22 at 0900, Last dose on 08/28/22 at 1400, Administer over 60 Minutes, 100 mL [facility] enoxaparin (LOVENOX) injection 30 mg 08-28 14:00: 00 08-28 19:58 :23 No 30mg 30 mg, Subcutaneo us, DAILY, First dose on 08/28/22 at 0900, Until Discontinu ed, Routine [facility] budesonide- formoteroL (SYMBICORT) 160-4.5 mcg/actuati on inhaler 2 Puff 08-28 13:00: 00 Yes 2{puff} 2 Puff, Inhalation , BID, First dose on 08/28/22 at 0800, Until Discontinu ed, Routine [facility] metoprolol tartrate (LOPRESSOR) tablet 50 mg 08-28 13:00: 00 09-01 21:52 :38 No 50mg 50 mg, Oral, BID, First dose on 08/28/22 at 0800, Until Discontinu ed, Routine [facility] KCL (KLOR-CON M20) tablet 40 mEq 08-28 12:30: 00 08-28 13:43 :00 No 40meq 40 mEq, Oral, ONCE, 1 dose, On 08/28/22 at 0730, Routine [facility] cefTRIAXone (ROCEPHIN) 1,000 mg in NaCl 0.9% (NS) 100 mL MINI-BAG 08-28 04:30: 00 09-01 04:51 :00 No 1000mg 1,000 mg, IV Piggyback, Q24H ABX, 5 doses, First dose on Tue08/27/22 at 2330, Last dose on Tue08/31/22 at 2330, Administer over 30 Minutes, 100 mL
Reas on for Anti-Infec tive: Empiric Therapy for Suspected Infection< br>Empiric Therapy Site: Respirator y
Durat ion of therapy: [address] [facility] azithromyci n (ZITHROMAX) 500 mg in NaCl 0.9% (NS) 250 mL VIAL-MATE IV piggyback 08-28 04:30: 00 08-30 19:28 :40 No 500mg 500 mg, IV Piggyback, Q24H ABX, 5 doses, First dose on Tue08/27/22 at 2330, Last dose on Tue08/31/22 at 2330, Administer over 60 Minutes, 250 mL
Reas on for Anti-Infec tive: Empiric Therapy for Suspected Infection< br>Empiric Therapy Site: Respirator y
Durat ion of therapy: 5 days [facility] levalbutero l (XOPENEX) nebulizer solution 1.25 mg 08-28 03:30: 00 Yes 1.25mg 1.25 mg, Inhalation , TID, First dose on Tue08/27/22 at 2230, Until Discontinu ed [facility] HYDROcodone -acetaminop hen (NORCO) 10-325 mg tablet 1 tablet 08-28 03:24: 27 Yes 1{tbl} 1 tablet, Oral, Q6HPRN, Starting on Tue08/27/22 at 2224, Until Discontinu ed, Routine, Pain (scale 7-10) [facility] acetaminoph en (TYLENOL) tablet 650 mg 08-28 03:24: 17 Yes 650mg 650 mg, Oral, Q6HPRN, Starting on Tue08/27/22 at 2224, Until Discontinu ed, Routine, Pain (scale 1-3) [facility] NaCl 0.9% (NS) IV infusion 1,000 mL 08-28 01:15: 00 08-31 00:38 :29 No 1000mL at 50 mL/hr, IV Infusion, CONTINUOUS , Starting on Tue08/27/22 at 2015, Until Tue08/30/22 at 1938, Routine [facility] Sliding Scale Insulin - Lispro (HumaLOG) + Fsbg Testing 08-27 22:00: 00 09-04 22:37 :04 No Subcutaneo us, TID MEALS+HS, First dose on Tue08/27/22 at 1700, Until Discontinu ed, Routine [facility] enoxaparin (LOVENOX) injection 40 mg 08-27 22:00: 00 08-28 12:17 :20 No 40mg 40 mg, Subcutaneo us, DAILY, First dose on Tue08/27/22 at 1700, Until Discontinu ed, Routine [facility] calcium gluconate 1 g in NaCl 50 mL (ISO-OSM) RTU IV infusion 1 g 08-27 19:30: 00 08-27 19:20 :00 No 1g 1 g, IV Infusion, at 100 mL/hr Administer over 30 Minutes, ONCE, 1 dose, On Tue08/27/22 at 1430, Routine [facility] aspirin chewable tablet 324 mg 08-27 18:45: 00 08-27 18:13 :00 No 324mg 324 mg, Oral, ONCE, 1 dose, On Tue08/27/22 at 1345, Routine [facility] glucagon (GLUCAGEN DIAGNOSTIC KIT) injection 1 mg 08-27 18:43: 55 Yes 1mg 1 mg, Intramuscu lar, PRN, Starting on Tue08/27/22 at 1343, Until Discontinu ed, KALE, Blood Glucose < or = 70 mg/dL and patient is NPO, unable to swallow or has mental changes. [facility] dextrose 50 % in water (D50W) injection 25 mL 08-27 18:43: 55 Yes 25mL 25 mL, Slow IV Push, PRN, Starting on Tue08/27/22 at 1343, Until Discontinu ed, KALE, Blood Glucose < or = 70 mg/dL and patient is NPO, unable to swallow or has mental status changes. [facility] acetaminoph en (TYLENOL) tablet 650 mg 08-27 16:15: 00 08-27 16:22 :00 No 650mg 650 mg, Oral, ONCE, 1 dose, On Tue08/27/22 at 1115, [facility] furosemide (LASIX) tablet 40 mg 07-17 15:00: 00 Yes 40mg 40 mg, Oral, QAM+PM, First dose on Tue07/17/22 at 0900, Until Discontinu ed, Routine [facility] furosemide 40 mg tablet 07-17 00:00: 00 Yes [id number] 40mg Take 1 tablet by mouth every morning and evening. [facility] ceFEPIme (MAXIPIME) 1,000 mg in NaCl 0.9% (NS) 50 mL MINI-BAG 07-16 15:15: 00 07-20 06:59 :00 No 1000mg 1,000 mg, IV Piggyback, Q8H ABX, 11 doses, First dose (after last modificati on) on Tue07/16/22 at 0915, Last dose on Tue07/19/22 at 1715, Administer over 240 Minutes, 50 mL
Reas on for Anti-Infec tive: Documented Infection< br>Documen anupama Infection Site: Urine
D uration of Therapy: [address] [facility] furosemide (LASIX) injection 40 mg 07-16 10:45: 00 07-16 10:07 :00 No 40mg 40 mg, Slow IV Push, ONCE, 1 dose, On Tue07/16/22 at 0445, [facility] cloNIDine (CATAPRES) tablet 0.1 mg 07-16 10:00: 00 07-16 09:56 :00 No .1mg 0.1 mg, Oral, ONCE, 1 dose, On Tue07/16/22 at 0400, [facility] cloNIDine (CATAPRES) tablet 0.1 mg 07-16 08:30: 00 07-16 07:58 :00 No .1mg 0.1 mg, Oral, ONCE, 1 dose, On Tue07/16/22 at 0230, STAT [facility] furosemide (LASIX) injection 40 mg 07-16 02:00: 00 07-16 15:05 :09 No 40mg 40 mg, Slow IV Push, Q12H, First dose (after last modificati on) on [place] 07/15/22 at 2000, Until Discontinu ed, Routine [facility] budesonide- formoteroL 160-4.5 mcg/actuati on inhaler 07-16 00:00: 00 Yes [id number] 2{puff} Inhale 2 Puffs in the morning and 2 Puffs in the evening. [facility] albuterol 2.5 mg /3 mL (0.083 %) nebulizer solution 07-16 00:00: 00 Yes [id number] 2.5mg Inhale 3 mL 4 (four) times daily. [facility] hydrALAZINE 50 mg tablet 07-16 00:00: 00 Yes [id number] 50mg Take 1 tablet by mouth every 6 (six) hours. [facility] insulin glargine 100 unit/mL injection 07-16 00:00: 00 Yes [id number] 26U inject 26 Units under the skin every 24 (twenty-fo ur) hours. [facility] NaCl 0.9% (NS) PgBk 50 mL with ceFEPIme 1 gram SolR 1,000 mg 07-16 00:00: 00 07-20 05:59 :00 No [id number] 1000mg Infuse 1,000 mg every 8 (eight) hours for [address] [facility] insulin lispro (human) (HumaLOG U-100) injection 6 Units 07-15 23:00: 00 Yes 6U 6 Units, Subcutaneo us, TID MEALS, First dose on Tue07/15/22 at 1700, Until Discontinu ed, Routine [facility] insulin glargine (LANTUS U-100) injection 26 Units 07-15 23:00: 00 Yes 26U 26 Units, Subcutaneo us, Q24H, First dose on Tue07/15/22 at 1700, Until Discontinu ed, Routine [facility] hydrALAZINE (APRESOLINE ) tablet 50 mg 07-15 12:30: 00 Yes 50mg 50 mg, Oral, Q6H, First dose on Tue07/15/22 at 0630, Until Discontinu ed, Routine [facility] insulin NPH (HUMULIN N) injection 15 Units 07-14 23:00: 00 07-15 21:50 :32 No 15U 15 Units, Subcutaneo us, QPM, First dose on Tue07/14/22 at 1700, Until Discontinu ed, Routine [facility] ceFEPIme (MAXIPIME) 1,000 mg in NaCl 0.9% (NS) 50 mL MINI-BAG 07-14 15:30: 00 07-16 15:00 :15 No 1000mg 1,000 mg, IV Piggyback, Q12H ABX, 12 doses, First dose (after last modificati on) on Tue07/14/22 at 0930, Last dose on Tue07/19/22 at 2130, Administer over 240 Minutes, 50 mL
Reas on for Anti-Infec tive: Documented Infection< br>Documen anupama Infection Site: Urine
D uration of Therapy: [address] [facility] Sliding Scale Insulin - Lispro (HumaLOG) + Fsbg Testing 07-13 23:00: 00 07-15 21:50 :32 No Subcutaneo us, TID MEALS+HS, First dose on Tue07/13/22 at 1700, Until Discontinu ed, Routine [facility] ceFEPIme (MAXIPIME) 1,000 mg in NaCl 0.9% (NS) 50 mL MINI-BAG 07-13 15:30: 00 07-14 15:02 :31 No 1000mg 1,000 mg, IV Piggyback, Q12H ABX, 14 doses, First dose on Tue07/13/22 at 0930, Last dose on Tue07/19/22 at 2130, Administer over 30 Minutes, 50 mL
Reas on for Anti-Infec tive: Documented Infection< br>Documen anupama Infection Site: Urine
D uration of Therapy: [address] [facility] vancomycin (VANCOCIN) 2,000 mg in NaCl 0.9% (NS) 500 mL piggyback 07-13 02:15: 00 07-13 05:09 :00 No 2000mg 2,000 mg, IV Piggyback, ONCE, 1 dose, On Tue07/12/22 at 2014, Administer over 120 Minutes, 500 mL
Reas on for Anti-Infec tive: Documented Infection< br>Documen anupama Infection Site: Skin / Soft Tissue
Duration of Therapy: [address] [facility] heparin (porcine) injection 5,000 Units 07-13 02:00: 00 Yes 5000U 5,000 Units, Subcutaneo us, Q12H, First dose on Tue07/12/22 at 1999, Until Discontinu ed, Routine [facility] furosemide (LASIX) injection 80 mg 07-13 02:00: 00 07-15 17:48 :15 No 80mg 80 mg, Slow IV Push, Q12H, First dose (after last modificati on) on Tue07/12/22 at 1999, Until Discontinu ed, Routine [facility] cefTRIAXone (ROCEPHIN) 1,000 mg in NaCl 0.9% (NS) 50 mL MINI-BAG 07-13 02:00: 00 07-13 14:54 :17 No 1000mg 1,000 mg, Intravenou s, Q24H ABX, 7 doses, First dose on Tue07/12/22 at 1999, Last dose on Tue07/18/22 at 1999, Administer over 30 Minutes, 50 mL
Reas on for Anti-Infec tive: Documented Infection< br>Documen anupama Infection Site: Urine
D uration of Therapy: [address] [facility] methylpredn isolone sod succ (SOLU-MEDRO L) injection 80 mg 07-12 23:00: 00 07-12 23:06 :00 No 80mg 80 mg, Intravenou s, ONCE, 1 dose, On Tue07/12/22 at 1700, [address] [facility] sulfur hexafluorid e microsphr (LUMASON) injection 5 mL 07-12 20:27: 00 07-12 20:27 :00 No [id number] 5mL 5 mL, Intravenou s, ONCE, 1 dose, On Tue07/12/22 at 1445, Routine
cruise staff member approving Restricted medication : SHIRA LANDRY [facility] albuterol (PROVENTIL) 2.5 mg /3 mL (0.083 %) nebulizer solution 2.5 mg 07-12 15:30: 00 Yes 2.5mg 2.5 mg, Inhalation , QID, First dose (after last modificati on) on Tue07/12/22 at 0930, Until Discontinu ed, [facility] ipratrop[facility] (ATROVENT) 0.02 % nebulizer solution 0.5 mg 07-12 15:30: 00 Yes .5mg 0.5 mg, Inhalation , QID, First dose on Tue07/12/22 at 0930, Until Discontinu ed, Routine [facility] budesonide- formoteroL (SYMBICORT) 160-4.5 mcg/actuati on inhaler 2 Puff 07-12 15:30: 00 Yes 2{puff} 2 Puff, Inhalation , BID, First dose on Tue07/12/22 at 0930, Until Discontinu ed, Routine [facility] dextrometho nikki-luannef enesin (ROBITUSSIN DM) 10-100 mg/5 mL solution 5 mL 07-11 00:31: 52 Yes 5mL 5 mL, Oral, Q6HPRN, Starting on 07/10/22 at 1831, Until Discontinu ed, Routine, Cough [facility] albuterol (PROVENTIL) 2.5 mg /3 mL (0.083 %) nebulizer solution 2.5 mg 07-09 13:41: 59 07-12 15:27 :38 No 2.5mg 2.5 mg, Inhalation , Q6HPRN, Starting on Tue07/09/22 at 0741, Until Tue07/12/22 at 0927, Routine, Shortness of Breath, Wheezing [facility] hydrALAZINE (APRESOLINE ) tablet 10 mg 07-08 06:35: 10 07-16 15:05 :25 No 10mg 10 mg, Oral, Q6HPRN, Starting on Rosa 23 at 0035, Until Tue07/16/22 at 0905, Routine, SBP>160, DBP>[address] [facility] nystatin (NYSTOP) powder 07-08 02:00: 00 Yes Topical, BID, First dose on Tue07/07/22 at 2000, Until Discontinu ed, Routine [facility] enoxaparin (LOVENOX) injection 40 mg 07-06 23:00: 00 07-13 01:47 :23 No 40mg 40 mg, Subcutaneo us, DAILY, First dose on Tue07/06/22 at 1700, Until Discontinu ed, Routine [facility] ceFAZolin (ANCEF) 1,000 mg in NaCl 0.9% (NS) 100 mL MINI-BAG 07-06 16:00: 00 07-09 18:06 :58 No 1000mg 1,000 mg, Intravenou s, Q8H ABX, 15 doses, First dose on Tue07/06/22 at 1000, Last dose on Tue07/11/22 at 0200, Administer over 30 Minutes, 100 mL
Reas on for Anti-Infec tive: Empiric Therapy for Suspected Infection< br>Empiric Therapy Site: Skin / Soft tissue
Duration of therapy: 5 days [facility] verapamiL (CALAN SR) ER tablet 360 mg 07-06 15:00: 00 Yes 360mg 360 mg, Oral, DAILY, First dose on Tue07/06/22 at 0900, Until Discontinu ed [facility] pantoprazol e (PROTONIX) EC tablet 40 mg 07-06 15:00: 00 07-13 20:35 :23 No 40mg 40 mg, Oral, DAILY, First dose on Tue07/06/22 at 0900, Until Discontinu ed, Routine [facility] metoprolol tartrate (LOPRESSOR) tablet 50 mg 07-06 14:00: 00 Yes 50mg 50 mg, Oral, BID, First dose on Tue07/06/22 at 0800, Until Discontinu ed, Routine [facility] lisinopriL (PRINIVIL,Z ESTRIL) tablet 40 mg 07-06 14:00: 00 07-13 00:52 :32 No 40mg 40 mg, Oral, BID, First dose on Tue07/06/22 at 0800, Until Discontinu ed [facility] furosemide (LASIX) injection 40 mg 07-06 14:00: 00 07-13 00:52 :33 No 40mg 40 mg, Slow IV Push, Q12H, First dose on Tue07/06/22 at 0800, Until Discontinu ed, Routine [facility] Sliding Scale Insulin - Lispro (HumaLOG) + Fsbg Testing 07-06 14:00: 00 07-13 22:28 :54 No Subcutaneo us, TID MEALS+HS, First dose on Tue07/06/22 at 0800, Until Discontinu ed, Routine [facility] glucagon (GLUCAGEN DIAGNOSTIC KIT) injection 1 mg 07-06 10:18: 57 Yes 1mg 1 mg, Intramuscu lar, PRN, Starting on Tue07/06/22 at 0418, Until Discontinu ed, KALE, Blood Glucose < or = 70 mg/dL and patient is NPO, unable to swallow or has mental changes. [facility] dextrose 50 % in water (D50W) injection 25 mL 07-06 10:18: 57 Yes 25mL 25 mL, Slow IV Push, PRN, Starting on Tue07/06/22 at 0418, Until Discontinu ed, KALE, Blood Glucose < or = 70 mg/dL and patient is NPO, unable to swallow or has mental status changes. [facility] ondansetron (ZOFRAN (PF)) injection 4 mg 07-06 10:18: 49 Yes 4mg 4 mg, Slow IV Push, Q6HPRN, Starting on Tue07/06/22 at 0418, Until Discontinu ed, Routine, Nausea and Vomiting (N/V) [facility] acetaminoph en (TYLENOL) tablet 650 mg 07-06 10:18: 44 Yes 650mg 650 mg, Oral, Q6HPRN, Starting on Tue07/06/22 at 0418, Until Discontinu ed, Routine, Pain (scale 1-3) [facility] ceFAZolin (ANCEF) 1,000 mg in NaCl 0.9% (NS) 100 mL MINI-BAG 07-06 07:30: 00 07-06 08:31 :00 No 1000mg 1,000 mg, Intravenou s, ONCE, 1 dose, On Tue07/06/22 at 0130, Administer over 30 Minutes, 100 mL
Reas on for Anti-Infec tive: Documented Infection< br>Documen anupama Infection Site: Skin / Soft Tissue
Duration of Therapy: Other (see Comments) [facility] D5W 0.45% NaCl (1/2NS) IV infusion 1,000 mL 07-06 04:45: 00 07-09 04:53 :56 No 1000mL at 100 mL/hr, 1,000 mL, IV Infusion, CONTINUOUS , Starting on Tue07/05/22 at 2245, Until Tue07/08/22 at 2253, KALE [facility] insulin degludec (TRESIBA FLEXTOUCH U-200) 200 unit/mL (3 mL) InPn 2021-05 00:00: 00 Yes [id number] 80U inject 80 Units under the skin in the morning and 80 Units in the evening. [facility] pravastatin 80 mg tablet 12-30 00:00: 00 10-13 00:00 :00 No [id number] 80mg Take 1 tablet by mouth at bedtime. [facility] verapamiL 360 mg 24 hr capsule 12-30 00:00: 00 09-07 00:00 :00 No [id number] 360mg Take 1 capsule by mouth at bedtime. [facility] metoprolol tartrate 50 mg tablet 12-30 00:00: 00 09-07 00:00 :00 No [id number] 50mg Take 1 tablet by mouth in the morning and 1 tablet in the evening. [facility] lisinopriL 40 mg tablet 12-30 00:00: 00 07-16 00:00 :00 No [id number] 40mg Take 1 tablet by mouth in the morning and 1 tablet in the evening. [facility] furosemide (LASIX) 40 mg tablet 12-30 00:00: 00 07-16 00:00 :00 No [id number] 40mg Take 1 tablet by mouth in the morning. [facility] insulin degludec (TRESIBA FLEXTOUCH U-200) 200 unit/mL (3 mL) In 12-30 00:00: 00 05-11 00:00 :00 No [id number] 80U inject 80 Units under the skin 2 (two) times daily. [facility] insulin degludec (TRESIBA FLEXTOUCH U-200) 200 unit/mL (3 mL) [facility] 4- 00:00: 00 12-30 00:00 :00 No 75U inject 75 Units under the skin 2 (two) times daily. [facility] tadalafiL (CIALIS) 20 mg tablet 2020-05 2- 00:00: 00 07-16 00:00 :00 No [id number] 20mg Take 1 tablet by mouth as needed for Erectile dysfunctio n. [facility] furosemide (LASIX) 40 mg tablet 2020-05 2 00:00: 00 12-30 00:00 :00 No [id number] 40mg Take 1 tablet by mouth daily. [facility] insulin regular human (NOVOLIN R REGULAR U-100 INSULN) 100 unit/mL injection 2020-05 1- 00:00: 00 07-16 00:00 :00 No [id number] 20U inject 20 Units under the skin 2 (two) times daily before breakfast and dinner. [facility] metoprolol tartrate 50 mg tablet 2020-05 0-19 00:00: 00 12-30 00:00 :[address] [facility] pravastatin 80 mg tablet 2020-05 0- 00:00: 00 12-30 00:00 :[address] [facility] lisinopriL 40 mg tablet 2020-05 0 00:00: 00 12-30 00:00 :[address] [facility] verapamiL 360 mg 24 hr capsule 2020-05 0 00:00: 00 12-30 00:00 :[address] [facility] Finasteride 5 MG Finasteride 5 MG No 1{table t} QD Finasterid e 5 MG Docusate Sodium 100 MG Docusate Sodium 100 MG No 1{capsu le_as_n eeded} QD Docusate Sodium 100 MG hydrALAZINE HCl 100 MG hydrALAZINE HCl 100 MG No 1{table t_with_ food} BID hydrALAZIN E HCl 100 MG Calcium Carbonate Antacid 500 MG Calcium Carbonate Antacid 500 MG No 1{table t} QD Calcium Carbonate Antacid 500 MG predniSONE 5 MG predniSONE 5 MG No 1{table t_with_ food_or _milk} QD predniSONE 5 MG Atorvastati n Calcium 10 MG Atorvastati n Calcium 10 MG No 1{table t} QD Atorvastat in Calcium 10 MG Tamsulosin HCl 0.4 MG Tamsulosin HCl 0.4 MG No Tamsulosin HCl 0.4 MG Calcitriol 0.5 MCG Calcitriol 0.5 MCG No Calcitriol 0.5 MCG Abiraterone Acetate 500 MG Abiraterone Acetate 500 MG No 2{table ts} QD Abirateron e Acetate 500 MG Immunizations Ordered Immunization Name Filled Immunization Name Date Status Comments Source SARS-COV-2 COVID-19 VACCINE - (MODERNA) 2020-11-02 00:00:00 Completed [facility] SARS-COV-2 COVID-19 VACCINE - (MODERNA) 2020-11-02 00:00:00 Completed [facility] SARS-COV-2 COVID-19 VACCINE - (MODERNA) 2020-11-02 00:00:00 Completed [facility] SARS-COV-2 COVID-19 VACCINE - (MODERNA) 2020-11-02 00:00:00 Completed [facility] SARS-COV-2 COVID-19 VACCINE - (MODERNA) 2020-11-02 00:00:00 Completed [facility] SARS-COV-2 COVID-19 VACCINE - (MODERNA) 2020-11-02 00:00:00 Completed SARS-COV-2 COVID-19 VACCINE - (MODERNA) 2020-10-02 00:00:00 Completed [facility] SARS-COV-2 COVID-19 VACCINE - (MODERNA) 2020-10-02 00:00:00 Completed [facility] SARS-COV-2 COVID-19 VACCINE - (MODERNA) 2020-10-02 00:00:00 Completed [facility] SARS-COV-2 COVID-19 VACCINE - (MODERNA) 2020-10-02 00:00:00 Completed [facility] SARS-COV-2 COVID-19 VACCINE - (MODERNA) 2020-10-02 00:00:00 Completed [facility] SARS-COV-2 COVID-19 VACCINE - (MODERNA) 2020-10-02 00:00:00 Completed [facility] SARS-COV-2 COVID-19 VACCINE - (MODERNA) Unknown Completed [facility] SARS-COV-2 COVID-19 VACCINE - (MODERNA) Unknown Completed [facility] SARS-COV-2 COVID-19 VACCINE - (MODERNA) Unknown Completed [facility] SARS-COV-2 COVID-19 VACCINE - (MODERNA) Unknown Completed [facility] SARS-COV-2 COVID-19 VACCINE - (MODERNA) Unknown Completed [facility] SARS-COV-2 COVID-19 VACCINE - (MODERNA) Unknown Completed [facility] SARS-COV-2 COVID-19 VACCINE - (MODERNA) Unknown Completed [facility] SARS-COV-2 COVID-19 VACCINE - (MODERNA) Unknown Completed [facility] SARS-COV-2 COVID-19 VACCINE - (MODERNA) Unknown Completed [facility] SARS-COV-2 COVID-19 VACCINE - (MODERNA) Unknown Completed [facility] SARS-COV-2 COVID-19 VACCINE - (MODERNA) Unknown Completed [facility] SARS-COV-2 COVID-19 VACCINE - (MODERNA) Unknown Completed [facility] SARS-COV-2 COVID-19 VACCINE - (MODERNA) Unknown Completed [facility] SARS-COV-2 COVID-19 VACCINE - (MODERNA) Unknown Completed [facility] SARS-COV-2 COVID-19 VACCINE - (MODERNA) Unknown Completed [facility] SARS-COV-2 COVID-19 VACCINE - (MODERNA) Unknown Completed [facility] SARS-COV-2 COVID-19 VACCINE - (MODERNA) Unknown Completed [facility] SARS-COV-2 COVID-19 VACCINE - (MODERNA) Unknown Completed [facility] SARS-COV-2 COVID-19 VACCINE - (MODERNA) Unknown Completed [facility] SARS-COV-2 COVID-19 VACCINE - (MODERNA) Unknown Completed [facility] SARS-COV-2 COVID-19 VACCINE - (MODERNA) Unknown Completed [facility] SARS-COV-2 COVID-19 VACCINE - (MODERNA) Unknown Completed [facility] SARS-COV-2 COVID-19 VACCINE - (MODERNA) Unknown Completed [facility] SARS-COV-2 COVID-19 VACCINE - (MODERNA) Unknown Completed [facility] SARS-COV-2 COVID-19 VACCINE - (MODERNA) Unknown Completed [facility] SARS-COV-2 COVID-19 VACCINE - (MODERNA) Unknown Completed [facility] SARS-COV-2 COVID-19 VACCINE - (MODERNA) Unknown Completed [facility] SARS-COV-2 COVID-19 VACCINE - (MODERNA) Unknown Completed [facility] SARS-COV-2 COVID-19 VACCINE - (MODERNA) Unknown Completed [facility] SARS-COV-2 COVID-19 VACCINE - (MODERNA) Unknown Completed [facility] SARS-COV-2 COVID-19 VACCINE - (MODERNA) Unknown Completed [facility] SARS-COV-2 COVID-19 VACCINE - (MODERNA) Unknown Completed [facility] SARS-COV-2 COVID-19 VACCINE - (MODERNA) Unknown Completed [facility] SARS-COV-2 COVID-19 VACCINE - (MODERNA) Unknown Completed [facility] SARS-COV-2 COVID-19 VACCINE - (MODERNA) Unknown Completed [facility] SARS-COV-2 COVID-19 VACCINE - (MODERNA) Unknown Completed [facility] Vital Signs Vital Name Observation Time Observation Value Comments S ource height 2024-07-19 13:15:00 72 [in_i] Commo n [facility] weight 2024-07-19 13:15:00 246.8 [lb_av] Co mmon [facility] temperature 2024-07-19 13:15:00 97.6 [degF] Com mon [facility] bmi 2024-07-19 13:15:00 33.47 kg/m2 Comm on [facility] oximetry 2024-07-19 13:15:00 97 % Commo n [facility] respiratory rate 2024-07-19 13:15:00 18 /min [facility] blood pressure systolic 2024-07-19 13:15:00 135 mm[Hg] [facility] blood pressure diastolic 2024-07-19 13:15:00 63 mm[Hg] [facility] Systolic blood pressure 2024-06-27 22:38:00 157 mm[Hg] [facility] Diastolic blood pressure 2024-06-27 22:38:00 63 mm[Hg] [facility] Heart rate 2024-06-27 22:38:00 56 /min [facility] Body temperature 2024-06-27 22:38:00 36.33 [place] [facility] Respiratory rate 2024-06-27 22:38:00 18 /min [facility] Oxygen saturation in Arterial blood by Pulse oximetry 2024-06-27 22:38:00 92 /min [facility] Body weight 2024-06-27 09:59:00 109.997 kg [facility] BMI 2024-06-27 09:59:00 32.89 kg/m2 [facility] Body height 2024-06-22 04:12:00 182.9 cm [facility] height 2024-05-03 14:45:00 72 [in_i] Commo n [facility] weight 2024-05-03 14:45:00 250.0 [lb_av] Co mmon [facility] temperature 2024-05-03 14:45:00 97.3 [degF] Com mon [facility] bmi 2024-05-03 14:45:00 33.9 kg/m2 Commo n [facility] oximetry 2024-05-03 14:45:00 94 % Commo n [facility] respiratory rate 2024-05-03 14:45:00 18 /min Common [facility] blood pressure systolic 2024-05-03 14:45:00 99 mm[Hg] Common [facility] blood pressure diastolic 2024-05-03 14:45:00 49 mm[Hg] Common [facility] height 2024-04-26 13:15:00 72 [in_i] Commo n [facility] weight 2024-04-26 13:15:00 235 [lb_av] Comm on [facility] bmi 2024-04-26 13:15:00 31.87 kg/m2 Comm on [facility] blood pressure systolic 2024-04-26 13:15:00 165 mm[Hg] Common [facility] blood pressure diastolic 2024-04-26 13:15:00 111 mm[Hg] Common [facility] height 2024-03-23 09:45:00 72 [in_i] Commo n [facility] weight 2024-03-23 09:45:00 244.0 [lb_av] Co mmon [facility] temperature 2024-03-23 09:45:00 98.1 [degF] Com mon [facility] bmi 2024-03-23 09:45:00 33.09 kg/m2 Comm on [facility] oximetry 2024-03-23 09:45:00 95 % Commo n [facility] respiratory rate 2024-03-23 09:45:00 18 /min Common [facility] blood pressure systolic 2024-03-23 09:45:00 129 mm[Hg] Common [facility] blood pressure diastolic 2024-03-23 09:45:00 67 mm[Hg] [facility] Systolic blood pressure 2024-01-23 02:27:00 103 mm[Hg] [facility] Diastolic blood pressure 2024-01-23 02:27:00 51 mm[Hg] [facility] Heart rate 2024-01-23 02:27:00 65 /min [facility] Body temperature 2024-01-23 02:27:00 37.39 [place] [facility] Respiratory rate 2024-01-23 02:27:00 16 /min [facility] Body height 2024-01-23 02:27:00 182.9 cm [facility] Body weight 2024-01-23 02:27:00 113.399 kg [facility] BMI 2024-01-23 02:27:00 33.91 kg/m2 [facility] Oxygen saturation in Arterial blood by Pulse oximetry 2024-01-23 02:27:00 100 /min [facility] Systolic blood pressure 2023-10-29 17:00:00 149 mm[Hg] [facility] Diastolic blood pressure 2023-10-29 17:00:00 63 mm[Hg] [facility] Heart rate 2023-10-29 17:00:00 55 /min [facility] Body temperature 2023-10-29 17:00:00 36.33 [place] [facility] Respiratory rate 2023-10-29 17:00:00 16 /min [facility] Oxygen saturation in Arterial blood by Pulse oximetry 2023-10-29 17:00:00 91 /min [facility] Body weight 2023-10-29 08:44:00 111.993 kg [facility] BMI 2023-10-29 08:44:00 33.48 kg/m2 [facility] Body height 2023-10-27 05:31:00 182.9 cm [facility] Systolic blood pressure 2023-06-08 22:03:00 135 mm[Hg] [facility] Diastolic blood pressure 2023-06-08 22:03:00 56 mm[Hg] [facility] Heart rate 2023-06-08 22:03:00 54 /min [facility] Body height 2023-06-08 22:03:00 177.8 cm [facility] Body weight 2023-06-08 22:03:00 117.028 kg [facility] BMI 2023-06-08 22:03:00 37.02 kg/m2 [facility] Systolic blood pressure 2023-05-29 17:21:00 102 mm[Hg] [facility] Diastolic blood pressure 2023-05-29 17:21:00 45 mm[Hg] [facility] Heart rate 2023-05-29 17:21:00 55 /min [facility] Body temperature 2023-05-29 17:21:00 36.28 [place] [facility] Respiratory rate 2023-05-29 17:21:00 20 /min [facility] Body weight 2023-05-29 17:21:00 124.739 kg [facility] BMI 2023-05-29 17:21:00 39.46 kg/m2 [facility] Oxygen saturation in Arterial blood by Pulse oximetry 2023-05-29 17:21:00 98 /min [facility] Systolic blood pressure 2023-03-08 21:01:00 110 mm[Hg] [facility] Diastolic blood pressure 2023-03-08 21:01:00 55 mm[Hg] [facility] Heart rate 2023-03-08 21:01:00 55 /min [facility] Body temperature 2023-03-08 21:01:00 36.67 [place] [facility] Body height 2023-03-08 21:01:00 177.8 cm [facility] Body weight 2023-03-08 21:01:00 117.028 kg [facility] BMI 2023-03-08 21:01:00 37.02 kg/m2 [facility] height 2023-02-09 09:30:00 72 [in_i] Commo n [facility] weight 2023-02-09 09:30:00 253 [lb_av] Comm on [facility] temperature 2023-02-09 09:30:00 98.1 [degF] Com [facility] bmi 2023-02-09 09:30:00 34.31 kg/m2 Comm on [facility] oximetry 2023-02-09 09:30:00 97 % Commo n [facility] respiratory rate 2023-02-09 09:30:00 18 /min Common [facility] blood pressure systolic 2023-02-09 09:30:00 121 mm[Hg] [facility] blood pressure diastolic 2023-02-09 09:30:00 60 mm[Hg] [facility] height 2022-12-21 08:00:00 72 [in_i] Commo n [facility] weight 2022-12-21 08:00:00 273 [lb_av] Comm on [facility] temperature 2022-12-21 08:00:00 98.6 [degF] Com [facility] [facility]22-12-21 08:00:00 37.02 kg/m2 Comm on [facility] oximetry 2022-12-21 08:00:00 99 % Commo n [facility] respiratory rate 2022-12-21 08:00:00 18 /min Common [facility] blood pressure systolic 2022-12-21 08:00:00 120 mm[Hg] Common [facility] blood pressure diastolic 2022-12-21 08:00:00 68 mm[Hg] [facility] height 2022-12-08 14:45:00 72 [in_i] Commo n [facility] weight 2022-12-08 14:45:00 273 [lb_av] Comm on [facility] temperature 2022-12-08 14:45:00 98.2 [degF] Com mon [facility] bmi 2022-12-08 14:45:00 37.02 kg/m2 Comm on [facility] respiratory rate 2022-12-08 14:45:00 18 /min [facility] blood pressure systolic 2022-12-08 14:45:00 118 mm[Hg] [facility] blood pressure diastolic 2022-12-08 14:45:00 56 mm[Hg] [facility] Systolic blood pressure 2022-11-17 18:05:00 137 mm[Hg] [facility] Diastolic blood pressure 2022-11-17 18:05:00 61 mm[Hg] [facility] Heart rate 2022-11-17 18:05:00 85 /min [facility] Body temperature 2022-11-17 18:05:00 36.44 Yancy [facility] Body weight 2022-11-17 18:05:00 125.646 kg [facility] BMI 2022-11-17 18:05:00 37.57 kg/m2 [facility] Systolic blood pressure 2022-10-13 19:06:00 132 mm[Hg] [facility] Diastolic blood pressure 2022-10-13 19:06:00 60 mm[Hg] [facility] Heart rate 2022-10-13 19:06:00 77 /min [facility] Body temperature 2022-10-13 19:06:00 36.72 [facility] Oxygen saturation in Arterial blood by Pulse oximetry 2022-10-13 19:06:00 97 /min [facility] Systolic blood pressure 2022-09-07 17:15:00 178 mm[Hg] [facility] Diastolic blood pressure 2022-09-07 17:15:00 68 mm[Hg] [facility] Heart rate 2022-09-07 17:15:00 81 /min [facility] Respiratory rate 2022-09-07 17:15:00 25 /min [facility] Oxygen saturation in Arterial blood by Pulse oximetry 2022-09-07 17:15:00 94 /min [facility] Body temperature 2022-09-07 17:00:00 36.11 [facility] Body weight 2022-09-07 10:45:00 137.032 kg [facility] BMI 2022-09-07 10:45:00 40.97 kg/m2 [facility] Body height 2022-08-27 23:27:00 182.9 cm [facility] Systolic blood pressure 2022-07-16 18:31:00 125 mm[Hg] [facility] Diastolic blood pressure 2022-07-16 18:31:00 48 mm[Hg] [facility] Heart rate 2022-07-16 18:31:00 57 /min [facility] Body temperature 2022-07-16 18:31:00 37.06 [facility] Respiratory rate 2022-07-16 18:31:00 16 /min [facility] Oxygen saturation in Arterial blood by Pulse oximetry 2022-07-16 18:31:00 94 /min [facility] Body weight 2022-07-16 08:59:00 136.986 kg [facility] BMI 2022-07-16 08:59:00 40.96 kg/m2 [facility] Body height 2022-07-16 02:04:00 182.9 cm [facility] Systolic blood pressure 2021-12-30 21:23:00 176 mm[Hg] [facility] Diastolic blood pressure 2021-12-30 21:23:00 69 mm[Hg] [facility] Heart rate 2021-12-30 21:22:00 60 /min [facility] Body height 2021-12-30 21:22:00 182.9 cm [facility] Body weight 2021-12-30 21:22:00 135.172 kg [facility] BMI 2021-12-30 21:22:00 40.42 kg/m2 [facility] Procedures Procedure Date / Time Performed Performing Clinician Source POCT GLUCOSE (AUTOMATED) 2024-06-27 22:35:00 Zaida Coley [facility] POCT GLUCOSE (AUTOMATED) 2024-06-27 17:31:00 Zaida Coley [facility] POCT GLUCOSE (AUTOMATED) 2024-06-27 13:42:00 Zaida Coley [facility] PHOSPHORUS 2024-06-27 10:08:[address] [facility] MAGNESIUM 2024-06-27 10:08:[address] [facility] BASIC METABOLIC PANEL (NA, K, CL, CO2, GLUCOSE, BUN, CREATININE, CA) 2024-06-27 10:08:00 Zia Howard [facility] CBC WITH DIFF 2024-06-27 10:08:00 Zia Howard [facility] POCT GLUCOSE (AUTOMATED) 2024-06-27 02:33:00 Zaida Coley [facility] POCT GLUCOSE (AUTOMATED) 2024-06-26 22:21:00 Zaida Coley [facility] POCT GLUCOSE (AUTOMATED) 2024-06-26 17:43:00 Zaida Coley [facility] POCT GLUCOSE (AUTOMATED) 2024-06-26 13:41:00 Zaida Coley [facility] BASIC METABOLIC PANEL (NA, K, CL, CO2, GLUCOSE, BUN, CREATININE, CA) 2024-06-26 11:20:00 Araceli Parada [facility] CBC WITH DIFF 2024-06-26 11:20:00 Araceli Parada [facility] POCT GLUCOSE (AUTOMATED) 2024-06-26 02:02:00 Zaida Coley [facility] POCT GLUCOSE (AUTOMATED) 2024-06-25 22:21:00 Zaida Coley [facility] POCT GLUCOSE (AUTOMATED) 2024-06-25 18:04:00 Zaida Coley [facility] POCT GLUCOSE (AUTOMATED) 2024-06-25 13:45:00 Zaida Coley [facility] PHOSPHORUS 2024-06-25 09:59:[address] [facility] CREATINE KINASE 2024-06-25 09:59:00 Hammad Marcano [facility] BASIC METABOLIC PANEL (NA, K, CL, CO2, GLUCOSE, BUN, CREATININE, CA) 2024-06-25 09:59:00 Araceli Parada [facility] CBC WITH DIFF 2024-06-25 09:59:00 Araceli Parada [facility] N-TERMINAL PRO-BNP 2024-06-25 09:59:[address] [facility] URINALYSIS 2024-06-25 07:09:[address] [facility] CREATININE, URINE RANDOM 2024-06-25 07:09:00 Leanna Marcano [facility] UREA NITROGEN, URINE RANDOM 2024-06-25 07:09:00 Hammad Marcano [facility] URIC ACID, URIC RANDOM 2024-06-25 07:09:00 Klaudia Marcano ed [facility] POCT GLUCOSE (AUTOMATED) 2024-06-25 02:39:00 Zaida Coley [facility] POCT GLUCOSE (AUTOMATED) 2024-06-24 22:29:00 Zaida Coley [facility] POCT GLUCOSE (AUTOMATED) 2024-06-24 17:35:00 Zaida Coley [facility] POCT GLUCOSE (AUTOMATED) 2024-06-24 13:39:00 Zaida Coley [facility] URIC ACID 2024-06-24 10:44:00 [place], Tevin [facility] BASIC METABOLIC PANEL (NA, K, CL, CO2, GLUCOSE, BUN, CREATININE, CA) 2024-06-24 10:44:00 Araceli Parada [facility] CBC WITH DIFF 2024-06-24 10:44:00 Araceli Parada Reta [facility] POCT GLUCOSE (AUTOMATED) 2024-06-24 05:30:00 Zaida Coley [facility] POCT GLUCOSE (AUTOMATED) 2024-06-24 02:45:00 Zaida Coley [facility] US RETROPERITONEAL COMPLETE 2024-06-24 00:55:44 Araceli Parada [facility] POCT GLUCOSE (AUTOMATED) 2024-06-23 22:22:00 Zaida Coley [facility] URINE CULTURE 2024-06-23 22:20:00 Tevin Coley [facility] POCT GLUCOSE (AUTOMATED) 2024-06-23 18:31:00 Zaida Coley [facility] POCT GLUCOSE (AUTOMATED) 2024-06-23 17:32:00 Zaida Coley rayo [facility] POCT GLUCOSE (AUTOMATED) 2024-06-23 13:45:00 Zaida Coley [facility] PHOSPHORUS 2024-06-23 09:58:00 Tevin Coley [facility] MAGNESIUM 2024-06-23 09:58:00 Tevin Coley [facility] IONIZED CALCIUM 2024-06-23 09:58:00 Tevin Coley [facility] HEPATIC FUNCTION PANEL (94935) (ALB,T.PRO,BILI T,BU/BC,ALT,AST,ALK PHOS) 2024-06-23 09:58:00 Tevin Coley [facility] BASIC METABOLIC PANEL (NA, K, CL, CO2, GLUCOSE, BUN, CREATININE, CA) 2024-06-23 09:58:00 Araceli Parada Reta [facility] CBC WITH DIFF 2024-06-23 09:58:00 Tal [facility] VITAMIN D, 25-OH 2024-06-23 09:58:00 [facility] 2024-06-23 02:55:00 Zaida Coley [facility] POCT GLUCOSE (AUTOMATED) 2024-06-22 22:27:00 Zaida Coley [facility] POCT GLUCOSE (AUTOMATED) 2024-06-22 17:30:00 Zaida Coley [facility] IONIZED CALCIUM 2024-06-22 16:44:00 Bobby Merida [facility] POCT GLUCOSE (AUTOMATED) 2024-06-22 13:45:00 Zaida Coley [facility] FECES CULTURE 2024-06-22 10:55:00 Ayala [facility] OCCULT (GUAIAC) BLOOD 2024-06-22 10:55:00 Ayala [facility] CLOSTRIDIUM DIFFICILE TOXIN 2024-06-22 10:55:00 Ayala [facility] CALPROTECTIN, FECAL 2024-06-22 10:55:00 Ayala [facility] BASIC METABOLIC PANEL (NA, K, CL, CO2, GLUCOSE, BUN, CREATININE, CA) 2024-06-22 08:15:00 Ayala [facility] CBC WITH DIFF 2024-06-22 08:15:00 Ayala [facility] INFLUENZA A/B RSV COVID NAAT 2024-06-22 08:15:00 Ayala [facility] PROCALCITONIN 2024-06-22 08:15:00 Ayala [facility] LAB ONLY COVID INTERPRETATION 2024-06-22 08:15:00 Ayala [facility] POCT GLUCOSE (AUTOMATED) 2024-06-22 04:05:00 Zaida Coley [facility] COMP. METABOLIC PANEL ([id number]) 2024-06-22 00:49:00 Haider Donohue [facility] CBC WITH DIFF 2024-06-22 00:49:00 Donohue, Haider [facility] URINALYSIS 2024-06-22 00:49:00 [facility]ider [facility] LACTIC ACID WHOLE BLOOD 2024-06-22 00:49:00 Brooke Donohue [facility] XR CHEST 1 VW 2024-06-22 00:32:07 [facility]) 2023-10-29 17:01:00 Zaida Cloey [facility] POCT GLUCOSE (AUTOMATED) 2023-10-29 12:42:00 Zaida Coley [facility] PHOSPHORUS 2023-10-29 08:50:00 Tevin Coley [facility] URIC ACID 2023-10-29 08:50:00 Artem Mcghee [facility] MAGNESIUM 2023-10-29 08:50:00 Tevin Coley [facility] COMP. METABOLIC PANEL ([id number]) 2023-10-29 08:50:00 Artem Mcghee [facility] CBC WITH DIFF 2023-10-29 08:50:00 [facility] POCT GLUCOSE (AUTOMATED) 2023-10-29 08:42:00 Zaida Coley [facility] POCT GLUCOSE (AUTOMATED) 2023-10-29 01:33:00 Zaida Coley [facility] POCT GLUCOSE (AUTOMATED) 2023-10-28 21:46:00 Zaida Coley [facility] POCT GLUCOSE (AUTOMATED) 2023-10-28 16:52:00 Zaida Coley [facility] POCT GLUCOSE (AUTOMATED) 2023-10-28 13:00:00 Zaida Coley [facility] MAGNESIUM 2023-10-28 08:43:00 Tevin Coley [facility] BASIC METABOLIC PANEL (NA, K, CL, CO2, GLUCOSE, BUN, CREATININE, CA) 2023-10-28 08:43:00 Tevin Coley [facility] CBC WITH DIFF 2023-10-28 08:43:00 Suzanne Garner [facility] N-TERMINAL PRO-BNP 2023-10-28 08:43:00 Tevin Coley [facility] POCT GLUCOSE (AUTOMATED) 2023-10-28 01:35:00 Zaida Coley [facility] POCT GLUCOSE (AUTOMATED) 2023-10-27 21:46:00 Zaida Coley [facility] POCT GLUCOSE (AUTOMATED) 2023-10-27 16:46:00 Zaida Coley [facility] POCT GLUCOSE (AUTOMATED) 2023-10-27 12:59:00 Zaida Coley [facility] GLYCOSYLATED HEMOGLOBIN (A1C) 2023-10-27 09:17:00 Bobby Merida [facility] URINALYSIS 2023-10-26 23:46:00 [facility] URINE CULTURE 2023-10-26 23:46:00 Haider Donohue [facility] XR CHEST 1 VW 2023-10-26 23:40:00 Haider Donohue [facility] LIPASE 2023-10-26 23:35:00 Haider [facility] MAGNESIUM 2023-10-26 23:35:00 Haider [facility] TROPONIN I 2023-10-26 23:35:00 Haider [facility] COMP. METABOLIC PANEL ([id number]) 2023-10-26 23:35:00 Singer Haider [facility] CBC WITH DIFF 2023-10-26 23:35:00 Singer [facility] INFLUENZA A/B RSV COVID NAAT 2023-10-26 23:35:00 Singer [facility] N-TERMINAL PRO-BNP 2023-10-26 23:35:00 Singer [facility] LAB ONLY COVID INTERPRETATION 2023-10-26 23:35:00 Singer [facility] LACTIC ACID WHOLE BLOOD 2023-10-26 23:34:00 Brooke Donohue [facility] HB ECG ROUTINE & RHYTHM STRIP 2023-10-26 23:18:21 Haider Donohue [facility] DNR 2023-07-12 06:01:00 Doctor Sukhwinder igned, [place] [facility] - OTHER 2023-06-14 06:01:00 Doctor Remedios funes, [place] [facility] POCT HEMOGLOBIN A1C TEST 2023-06-08 00:00:00 Mallory Cardona [facility] POCT GLUCOSE (AUTOMATED) 2023-05-29 17:25:00 Unknown, Attending [facility] - OTHER 2023-05-04 06:01:00 Doctor Remedios funes, [place] [facility] 2023-04-13 06:01:00 Doctor Remedios funes, [place] [facility] 2023-03-17 05:01:00 Doctor Remedios funes, [place] [facility] POWER OF CLOTH BALE HEADER 2023-03-08 05:01:00 Doctor Mayra ssigned, [place] [facility] POCT HEMOGLOBIN A1C TEST 2023-03-08 00:00:00 Mallory Cardona [facility] OTHER 2023-02-10 05:01:00 Doctor Remedios jacksoned, [place] [facility] 2023-01-31 05:01:00 Doctor Remedios funes, [place] [facility] SCANNED LAB RESULTS 2022-12-03 05:01:00 Doctor Remedios funes, [place] [facility] EXTERNAL PROVIDER RECORDS 2022-11-22 05:01:00 Do ctor Unassigned, [place] [facility] 2022-11-11 05:01:00 Doctor Remedios funes, [place] [facility] MEDICAL RELEASE/CLEARANCE FORMS 2022-11-03 05:01:00 Doctor Unassigned, [place] [facility] ASSIGNMENT OF BENEFITS 2022-10-13 19:02:26 Docto r Unassigned, [place] [facility] 2022-10-06 05:01:00 Doctor Remedios funes, [place] [facility] POCT GLUCOSE (AUTOMATED) 2022-09-07 16:55:00 Zaida Coley [facility] POCT GLUCOSE (AUTOMATED) 2022-09-07 12:48:00 Zaida Coley [facility] CBC WITHOUT DIFF 2022-09-07 09:29:00 Tevin Coley [facility] N-TERMINAL PRO-BNP 2022-09-07 09:29:00 Tevin Coley [facility] MAGNESIUM 2022-09-07 09:29:00 Tevin Coley [facility] BASIC METABOLIC PANEL (NA, K, CL, CO2, GLUCOSE, BUN, CREATININE, CA) 2022-09-07 09:29:00 Tevin Coley [facility] POCT GLUCOSE (AUTOMATED) 2022-09-07 01:19:00 Zaida Coley [facility] POCT GLUCOSE (AUTOMATED) 2022-09-06 21:38:00 Zaida Coley [facility] POCT GLUCOSE (AUTOMATED) 2022-09-06 16:29:00 Zaida Coley [facility] POCT GLUCOSE (AUTOMATED) 2022-09-06 12:37:00 Zaida Coley [facility] CBC WITHOUT DIFF 2022-09-06 08:54:00 Tevin Coley [facility] N-TERMINAL PRO-BNP 2022-09-06 08:54:00 Tevin Coley [facility] MAGNESIUM 2022-09-06 08:54:00 Tevin Coley [facility] FERRITIN SERUM 2022-09-06 08:54:00 Tevin Coley [facility] IRON 2022-09-06 08:54:00 Tevin Coley [facility] TOTAL IRON BINDING CAPACITY 2022-09-06 08:54:00 Tevin Coley [facility] BASIC METABOLIC PANEL (NA, K, CL, CO2, GLUCOSE, BUN, CREATININE, CA) 2022-09-06 08:54:00 Tevin Coley [facility] POCT GLUCOSE (AUTOMATED) 2022-09-06 00:42:00 Zaida Coley [facility] POCT GLUCOSE (AUTOMATED) 2022-09-05 21:19:00 Zaida Coley [facility] POCT GLUCOSE (AUTOMATED) 2022-09-05 16:22:00 Zaida Coley [facility] POCT GLUCOSE (AUTOMATED) 2022-09-05 12:54:00 Zaida Coley [facility] CBC WITH DIFF 2022-09-05 10:06:00 Tevin Coley [facility] N-TERMINAL PRO-BNP 2022-09-05 10:06:[facility]22-09-05 10:06:00 Tevin Coley [facility] BASIC METABOLIC PANEL (NA, K, CL, CO2, GLUCOSE, BUN, CREATININE, CA) 2022-09-05 10:06[facility]00 [facility] 2022-09-05 05:39:00 Zaida Coley rayo [facility] POCT GLUCOSE (AUTOMATED) 2022-09-05 02:33:00 Zaida Coley [facility] POCT GLUCOSE (AUTOMATED) 2022-09-04 21:37:00 Zaida Coley [facility] POCT GLUCOSE (AUTOMATED) 2022-09-04 16:30:00 Zaida Coley [facility] POCT GLUCOSE (AUTOMATED) 2022-09-04 12:24:00 Zaida Coley [facility] N-TERMINAL PRO-BNP 2022-09-04 08:48:00 [facility] 2022-09-04 08:48:00 Tevin Coley [facility] BASIC METABOLIC PANEL (NA, K, CL, CO2, GLUCOSE, BUN, CREATININE, CA) 2022-09-04 08:48:00 [facility] 2022-09-04 08:48:00 Tevin Coley [facility] POCT GLUCOSE (AUTOMATED) 2022-09-04 01:18:00 Zaida Coley [facility] POCT GLUCOSE (AUTOMATED) 2022-09-03 21:08:00 Zaida Coley [facility] POCT GLUCOSE (AUTOMATED) 2022-09-03 16:46:00 Zaida Coley [facility] POCT GLUCOSE (AUTOMATED) 2022-09-03 14:46:00 Zaida Coley [facility] POCT GLUCOSE (AUTOMATED) 2022-09-03 12:03:00 Zaida Coley [facility] POCT GLUCOSE (AUTOMATED) 2022-09-03 09:04:00 Zaida Coley [facility] N-TERMINAL PRO-BNP 2022-09-03 08:11:00 Tevin Coley [facility] MAGNESIUM 2022-09-03 08:11:00 Tevin Coley [facility] BASIC METABOLIC PANEL (NA, K, CL, CO2, GLUCOSE, BUN, CREATININE, CA) 2022-09-03 08:11:00 [facility] 2022-09-03 08:11:00 Tevin Coley [facility] POCT GLUCOSE (AUTOMATED) 2022-09-03 04:32:00 Zaida Coley [facility] POCT GLUCOSE (AUTOMATED) 2022-09-02 21:37:00 Zaida Coley [facility] POCT GLUCOSE (AUTOMATED) 2022-09-02 16:58:00 Zaida Coley [facility] ACUTE CARE ARTERIAL BLOOD GAS 2022-09-02 16:46:00 [facility] TRAN[facility] (TTE) LIMITED W/ DOPPLER, COLOR AND CONTRAST 2022-09-02 15:58[facility] 2022-09-02 13:29:00 Sean Bermudez [facility] TROPONIN I 2022-09-02 13:29:00 Sean Bermudez [facility] COMP. METABOLIC PANEL ([id number]) 2022-09-02 13:29:00 Sean Bermudez [facility] CBC WITHOUT DIFF 2022-09-02 13:29:00 Sean Bermudez [facility] HB ECG ROUTINE & RHYTHM STRIP 2022-09-02 13:16:30 Sean Bermudez [facility] POCT GLUCOSE (AUTOMATED) 2022-09-02 05:08:00 Zaida Coley [facility] POCT GLUCOSE (AUTOMATED) 2022-09-02 02:22:00 Zaida Coley [facility] CBC WITH DIFF 2022-09-01 23:48:00 Tevin Coley [facility] TROPONIN I 2022-09-01 23:48:00 Vianca Tevin [facility] BASIC METABOLIC PANEL (NA, K, CL, CO2, GLUCOSE, BUN, CREATININE, CA) 2022-09-01 23:48:00 Tevin Coley [facility] XR CHEST 1 VW 2022-09-01 22:43:57 Araceli Parada [facility] ACUTE CARE ARTERIAL BLOOD GAS 2022-09-01 22:30:00 Araceli Parada [facility] POCT GLUCOSE (AUTOMATED) 2022-09-01 21:41:00 [facility] 2022-09-01 16:47:00 Mick Scott [facility] POCT GLUCOSE (AUTOMATED) 2022-09-01 13:26:00 Mick Scott [facility] N-TERMINAL PRO-BNP 2022-09-01 10:42:00 Sheba Calvin [facility] MAGNESIUM 2022-09-01 10:42:00 [facility] BASIC METABOLIC PANEL (NA, K, CL, CO2, GLUCOSE, BUN, CREATININE, CA) 2022-09-01 10:42:00 Sheba Calvin [facility] POCT GLUCOSE (AUTOMATED) 2022-09-01 02:27:00 [facility] ([facility]OMATED) 2022-08-31 22:02:00 Mick Scott [facility] POCT GLUCOSE (AUTOMATED) 2022-08-31 17:55:00 Mick Scott [facility] XR CHEST 1 VW 2022-08-31 17:35:34 Sheba Calvin [facility] POCT GLUCOSE (AUTOMATED) 2022-08-31 13:22:00 Mick Scott [facility] CBC WITH DIFF 2022-08-31 09:52:00 Darren Vegas [facility] BASIC METABOLIC PANEL (NA, K, CL, CO2, GLUCOSE, BUN, CREATININE, CA) 2022-08-31 09:52:00 Darren Vegas [facility] POCT GLUCOSE (AUTOMATED) 2022-08-31 09:18:00 Mick Scott [facility] POCT GLUCOSE (AUTOMATED) 2022-08-31 04:55:00 Mick Scott [facility] POCT GLUCOSE (AUTOMATED) 2022-08-31 01:45:00 Mick Scott [facility] POCT GLUCOSE (AUTOMATED) 2022-08-30 22:07:00 Mick Scott [facility] IONIZED CALCIUM 2022-08-30 17:55:00 Ronald Scott [facility] POCT GLUCOSE (AUTOMATED) 2022-08-30 17:21:00 Mick Scott [facility] POCT GLUCOSE (AUTOMATED) 2022-08-30 13:52:00 Mick Scott [facility] CBC WITH DIFF 2022-08-30 10:20:00 Darren Vegas [facility] BASIC METABOLIC PANEL (NA, K, CL, CO2, GLUCOSE, BUN, CREATININE, CA) 2022-08-30 10:20:00 Darren Vegas [facility] POCT GLUCOSE (AUTOMATED) 2022-08-30 00:59:00 Mick Scott [facility] POCT GLUCOSE (AUTOMATED) 2022-08-29 22:25:00 [place], D avid [facility] IONIZED CALCIUM 2022-08-29 17:15:00 Ronald Scott [facility] POCT GLUCOSE (AUTOMATED) 2022-08-29 17:10:00 Mick Scott [facility] POCT GLUCOSE (AUTOMATED) 2022-08-29 13:21:00 [facility] WITH DIFF 2022-08-29 10:44:00 Darren Vegas [facility] BASIC METABOLIC PANEL (NA, K, CL, CO2, GLUCOSE, BUN, CREATININE, CA) 2022-08-29 10:44:00 Darren Vegas [facility] POCT GLUCOSE (AUTOMATED) 2022-08-29 01:43:00 Mick Scott [facility] POCT GLUCOSE (AUTOMATED) 2022-08-28 22:03:00 Mick Scott [facility] BLOOD CULTURE SCREEN 2022-08-28 20:20:00 Renan Vegas [facility] POCT GLUCOSE (AUTOMATED) 2022-08-28 16:51:00 Mick Scott [facility] POCT GLUCOSE (AUTOMATED) 2022-08-28 12:12:00 Mick Scott [facility] CBC WITH DIFF 2022-08-28 08:18:00 Chadwick Mckeon [facility] BASIC METABOLIC PANEL (NA, K, CL, CO2, GLUCOSE, BUN, CREATININE, CA) 2022-08-28 08:18:00 Adrianna Mckeonhosh [facility] POCT GLUCOSE (AUTOMATED) 2022-08-28 04:46:00 Mick Scott [facility] PNEUMOCOCCAL ANTIGEN 2022-08-28 03:52:00 Ronald Scott [facility] PROCALCITONIN 2022-08-28 01:58[facility]00 [facility] [facility] RESPIRATORY PANEL BY PCR 2022-08-28 01:58:00 Mick Scott [facility] CREATINE KINASE 2022-08-28 01:58:00 Chadwick Mckeon [facility] TROPONIN I 2022-08-28 01:58:00 Chadwick [facility] POCT GLUCOSE (AUTOMATED) 2022-08-28 01:42:00 Mick Scott [facility] CT THORAX WO CONTRAST 2022-08-27 19:15:00 Servando Scott [facility] XR FOREARM 2 VW RIGHT 2022-08-27 17:04:44 Sa dionna Recinos [facility] XR WRIST 3+ VW RIGHT 2022-08-27 17:04:44 Negro Recinos [facility] XR CHEST 1 VW 2022-08-27 16:31:51 Emily Recinos [facility] HB ECG ROUTINE & RHYTHM STRIP 2022-08-27 16:20:55 Emily Recinos [facility] CBC WITH DIFF 2022-08-27 16:18:00 Emily Recinos [facility] URINALYSIS 2022-08-27 16:18:00 Emily Recinos [facility] RAPID INFLUENZA A/B 2022-08-27 16:18:00 Chastity Recinos ra [facility] COVID-19 (ID NOW RAPID TESTING) 2022-08-27 16:18:00 Emily Recinos [facility] LAB ONLY COVID INTERPRETATION 2022-08-27 16:18:00 Emily Recinos [facility] TROPONIN I 2022-08-27 16:18:00 Emily Recinos [facility] COMP. METABOLIC PANEL (91136) 2022-08-27 16:18:00 Emily Recinos [facility] POCT GLUCOSE (AUTOMATED) 2022-07-16 18:31:00 Yolanda Degroot [facility] POCT GLUCOSE (AUTOMATED) 2022-07-16 13:08:00 Yolanda Degroot [facility] PHOSPHORUS 2022-07-16 10:03:00 [facility] MAGNESI[facility] 2022-07-16 10:03:00 Vern [facility] BASIC METABOLIC PANEL (NA, K, CL, CO2, GLUCOSE, BUN, CREATININE, CA) 2022-07-16 10:03:00 [facility]FF 2022-07-16 10:03:00 Ravinder Porras [facility] POCT GLUCOSE (AUTOMATED) 2022-07-16 03:21:00 Yolanda Degroot [facility] POCT GLUCOSE (AUTOMATED) 2022-07-15 22:37:00 Yolanda Degroot [facility] POCT GLUCOSE (AUTOMATED) 2022-07-15 17:44:00 Yolanda Degroot [facility] XR CHEST 1 VW 2022-07-15 15:47:[address] [facility] PHOSPHORUS 2022-07-15 11:49:00 Ravinder Porras [facility] MAGNESIUM 2022-07-15 11:49:00 Ravinder Porras [facility] BASIC METABOLIC PANEL (NA, K, CL, CO2, GLUCOSE, BUN, CREATININE, CA) 2022-07-15 11:49:00 Ravinder Porras [facility] CBC WITH DIFF 2022-07-15 11:49:00 [facility] 2022-07-15 02:49:00 Yolanda Degroot [facility] POCT GLUCOSE (AUTOMATED) 2022-07-14 23:11:00 Yolanda Degroot [facility] POCT GLUCOSE (AUTOMATED) 2022-07-14 18:04:00 Yolanda Degroot [facility] POCT GLUCOSE (AUTOMATED) 2022-07-14 13:36:00 Yolanda Degroot [facility] PHOSPHORUS 2022-07-14 09:52:00 Ravinder Porras [facility] MAGNESIUM 2022-07-14 09:52:00 Vern [facility] BASIC METABOLIC PANEL (NA, K, CL, CO2, GLUCOSE, BUN, CREATININE, CA) 2022-07-14 09:52:00 Vern [facility] INTACT PTH CALCIUM GROUP 2022-07-14 09:52:00 Myles Menendez [facility] VANCOMYCIN RANDOM LEVEL 2022-07-14 09:52:00 Blanco De Paz [facility] CBC WITH DIFF 2022-07-14 09:52:00 Ravinder Porras [facility] VITAMIN D, 25-OH 2022-07-14 09:52:00 Johnson Menendez [facility] POCT GLUCOSE (AUTOMATED) 2022-07-14 09:50:00 Yolanda Degroot [facility] POCT GLUCOSE (AUTOMATED) 2022-07-14 05:45:00 BabYolanda aguirre [facility] POCT GLUCOSE (AUTOMATED) 2022-07-14 03:13:00 Yolanda Degroot [facility] POCT GLUCOSE (AUTOMATED) 2022-07-14 03:12:00 Yolanda Degroot [facility] POCT GLUCOSE (AUTOMATED) 2022-07-14 03:09:00 Yolanda Degroot [facility] POCT GLUCOSE (AUTOMATED) 2022-07-14 02:54:00 Yolanda Degroot [facility] US RETROPERITONEAL LIMITED 2022-07-13 23:24:29 Johnson Menendez [facility] CREATININE, URINE RANDOM 2022-07-13 22:51:00 Myles Menendez [facility] UREA NITROGEN, URINE RANDOM 2022-07-13 22:51:00 Johnson Menendez [facility] POTASSIUM, URINE RANDOM 2022-07-13 22:51:00 Josi Menendez [facility] SODIUM, URINE RANDOM 2022-07-13 22:51:00 Jarrod Menendez [facility] POCT GLUCOSE (AUTOMATED) 2022-07-13 22:24:00 Yolanda Degroot [facility] POCT GLUCOSE (AUTOMATED) 2022-07-13 17:37:00 Yolanda Degroot [facility] POCT GLUCOSE (AUTOMATED) 2022-07-13 13:50:00 Yolanda Degroot [facility] PHOSPHORUS 2022-07-13 10:12:00 Vern [facility] CREATINE KINASE 2022-07-13 10:12:00 Johnson Menendez [facility] MAGNESIUM 2022-07-13 10:12:00 Vern [facility] BASIC METABOLIC PANEL (NA, K, CL, CO2, GLUCOSE, BUN, CREATININE, CA) 2022-07-13 10:12:00 Vern [facility] CBC WITH DIFF 2022-07-13 10:12:00 Vern [facility] BLOOD CULTURE SCREEN 2022-07-13 01:50:00 Delmer Degroot [facility] CBC WITH DIFF 2022-07-13 01:50:00 Rob Degroot [facility] POCT GLUCOSE (AUTOMATED) 2022-07-13 01:50:00 Yolanda Degroot [facility] POCT GLUCOSE (AUTOMATED) 2022-07-12 22:59:00 Porfirio Garcia [facility] TRANSTHORACIC ECHO (TTE) COMPLETE W/ CONTRAST 2022-07-12 20:29:00 Vern [facility] CREATINE KINASE 2022-07-12 18:15:00 Ravinder Porras [facility] BASIC METABOLIC PANEL (NA, K, CL, CO2, GLUCOSE, BUN, CREATININE, CA) 2022-07-12 18:15:00 Vern [facility] N-TERMINAL PRO-BNP 2022-07-12 18:15:00 Vern [facility] POCT GLUCOSE (AUTOMATED) 2022-07-12 18:09:00 Porfirio Garcia [facility] AC PANEL 20 + LACTIC ACID 2022-07-12 18:04:00 Vern [facility] XR CHEST 1 VW 2022-07-12 15:57:00 Vern [facility] POCT GLUCOSE (AUTOMATED) 2022-07-12 13:31:00 Porfirio Garcia [facility] POCT GLUCOSE (AUTOMATED) 2022-07-12 02:53:00 Porfirio Garcia [facility] POCT GLUCOSE (AUTOMATED) 2022-07-11 23:34:00 Porfirio Garcia [facility] URINE CULTURE 2022-07-11 23:28:00 [facility] URINALYSIS 2022-07-11 23:27:00 [facility] POCT GLUCOSE (AUTOMATED) 2022-07-11 21:36:00 Porfirio Garcia [facility] BASIC METABOLIC PANEL (NA, K, CL, CO2, GLUCOSE, BUN, CREATININE, CA) 2022-07-11 18:07:00 Claude [facility] CBC WITH DIFF 2022-07-11 18:07:00 [facility] POCT GLUCOSE (AUTOMATED) 2022-07-11 17:43:00 Porfirio Garcia [facility] POCT GLUCOSE (AUTOMATED) 2022-07-11 14:40:00 Porfirio Garcia [facility] POCT GLUCOSE (AUTOMATED) 2022-07-11 13:14:00 Porfirio Garcia [facility] POCT GLUCOSE (AUTOMATED) 2022-07-11 02:54:00 Porfirio Garcia [facility] POCT GLUCOSE (AUTOMATED) 2022-07-10 23:11:00 Porfirio Garcia [facility] POCT GLUCOSE (AUTOMATED) 2022-07-10 18:05:00 Porfirio Garcia [facility] POCT GLUCOSE (AUTOMATED) 2022-07-10 14:25:00 Porfirio Garcia [facility] POCT GLUCOSE (AUTOMATED) 2022-07-10 02:53:00 Porfirio Garcia [facility] POCT GLUCOSE (AUTOMATED) 2022-07-09 21:43:00 Porfirio Garcia [facility] XR CHEST 1 VW 2022-07-09 19:41:27 [facility] POCT GLUCOSE (AUTOMATED) 2022-07-09 18:09:00 Porfirio Garcia [facility] POCT GLUCOSE (AUTOMATED) 2022-07-09 13:57:00 Jose Porfirio [facility] POCT GLUCOSE (AUTOMATED) 2022-07-09 07:25:00 Jose Porfirio [facility] POCT GLUCOSE (AUTOMATED) 2022-07-09 03:38:00 Jose [facility] POCT GLUCOSE (AUTOMATED) 2022-07-08 23:59:00 Jose [facility] POCT GLUCOSE (AUTOMATED) 2022-07-08 22:44:00 Jose [facility] POCT GLUCOSE (AUTOMATED) 2022-07-08 17:29:00 Jose [facility] POCT GLUCOSE (AUTOMATED) 2022-07-08 13:21:00 Jose [facility] POCT GLUCOSE (AUTOMATED) 2022-07-08 03:18:00 Jose [facility] POCT GLUCOSE (AUTOMATED) 2022-07-07 22:29:00 Jose [facility] POCT GLUCOSE (AUTOMATED) 2022-07-07 17:38:00 Jose [facility] POCT GLUCOSE (AUTOMATED) 2022-07-07 14:58:00 Jose [facility] POCT GLUCOSE (AUTOMATED) 2022-07-07 13:56:00 Jose [facility] CREATINE KINASE 2022-07-07 09:17:00 R[facility]ce [facility] BASIC METABOLIC PANEL (NA, K, CL, CO2, GLUCOSE, BUN, CREATININE, CA) 2022-07-07 09:17:00 Reta Arce [facility] CBC WITHOUT DIFF 2022-07-07 09:17:00 Reta Arce [facility] N-TERMINAL PRO-BNP 2022-07-07 09:17:00 Reta Arce [facility] POCT GLUCOSE (AUTOMATED) 2022-07-07 02:30:00 Jose [facility] POCT GLUCOSE (AUTOMATED) 2022-07-06 22:51:00 Jose [facility] DUPLEX VENOUS LEGS BILATERAL - BY VASCULAR LAB 2022-07-06 21:59:32 Reta Arce [facility] POCT GLUCOSE (AUTOMATED) 2022-07-06 18:04:00 Porfirio Garcia [facility] POCT GLUCOSE (AUTOMATED) 2022-07-06 13:39:00 Porfirio Garcia [facility] CREATINE KINASE 2022-07-06 12:01:00 Eyad [facility] COMP. METABOLIC PANEL (28470) 2022-07-06 12:01:00 Eyad Garcia [facility] POCT GLUCOSE (AUTOMATED) 2022-07-06 11:42:00 Porfirio Garcia [facility] POCT GLUCOSE (AUTOMATED) 2022-07-06 11:13:00 Porfirio Garcia [facility] POCT GLUCOSE (AUTOMATED) 2022-07-06 10:42:00 Porfirio Garcia [facility] POCT GLUCOSE (AUTOMATED) 2022-07-06 10:20:00 Porfirio Garcia [facility] POCT GLUCOSE (AUTOMATED) 2022-07-06 04:37:00 Cherelle Mccormack [facility] BLOOD CULTURE SCREEN 2022-07-06 04:17:00 Randall Mccormack i [facility] XR ANKLE 3+ VW RIGHT 2022-07-06 04:10:10 Randall Mccormack i [facility] CREATINE KINASE 2022-07-06 04:03:[address] [facility] COMP. METABOLIC PANEL (83438) 2022-07-06 04:03:00 Katlyn Mccormack [facility] CBC WITH DIFF 2022-07-06 04:03:00 Katlyn Mccormack [facility] GLYCOSYLATED HEMOGLOBIN (A1C) 2022-07-06 04:03:00 Eyad Garcia [facility] URINALYSIS 2022-07-06 04:03:00 Katlyn Mccormack [facility] HB ECG ROUTINE & RHYTHM STRIP 2022-07-06 03:34:11 Katlyn Mccormack [facility] POCT GLUCOSE (AUTOMATED) 2022-07-06 03:21:00 Cherelle Mccormack [facility] EMERGENCY DEPARTMENT DOCUMENTS 2022-07-05 06:01:00 Doctor Unassigned, [place] [facility] EMERGENCY SERVICES AGREEMENTS AND AUTHORIZATIONS 2022-07-05 06:01:00 Doctor Unassigned, [place] [facility] INSURANCE CORRESPONDENCE 2022-02-19 05:01:00 Doc tor Unassigned, [place] [facility] INSURANCE CORRESPONDENCE 2022-02-05 05:01:00 Doc tor Unassigned, [place] [facility] INSURANCE CORRESPONDENCE 2022-01-01 05:01:00 Doc saadia Unassigned, [place] [facility] POCT HEMOGLOBIN A1C TEST 2021-12-30 00:00:00 Mallory Cardona [facility] Encounters Start Date/Time End Date/Time Encounter Type Admission Type Attending [facility] Care Facility Care Department Encounter ID Source 2023-08-01 14:21:00 [facility] [id number] [facility] 2023-05-04 17:10:00 [facility] [id number] [facility] 2022-12-08 13:40:01 [facility] [id number] [facility] 2024-09-17 00:00:00 2024-09-17 11:01:44 Refill aMllory Cameron [facility] 1..840.114 350.1.13.10 4.2.7.2.[id number] [facility] 2024-09-03 00:00:00 2024-09-03 17:02:24 Patient Outreach Emily Hernández Sandra [address] 1..840.114 350.1.13.10 4.2.7.2.[id number] [facility] 2024-08-16 00:00:00 2024-08-16 00:00:00 (TEL) [facility] [id number] [facility] 2024-08-10 00:00:00 2024-08-10 00:00:00 ([place]) Nurse Visit [facility] [id number] [facility] 2024-07-19 00:00:00 2024-07-19 00:00:00 OFFICE VISIT ESTAB PT LEVEL 4 [facility] [id number] [facility] 2024-07-05 00:00:00 2024-07-05 10:16:28 Transition of Care Maria Shaikh Laura L [address] 1.2.840.114 350.1.13.10 4.2.7.2.[id number] [facility] 2024-06-28 00:00:00 2024-06-28 16:28:05 Transition of Care Yoly Falcon Christine A [address] 1.2.840.114 350.1.13.10 4.2.7.2.[id number] [facility] 2024-06-21 17:45:00 2024-06-27 18:40:00 Inpatient X TEVIN COLEY [facility] [id number] [facility] 2024-06-21 17:45:00 2024-06-27 18:40:00 Hospital Encounter Haider Donohue Jelani Edionwe, [facility] 1.2.840.114 350.1.13.10 4.2.7.2.[id number] [facility] 2024-05-03 00:00:00 2024-05-03 00:00:00 OFFICE VISIT ESTAB PT LEVEL 3 [facility] [id number] [facility] 2024-04-26 00:00:00 2024-04-26 00:00:00 OFFICE VISIT ESTAB PT LEVEL 5 [facility] [id number] [facility] 2024-04-03 00:00:00 2024-04-03 00:00:00 (TEL) [facility] [id number] [facility] 2024-03-23 00:00:00 2024-03-23 00:00:00 OFFICE VISIT ESTAB PT LEVEL 5 [facility] [id number] [facility] 2024-01-22 21:29:00 2024-01-22 22:29:00 Emergency X LEO PARDO TIMOT[facility] ERT [id number] [facility] 2024-01-22 21:29:00 2024-01-22 22:29:00 Emergency Leo Pardo NEDEJA AT [facility] 1..840.114 350.1.13.10 4.2.7.2.[id number] [facility] 2023-12-22 00:00:00 2024-01-09 13:38:45 Patient Outreach Carolyn Jacobs Vicki A [address] 1.2.840.114 350.1.13.10 4.2.7.2.[id number] [facility] 2023-10-29 14:25:00 2023-11-08 11:23:00 Inpatient 3 Hossein Herzog [place] [id number] [facility] Rehabil itation Jose Raul adame 2023-10-31 00:00:00 2023-10-31 14:58:41 Transition of Care Peewee [place] [facility] 1..840.114 350.1.13.10 4.2.7.2.[id number] [facility] 2023-10-26 18:13:00 2023-10-29 13:12:00 Inpatient X TEVIN COLEY [facility] [id number] [facility] 2023-10-26 18:13:00 2023-10-29 13:12:00 Hospital Encounter Donohue, Haider Coley, [facility] 1.2.840.114 350.1.13.10 4.2.7.2.[id number] [facility] 2023-10-26 00:00:00 2023-10-26 07:47:57 Sakshi Cameron Mallory [facility] CHIKIS?[facility] 1.2.840.114 350.1.13.10 4.2.7.2.[id number] [facility] 2023-10-25 00:00:00 2023-10-25 00:00:00 (TEL) [facility] [id number] [facility] 2023-09-27 00:00:00 2023-09-27 06:51:18 Sakshi Cameron Mallory [facility] CHIKIS?[facility] 1.2840.114 350.1.13.10 4.2.7.2.[id number] [facility] 2023-08-29 00:00:00 2023-08-29 00:00:00 Sakshi Cameron Mallory [facility]IKIS[facility] 1.2.840.114 350.1.13.10 4.2.7.2.[id number] [facility] 2023-08-27 00:00:00 2023-08-27 00:00:00 Sakshi LoismaribethMallory [facility] CHIKIS?[facility] 1.2.840.114 350.1.13.10 4.2.7.2.[id number] [facility] 2023-08-17 00:00:00 2023-08-17 00:00:00 Refill [facility]ory Cameron [facility] 1.84114 350.1.13.10 4.2.7.2.[id number] [facility] 2023-08-11 00:00:00 2023-08-11 00:00:00 (TEL) [facility] [id number] [facility] 2023-07-19 00:00:00 2023-07-19 00:00:00 Refill Mallory Cameron [facility] CHIKIS?[facility] 1.84114 350.1.13.10 4.2.7.2.[id number] [facility] 2023-07-12 00:00:00 2023-07-12 00:00:00 Orders Only Doctor Unassigned, [place] [facility] 1.114 350.1.13.10 4.2.7.2.[id number] [facility] 2023-07-06 00:00:00 2023-07-06 00:00:00 Telephone Mallory Cameron [facility] CHIKIS?[facility] 1.84114 350.1.13.10 4.2.7.2.[id number] [facility] 2023-07-05 00:00:00 2023-07-05 00:00:00 Telephone Mallory Cameron [facility] CHIKIS?[facility] 1.84114 350.1.13.10 4.2.7.2.[id number] [facility] 2023-06-25 00:00:00 2023-06-25 00:00:00 Refill Mallory Cameron [facility] CHIKIS?[facility] 1.2.840.114 350.1.13.10 4.2.7.2.[id number] [facility] 2023-06-24 00:00:00 2023-06-24 00:00:00 RefMallory Shah [facility] CHIKIS?[facility] 1.840.114 350.1.13.10 4.2.7.2.[id number] [facility] 2023-06-23 00:00:00 2023-06-23 00:00:00 [facility] 1.114 350.1.13.10 4.2.7.2.[id number] [facility] 2023-06-21 00:00:00 2023-06-21 00:00:00 (TEL) [facility] [id number] [facility] 2023-06-21 00:00:00 2023-06-21 00:00:00 Sakshi Cameron [facility] CHIKIS?[facility] MED[facility] OFF[facility] BUILD[facility] 1.114 350.1.13.10 4.2.7.2.[id number] [facility] 2023-06-17 00:00:00 2023-06-17 00:00:00 Telephone [facility] 1.2.114 350.1.13.10 4.2.7.2.[id number] [facility] 2023-06-14 00:00:00 2023-06-14 00:00:00 Orders Only Doctor Unassigned, [place] [facility] 1.2840.114 350.1.13.10 4.2.7.2.[id number] [facility] 2023-06-13 00:00:00 2023-06-13 00:00:00 Telephone Mallory Cameron [facility] CHIKIS?[facility] 1.2.840.114 350.1.13.10 4.2.7.2.[id number] [facility] 2023-06-13 00:00:00 2023-06-13 00:00:00 Telephone Mallory Cameron [facility] 1.2.840.114 350.1.13.10 4.2.7.2.[id number] [facility] 2023-06-08 16:15:00 2023-06-08 16:24:02 Outpatient R MALACHIMINGO MALLORY [facility] [id number] [facility] 2023-06-08 16:15:00 2023-06-08 16:24:02 Office Visit Mallory Cameron [facility] 1.2.840.114 350.1.13.10 4.2.7.2.[id number] [facility] 2023-06-02 00:00:00 2023-06-02 00:00:00 OFFICE VISIT ESTAB PT LEVEL 5 [facility] [id number] [facility] 2023-05-29 11:00:00 2023-05-29 11:20:00 Urgent Care Rosy Yoder Unknown, Attending [facility] 1.2.840.114 350.1.13.10 4.2.7.2.[id number] [facility] 2023-05-29 11:00:00 2023-05-29 11:00:00 Outpatient R ROSY YODER [facility] [id number] [facility] 2023-05-28 00:00:00 2023-05-28 00:00:00 Telephone Mallory Cameron [facility] 1.2840.114 350.1.13.10 4.2.7.2.[id number] [facility] 2023-05-20 00:00:00 2023-05-20 00:00:00 Telephone Mallory Cameron [facility] 1.2840.114 350.1.13.10 4.2.7.2.[id number] [facility] 2023-05-17 00:00:00 2023-05-17 00:00:00 Refill Rakesh [facility] 1.2840.114 350.1.13.10 4.2.7.2.[id number] [facility] 2023-05-04 00:00:00 2023-05-04 00:00:00 Orders Only Doctor Unassigned, [place] [facility] 1.2840.114 350.1.13.10 4.2.7.2.[id number] [facility] 2023-04-13 00:00:00 2023-04-13 00:00:00 Orders Only Doctor Unassigned, [place] [facility] 1.2840.114 350.1.13.10 4.2.7.2.[id number] [facility] 2023-03-28 00:00:00 2023-03-28 00:00:00 Refill [facility] 1.2840.114 350.1.13.10 4.2.7.2.[id number] [facility] 2023-03-23 00:00:00 2023-03-23 00:00:00 (PROC) Procedure STLMLC STLMLC [id number] [facility] 2023-03-19 00:00:00 2023-03-19 00:00:00 Telephone Rakes[facility] 1.2.840.114 350.1.13.10 4.2.7.2.[id number] [facility] 2023-03-17 00:00:00 2023-03-17 00:00:00 Orders Only Doctor Unassigned, [place] [facility] 1.2.840.114 350.1.13.10 4.2.7.2.[id number] [facility] 2023-03-08 16:00:00 2023-03-08 16:32:49 Outpatient R RAKESH [facility] [id number] [facility] 2023-03-08 16:00:00 2023-03-08 16:32:49 Office Visit Rakesh [facility] 1.2.840.114 350.1.13.10 4.2.7.2.[id number] [facility] 2023-03-08 00:00:00 2023-03-08 00:00:00 Orders Only Doctor Unassigned, [place] [facility] 1.2.840.114 350.1.13.10 4.2.7.2.[id number] [facility] 2023-02-17 16:03:00 2023-02-26 13:05:00 Inpatient 3 [place] [id number] [facility] [place] 2023-02-21 16:00:00 2023-02-21 16:00:00 Outpatient Rachelle CAMERON [facility] [id number] [facility] 2023-02-16 16:15:00 2023-02-16 16:15:00 Outpatient R RAKESH MALLORY [facility] [id number] [facility] [facility] 2023-02-11 00:00:00 2023-02-11 00:00:00 Telephone Mallory Cameron [facility] 1..840.114 350.1.13.10 4.2.7.2.[id number] [facility] 2023-02-10 00:00:00 2023-02-10 00:00:00 Orders Only Doctor Unassigned, [place] [facility] 1.840.114 350.1.13.10 4.2.7.2.[id number] [facility] 2023-02-09 00:00:00 2023-02-09 00:00:00 OFFICE VISIT ESTAB PT LEVEL 3 [facility] [id number] [facility] 2023-02-06 00:00:00 2023-02-06 00:00:00 (WEB) [facility] [id number] [facility] 2023-01-31 00:00:00 2023-01-31 00:00:00 Orders Only Doctor Unassigned, [place] [facility] 1..840.114 350.1.13.10 4.2.7.2.[id number] [facility] 2023-01-04 00:00:00 2023-01-04 00:00:00 Telephone Mallory Cameron [facility] 1..840.114 350.1.13.10 4.2.7.2.[id number] [facility] 2022-12-21 00:00:00 2022-12-21 00:00:00 ([place]) Nurse Visit [facility] [id number] [facility] 2022-12-08 00:00:00 2022-12-08 00:00:00 OFFICE VISIT NEW PT LEVEL 2 [facility] [id number] [facility] 2022-12-06 00:00:00 2022-12-06 00:00:00 Telephone Rakesh Mallory [facility] 1..840.114 350.1.13.10 4.2.7.2.[id number] [facility] 2022-12-06 00:00:00 2022-12-06 00:00:00 Telephone Mallory Cameron [facility] 1.840.114 350.1.13.10 4.2.7.2.[id number] [facility] 2022-12-03 00:00:00 2022-12-03 00:00:00 Orders Only Doctor Unassigned, [place] [address].840.114 350.1.13.10 4.2.7.2.[id number] [facility] 2022-12-01 00:00:00 2022-12-01 00:00:00 Telephone [facility]akesh [facility] 1.840.114 350.1.13.10 4.2.7.2.[id number] [facility] 2022-11-22 00:00:00 2022-11-22 00:00:00 Orders Only Doctor Unassigned, [place] [facility] 1.2840.114 350.1.13.10 4.2.7.2.[id number] [facility] 2022-11-17 13:00:00 2022-11-17 13:30:00 Office Visit [facility]akesh [facility] 1.2840.114 350.1.13.10 4.2.7.2.[id number] [facility] 2022-11-17 13:00:00 2022-11-17 13:16:14 Outpatient R MALLORY CAMERON [facility] [id number] [facility] 2022-11-11 00:00:00 2022-11-11 00:00:00 Orders Only Doctor Unassigned, [place] [facility] 1.2840.114 350.1.13.10 4.2.7.2.[id number] [facility] 2022-11-09 00:00:00 2022-11-09 00:00:00 Refill Rakesh [facility] 1.840.114 350.1.13.10 4.2.7.2.[id number] [facility] 2022-11-05 00:00:00 2022-11-05 00:00:00 Mallory Jiménez [facility] 1.2840.114 350.1.13.10 4.2.7.2.[id number] [facility] 2022-11-03 00:00:00 2022-11-03 00:00:00 Orders Only Doctor Unassigned, [place] [facility] 1.2840.114 350.1.13.10 4.2.7.2.[id number] [facility] 2022-11-01 00:00:00 2022-11-01 00:00:00 Refill Rakesh [facility] 1.2840.114 350.1.13.10 4.2.7.2.[id number] [facility] 2022-10-20 00:00:00 2022-10-20 00:00:00 Telephone Mallory Cameron [facility] 1.2.840.114 350.1.13.10 4.2.7.2.[id number] [facility] 2022-10-19 00:00:00 2022-10-19 00:00:00 Telephone Mallory Cameron [facility] 1..840.114 350.1.13.10 4.2.7.2.[id number] [facility] 2022-10-19 00:00:00 2022-10-19 00:00:00 Telephone Mallory Cameron [facility] 1..840.114 350.1.13.10 4.2.7.2.[id number] [facility] 2022-10-14 00:00:00 2022-10-14 00:00:00 Telephone Mallory Cameron [facility] 1.2.840.114 350.1.13.10 4.2.7.2.[id number] [facility] 2022-10-13 14:30:00 2022-10-13 14:38:45 Outpatient R MALLORY CAMERON [facility] [id number] [facility] 2022-10-13 14:30:00 2022-10-13 14:38:45 Office Visit Mallory Cameron [facility] 1.2.840.114 350.1.13.10 4.2.7.2.[id number] [facility] 2022-10-13 00:00:00 2022-10-13 00:00:00 Orders Only Doctor Unassigned, [place] [facility] 1.0.114 350.1.13.10 4.2.7.2.[id number] [facility] 2022-10-06 00:00:00 2022-10-06 00:00:00 [facility] 1..114 350.1.13.10 4.2.7.2.[id number] [facility] 2022-10-06 00:00:00 2022-10-06 00:00:00 Orders Only Doctor Unassigned, [place] [facility] 1.20.114 350.1.13.10 4.2.7.2.[id number] [facility] 2022-09-15 19:56:00 2022-10-05 14:19:00 Inpatient 3 Hossein Herzog ENCPL CRD [id number] [facility] [place] [facility] 2022-09-08 00:00:00 2022-09-08 00:00:00 Transition of Care Steph Guaman X[facility] 1..114 350.1.13.10 4.2.7.2.[id number] [facility] 2022-08-27 10:44:00 2022-09-07 15:31:00 Inpatient X TEVIN COLEY [facility] JACKELINE [id number] [facility] 2022-08-27 10:44:00 2022-09-07 15:31:00 Hospital Encounter Emily Recinos David Oville, Jelani [facility] 1..114 350.1.13.10 4.2.7.2.[id number] [facility] 2022-07-05 21:19:00 2022-07-16 17:02:00 Inpatient ROB ANDERSON [facility] JACKELINE [id number] [facility] 2022-07-05 21:19:00 2022-07-16 17:02:00 Hospital Encounter Ksenia, Katlyn Garcia, Eyad Krzysztofsarahi, Ravinder Degroot, Delmermick J [facility] 1..840.114 350.1.13.10 4.2.7.2.[id number] [facility] 2022-05-11 00:00:00 2022-05-11 00:00:00 Mallory Obrien [facility] 1..840.114 350.1.13.10 4.2.7.2.[id number] [facility] 2022-02-19 00:00:00 2022-02-19 00:00:00 Orders Only Doctor Unassigned, [place] [facility] 1.2840.114 350.1.13.10 4.2.7.2.[id number] [facility] 2022-02-05 00:00:00 2022-02-05 00:00:00 Orders Only Doctor Unassigned, [place] [facility] 1.2840.114 350.1.13.10 4.2.7.2.[id number] [facility] 2022-01-27 16:00:00 2022-01-27 16:00:00 Outpatient MALLORY GONZALEZ [facility] [id number] [facility] 2022-01-27 16:00:00 2022-01-27 16:00:00 Outpatient MALLORY GONZALEZ [facility] [id number] [facility] 2022-01-01 00:00:00 2022-01-01 00:00:00 Orders Only Doctor Unassigned, [place] [facility] 1.114 350.1.13.10 4.2.7.2.[id number] [facility] 2021-12-31 00:00:00 2021-12-31 00:00:00 Telephone Rakesh [facility] 1.84114 350.1.13.10 4.2.7.2.[id number] [facility] 2021-12-30 16:15:00 2021-12-30 16:43:34 Outpatient R LOISHIMINGO [facility] [id number] [facility] 2021-12-30 16:15:00 2021-12-30 16:43:34 Office Visit Rakesh [facility] 1.84.114 350.1.13.10 4.2.7.2.[id number] [facility] 2021-12-28 14:15:00 2021-12-28 14:15:00 Outpatient MALLORY GONZALEZ [facility] [id number] [facility] 2021-12-28 14:15:00 2021-12-28 14:15:00 Outpatient Rachelle RAKESH MALLORY [facility] [id number] [facility] 2021-12-15 00:00:00 2021-12-15 00:00:00 Orders Only Doctor Unassigned, [place] [facility] 1.114 350.1.13.10 4.2.7.2.[id number] [facility] 2021-11-02 15:15:00 2021-11-02 16:10:25 [facility] 1.84.114 350.1.13.10 4.2.7.2.[id number] [facility] 2021-11-02 15:15:00 2021-11-02 16:10:25 Outpatient MALLORY GONZALEZ [facility] [id number] [facility] 2021-11-02 15:15:00 2021-11-02 15:15:00 Outpatient R MALLORY CAMERON [facility] [id number] [facility] 2021-10-30 12:00:00 2021-10-30 12:20:00 [facility] 1.2.840.114 350.1.13.10 4.2.7.2.[id number] [facility] 2021-10-30 12:00:00 2021-10-30 12:00:00 Outpatient Rachelle CHAHAL MIGUEL [facility] [id number] [facility] 2021-08-18 00:00:00 2021-08-18 00:00:00 Telephone Mallory Cameron [facility] 1..840.114 350.1.13.10 4.2.7.2.[id number] [facility] 2021-08-13 00:00:00 2021-08-13 00:00:00 Telephone Mallory Cameron [facility] 1.2.840.114 350.1.13.10 4.2.7.2.[id number] [facility] 2021-08-07 00:00:00 2021-08-07 00:00:00 Telephone Mallory Cameron [facility] 1.2.840.114 350.1.13.10 4.2.7.2.[id number] [facility] 2021-06-29 14:15:00 2021-06-29 15:14:19 Outpatient MALLORY GONZALEZ [facility] [id number] [facility] 2021-06-29 14:15:00 2021-06-29 15:14:19 [facility] 1..840.114 350.1.13.10 4.2.7.2.[id number] [facility] 2021-06-25 10:00:00 2021-06-25 10:00:00 Outpatient R MALLORY CAMERON [facility] [id number] [facility] 2021-06-25 10:00:00 2021-06-25 10:00:00 Outpatient Rachelle MALLORY CAMERON [facility] [id number] [facility] 2021-05-25 13:15:00 2021-05-25 14:01:29 Outpatient Rachelle MALLORY CAMERON [facility] [id number] [facility] 2021-05-25 13:15:00 2021-05-25 13:30:00 Office Visit Mallory Cameron [facility] 1..840.114 350.1.13.10 4.2.7.2.[id number] [facility] 2021-05-25 13:15:00 2021-05-25 13:15:00 Outpatient R MALLORY CAMERON [facility] [id number] [facility] 2021-04-22 11:00:00 2021-04-22 11:28:28 Outpatient Rachelle MALLORY CAMERON [facility] [id number] [facility] 2021-04-22 10:55:26 2021-04-22 11:10:26 Office Visit Mallory Cameron [facility] 1..840.114 350.1.13.10 4.2.7.2.[id number] [facility] 2021-04-22 11:00:00 2021-04-22 11:00:00 Outpatient MALLORY GONZALEZ [facility] [id number] [facility] 2021-03-27 13:30:00 2021-03-27 14:19:09 Outpatient MALLORY GONZALEZ [facility] [id number] [facility] 2021-03-27 13:40:18 2021-03-27 14:10:18 Office Visit Mallory Cameron [facility] 1.2.840.114 350.1.13.10 4.2.7.2.[id number] [facility] 2021-03-27 13:30:00 2021-03-27 13:30:00 Outpatient MALLORY GONZALEZ [facility] [id number] [facility] 2021-03-27 00:00:00 2021-03-27 00:00:00 Orders Only Doctor Unassigned, [place] [facility] 1.2.840.114 350.1.13.10 4.2.7.2.[id number] [facility] 2019-10-08 18:19:03 2019-10-08 21:38:[address] [facility] 1.2840.114 350.1.13.10 4.2.7.2.[id number] [facility] 2019-10-08 18:19:03 2019-10-08 21:38:00 Emergency X ALVERTOVALENTINA HEE-KWANG [facility] ERT [id number] [facility] 2019-07-04 07:28:00 2019-07-04 07:28:00 Outpatient Ige-Elvia _J_AH VFP VFP [id number] [facility] Results Test Description Test Time Test Comments Results Result Co mments Source [facility]2024-06-27 17:33:00* Test Item Value Reference Range Interpretation Comme nts POCT GLU (test code = 9608098375) 146 mg/dL 70-110 H Lab Interpretation (test cod e = 93569-1) Abnormal [facility]2024-06-27 13:46:24* Test Item Value Reference Range Interpretation Comme nts POCT GLU (test code = 4488618951) 116 mg/dL 70-110 H Lab Interpretation (test cod e = 88608-0) Abnormal [facility]2025-02-12 11:17:43* Test Item Value Reference Range Interpretation Comme nts MAGNESIUM (test code = 0311596116) 2.1 mg/dL 1.7-2.4 Lab Interpretation (test cod e = 60531-1) Normal [facility] Metabolic Panel (NA, K, CL, CO2, GLUCOSE, BUN, CREATININE, CA)2024-06-27 11:17:22* Test Item Value Reference Range Interpretation Comme nts NA (test code = 3709140805) 140 mmol/L 135-145 K (test code = 4862520157) 4.4 mmol/L 3.5-5.0 CL (test code = 3452704234) 106 mmol/L 98-108 CO2 TOTAL (test code = 1068165008) 27 mmol/L 23-31 AGAP (test code = 0055189727) 7 2-16 BUN (test code = 5332827686) 67 mg/dL 7-23 H GLUCOSE (test code = 9596149569) 163 mg/dL 70-110 H CREATININE (test code = 2160-0) 1.77 mg/dL 0.60-1.25 H CALCIUM (test code = 9601178781) 7.8 mg/dL 8.6-10.6 L eGFR (test code = 68426-0) 38.1 mL/min/1.73m2 CKD-EPI eGFR (2020). Assuming creatinine has been stable day-to-day for at least three months, the eGFR indicates Category G3b (30 - 44 mL/min/1.73 m2) Lab Interpretation (test code = 97471-0) Abnormal [facility] Wuqnk2201-13-10 11:17:22* Test Item Value Reference Range Interpretation Comme nts PHOSPHORUS (test code = 2996965094) 3.1 mg/dL 2.5-5.0 Lab Interpretation (test cod e = 97646-5) Normal [facility] with Mjdj3227-13-63 10:47:39* Test Item Value Reference Range Interpretation Comme nts WBC (test code = 6690-2) 5.44 4.20-10.70 RBC (test code = 789-8) 3.53 4.26-5.52 L HGB (test code = 718-7) 10.1 g/dL 12.2-16.4 L HCT (test code = 4544-3) 31.3 % 38.4-49.3 L MCV (test code = 787-2) 88.7 fL 81.7-95.6 MCH (test code = 785-6) 28.6 pg 26.1-32.7 MCHC (test code = 786-4) 32.3 g/dL 31.2-35.0 RDW-SD (test code = 62609-7) 53.6 fL 38.5-51.6 H RDW-CV (test code = 788-0) 16.7 % 12.1-15.4 H PLT (test code = 777-3) 151 150-328 MPV (test code = 76988-1) 11.5 fL 9.8-13.0 NRBC/100 WBC (test code = 9179373018) 0.0 0.0-10.0 NRBC x10^3 (test code = 0731455007) See_Comment [Automated messa ge] The system which generated this result transmitted reference range: 10*3/?L. The reference range was not used to interpret this result as normal/abnormal. GRAN MAT (NEUT) % (test code = 770-8) 71.4 % IMM GRAN % (test code = 6750027155) 1.50 % LYMPH % (test code = 736-9) 18.2 % MONO % (test code = 5905-5) 7.4 % EOS % (test code = 713-8) 0.9 % BASO % (test code = 706-2) 0.6 % GRAN MAT x10^3(ANC) (test code = 5511551201) 3.89 10*3/uL 1.99-6.95 IMM GRAN x10^3 (test code = 9733726043) 0.08 10*3/uL 0.00-0.06 H LYMPH x10^3 (test code = 731-0) 0.99 10*3/uL 1.09-3.23 L MONO x10^3 (test code = 742-7) 0.40 10*3/uL 0.36-1.02 EOS x10^3 (test code = 711-2) 0.05 10*3/uL 0.06-0.53 L BASO x10^3 (test code = 704-7) 0.03 10*3/uL 0.01-0.09 Lab Interpretation (test code = 07159-3) Abnormal [facility] GLUCOSE (AUTOMATED)2024-06-27 02:34:54* Test Item Value Reference Range Interpretation Comme nts POCT GLU (test code = 8327283179) 252 mg/dL 70-110 H Lab Interpretation (test cod e = 74232-2) Abnormal [facility] GLUCOSE (AUTOMATED)2024-06-26 22:23:21* Test Item Value Reference Range Interpretation Comme nts POCT GLU (test code = 0420435832) 251 mg/dL 70-110 H Lab Interpretation (test cod e = 14632-2) Abnormal [facility] GLUCOSE (AUTOMATED)2024-06-26 17:44:24* Test Item Value Reference Range Interpretation Comme nts POCT GLU (test code = 8810280950) 251 mg/dL 70-110 H Lab Interpretation (test cod e = 69348-2) Abnormal [facility] GLUCOSE (AUTOMATED)2024-06-26 13:48:51* Test Item Value Reference Range Interpretation Comme nts POCT GLU (test code = 5348706622) 130 mg/dL 70-110 H Lab Interpretation (test cod e = 56452-9) Abnormal [facility] GLUCOSE (AUTOMATED)2024-06-26 02:04:18* Test Item Value Reference Range Interpretation Comme nts POCT GLU (test code = 5052515826) 254 mg/dL 70-110 H Lab Interpretation (test cod e = 11713-6) Abnormal [facility] GLUCOSE (AUTOMATED)2024-06-25 22:26:51* Test Item Value Reference Range Interpretation Comme nts POCT GLU (test code = 5262917130) 290 mg/dL 70-110 H Lab Interpretation (test cod e = 47240-7) Abnormal [facility] GLUCOSE (AUTOMATED)2024-06-25 18:05:18* Test Item Value Reference Range Interpretation Comme nts POCT GLU (test code = 7420988363) 281 mg/dL 70-110 H Lab Interpretation (test cod e = 42991-4) Abnormal [facility] GLUCOSE (AUTOMATED)2024-06-25 13:46:18* Test Item Value Reference Range Interpretation Comme nts POCT GLU (test code = 4033587341) 182 mg/dL 70-110 H Lab Interpretation (test cod e = 02330-5) Abnormal [facility] GLUCOSE (AUTOMATED)2024-06-25 02:40:18* Test Item Value Reference Range Interpretation Comme nts POCT GLU (test code = 6150459134) 226 mg/dL 70-110 H Lab Interpretation (test cod e = 65900-9) Abnormal [facility] GLUCOSE (AUTOMATED)2024-06-24 22:29:50* Test Item Value Reference Range Interpretation Comme nts POCT GLU (test code = 7741500497) 241 mg/dL 70-110 H Lab Interpretation (test cod e = 43072-9) Abnormal [facility] GLUCOSE (AUTOMATED)2024-06-24 17:36:51* Test Item Value Reference Range Interpretation Comme nts POCT GLU (test code = 7958865081) 216 mg/dL 70-110 H Lab Interpretation (test cod e = 92166-9) Abnormal [facility] GLUCOSE (AUTOMATED)2024-06-24 13:40:10* Test Item Value Reference Range Interpretation Comme nts POCT GLU (test code = 7118008931) 179 mg/dL 70-110 H Lab Interpretation (test cod e = 24579-3) Abnormal [facility] GLUCOSE (AUTOMATED)2024-06-24 05:31:11* Test Item Value Reference Range Interpretation Comme nts POCT GLU (test code = 2370838003) 268 mg/dL 70-110 H Lab Interpretation (test cod e = 01439-3) [facility]2024-06-24 02:46:42* Test Item Value Reference Range Interpretation Comme nts POCT GLU (test code = 1014179378) 158 mg/dL 70-110 H Lab Interpretation (test cod e = 22529-9) Abnormal [facility] Retroperitoneal jgicvked8901-90-62 01:22:44 EXAM: US RETROPERITONEAL COMPLETE HISTORY: 83 years-old Male with jacqueline and urine obstruction . TECHNIQUE: Ultrasound of kidneys and bladder was performed with grayscaleand selected color Doppler imaging. Various [employer] Teacher images were obtained forthe record. COMPARISON: Ultrasound dated 07/13/2022 FINDINGS: Limited visualization due to bowel gas and body habitus. KIDNEYS:RIGHT:Length: Normal, 12.9 cm.Parenchyma: Normal renal cortical echogenicity and thickness. No focalsolid or cystic renal lesions are detected.Collecting System: No hydronephrosis.Other: None. LEFT:Length: Normal, 12.9 cm.Parenchyma:Normal renal cortical echogenicity and thickness. No focal solidor cystic renal lesions are detected.Collecting System: Mild hydronephrosis.Other: None. BLADDER: Bladder is decompressed with Jacques's catheter. OTHER: None.[facility] GLUCOSE (AUTOMATED)2024-06-23 22:23:37* Test Item Value Reference Range Interpretation Comme nts POCT GLU (test code = 5182443448) 146 mg/dL 70-110 H Lab Interpretation (test cod e = 97951-6) Abnormal [facility] GLUCOSE (AUTOMATED)2024-06-23 18:31:41* Test Item Value Reference Range Interpretation Comme nts POCT GLU (test code = 9560280190) 195 mg/dL 70-110 H Lab Interpretation (test cod e = 46012-8) Abnormal [facility] GLUCOSE (AUTOMATED)2024-06-23 17:33:39* Test Item Value Reference Range Interpretation Comme nts POCT GLU (test code = 1336970287) 174 mg/dL 70-110 H Lab Interpretation (test cod e = 21171-7) Abnormal [facility] GLUCOSE (AUTOMATED)2024-06-23 13:46:11* Test Item Value Reference Range Interpretation Comme nts POCT GLU (test code = 2460752568) 127 mg/dL 70-110 H Lab Interpretation (test cod e = 96625-9) [facility] 02:56:07* Test Item Value Reference Range Interpretation Comme nts POCT GLU (test code = 5315281041) 123 mg/dL 70-110 H Lab Interpretation (test cod e = 14360-5) [facility] 22:30:03* Test Item Value Reference Range Interpretation Comme [facility] Procalcitonin (test code = 4775676829) 1.43 ng/mL <=0.07 H CATA (test code = CATA) INTERPRETATION OF [...] lung abscess/empyema. For further information please refer to:[email or web address] Lab Interpretation (test code = 92278-4) Abnormal [facility] GLUCOSE (AUTOMATED)2024-06-22 22:28:36* Test Item Value Reference Range Interpretation Comme nts POCT GLU (test code = 6224931310) 137 mg/dL 70-110 H Lab Interpretation (test cod e = 55545-4) Abnormal [facility] GLUCOSE (AUTOMATED)2024-06-22 17:31:35* Test Item Value Reference Range Interpretation Comme nts POCT GLU (test code = 7672729333) 199 mg/dL 70-110 H Lab Interpretation (test cod e = 04116-4) Abnormal [facility] GLUCOSE (AUTOMATED)2024-06-22 13:49:09* Test Item Value Reference Range Interpretation Comme nts POCT GLU (test code = 2148446782) 107 mg/dL 70-110 Lab Interpretation (test cod e = 73757-1) Normal [facility] Metabolic Panel (NA, K, CL, CO2, GLUCOSE, BUN, CREATININE, CA)2024-06-22 10:01:24* Test Item Value Reference Range Interpretation Comme nts NA (test code = 2961023479) 136 mmol/L 135-145 K (test code = 1108806142) 3.7 mmol/L 3.5-5.0 CL (test code = 6315985771) 106 mmol/L 98-108 CO2 TOTAL (test code = 9064713550) 23 mmol/L 23-31 AGAP (test code = 9144134059) 7 2-16 BUN (test code = 4419713774) 59 mg/dL 7-23 H GLUCOSE (test code = 6713904672) 127 mg/dL 70-110 H CREATININE (test code = 2160-0) 3.00 mg/dL 0.60-1.25 H CALCIUM (test code = 9789719268) 5.8 mg/dL 8.6-10.6 LL eGFR (test code = 95476-1) 20.2 mL/min/1.73m2 CKD-EPI eGFR (2020). Assuming creatinine has been stable day-to-day for at least three months, the eGFR indicates Category G4 (15 - 29 mL/min/1.73 m2) Lab Interpretation (test code = 47677-3) [facility] [facility] with Qgbapvmxxmie2499-33-54 08:53:39* Test Item Value Reference Range Interpretation Comme nts WBC (test code = 6690-2) 8.18 4.20-10.70 RBC (test code = 789-8) 3.52 4.26-5.52 L HGB (test code = 718-7) 10.5 g/dL 12.2-16.4 L HCT (test code = 4544-3) 31.7 % 38.4-49.3 L MCV (test code = 787-2) 90.1 fL 81.7-95.6 MCH (test code = 785-6) 29.8 pg 26.1-32.7 MCHC (test code = 786-4) 33.1 g/dL 31.2-35.0 RDW-SD (test code = 75041-2) 55.7 fL 38.5-51.6 H RDW-CV (test code = 788-0) 18.2 % 12.1-15.4 H PLT (test code = 777-3) 154 150-328 MPV (test code = 31594-2) 10.0 fL 9.8-13.0 NRBC/100 WBC (test code = 1331417834) 0.0 0.0-10.0 NRBC x10^3 (test code = 6358495475) See_Comment [Automated messa ge] The system which generated this result transmitted reference range: 10*3/?L. The reference range was not used to interpret this result as normal/abnormal. GRAN MAT (NEUT) % (test code = 770-8) 84.2 % IMM GRAN % (test code = 6488549576) 0.20 % LYMPH % (test code = 736-9) 7.3 % MONO % (test code = 5905-5) 8.1 % EOS % (test code = 713-8) 0.0 % BASO % (test code = 706-2) 0.2 % GRAN MAT x10^3(ANC) (test code = 6946078454) 6.88 10*3/uL 1.99-6.95 IMM GRAN x10^3 (test code = 2715710150) 0.00-0.06 LYMPH x10^3 (test code = 731-0) 0.60 10*3/uL 1.09-3.23 L MONO x10^3 (test code = 742-7) 0.66 10*3/uL 0.36-1.02 EOS x10^3 (test code = 711-2) 0.06-0.53 L BASO x10^3 (test code = 704-7) 0.01-0.09 Lab Interpretation (test code = 99288-7) [facility]24-[facility]-22 04:06:03* Test Item Value Reference Range Interpretation Comme nts POCT GLU (test code = 6207009663) 125 mg/dL 70-110 H Lab Interpretation (test cod e = 47423-7) Abnormal [facility] with Oqtr1808-94-63 01:57:39* Test Item Value Reference Range Interpretation Comme nts WBC (test code = 6690-2) 11.19 4.20-10.70 H RBC (test code = 789-8) 3.79 4.26-5.52 L HGB (test code = 718-7) 11.0 g/dL 12.2-16.4 L HCT (test code = 4544-3) 34.1 % 38.4-49.3 L MCV (test code = 787-2) 90.0 fL 81.7-95.6 MCH (test code = 785-6) 29.0 pg 26.1-32.7 MCHC (test code = 786-4) 32.3 g/dL 31.2-35.0 RDW-SD (test code = 14400-9) 57.1 fL 38.5-51.6 H RDW-CV (test code = 788-0) 17.5 % 12.1-15.4 H PLT (test code = 777-3) 165 150-328 MPV (test code = 93176-3) 10.4 fL 9.8-13.0 NRBC/100 WBC (test code = 5696241338) 0.0 0.0-10.0 NRBC x10^3 (test code = 3124720369) See_Comment [Automated messa ge] The system which generated this result transmitted reference range: 10*3/?L. The reference range was not used to interpret this result as normal/abnormal. GRAN MAT (NEUT) % (test code = 770-8) 81.0 % IMM GRAN % (test code = 0675813682) 0.70 % LYMPH % (test code = 736-9) 8.1 % MONO % (test code = 5905-5) 9.9 % EOS % (test code = 713-8) 0.0 % BASO % (test code = 706-2) 0.3 % GRAN MAT x10^3(ANC) (test code = 4006792801) 9.06 10*3/uL 1.99-6.95 H IMM GRAN x10^3 (test code = 1283095786) 0.08 10*3/uL 0.00-0.06 H LYMPH x10^3 (test code = 731-0) 0.91 10*3/uL 1.09-3.23 L MONO x10^3 (test code = 742-7) 1.11 10*3/uL 0.36-1.02 H EOS x10^3 (test code = 711-2) 0.06-0.53 L BASO x10^3 (test code = 704-7) 0.03 10*3/uL 0.01-0.09 Lab Interpretation (test code = 84863-7) [facility]normal [facility] (43929)2024-06-22 01:37:32* Test Item Value Reference Range Interpretation Comme nts NA (test code = 6939144191) 137 mmol/L 135-145 K (test code = 8934792780) 3.7 mmol/L 3.5-5.0 CL (test code = 0342460611) 102 mmol/L 98-108 CO2 TOTAL (test code = 1422942812) 24 mmol/L 23-31 AGAP (test code = 7527520488) 11 2-16 BUN (test code = 7723488237) 58 mg/dL 7-23 H GLUCOSE (test code = 3305416420) 131 mg/dL 70-110 H CREATININE (test code = 2160-0) 2.77 mg/dL 0.60-1.25 H TOTAL BILI (test code = 0043216591) 1.4 mg/dL 0.1-1.1 H CALCIUM (test code = 1169306380) 5.9 mg/dL 8.6-10.6 LL T PROTEIN (test code = 1940607807) 6.8 g/dL 6.3-8.2 ALBUMIN (test code = 3892657110) 3.9 g/dL 3.5-5.0 ALK PHOS (test code = 5808600918) 663 U/L 34-122 H ALTv (test code = 1742-6) 11 U/L 5-50 AST(SGOT) (test code = 3378150979) 29 U/L 13-40 eGFR (test code = 22147-7) 22.3 mL/min/1.73m2 CKD-EPI eGFR (2020). Assuming creatinine has been stable day-to-day for at least three months, the eGFR indicates Category G4 (15 - 29 mL/min/1.73 m2) Lab Interpretation (test code = 14080-4) [facility]normal [facility] 1 [id number] 01:31:12Exam: Chest (1 View), 06/21/2024 6:00 PM. Ordering Physician: HAIDER DONOHUE. History: Sepsis.. Technique: AP view of the chest. Technical Quality: Adequate. Comparison: Chest radiograph 10/26/2023. Findings: Stable cardiomegaly. ?No pleural effusion or pneumothorax. Bilateral lungbase minimal groundglass opacities and small pulmonary nodules are mostlikely atypical pneumonia. No acute osseous abnorm ality. Minimal dextroconvex curvature of thethoracic spine.[facility] CenterLactic Acid Whole Gbbqz9438-54-89 01:16:06* Test Item Value Reference Range Interpretation Comme nts LACTIC ACID (test code = 6634047275) 1.87 mmol/L 0.50-2.20 Lab Interpretation (test cod e = 44596-5) Normal [facility] CenterPSA, [id number] 00:00:00* Test Item Value Reference Range Interpretation Comme nts PSA, TOTAL (test code = 2857-1) 608.01 ng/mL See_Comment H [Automated RollSalea ge] The system which generated this result transmitted reference range: < OR = 4.00 ng/mL. The reference range was not used to interpret this result as normal/abnormal. BASIC MET [id number] 11:09:00* Test Item Value Reference Range Interpretation Comme nts GLUCOSE (test code = 23167800) 164 mg/dL 65-99 H Fasting referenc e interval For someone without known diabetes, a glucosevalue >125 mg/dL indicates that they may havediabetes and this should be confirmed with afollow-up test. UREA NITROGEN (BUN) (test code = 23464074) 52 mg/dL 7-25 H CREATININE (test code = 03082562) 1.89 mg/dL 0.70-1.22 H EGFR (test code = 94026571) 35 mL/min/1.73m2 >=60 L BUN/CREATININE RATIO (test code = 79422439) 28 (calc) 6-22 H SODIUM (test code = 91724667) 138 mmol/L 135-146 N POTASSIUM (test code = 24290503) 4.5 mmol/L 3.5-5.3 N CHLORIDE (test code = 13734879) 99 mmol/L 98-110 N CARBON DIOXIDE (test code = 93952204) 24 mmol/L 20-32 N CALCIUM (test code = 30301419) 8.2 mg/dL 8.6-10.3 L [facility] [id number] 18:20:00* Test Item Value Reference Range Interpretation Comme nts GLUCOSE (test code = 06688026) 120 mg/dL 65-99 H Fasting referenc e interval For someone without known diabetes, a glucose valuebetween 100 and 125 mg/dL is consistent withprediabetes and should be confirmed with afollow-up test. UREA NITROGEN (BUN) (test code = 89329667) 42 mg/dL 7-25 H CREATININE (test code = 75077867) 1.74 mg/dL 0.70-1.22 H EGFR (test code = 53596519) 39 mL/min/1.73m2 >=60 L BUN/CREATININE RATIO (test code = 29417464) 24 (calc) 6-22 H SODIUM (test code = 53984188) 137 mmol/L 135-146 N POTASSIUM (test code = 57865070) 4.4 mmol/L 3.5-5.3 N CHLORIDE (test code = 56927752) 103 mmol/L 98-110 N CARBON DIOXIDE (test code = 01599164) 25 mmol/L 20-32 N CALCIUM (test code = 80076270) 7.9 mg/dL 8.6-10.3 L PROTEIN, TOTAL (test code = 29603679) 6.0 g/dL 6.1-8.1 L ALBUMIN (test code = 97051844) 3.5 g/dL 3.6-5.1 L GLOBULIN (test code = 50475403) 2.5 g/dL (calc) 1.9-3.7 N ALBUMIN/GLOBULIN RATIO (test code = 77760927) 1.4 (calc) 1.0-2.5 N BILIRUBIN, TOTAL (test code = 43672274) 0.3 mg/dL 0.2-1.2 N ALKALINE PHOSPHATASE (test code = 52558943) 85 U/L 35-144 N AST (test code = 81902587) 15 U/L 10-35 N ALT (test code = 22076233) 14 U/L 9-46 N [facility] WITH [id number] 18:20:00* Test Item Value Reference Range Interpretation Comme nts INR (test code = 48432197) 1.0 N Reference Range 0.9-1.1Moderate-intensity Warfarin Therapy 2.0-3.0Higher-intensity Warfarin Therapy 3.0-4.0 PT (test code = 15637268) 10.6 sec 9.0-11.5 N For additional information, please refer [email or web address].Aframe/faq/QCJ943 (This link is being provided for informational/educational purposes only.) [facility] (DIFF/PLT)2023-10-30 18:20:00* Test Item Value Reference Range Interpretation Comme nts WHITE BLOOD CELL COUNT (test code = 72591492) 4.7 Thousand/uL 3.8-10.8 N RED BLOOD CELL COUNT (test code = 43509489) 3.91 Million/uL 4.20-5.80 L HEMOGLOBIN (test code = 36504775) 11.3 g/dL 13.2-17.1 L HEMATOCRIT (test code = 15955293) 34.6 % 38.5-50.0 L MCV (test code = 72700958) 88.5 fL 80.0-100.0 N MCH (test code = 98960818) 28.9 pg 27.0-33.0 N MCHC (test code = 15300761) 32.7 g/dL 32.0-36.0 N RDW (test code = 07590189) 14.0 % 11.0-15.0 N PLATELET COUNT (test code = 99288218) 204 Thousand/uL 140-400 N MPV (test code = 10734985) 10.4 fL 7.5-12.5 N ABSOLUTE NEUTROPHILS (test code = 98654363) 2557 cells/uL 1912-8714 N ABSOLUTE LYMPHOCYTES (test code = 60770172) 1354 cells/uL 850-3900 N ABSOLUTE MONOCYTES (test cod e = 62898064) 667 cells/uL 200-950 N ABSOLUTE EOSINOPHILS (test code = 74457242) 103 cells/uL 15-500 N ABSOLUTE BASOPHILS (test cod e = 38839488) 19 cells/uL 0-200 N NEUTROPHILS (test code = 43694700) 54.4 % N LYMPHOCYTES (test code = 15033056) 28.8 % N MONOCYTES (test code = 55834918) 14.2 % N EOSINOPHILS (test code = 32882691) 2.2 % N BASOPHILS (test code = 54009855) 0.4 % N [facility] GLUCOSE (AUTOMATED)2023-10-29 17:04:03* Test Item Value Reference Range Interpretation Comme nts POCT GLU (test code = 3384974387) 228 mg/dL 70-110 H Lab Interpretation (test cod e = 44202-9) Abnormal [facility] GLUCOSE (AUTOMATED)2023-10-29 12:43:53* Test Item Value Reference Range Interpretation Comme nts POCT GLU (test code = 8837534069) 178 mg/dL 70-110 H Lab Interpretation (test cod e = 74387-6) Abnormal [facility] GLUCOSE (AUTOMATED)2023-10-29 08:48:24* Test Item Value Reference Range Interpretation Comme nts POCT GLU (test code = 2505260433) 151 mg/dL 70-110 H Lab Interpretation (test cod e = 59012-0) Abnormal [facility] GLUCOSE (AUTOMATED)2023-10-29 01:34:49* Test Item Value Reference Range Interpretation Comme nts POCT GLU (test code = 3590036068) 493 mg/dL 70-110 HH Lab Interpretation (test cod e = 49602-7) Abnormal [facility] GLUCOSE (AUTOMATED)2023-10-28 21:47:46* Test Item Value Reference Range Interpretation Comme nts POCT GLU (test code = 2973413823) 233 mg/dL 70-110 H Lab Interpretation (test cod e = 32306-4) Abnormal [facility] GLUCOSE (AUTOMATED)2023-10-28 16:52:49* Test Item Value Reference Range Interpretation Comme nts POCT GLU (test code = 3350252159) 218 mg/dL 70-110 H Lab Interpretation (test cod e = 14638-1) Abnormal [facility] GLUCOSE (AUTOMATED)2023-10-28 13:01:25* Test Item Value Reference Range Interpretation Comme nts POCT GLU (test code = 4130411442) 152 mg/dL 70-110 H Lab Interpretation (test cod e = 04520-1) Abnormal [facility] GLUCOSE (AUTOMATED)2023-10-28 01:37:00* Test Item Value Reference Range Interpretation Comme nts POCT GLU (test code = 7593446851) 218 mg/dL 70-110 H Lab Interpretation (test cod e = 27733-3) Abnormal [facility] GLUCOSE (AUTOMATED)2023-10-27 21:47:21* Test Item Value Reference Range Interpretation Comme nts POCT GLU (test code = 2117105217) 176 mg/dL 70-110 H Lab Interpretation (test cod e = 21102-4) Abnormal [facility] GLUCOSE (AUTOMATED)2023-10-27 17:27:14* Test Item Value Reference Range Interpretation Comme nts POCT GLU (test code = 6298295952) 259 mg/dL 70-110 H Lab Interpretation (test cod e = 40583-1) [facility]normal [facility] 1 [id number] 15:26:38EXAM: XR CHEST 1 VW COMPARISON: Chest x-ray 09/04/2022 HISTORY: AMS FINDINGS: Lungs: The lung volumes are ?normal No focal opacities. No pleuralabnormality. Heart/Mediastinum: The cardiac silhouette appears enlarged. Bones and soft tissues: No acute osseous findings are detected.[facility] GLUCOSE (AUTOMATED)2023-10-27 13:01:49* Test Item Value Reference Range Interpretation Comme nts POCT GLU (test code = 9590389552) 106 mg/dL 70-110 Lab Interpretation (test cod e = 99254-7) Normal [facility] CenterTroponin [id number] 00:15:14* Test Item Value Reference Range Interpretation Comme nts TROPONIN I (test code = 1065057278) 0.020 ng/mL <=0.034 CATA (test code = CATA) Reference (Normal) [...] patient's use of biotin. Lab Interpretation (test code = 65763-0) Normal [facility] CenterN-Terminal Zux-Dfz0092-80-13 00:12:32* Test Item Value Reference Range Interpretation Comme nts NT-proBNP (test code = 00512-3) 2120 pg/mL <=125 H CATA (test code = CATA) Positive: Heart Failure Likely Lab Interpretation (test code = 22053-6) Abnormal [facility] CenterMagnesium2024-06-13 00:05:12* Test Item Value Reference Range Interpretation Comme nts MAGNESIUM (test code = 6692857713) 2.2 mg/dL 1.7-2.4 Lab Interpretation (test cod e = 27958-1) Normal [facility] CenterComp[facility] Metabolic Panel (10319)2023-10-27 00:04:51* Test Item Value Reference Range Interpretation Comme nts NA (test code = 9777034909) 138 mmol/L 135-145 K (test code = 4463759375) 4.8 mmol/L 3.5-5.0 CL (test code = 9572672552) 108 mmol/L 98-108 CO2 TOTAL (test code = 2788312065) 25 mmol/L 23-31 AGAP (test code = 8051798559) 5 2-16 BUN (test code = 4027266377) 41 mg/dL 7-23 H GLUCOSE (test code = 9062984135) 126 mg/dL 70-110 H CREATININE (test code = 2160-0) 1.65 mg/dL 0.60-1.25 H TOTAL BILI (test code = 0884993949) 0.6 mg/dL 0.1-1.1 CALCIUM (test code = 5324842782) 7.9 mg/dL 8.6-10.6 L T PROTEIN (test code = 1667488570) 6.5 g/dL 6.3-8.2 ALBUMIN (test code = 9470382025) 3.5 g/dL 3.5-5.0 ALK PHOS (test code = 2706856150) 110 U/L 34-122 ALTv (test code = 1742-6) 15 U/L 5-50 AST(SGOT) (test code = 3065923768) 19 U/L 13-40 eGFR (test code = 86480-1) 41.7 mL/min/1.73m2 CKD-EPI eGFR (2020). Assuming creatinine has been stable day-to-day for at least three months, the eGFR indicates Category G3b (30 - 44 mL/min/1.73 m2) Lab Interpretation (test code = 53235-3) Abnormal [facility] CenterLipase2024-06-13 00:04:51* Test Item Value Reference Range Interpretation Comme nts LIPASE (test code = 9548405647) 58 U/L 0-220 Lab Interpretation (test cod e = 70732-1) Normal [facility] CenterCb with [id number] 23:51:31* Test Item Value Reference Range Interpretation Comme nts WBC (test code = 6690-2) 14.27 4.20-10.70 H RBC (test code = 789-8) 3.87 4.26-5.52 L HGB (test code = 718-7) 11.3 g/dL 12.2-16.4 L HCT (test code = 4544-3) 35.5 % 38.4-49.3 L MCV (test code = 787-2) 91.7 fL 81.7-95.6 MCH (test code = 785-6) 29.2 pg 26.1-32.7 MCHC (test code = 786-4) 31.8 g/dL 31.2-35.0 RDW-SD (test code = 80208-8) 50.8 fL 38.5-51.6 RDW-CV (test code = 788-0) 15.0 % 12.1-15.4 PLT (test code = 777-3) 198 150-328 MPV (test code = 62682-8) 9.1 fL 9.8-13.0 L NRBC/100 WBC (test code = 7002454357) 0.0 0.0-10.0 NRBC x10^3 (test code = 5502043633) See_Comment [Automated message] The system which generated this result transmitted reference range: 10*3/?L. The reference range was not used to interpret this result as normal/abnormal. GRAN MAT (NEUT) % (test code = 770-8) 87.9 % IMM GRAN % (test code = 6940784410) 0.80 % LYMPH % (test code = 736-9) 4.3 % MONO % (test code = 5905-5) 6.9 % EOS % (test code = 713-8) 0.0 % BASO % (test code = 706-2) 0.1 % GRAN MAT x10^3(ANC) (test code = 2948714659) 12.53 10*3/uL 1.99-6.95 H IMM GRAN x10^3 (test code = 7740323620) 0.12 10*3/uL 0.00-0.06 H LYMPH x10^3 (test code = 731-0) 0.62 10*3/uL 1.09-3.23 L MONO x10^3 (test code = 742-7) 0.98 10*3/uL 0.36-1.02 EOS x10^3 (test code = 711-2) 0.06-0.53 L BASO x10^3 (test code = 704-7) 0.01-0.09 Lab Interpretation (test code = 94045-2) Abnormal [facility] Hemoglobin A1C [id number] 22:40:00* Test Item Value Reference Range Interpretation Comme [facility] POCT HBA1C (test code = 4548-4) 7.4 % 4-6 A Lab Interpretation (test cod e = 48234-0) Abnormal [facility] Hemoglobin A1C [id number] 22:40:00* Test Item Value Reference Range Interpretation Comme [facility] POCT HBA1C (test code = 4548-4) 7.4 % 4-6 A Lab Interpretation (test cod e = 44464-7) Abnormal [facility] GLUCOSE (AUTOMATED)2023-05-29 17:28:56* Test Item Value Reference Range Interpretation Comme [facility] POCT GLU (test code = 3760559831) 320 mg/dL 70-110 H Lab Interpretation (test cod e = 97370-4) Abnormal [facility] HEMOGLOBIN A1C [id number] 21:42:00* Test Item Value Reference Range Interpretation Comme nts POCT HBA1C (test code = 4548-4) 6.5 % 4-6 A Lab Interpretation (test cod e = 50040-7) Abnormal [facility] HEMOGLOBIN A1C [id number] 21:42:00* Test Item Value Reference Range Interpretation Comme nts POCT HBA1C (test code = 4548-4) 6.5 % 4-6 A Lab Interpretation (test cod e = 13411-8) Abnormal [facility] GLUCOSE (AUTOMATED)2022-09-07 16:57:00* Test Item Value Reference Range Interpretation Comme nts POCT GLU (test code = 1025348028) 189 mg/dL 70-110 H Lab Interpretation (test cod e = 60803-2) Abnormal [facility] GLUCOSE (AUTOMATED)2022-09-07 13:06:28* Test Item Value Reference Range Interpretation Comme nts POCT GLU (test code = 0972804656) 162 mg/dL 70-110 H Lab Interpretation (test cod e = 95335-4) Abnormal [facility] GLUCOSE (AUTOMATED)2022-09-07 01:21:00* Test Item Value Reference Range Interpretation Comme nts POCT GLU (test code = 4018109912) 232 mg/dL 70-110 H Lab Interpretation (test cod e = 99858-5) Abnormal [facility] GLUCOSE (AUTOMATED)2022-09-06 21:39:23* Test Item Value Reference Range Interpretation Comme nts POCT GLU (test code = 9853457940) 195 mg/dL 70-110 H Lab Interpretation (test cod e = 49642-2) Abnormal [facility] GLUCOSE (AUTOMATED)2022-09-06 16:31:00* Test Item Value Reference Range Interpretation Comme nts POCT GLU (test code = 2391102698) 128 mg/dL 70-110 H Lab Interpretation (test cod e = 66896-4) Abnormal [facility] GLUCOSE (AUTOMATED)2022-09-06 12:47:36* Test Item Value Reference Range Interpretation Comme nts POCT GLU (test code = 2503135079) 129 mg/dL 70-110 H Lab Interpretation (test cod e = 24817-2) Abnormal [facility] CenterFERRITIN [id number] 12:13:11* Test Item Value Reference Range Interpretation Comme nts FERRITIN (test code = 3461961552) 522.0 ng/mL 18.0-464.0 H CATA (test code = CATA) Biotin has been reported to cause a negative bias, interpret results relative to patient's use of biotin. Lab Interpretation (test code = 17031-5) Abnormal [facility] CenterTOTAL IRON BINDING [id number] 11:16:47 * Test Item Value Reference Range Interpretation Comme nts TIBC (test code = 4881256537) 153 ug/dL 250-410 L % FE SAT (test code = 5109612602) 31 % 20-50 Lab Interpretation (test cod e = 21499-3) Abnormal [facility] CenterN-TERMINAL [id number] 11:10:06* Test Item Value Reference Range Interpretation Comme nts NT-proBNP (test code = 8765332117) 06609 pg/mL <=450 H CATA (test code = CATA) Biotin has been reported to cause a negative bias, interpret results relative to patient's use of biotin. Lab Interpretation (test code = 11000-3) Abnormal [facility] CenterMAGNESIUM2023-04-24 11:07:29* Test Item Value Reference Range Interpretation Comme nts MAGNESIUM (test code = 6131511340) 2.1 mg/dL 1.7-2.4 Lab Interpretation (test cod e = 18965-0) Normal [facility] (NA, K, CL, CO2, GLUCOSE, BUN, CREATININE, CA)2022-09-06 11:07:09* Test Item Value Reference Range Interpretation Comme nts NA (test code = 9625169863) 134 mmol/L 135-145 L K (test code = 5537385414) 5.2 mmol/L 3.5-5.0 H CL (test code = 0381904611) 98 mmol/L 98-108 CO2 TOTAL (test code = 9323783903) 32 mmol/L 23-31 H AGAP (test code = 8454836863) 4 2-16 BUN (test code = 7160458453) 79 mg/dL 7-23 H GLUCOSE (test code = 1827508680) 141 mg/dL 70-110 H CREATININE (test code = 3229579076) 1.65 mg/dL 0.60-1.25 H CALCIUM (test code = 7003541209) 8.2 mg/dL 8.6-10.6 L eGFR (test code = 5956864313) 40.4 mL/min/1.73m2 CATA (test code = CATA) Association of [...] or abnormalities in imaging tests). Lab Interpretation (test code = 22040-2) Abnormal [facility] CenterIRON2023-04-24 11:06:27* Test Item Value Reference Range Interpretation Comme nts IRON (test code = 6207077625) 48 ug/dL 50-160 L Lab Interpretation (test cod e = 37632-6) Abnormal [facility] WITHOUT [id number] 09:28:19* Test Item Value Reference Range Interpretation Comme nts WBC (test code = 6690-2) 9.85 See_Comment [Automated message] The system which generated this result transmitted reference range: 4.20 - 10.70 10*3/?L. The reference range was not used to interpret this result as normal/abnormal. RBC (test code = 789-8) 3.06 See_Comment L [Automated message] The system which generated this result transmitted reference range: 4.26 - 5.52 10*6/?L. The reference range was not used to interpret this result as normal/abnormal. HGB (test code = 718-7) 8.4 g/dL 12.2-16.4 L HCT (test code = 4544-3) 27.3 % 38.4-49.3 L MCH (test code = 785-6) 27.5 pg 26.1-32.7 MCV (test code = 787-2) 89.2 fL 81.7-95.6 MCHC (test code = 786-4) 30.8 g/dL 31.2-35.0 L PLT (test code = 777-3) 221 See_Comment [Automated message] The system which generated this result transmitted reference range: 150 - 328 10*3/?L. The reference range was not used to interpret this result as normal/abnormal. MPV (test code = 54780-8) 9.1 fL 9.8-13.0 L RDW-CV (test code = 788-0) 17.0 % 12.1-15.4 H RDW-SD (test code = 49124-2) 54.6 fL 38.5-51.6 H NRBC x10^3 (test code = 9313893777) See_Comment [Automated messa ge] The system which generated this result transmitted reference range: 10*3/?L. The reference range was not used to interpret this result as normal/abnormal. NRBC/100 WBC (test code = 6039122818) 0.0 See_Comment [Automated messa ge] The system which generated this result transmitted reference range: 0.0 - 10.0 /100 WBCs. The reference range was not used to interpret this result as normal/abnormal. IPF % (test code = 8857713414) Lab Interpretation (test code = 46235-7) Abnormal [facility] GLUCOSE (AUTOMATED)2022-09-06 00:53:18* Test Item Value Reference Range Interpretation Comme nts POCT GLU (test code = 5769264028) 251 mg/dL 70-110 H Lab Interpretation (test cod e = 62533-9) [facility] 21:39:55* Test Item Value Reference Range Interpretation Comme nts POCT GLU (test code = 9725357198) 271 mg/dL 70-110 H Lab Interpretation (test cod e = 72685-3) Abnormal [facility] GLUCOSE (AUTOMATED)2022-09-05 16:23:58* Test Item Value Reference Range Interpretation Comme nts POCT GLU (test code = 5874554767) 205 mg/dL 70-110 H Lab Interpretation (test cod e = 91546-9) Abnormal [facility] GLUCOSE (AUTOMATED)2022-09-05 12:57:55* Test Item Value Reference Range Interpretation Comme nts POCT GLU (test code = 7979083642) 225 mg/dL 70-110 H Lab Interpretation (test cod e = 12483-9) Abnormal [facility] GLUCOSE (AUTOMATED)2022-09-05 05:45:41* Test Item Value Reference Range Interpretation Comme nts POCT GLU (test code = 2517113751) 299 mg/dL 70-110 H Lab Interpretation (test cod e = 23305-0) Abnormal [facility] GLUCOSE (AUTOMATED)2022-09-05 02:44:31* Test Item Value Reference Range Interpretation Comme nts POCT GLU (test code = 4771748064) 315 mg/dL 70-110 H Lab Interpretation (test cod e = 83564-0) Abnormal [facility] GLUCOSE (AUTOMATED)2022-09-04 21:43:28* Test Item Value Reference Range Interpretation Comme nts POCT GLU (test code = 6870550283) 406 mg/dL 70-110 H Lab Interpretation (test cod e = 58661-2) Abnormal [facility] GLUCOSE (AUTOMATED)2022-09-04 16:35:07* Test Item Value Reference Range Interpretation Comme nts POCT GLU (test code = 4444867504) 319 mg/dL 70-110 H Lab Interpretation (test cod e = 92686-9) Abnormal [facility] GLUCOSE (AUTOMATED)2022-09-04 12:27:35* Test Item Value Reference Range Interpretation Comme nts POCT GLU (test code = 0069592076) 301 mg/dL 70-110 H Lab Interpretation (test cod e = 57385-3) Abnormal [facility] GLUCOSE (AUTOMATED)2022-09-04 01:19:42* Test Item Value Reference Range Interpretation Comme nts POCT GLU (test code = 3188154830) 295 mg/dL 70-110 H Lab Interpretation (test cod e = 98923-9) Abnormal [facility] GLUCOSE (AUTOMATED)2022-09-03 21:11:19* Test Item Value Reference Range Interpretation Comme nts POCT GLU (test code = 4151172921) 279 mg/dL 70-110 H Lab Interpretation (test cod e = 86805-6) Abnormal [facility] GLUCOSE (AUTOMATED)2022-09-03 16:48:44* Test Item Value Reference Range Interpretation Comme nts POCT GLU (test code = 7790201314) 298 mg/dL 70-110 H Lab Interpretation (test cod e = 80490-2) Abnormal [facility] GLUCOSE (AUTOMATED)2022-09-03 14:53:37* Test Item Value Reference Range Interpretation Comme nts POCT GLU (test code = 5152817147) 360 mg/dL 70-110 H Lab Interpretation (test cod e = 61636-6) Abnormal [facility] GLUCOSE (AUTOMATED)2022-09-03 12:05:35* Test Item Value Reference Range Interpretation Comme nts POCT GLU (test code = 1349816033) 311 mg/dL 70-110 H Lab Interpretation (test cod e = 17501-1) [id number] 09:24:12* Test Item Value Reference Range Interpretation Comme nts NT-proBNP (test code = 8525264370) 9510 pg/mL <=450 H CATA (test code = CATA) Biotin has been reported to cause a negative bias, interpret results relative to patient's use of biotin. Lab Interpretation (test code = 74880-4) [facility] 09:17:32* Test Item Value Reference Range Interpretation Comme nts MAGNESIUM (test code = 9033698804) 1.9 mg/dL 1.7-2.4 Lab Interpretation (test cod e = 13140-5) Normal [facility] METABOLIC PANEL (NA, K, CL, CO2, GLUCOSE, BUN, CREATININE, CA)2022-09-03 09:17:12* Test Item Value Reference Range Interpretation Comme nts NA (test code = 3026213023) 135 mmol/L 135-145 K (test code = 8679418994) 4.4 mmol/L 3.5-5.0 CL (test code = 7693540465) 101 mmol/L 98-108 CO2 TOTAL (test code = 5355531926) 24 mmol/L 23-31 AGAP (test code = 4842297744) 10 2-16 BUN (test code = 1949694597) 71 mg/dL 7-23 H GLUCOSE (test code = 2930935222) 314 mg/dL 70-110 H CREATININE (test code = 2258731006) 1.80 mg/dL 0.60-1.25 H CALCIUM (test code = 3155344289) 7.6 mg/dL 8.6-10.6 L eGFR (test code = 7678895888) 36.6 mL/min/1.73m2 CATA (test code = CATA) Association of [...] or abnormalities in imaging tests). Lab Interpretation (test code = 12895-6) [facility] 09:05:39* Test Item Value Reference Range Interpretation Comme [facility] POCT GLU (test code = 5909859561) 355 mg/dL 70-110 H Lab Interpretation (test cod e = 50794-4) [facility] [id number] 09:00:15* Test Item Value Reference Range Interpretation Comme [facility] WBC (test code = 6690-2) 4.52 See_Comment [Automated message] The system which generated this result transmitted reference range: 4.20 - 10.70 10*3/?L. The reference range was not used to interpret this result as normal/abnormal. RBC (test code = 789-8) 2.70 See_Comment L [Automated message] The system which generated this result transmitted reference range: 4.26 - 5.52 10*6/?L. The reference range was not used to interpret this result as normal/abnormal. HGB (test code = 718-7) 7.5 g/dL 12.2-16.4 L HCT (test code = 4544-3) 23.6 % 38.4-49.3 L MCH (test code = 785-6) 27.8 pg 26.1-32.7 MCV (test code = 787-2) 87.4 fL 81.7-95.6 MCHC (test code = 786-4) 31.8 g/dL 31.2-35.0 PLT (test code = 777-3) 201 See_Comment [Automated message] The system which generated this result transmitted reference range: 150 - 328 10*3/?L. The reference range was not used to interpret this result as normal/abnormal. MPV (test code = 33638-1) 9.6 fL 9.8-13.0 L RDW-CV (test code = 788-0) 16.8 % 12.1-15.4 H RDW-SD (test code = 02780-1) 52.4 fL 38.5-51.6 H NRBC x10^3 (test code = 4670692730) See_Comment [Automated messa ge] The system which generated this result transmitted reference range: 10*3/?L. The reference range was not used to interpret this result as normal/abnormal. NRBC/100 WBC (test code = 7049307898) 0.0 See_Comment [Automated messa ge] The system which generated this result transmitted reference range: 0.0 - 10.0 /100 WBCs. The reference range was not used to interpret this result as normal/abnormal. IPF % (test code = 8328231262) Lab Interpretation (test code = 81062-8) Abnormal [facility] GLUCOSE (AUTOMATED)2022-09-03 04:35:30* Test Item Value Reference Range Interpretation Comme nts POCT GLU (test code = 8986116252) 395 mg/dL 70-110 H Lab Interpretation (test cod e = 26076-2) Abnormal [facility] GLUCOSE (AUTOMATED)2022-09-02 21:38:31* Test Item Value Reference Range Interpretation Comme nts POCT GLU (test code = 0424702839) 343 mg/dL 70-110 H Lab Interpretation (test cod e = 60055-4) Abnormal [facility] GLUCOSE (AUTOMATED)2022-09-02 17:01:38* Test Item Value Reference Range Interpretation Comme nts POCT GLU (test code = 2455472352) 263 mg/dL 70-110 H Lab Interpretation (test cod e = 68743-2) [facility]normal [facility] [id number] 14:59:18* Test Item Value Reference Range Interpretation Comme nts TROPONIN I (test code = 7746943230) 0.014 ng/mL <=0.034 CATA (test code = CATA) Reference (Normal) [...] patient's use of biotin. Lab Interpretation (test code = 32555-9) Normal [facility] [id number] 14:56:16* Test Item Value Reference Range Interpretation Comme nts NT-proBNP (test code = 8373206702) 39156 pg/mL <=450 H CATA (test code = CATA) Biotin has been reported to cause a negative bias, interpret results relative to patient's use of biotin. Lab Interpretation (test code = 78665-1) [facility]OLIC PAN[facility] (81070)2022-09-02 14:47:37* Test Item Value Reference Range Interpretation Comme nts NA (test code = 8718530594) 140 mmol/L 135-145 K (test code = 0701967699) 3.7 mmol/L 3.5-5.0 CL (test code = 6934238175) 103 mmol/L 98-108 CO2 TOTAL (test code = 4458559303) 27 mmol/L 23-31 AGAP (test code = 2304406686) 10 2-16 BUN (test code = 5616834244) 74 mg/dL 7-23 H GLUCOSE (test code = 9931300457) 170 mg/dL 70-110 H CREATININE (test code = 5647349306) 1.62 mg/dL 0.60-1.25 H TOTAL BILI (test code = 5029765102) 0.5 mg/dL 0.1-1.1 CALCIUM (test code = 5995508823) 7.7 mg/dL 8.6-10.6 L T PROTEIN (test code = 6426016351) 6.1 g/dL 6.3-8.2 L ALBUMIN (test code = 2276429180) 3.0 g/dL 3.5-5.0 L ALK PHOS (test code = 2241200999) 123 U/L 34-122 H ALTv (test code = 1742-6) 30 U/L 5-50 AST(SGOT) (test code = 7231599618) 26 U/L 13-40 eGFR (test code = 9871022969) 41.3 mL/min/1.73m2 CATA (test code = CATA) Association of [...] or abnormalities in imaging tests). Lab Interpretation (test code = 85533-8) Abnormal [facility] WITHOUT [id number] 14:30:33* Test Item Value Reference Range Interpretation Comme nts WBC (test code = 6690-2) 6.00 See_Comment [Automated message] The system which generated this result transmitted reference range: 4.20 - 10.70 10*3/?L. The reference range was not used to interpret this result as normal/abnormal. RBC (test code = 789-8) 2.68 See_Comment L [Automated message] The system which generated this result transmitted reference range: 4.26 - 5.52 10*6/?L. The reference range was not used to interpret this result as normal/abnormal. HGB (test code = 718-7) 7.3 g/dL 12.2-16.4 L HCT (test code = 4544-3) 23.9 % 38.4-49.3 L MCH (test code = 785-6) 27.2 pg 26.1-32.7 MCV (test code = 787-2) 89.2 fL 81.7-95.6 MCHC (test code = 786-4) 30.5 g/dL 31.2-35.0 L PLT (test code = 777-3) 184 See_Comment [Automated message] The system which generated this result transmitted reference range: 150 - 328 10*3/?L. The reference range was not used to interpret this result as normal/abnormal. MPV (test code = 63958-4) 10.5 fL 9.8-13.0 RDW-CV (test code = 788-0) 17.0 % 12.1-15.4 H RDW-SD (test code = 77678-6) 54.1 fL 38.5-51.6 H NRBC x10^3 (test code = 8783375556) See_Comment [Automated [employer]] The system which generated this result transmitted reference range: 10*3/?L. The reference range was not used to interpret this result as normal/abnormal. NRBC/100 WBC (test code = 2301363336) 0.0 See_Comment [Automated [employer]] The system which generated this result transmitted reference range: 0.0 - 10.0 /100 WBCs. The reference range was not used to interpret this result as normal/abnormal. IPF % (test code = 9501620348) Lab Interpretation (test code = 76014-8) Abnormal [facility] GLUCOSE (AUTOMATED)2022-09-02 05:10:05* Test Item Value Reference Range Interpretation Comme [facility] POCT GLU (test code = 1024735892) 298 mg/dL 70-110 H Lab Interpretation (test cod e = 39501-0) Abnormal [facility] GLUCOSE (AUTOMATED)2022-09-02 02:25:15* Test Item Value Reference Range Interpretation Comme [facility] POCT GLU (test code = 0052485039) 327 mg/dL 70-110 H Lab Interpretation (test cod e = 72391-9) Abnormal [facility] GLUCOSE (AUTOMATED)2022-09-01 21:42:43* Test Item Value Reference Range Interpretation Comme nts POCT GLU (test code = 2491004054) 325 mg/dL 70-110 H Lab Interpretation (test cod e = 56719-9) Abnormal [facility] GLUCOSE (AUTOMATED)2022-09-01 16:49:03* Test Item Value Reference Range Interpretation Comme nts POCT GLU (test code = 2102692325) 308 mg/dL 70-110 H Lab Interpretation (test cod e = 90045-4) Abnormal [facility] GLUCOSE (AUTOMATED)2022-09-01 13:26:40* Test Item Value Reference Range Interpretation Comme nts POCT GLU (test code = 3124222397) 257 mg/dL 70-110 H Lab Interpretation (test cod e = 09829-2) Abnormal [facility] [id number] 12:42:03* Test Item Value Reference Range Interpretation Comme nts NT-proBNP (test code = 3642603924) 72353 pg/mL <=450 H CATA (test code = CATA) Biotin has been reported to cause a negative bias, interpret results relative to patient's use of biotin. Lab Interpretation (test code = 27017-1) [facility]2023-[facility]-19 11:22:39* Test Item Value Reference Range Interpretation Comme nts MAGNESIUM (test code = 2535866510) 1.6 mg/dL 1.7-2.4 L Lab Interpretation (test cod e = 80130-6) [facility] (NA, K, CL, CO2, GLUCOSE, BUN, CREATININE, CA)2022-09-01 11:22:33* Test Item Value Reference Range Interpretation Comme nts NA (test code = 4837976168) 139 mmol/L 135-145 K (test code = 3154596738) 4.3 mmol/L 3.5-5.0 CL (test code = 5838559421) 102 mmol/L 98-108 CO2 TOTAL (test code = 4046826850) 25 mmol/L 23-31 AGAP (test code = 0991983920) 12 2-16 BUN (test code = 6045609999) 79 mg/dL 7-23 H GLUCOSE (test code = 8777470489) 203 mg/dL 70-110 H CREATININE (test code = 0048048264) 1.64 mg/dL 0.60-1.25 H CALCIUM (test code = 3145838685) 7.1 mg/dL 8.6-10.6 L eGFR (test code = 2873834867) 40.7 mL/min/1.73m2 CAAT (test code = CATA) Association of Glomerular [...] or abnormalities in imaging tests). Lab Interpretation (test code = 51855-1) Abnormal [facility] GLUCOSE (AUTOMATED)2022-09-01 02:45:08* Test Item Value Reference Range Interpretation Comme [facility] POCT GLU (test code = 2383594905) 277 mg/dL 70-110 H Lab Interpretation (test cod e = 12939-3) [facility] 22:03:31* Test Item Value Reference Range Interpretation Comme nts POCT GLU (test code = 4423174459) 266 mg/dL 70-110 H Lab Interpretation (test cod e = 23441-9) [facility]2022-08-31 17:56:20* Test Item Value Reference Range Interpretation Comme nts POCT GLU (test code = 0350682676) 241 mg/dL 70-110 H Lab Interpretation (test cod e = 71043-6) [facility]2022-08-31 13:23:49* Test Item Value Reference Range Interpretation Comme nts POCT GLU (test code = 0926179925) 135 mg/dL 70-110 H Lab Interpretation (test cod e = 02112-7) Abnormal [facility] GLUCOSE (AUTOMATED)2022-08-31 09:27:25* Test Item Value Reference Range Interpretation Comme nts POCT GLU (test code = 8206848544) 259 mg/dL 70-110 H Lab Interpretation (test cod e = 68145-7) Abnormal [facility] GLUCOSE (AUTOMATED)2022-08-31 04:57:24* Test Item Value Reference Range Interpretation Comme nts POCT GLU (test code = 0023063768) 420 mg/dL 70-110 H Lab Interpretation (test cod e = 07843-0) Abnormal [facility] GLUCOSE (AUTOMATED)2022-08-31 01:46:30* Test Item Value Reference Range Interpretation Comme nts POCT GLU (test code = 9273817420) 358 mg/dL 70-110 H Lab Interpretation (test cod e = 31633-4) [facility]2022-08-30 22:10:09* Test Item Value Reference Range Interpretation Comme nts POCT GLU (test code = 6765657531) 315 mg/dL 70-110 H Lab Interpretation (test cod e = 04939-1) [facility]2022-08-30 17:21:37* Test Item Value Reference Range Interpretation Comme nts POCT GLU (test code = 8331671886) 304 mg/dL 70-110 H Lab Interpretation (test cod e = 51649-9) [facility]2022-08-30 13:52:58* Test Item Value Reference Range Interpretation Comme nts POCT GLU (test code = 3905224253) 180 mg/dL 70-110 H Lab Interpretation (test cod e = 81795-0) [facility]2022-08-30 01:01:15* Test Item Value Reference Range Interpretation Comme nts POCT GLU (test code = 8607649564) 297 mg/dL 70-110 H Lab Interpretation (test cod e = 23683-0) Abnormal [facility] GLUCOSE (AUTOMATED)2022-08-29 22:26:37* Test Item Value Reference Range Interpretation Comme nts POCT GLU (test code = 1034742834) 319 mg/dL 70-110 H Lab Interpretation (test cod e = 94452-8) Abnormal [facility] GLUCOSE (AUTOMATED)2022-08-29 17:11:51* Test Item Value Reference Range Interpretation Comme nts POCT GLU (test code = 4320789862) 256 mg/dL 70-110 H Lab Interpretation (test cod e = 12052-4) [facility]2022-08-29 13:23:07* Test Item Value Reference Range Interpretation Comme nts POCT GLU (test code = 0299132864) 226 mg/dL 70-110 H Lab Interpretation (test cod e = 62565-3) [facility]2022-08-29 01:44:55* Test Item Value Reference Range Interpretation Comme nts POCT GLU (test code = 2726157036) 258 mg/dL 70-110 H Lab Interpretation (test cod e = 90290-9) [facility]2022-08-28 22:14:24* Test Item Value Reference Range Interpretation Comme nts POCT GLU (test code = 0841353286) 258 mg/dL 70-110 H Lab Interpretation (test cod e = 12806-9) Abnormal [facility] GLUCOSE (AUTOMATED)2022-08-28 16:56:34* Test Item Value Reference Range Interpretation Comme [facility] POCT GLU (test code = 4578758371) 290 mg/dL 70-110 H Lab Interpretation (test cod e = 81391-6) [facility]2022-08-28 12:23:24* Test Item Value Reference Range Interpretation Comme [facility] POCT GLU (test code = 5271563773) 101 mg/dL 70-110 Lab Interpretation (test cod e = 03748-0) Normal [facility] METABOLIC PANEL (NA, K, CL, CO2, GLUCOSE, BUN, CREATININE, CA)2022-08-28 11:32:42* Test Item Value Reference Range Interpretation Comme [facility] NA (test code = 0918003049) 145 mmol/L 135-145 K (test code = 8237183933) 2.4 mmol/L 3.5-5.0 LL CL (test code = 7589715861) 103 mmol/L 98-108 CO2 TOTAL (test code = 0711293252) 33 mmol/L 23-31 H AGAP (test code = 5328751639) 9 2-16 BUN (test code = 6395215603) 98 mg/dL 7-23 H GLUCOSE (test code = 9449066238) 88 mg/dL 70-110 CREATININE (test code = 7049971753) 1.78 mg/dL 0.60-1.25 H CALCIUM (test code = 2340944230) 6.2 mg/dL 8.6-10.6 L eGFR (test code = 4150598234) 37.1 mL/min/1.73m2 CATA (test code = CATA) Association of [...] or abnormalities in imaging tests). Lab Interpretation (test code = 02105-3) Abnormal [facility] WITH [id number] 09:18:37* Test Item Value Reference Range Interpretation Comme nts WBC (test code = 6690-2) 5.72 See_Comment [[employer]] The system which generated this result transmitted reference range: 4.20 - 10.70 10*3/?L. The reference range was not used to interpret this result as normal/abnormal. RBC (test code = 789-8) 2.94 See_Comment L [[employer]] The system which generated this result transmitted reference range: 4.26 - 5.52 10*6/?L. The reference range was not used to interpret this result as normal/abnormal. HGB (test code = 718-7) 8.1 g/dL 12.2-16.4 L HCT (test code = 4544-3) 25.7 % 38.4-49.3 L MCV (test code = 787-2) 87.4 fL 81.7-95.6 MCH (test code = 785-6) 27.6 pg 26.1-32.7 MCHC (test code = 786-4) 31.5 g/dL 31.2-35.0 RDW-SD (test code = 36382-8) 51.4 fL 38.5-51.6 RDW-CV (test code = 788-0) 16.1 % 12.1-15.4 H PLT (test code = 777-3) 174 See_Comment [Automated messa ge] The system which generated this result transmitted reference range: 150 - 328 10*3/?L. The reference range was not used to interpret this result as normal/abnormal. MPV (test code = 00955-5) 10.9 fL 9.8-13.0 NRBC/100 WBC (test code = 2952527680) 0.0 See_Comment [Automated [employer]] The system which generated this result transmitted reference range: 0.0 - 10.0 /100 WBCs. The reference range was not used to interpret this result as normal/abnormal. NRBC x10^3 (test code = 4757947033) See_Comment [Automated messa ge] The system which generated this result transmitted reference range: 10*3/?L. The reference range was not used to interpret this result as normal/abnormal. GRAN MAT (NEUT) % (test code = 770-8) 67.6 % IMM GRAN % (test code = 1561882328) 1.20 % LYMPH % (test code = 736-9) 17.7 % MONO % (test code = 5905-5) 12.6 % EOS % (test code = 713-8) 0.7 % BASO % (test code = 706-2) 0.2 % GRAN MAT x10^3(ANC) (test code = 8487400863) 3.87 10*3/uL 1.99-6.95 IMM GRAN x10^3 (test code = 1951276439) 0.07 10*3/uL 0.00-0.06 H LYMPH x10^3 (test code = 731-0) 1.01 10*3/uL 1.09-3.23 L MONO x10^3 (test code = 742-7) 0.72 10*3/uL 0.36-1.02 EOS x10^3 (test code = 711-2) 0.04 10*3/uL 0.06-0.53 L BASO x10^3 (test code = 704-7) 0.01-0.09 Lab Interpretation (test code = 32369-5) [facility] 07:11:11* Test Item Value Reference Range Interpretation Comme nts Procalcitonin (test code = 8760087187) 0.52 ng/mL <=0.07 H CATA (test code = CATA) INTERPRETATION OF [...] lung abscess/empyema. For further information please refer to:[email or web address] Lab Interpretation (test code = 34223-4) Abnormal [facility] GLUCOSE (AUTOMATED)2022-08-28 04:52:21* Test Item Value Reference Range Interpretation Comme nts POCT GLU (test code = 3838046911) 183 mg/dL 70-110 H Lab Interpretation (test cod e = 18552-8) [facility]normal [facility] [id number] 03:00:03* Test Item Value Reference Range Interpretation Comme nts TROPONIN I (test code = 4752841384) 0.072 ng/mL <=0.034 H CATA (test code = CATA) Reference (Normal) [...] patient's use of biotin. Lab Interpretation (test code = 49266-3) [facility]normal [facility] [id number] 02:48:03* Test Item Value Reference Range Interpretation Comme nts CK (test code = 4246624221) 71 U/L 33-194 Lab Interpretation (test cod e = 84139-2) Normal [facility] GLUCOSE (AUTOMATED)2022-08-28 01:42:51* Test Item Value Reference Range Interpretation Comme nts POCT GLU (test code = 2777588461) 329 mg/dL 70-110 H Lab Interpretation (test cod e = 31093-1) Abnormal [facility] GLUCOSE (AUTOMATED)2022-07-16 18:36:28* Test Item Value Reference Range Interpretation Comme nts POCT GLU (test code = 0972138452) 227 mg/dL 70-110 H Lab Interpretation (test cod e = 87817-0) Abnormal [facility] GLUCOSE (AUTOMATED)2022-07-16 13:24:09* Test Item Value Reference Range Interpretation Comme nts POCT GLU (test code = 1242290225) 246 mg/dL 70-110 H Lab Interpretation (test cod e = 18613-2) Abnormal [facility] GLUCOSE (AUTOMATED)2022-07-16 03:22:45* Test Item Value Reference Range Interpretation Comme nts POCT GLU (test code = 1583661403) 222 mg/dL 70-110 H Lab Interpretation (test cod e = 30700-2) Abnormal [facility] GLUCOSE (AUTOMATED)2022-07-15 22:38:20* Test Item Value Reference Range Interpretation Comme nts POCT GLU (test code = 6823033050) 239 mg/dL 70-110 H Lab Interpretation (test cod e = 20529-0) Abnormal [facility] GLUCOSE (AUTOMATED)2022-07-15 17:45:35* Test Item Value Reference Range Interpretation Comme nts POCT GLU (test code = 1362495996) 286 mg/dL 70-110 H Lab Interpretation (test cod e = 62907-6) Abnormal [facility] METABOLIC PANEL (NA, K, CL, CO2, GLUCOSE, BUN, CREATININE, CA)2022-07-15 14:04:22* Test Item Value Reference Range Interpretation Comme nts NA (test code = 8352938925) 145 mmol/L 135-145 K (test code = 5348325230) 4.6 mmol/L 3.5-5.0 CL (test code = 6996323848) 104 mmol/L 98-108 CO2 TOTAL (test code = 7226781362) 34 mmol/L 23-31 H AGAP (test code = 4739273813) 7 2-16 BUN (test code = 1296465054) 100 mg/dL 7-23 H GLUCOSE (test code = 9635466872) 177 mg/dL 70-110 H CREATININE (test code = 8228679226) 1.54 mg/dL 0.60-1.25 H CALCIUM (test code = 0266886320) 8.1 mg/dL 8.6-10.6 L eGFR (test code = 0958948980) 43.8 mL/min/1.73m2 CATA (test code = CATA) Association of [...] or abnormalities in imaging tests). Lab Interpretation (test code = 97966-0) [facility] 12:21:48* Test Item Value Reference Range Interpretation Comme nts PHOSPHORUS (test code = 5626528908) 3.4 mg/dL 2.5-5.0 Lab Interpretation (test cod e = 80844-4) Normal [facility] 12:21:48* Test Item Value Reference Range Interpretation Comme nts MAGNESIUM (test code = 3073798973) 2.3 mg/dL 1.7-2.4 Lab Interpretation (test cod e = 86912-3) Normal [facility] WITH [id number] 12:01:26* Test Item Value Reference Range Interpretation Comme nts WBC (test code = 6690-2) 6.59 See_Comment [Automated messa ge] The system which generated this result transmitted reference range: 4.20 - 10.70 10*3/?L. The reference range was not used to interpret this result as normal/abnormal. RBC (test code = 789-8) 4.73 See_Comment [Automated messa ge] The system which generated this result transmitted reference range: 4.26 - 5.52 10*6/?L. The reference range was not used to interpret this result as normal/abnormal. HGB (test code = 718-7) 13.4 g/dL 12.2-16.4 HCT (test code = 4544-3) 44.2 % 38.4-49.3 MCV (test code = 787-2) 93.4 fL 81.7-95.6 MCH (test code = 785-6) 28.3 pg 26.1-32.7 MCHC (test code = 786-4) 30.3 g/dL 31.2-35.0 L RDW-SD (test code = 04952-4) 51.8 fL 38.5-51.6 H RDW-CV (test code = 788-0) 14.9 % 12.1-15.4 PLT (test code = 777-3) 245 See_Comment [Automated messa ge] The system which generated this result transmitted reference range: 150 - 328 10*3/?L. The reference range was not used to interpret this result as normal/abnormal. MPV (test code = 04079-2) 9.8 fL 9.8-13.0 NRBC/100 WBC (test code = 6196922216) 0.0 See_Comment [Automated [employer] ssage] The system which generated this result transmitted reference range: 0.0 - 10.0 /100 WBCs. The reference range was not used to interpret this result as normal/abnormal. NRBC x10^3 (test code = 5893167409) See_Comment [Automated messa ge] The system which generated this result transmitted reference range: 10*3/?L. The reference range was not used to interpret this result as normal/abnormal. GRAN MAT (NEUT) % (test code = 770-8) 80.2 % IMM GRAN % (test code = 9221364390) 0.60 % LYMPH % (test code = 736-9) 8.5 % MONO % (test code = 5905-5) 10.2 % EOS % (test code = 713-8) 0.3 % BASO % (test code = 706-2) 0.2 % GRAN MAT x10^3(ANC) (test code = 8074985442) 5.29 10*3/uL 1.99-6.95 IMM GRAN x10^3 (test code = 1381695276) 0.04 10*3/uL 0.00-0.06 LYMPH x10^3 (test code = 731-0) 0.56 10*3/uL 1.09-3.23 L MONO x10^3 (test code = 742-7) 0.67 10*3/uL 0.36-1.02 EOS x10^3 (test code = 711-2) 0.06-0.53 L BASO x10^3 (test code = 704-7) 0.01-0.09 Lab Interpretation (test code = 59369-0) Abnormal [facility] GLUCOSE (AUTOMATED)2022-07-15 02:50:26* Test Item Value Reference Range Interpretation Comme nts POCT GLU (test code = 8741231262) 265 mg/dL 70-110 H Lab Interpretation (test cod e = 45122-9) Abnormal [facility] GLUCOSE (AUTOMATED)2022-07-14 23:14:44* Test Item Value Reference Range Interpretation Comme nts POCT GLU (test code = 1740088605) 290 mg/dL 70-110 H Lab Interpretation (test cod e = 66583-9) [facility] [id number] 19:41:55* Test Item Value Reference Range Interpretation Comme nts PTH-INTACT (test code = 4689663958) 116.4 pg/mL 12.0-88.0 H PTH-CA Interpretation (test code = 7106864323) Further clinical data needed for interpretation. CALCIUM (test code = 1278014879) 7.6 mg/dL 8.6-10.6 L Lab Interpretation (test code = 24096-4) [facility]normal [facility], [id number] 18:50:36* Test Item Value Reference Range Interpretation Comme [facility] VIT D 25OH (test code = 48081-6) 25-80 L CATA (test code = CATA) Deficiency: <20 ng/mLInsufficiency: 20-24 ng/mLOptimal: 25-80 ng/mL Lab Interpretation (test code = 77781-9) Abnormal [facility] GLUCOSE (AUTOMATED)2022-07-14 18:11:38* Test Item Value Reference Range Interpretation Comme nts POCT GLU (test code = 4100017525) 228 mg/dL 70-110 H Lab Interpretation (test cod e = 44296-7) Abnormal [facility] GLUCOSE (AUTOMATED)2022-07-14 13:37:32* Test Item Value Reference Range Interpretation Comme nts POCT GLU (test code = 5728146038) 211 mg/dL 70-110 H Lab Interpretation (test cod e = 68376-6) [facility]normal [facility] CenterVancom[facility] Random [id number] 11:45:18* Test Item Value Reference Range Interpretation Comme nts VANCO RANDOM (test code = 6321341946) 9.9 ug/mL [facility] 11:40:18* Test Item Value Reference Range Interpretation Comme nts PHOSPHORUS (test code = 1473858154) 6.1 mg/dL 2.5-5.0 H Lab Interpretation (test cod e = 62879-5) [facility] 11:40:18* Test Item Value Reference Range Interpretation Comme nts MAGNESIUM (test code = 8364226163) 2.6 mg/dL 1.7-2.4 H Lab Interpretation (test cod e = 47504-7) [facility]normal [facility] (NA, K, CL, CO2, GLUCOSE, BUN, CREATININE, CA)2022-07-14 11:40:18* Test Item Value Reference Range Interpretation Comme nts NA (test code = 7310858761) 141 mmol/L 135-145 K (test code = 2593351508) 4.9 mmol/L 3.5-5.0 CL (test code = 6864150844) 106 mmol/L 98-108 CO2 TOTAL (test code = 0997829284) 31 mmol/L 23-31 AGAP (test code = 1476136163) 4 2-16 BUN (test code = 9352934897) 113 mg/dL 7-23 H GLUCOSE (test code = 2616681399) 283 mg/dL 70-110 H CREATININE (test code = 3954924344) 2.46 mg/dL 0.60-1.25 H CALCIUM (test code = 1069086322) 7.6 mg/dL 8.6-10.6 L eGFR (test code = 8075842725) 25.5 mL/min/1.73m2 CATA (test code = CATA) Association of [...] or abnormalities in imaging tests). Lab Interpretation (test code = 99141-0) Abnormal [facility] WITH [id number] 10:24:08* Test Item Value Reference Range Interpretation Comme nts WBC (test code = 6690-2) 6.24 See_Comment [Automated messa ge] The system which generated this result transmitted reference range: 4.20 - 10.70 10*3/?L. The reference range was not used to interpret this result as normal/abnormal. RBC (test code = 789-8) 4.39 See_Comment [Automated messa ge] The system which generated this result transmitted reference range: 4.26 - 5.52 10*6/?L. The reference range was not used to interpret this result as normal/abnormal. HGB (test code = 718-7) 12.4 g/dL 12.2-16.4 HCT (test code = 4544-3) 41.0 % 38.4-49.3 MCV (test code = 787-2) 93.4 fL 81.7-95.6 MCH (test code = 785-6) 28.2 pg 26.1-32.7 MCHC (test code = 786-4) 30.2 g/dL 31.2-35.0 L RDW-SD (test code = 59108-8) 51.2 fL 38.5-51.6 RDW-CV (test code = 788-0) 14.8 % 12.1-15.4 PLT (test code = 777-3) 226 See_Comment [Automated messa ge] The system which generated this result transmitted reference range: 150 - 328 10*3/?L. The reference range was not used to interpret this result as normal/abnormal. MPV (test code = 26240-1) 9.7 fL 9.8-13.0 L NRBC/100 WBC (test code = 3159726933) 0.0 See_Comment [Automated [employer] ssage] The system which generated this result transmitted reference range: 0.0 - 10.0 /100 WBCs. The reference range was not used to interpret this result as normal/abnormal. NRBC x10^3 (test code = 8129151448) See_Comment [Automated messa ge] The system which generated this result transmitted reference range: 10*3/?L. The reference range was not used to interpret this result as normal/abnormal. GRAN MAT (NEUT) % (test code = 770-8) 86.5 % IMM GRAN % (test code = 5512052428) 0.50 % LYMPH % (test code = 736-9) 5.1 % MONO % (test code = 5905-5) 7.9 % EOS % (test code = 713-8) 0.0 % BASO % (test code = 706-2) 0.0 % GRAN MAT x10^3(ANC) (test code = 6281802772) 5.40 10*3/uL 1.99-6.95 IMM GRAN x10^3 (test code = 0451882793) 0.03 10*3/uL 0.00-0.06 LYMPH x10^3 (test code = 731-0) 0.32 10*3/uL 1.09-3.23 L MONO x10^3 (test code = 742-7) 0.49 10*3/uL 0.36-1.02 EOS x10^3 (test code = 711-2) 0.06-0.53 L BASO x10^3 (test code = 704-7) 0.01-0.09 Lab Interpretation (test code = 74758-1) Abnormal [facility] GLUCOSE (AUTOMATED)2022-07-14 10:01:30* Test Item Value Reference Range Interpretation Comme nts POCT GLU (test code = 6453265202) 281 mg/dL 70-110 H Lab Interpretation (test cod e = 08679-0) Abnormal [facility] GLUCOSE (AUTOMATED)2022-07-14 05:48:04* Test Item Value Reference Range Interpretation Comme nts POCT GLU (test code = 1166050424) 347 mg/dL 70-110 H Lab Interpretation (test cod e = 23276-6) Abnormal [facility] GLUCOSE (AUTOMATED)2022-07-14 03:20:12* Test Item Value Reference Range Interpretation Comme nts POCT GLU (test code = 4724954701) 420 mg/dL 70-110 H Notified Provide r Lab Interpretation (test code = 36369-8) Abnormal [facility] GLUCOSE (AUTOMATED)2022-07-14 03:20:12* Test Item Value Reference Range Interpretation Comme nts POCT GLU (test code = 7173896526) 324 mg/dL 70-110 H Lab Interpretation (test cod e = 86999-1) Abnormal [facility] GLUCOSE (AUTOMATED)2022-07-14 03:20:12* Test Item Value Reference Range Interpretation Comme nts POCT GLU (test code = 0664785882) 307 mg/dL 70-110 H Lab Interpretation (test cod e = 58339-2) Abnormal [facility] GLUCOSE (AUTOMATED)2022-07-14 02:58:06* Test Item Value Reference Range Interpretation Comme nts POCT GLU (test code = 2088241465) 318 mg/dL 70-110 H Lab Interpretation (test cod e = 18724-5) Abnormal [facility] GLUCOSE (AUTOMATED)2022-07-13 22:34:50* Test Item Value Reference Range Interpretation Comme nts POCT GLU (test code = 6010112598) 306 mg/dL 70-110 H Lab Interpretation (test cod e = 28088-5) [facility]normal [facility]CRE[facility] [id number] 22:30:56* Test Item Value Reference Range Interpretation Comme nts CK (test code = 4275207538) 1057 U/L 33-194 H Lab Interpretation (test cod e = 00471-9) Abnormal [facility] GLUCOSE (AUTOMATED)2022-07-13 17:41:03* Test Item Value Reference Range Interpretation Comme nts POCT GLU (test code = 0802233100) 308 mg/dL 70-110 H Lab Interpretation (test cod e = 15831-5) Abnormal [facility] GLUCOSE (AUTOMATED)2022-07-13 14:40:01* Test Item Value Reference Range Interpretation Comme nts POCT GLU (test code = 6659825582) 263 mg/dL 70-110 H Lab Interpretation (test cod e = 49035-2) [facility]normal [facility]2023-[facility]-28 11:03:10* Test Item Value Reference Range Interpretation Comme nts PHOSPHORUS (test code = 8783353200) 8.4 mg/dL 2.5-5.0 H Lab Interpretation (test cod e = 37274-5) [facility]normal [facility]2023-[facility]-28 11:03:10* Test Item Value Reference Range Interpretation Comme nts MAGNESIUM (test code = 2668580603) 2.9 mg/dL 1.7-2.4 H Lab Interpretation (test cod e = 47683-8) [facility] (NA, K, CL, CO2, GLUCOSE, BUN, CREATININE, CA)2022-07-13 11:03:09* Test Item Value Reference Range Interpretation Comme nts NA (test code = 3451261076) 139 mmol/L 135-145 K (test code = 2975028004) 5.0 mmol/L 3.5-5.0 CL (test code = 3050047362) 104 mmol/L 98-108 CO2 TOTAL (test code = 8399472174) 28 mmol/L 23-31 AGAP (test code = 9791926219) 7 2-16 BUN (test code = 7533587170) 107 mg/dL 7-23 H GLUCOSE (test code = 2807911875) 262 mg/dL 70-110 H CREATININE (test code = 1116136697) 3.03 mg/dL 0.60-1.25 H CALCIUM (test code = 9392986814) 7.4 mg/dL 8.6-10.6 L eGFR (test code = 4676952503) 20.1 mL/min/1.73m2 CATA (test code = CATA) Association of [...] or abnormalities in imaging tests). Lab Interpretation (test code = 00698-9) Abnormal [facility] WITH [id number] 10:21:03* Test Item Value Reference Range Interpretation Comme nts WBC (test code = 6690-2) 6.13 See_Comment [Automated [employer]] The system which generated this result transmitted reference range: 4.20 - 10.70 10*3/?L. The reference range was not used to interpret this result as normal/abnormal. RBC (test code = 789-8) 4.36 See_Comment [Automated [employer]] The system which generated this result transmitted reference range: 4.26 - 5.52 10*6/?L. The reference range was not used to interpret this result as normal/abnormal. HGB (test code = 718-7) 12.2 g/dL 12.2-16.4 HCT (test code = 4544-3) 40.8 % 38.4-49.3 MCV (test code = 787-2) 93.6 fL 81.7-95.6 MCH (test code = 785-6) 28.0 pg 26.1-32.7 MCHC (test code = 786-4) 29.9 g/dL 31.2-35.0 L RDW-SD (test code = 48099-2) 53.2 fL 38.5-51.6 H RDW-CV (test code = 788-0) 15.2 % 12.1-15.4 PLT (test code = 777-3) 196 See_Comment [Automated [employer]] The system which generated this result transmitted reference range: 150 - 328 10*3/?L. The reference range was not used to interpret this result as normal/abnormal. MPV (test code = 89928-2) 9.5 fL 9.8-13.0 L NRBC/100 WBC (test code = 1815965487) 0.0 See_Comment [Automated me ssage] The system which generated this result transmitted reference range: 0.0 - 10.0 /100 WBCs. The reference range was not used to interpret this result as normal/abnormal. NRBC x10^3 (test code = 0479424216) See_Comment [Automated messa ge] The system which generated this result transmitted reference range: 10*3/?L. The reference range was not used to interpret this result as normal/abnormal. GRAN MAT (NEUT) % (test code = 770-8) 91.6 % IMM GRAN % (test code = 2081914311) 0.30 % LYMPH % (test code = 736-9) 5.5 % MONO % (test code = 5905-5) 2.4 % EOS % (test code = 713-8) 0.0 % BASO % (test code = 706-2) 0.2 % GRAN MAT x10^3(ANC) (test code = 1771077487) 5.61 10*3/uL 1.99-6.95 IMM GRAN x10^3 (test code = 5787259494) 0.00-0.06 LYMPH x10^3 (test code = 731-0) 0.34 10*3/uL 1.09-3.23 L MONO x10^3 (test code = 742-7) 0.15 10*3/uL 0.36-1.02 L EOS x10^3 (test code = 711-2) 0.06-0.53 L BASO x10^3 (test code = 704-7) 0.01-0.09 Lab Interpretation (test code = 72626-8) Abnormal [facility] GLUCOSE (AUTOMATED)2022-07-13 01:55:13* Test Item Value Reference Range Interpretation Comme nts POCT GLU (test code = 6937816969) 194 mg/dL 70-110 H Lab Interpretation (test cod e = 18581-4) Abnormal [facility] GLUCOSE (AUTOMATED)2022-07-12 23:01:35* Test Item Value Reference Range Interpretation Comme nts POCT GLU (test code = 6378447983) 190 mg/dL 70-110 H Lab Interpretation (test cod e = 84046-9) [facility]normal [facility] [id number] 18:51:11* Test Item Value Reference Range Interpretation Comme nts NT-proBNP (test code = 5280121215) 1780 pg/mL <=450 H CATA (test code = CATA) Biotin has been reported to cause a negative bias, interpret results relative to patient's use of biotin. Lab Interpretation (test code = 87673-8) [facility]normal [facility] CenterCREAT[facility] [id number] 18:43:09* Test Item Value Reference Range Interpretation Comme nts CK (test code = 0575350012) 782 U/L 33-194 H Lab Interpretation (test cod e = 64050-7) [facility]normal [facility] (NA, K, CL, CO2, GLUCOSE, BUN, CREATININE, CA)2022-07-12 18:43:09* Test Item Value Reference Range Interpretation Comme nts NA (test code = 8467450931) 137 mmol/L 135-145 K (test code = 6982073600) 4.8 mmol/L 3.5-5.0 CL (test code = 5383693297) 104 mmol/L 98-108 CO2 TOTAL (test code = 4329315869) 26 mmol/L 23-31 AGAP (test code = 7966974297) 7 2-16 BUN (test code = 9193330058) 102 mg/dL 7-23 H GLUCOSE (test code = 0758061217) 160 mg/dL 70-110 H CREATININE (test code = 5387193286) 2.83 mg/dL 0.60-1.25 H CALCIUM (test code = 2598133944) 7.3 mg/dL 8.6-10.6 L eGFR (test code = 5757963777) 21.7 mL/min/1.73m2 CATA (test code = CATA) Association of [...] or abnormalities in imaging tests). Lab Interpretation (test code = 89687-2) [facility]normal [facility] 20 + Lactic [id number] 18:20:56* Test Item Value Reference Range Interpretation Comme nts PH (test code = 2) 7.40 7.35-7.45 PCO2 (test code = 0083933019) 41 See_Comment [Automated [employer]] The system which generated this result transmitted reference range: 35 - 45 mmHg. The reference range was not used to interpret this result as normal/abnormal. PO2 (test code = 7895594818) 81 See_Comment [Automated messa ge] The system which generated this result transmitted reference range: 80 - 100 mmHg. The reference range was not used to interpret this result as normal/abnormal. HCO3 (test code = 1406885973) 25 See_Comment [Automated [employer]] The system which generated this result transmitted reference range: 22 - 26 mEq/L. The reference range was not used to interpret this result as normal/abnormal. BE (test code = 6042541906) 0.2 See_Comment [Automated [employer]] The system which generated this result transmitted reference range: -3.0 - 3.0 mEq/L. The reference range was not used to interpret this result as normal/abnormal. THB (test code = 9155691578) 13.1 g/dL 13.5-18.0 L %O2HB (test code = 2111283580) 93.5 % 94.0-99.0 L %COHB ART (test code = 1613985175) 1.7 % 0.0-1.5 H %METHB ART (test code = 7648929692) 0.6 % 0.4-1.5 VOL%O2 ART (test code = 3992589343) 17.3 % 15.0-23.0 NA (test code = 3068021043) 138 mmol/L 135-145 K+ (test code = 7636170891) 4.7 mmol/L 3.5-5.0 AC CA IONZ (test code = 6007543426) 4.10 mg/dL 4.50-5.30 L GLUCOSE (test code = 2734228225) 164 mg/dL 70-110 H LACTIC ACID (test code = 9600103675) 0.72 mmol/L 0.50-2.20 Lab Interpretation (test code = 56706-1) Abnormal [facility] GLUCOSE (AUTOMATED)2022-07-12 18:10:06* Test Item Value Reference Range Interpretation Comme nts POCT GLU (test code = 1434854301) 168 mg/dL 70-110 H Lab Interpretation (test cod e = 06516-3) Abnormal [facility] GLUCOSE (AUTOMATED)2022-07-12 13:33:16* Test Item Value Reference Range Interpretation Comme nts POCT GLU (test code = 1757510129) 158 mg/dL 70-110 H Lab Interpretation (test cod e = 28970-9) Abnormal [facility] GLUCOSE (AUTOMATED)2022-07-12 02:54:47* Test Item Value Reference Range Interpretation Comme nts POCT GLU (test code = 9085561572) 161 mg/dL 70-110 H Lab Interpretation (test cod e = 56667-3) Abnormal [facility] GLUCOSE (AUTOMATED)2022-07-11 23:35:31* Test Item Value Reference Range Interpretation Comme nts POCT GLU (test code = 9102476362) 177 mg/dL 70-110 H Lab Interpretation (test cod e = 58270-6) [facility] 21:37:32* Test Item Value Reference Range Interpretation Comme nts POCT GLU (test code = 0569979483) 212 mg/dL 70-110 H Lab Interpretation (test cod e = 11718-8) [facility]normal [facility]2022-07-11 18:03:13* Test Item Value Reference Range Interpretation Comme nts POCT GLU (test code = 5537384326) 223 mg/dL 70-110 H Lab Interpretation (test cod e = 53355-3) [facility]2022-[facility]-11 14:41:26* Test Item Value Reference Range Interpretation Comme nts POCT GLU (test code = 5693817903) 185 mg/dL 70-110 H Lab Interpretation (test cod e = 60806-2) Abnormal [facility] GLUCOSE (AUTOMATED)2022-07-11 13:16:28* Test Item Value Reference Range Interpretation Comme nts POCT GLU (test code = 9626192713) 215 mg/dL 70-110 H Lab Interpretation (test cod e = 59459-5) [facility]2022-07-11 02:55:24* Test Item Value Reference Range Interpretation Comme nts POCT GLU (test code = 5750754677) 266 mg/dL 70-110 H Lab Interpretation (test cod e = 84760-0) [facility]normal [facility]2022-07-10 23:12:15* Test Item Value Reference Range Interpretation Comme nts POCT GLU (test code = 2175687936) 181 mg/dL 70-110 H Lab Interpretation (test cod e = 09535-6) [facility]normal [facility]2022-07-10 18:06:30* Test Item Value Reference Range Interpretation Comme nts POCT GLU (test code = 5850369780) 195 mg/dL 70-110 H Lab Interpretation (test cod e = 06990-5) Abnormal [facility] GLUCOSE (AUTOMATED)2022-07-10 14:26:08* Test Item Value Reference Range Interpretation Comme nts POCT GLU (test code = 8292374747) 114 mg/dL 70-110 H Lab Interpretation (test cod e = 78377-3) Abnormal [facility] GLUCOSE (AUTOMATED)2022-07-10 02:54:41* Test Item Value Reference Range Interpretation Comme nts POCT GLU (test code = 5043256014) 171 mg/dL 70-110 H Lab Interpretation (test cod e = 26447-3) Abnormal [facility] GLUCOSE (AUTOMATED)2022-07-09 21:44:03* Test Item Value Reference Range Interpretation Comme nts POCT GLU (test code = 8927939586) 152 mg/dL 70-110 H Lab Interpretation (test cod e = 49761-5) Abnormal [facility] GLUCOSE (AUTOMATED)2022-07-09 18:10:11* Test Item Value Reference Range Interpretation Comme nts POCT GLU (test code = 5441757065) 176 mg/dL 70-110 H Lab Interpretation (test cod e = 68615-9) Abnormal [facility] GLUCOSE (AUTOMATED)2022-07-09 13:58:10* Test Item Value Reference Range Interpretation Comme nts POCT GLU (test code = 2813928140) 122 mg/dL 70-110 H Lab Interpretation (test cod e = 76956-2) Abnormal [facility] GLUCOSE (AUTOMATED)2022-07-09 07:26:45* Test Item Value Reference Range Interpretation Comme nts POCT GLU (test code = 1081244699) 208 mg/dL 70-110 H Lab Interpretation (test cod e = 35044-2) Abnormal [facility] GLUCOSE (AUTOMATED)2022-07-09 03:38:49* Test Item Value Reference Range Interpretation Comme nts POCT GLU (test code = 1192917050) 313 mg/dL 70-110 H Lab Interpretation (test cod e = 90025-7) Abnormal [facility] GLUCOSE (AUTOMATED)2022-07-09 00:00:27* Test Item Value Reference Range Interpretation Comme nts POCT GLU (test code = 7498690864) 295 mg/dL 70-110 H Lab Interpretation (test cod e = 29517-5) Abnormal [facility] GLUCOSE (AUTOMATED)2022-07-08 22:45:20* Test Item Value Reference Range Interpretation Comme nts POCT GLU (test code = 5870051424) 182 mg/dL 70-110 H Lab Interpretation (test cod e = 07064-2) Abnormal [facility] GLUCOSE (AUTOMATED)2022-07-08 17:31:11* Test Item Value Reference Range Interpretation Comme nts POCT GLU (test code = 0454689358) 157 mg/dL 70-110 H Lab Interpretation (test cod e = 70414-7) Abnormal [facility] GLUCOSE (AUTOMATED)2022-07-08 13:22:18* Test Item Value Reference Range Interpretation Comme nts POCT GLU (test code = 8958828733) 315 mg/dL 70-110 H Lab Interpretation (test cod e = 45557-4) Abnormal [facility] GLUCOSE (AUTOMATED)2022-07-08 03:19:18* Test Item Value Reference Range Interpretation Comme nts POCT GLU (test code = 4008746244) 153 mg/dL 70-110 H Lab Interpretation (test cod e = 57593-9) Abnormal [facility] GLUCOSE (AUTOMATED)2022-07-07 22:31:16* Test Item Value Reference Range Interpretation Comme nts POCT GLU (test code = 0530139604) 189 mg/dL 70-110 H Lab Interpretation (test cod e = 42392-3) Abnormal [facility] GLUCOSE (AUTOMATED)2022-07-07 17:39:20* Test Item Value Reference Range Interpretation Comme nts POCT GLU (test code = 8199580672) 127 mg/dL 70-110 H Lab Interpretation (test cod e = 02517-6) Abnormal [facility] GLUCOSE (AUTOMATED)2022-07-07 14:58:59* Test Item Value Reference Range Interpretation Comme nts POCT GLU (test code = 8580239297) 131 mg/dL 70-110 H Lab Interpretation (test cod e = 96020-5) Abnormal [facility] GLUCOSE (AUTOMATED)2022-07-07 13:58:11* Test Item Value Reference Range Interpretation Comme nts POCT GLU (test code = 7925243694) 66 mg/dL 70-110 L Lab Interpretation (test cod e = 56953-2) Abnormal [facility] GLUCOSE (AUTOMATED)2022-07-07 02:32:10* Test Item Value Reference Range Interpretation Comme nts POCT GLU (test code = 8329582143) 153 mg/dL 70-110 H Lab Interpretation (test cod e = 81321-2) Abnormal [facility] GLUCOSE (AUTOMATED)2022-07-06 22:52:13* Test Item Value Reference Range Interpretation Comme nts POCT GLU (test code = 4414550078) 135 mg/dL 70-110 H Lab Interpretation (test cod e = 61307-6) Abnormal [facility] GLUCOSE (AUTOMATED)2022-07-06 18:05:47* Test Item Value Reference Range Interpretation Comme nts POCT GLU (test code = 4781034709) 170 mg/dL 70-110 H Lab Interpretation (test cod e = 89276-2) Abnormal [facility] GLUCOSE (AUTOMATED)2022-07-06 13:41:06* Test Item Value Reference Range Interpretation Comme nts POCT GLU (test code = 0024228557) 112 mg/dL 70-110 H Lab Interpretation (test cod e = 45367-2) Abnormal [facility] GLUCOSE (AUTOMATED)2022-07-06 11:56:40* Test Item Value Reference Range Interpretation Comme nts POCT GLU (test code = 9522827616) 112 mg/dL 70-110 H Lab Interpretation (test cod e = 26745-6) Abnormal [facility] GLUCOSE (AUTOMATED)2022-07-06 11:19:55* Test Item Value Reference Range Interpretation Comme nts POCT GLU (test code = 7271545281) 75 mg/dL 70-110 Lab Interpretation (test cod e = 36724-7) Normal [facility] GLUCOSE (AUTOMATED)2022-07-06 10:45:01* Test Item Value Reference Range Interpretation Comme nts POCT GLU (test code = 8051552393) 65 mg/dL 70-110 L Lab Interpretation (test cod e = 63089-7) Abnormal [facility] GLUCOSE (AUTOMATED)2022-07-06 10:26:42* Test Item Value Reference Range Interpretation Comme nts POCT GLU (test code = 5848903481) 26 mg/dL 70-110 LL Lab Interpretation (test cod e = 12604-4) Abnormal [facility] GLUCOSE (AUTOMATED)2022-07-06 04:40:48* Test Item Value Reference Range Interpretation Comme nts POCT GLU (test code = [id number]) 92 mg/dL 70-110 Lab Interpretation (test cod e = 82852-5) Normal [facility] GLUCOSE (AUTOMATED)2022-07-06 03:26:01* Test Item Value Reference Range Interpretation Comme nts POCT GLU (test code = [id number]) 61 mg/dL 70-110 L Lab Interpretation (test cod e = 10103-8) Abnormal [facility] HEMOGLOBIN A1C [id number] 21:48:00* Test Item Value Reference Range Interpretation Comme nts POCT HBA1C (test code = 4548-4) 9.4 % 4-6 A Lab Interpretation (test cod e = 26753-8) Abnormal [facility] HEMOGLOBIN A1C [id number] 21:48:00* Test Item Value Reference Range Interpretation Comme nts POCT HBA1C (test code = 4548-4) 9.4 % 4-6 A Lab Interpretation (test cod e = 26862-6) Abnormal [facility] Consult Notes Date/Time Note Provider Source 2024-06-27 12:41:27 UROLOGY CONSULTATION NOTE Requesting Provider: Billy Date of Service: 06/27/2024 Chief Complaint: SPC History of Present Illness: We were asked to see this patient to give my opinion regarding Marion Schneider, 83 year old, male, PMH as below who presents with hx Metastatic prostate CA. Chronic retention of urine, indwelling bladder catheter. Urology note reviewed, cont f/u Dr. Stovall. Hx of bacteriuria, complete course of empiric Abx started by IM team SPC placed [address] [facility] Histories: Past Medical History: Diagnosis Date DM (diabetes mellitus) HTN (hypertension) Hyperlipidemia No past surgical history on file. No family history on file. Social History Socioeconomic History Marital status: Number of children: 5 Highest education level: Some college, no degree Occupational History Occupation: Retired Tobacco Use Smoking status: Never Passive exposure: Past Smokeless tobacco: Never Substance and Sexual Activity Alcohol use: Yes Alcohol/week: 2.0 standard drinks of alcohol Types: 2 Cans of beer per week Drug use: Never 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 Social Determinants of Health Financial Resource Strain: Low Risk (10/27/2023) Overall Financial Resource Strain (CARDIA) Difficulty of Paying Living Expenses: Not hard at all Food Insecurity: No Food Insecurity (06/22/2024) NCSS - Food Insecurity Worried About Running Out of Food in the Last Year: No Ran Out of Food in the Last Year: No Transportation Needs: No Transportation Needs (06/22/2024) NCSS - Transportation Lack of Transportation: No Physical Activity: Inactive (10/27/2023) Exercise Vital Sign Days of Exercise per Week: 0 days Minutes of Exercise per Session: 0 min Social Connections: Unknown (10/27/2023) Social Connection and Isolation Panel [NHANES] Frequency of Communication with Friends and Family: Three times a week Marital Status: Housing Stability: Not At Risk (06/22/2024) NCSS - Housing/Utilities Has Housing: Yes Worried About Losing Housing: No Unable to Get Utilities: No Allergies: No Known Allergies Review of Systems: Reviewed previous ROS Constitutional: negative Eyes: negative Ears, nose, mouth, throat: negative Cardiovascular: negative Respiratory: negative Gastrointestinal: negative Genitourinary: (+) per HPI Musculoskeletal: negative Integumentary: negative Neurological: negative Psychiatric: negative Endocrine: negative Hematologic/Lymphatic: negative Allergic/Immunologic: negative, allergies listed above Physical Exam: Blood pressure (!) 161/63, pulse 55, temperature 36.4 ?C (97.6 ?F), resp. rate 18, height 1.829 m (6'), weight 110 kg (242 lb 8 oz), SpO2 91%. Constitutional: no acute distress Eyes: normal external eye, conjunctiva and sclera normal Ears, nose, mouth, throat: normocephalic, moist mucous membranes Cardiovascular: regular rate and rhythm, peripheral pulses 2+ in bilateral upper extremities Respiratory: respirations unlabored on room air Gastrointestinal: soft, non-distended, non tender, 18 Fr SPC Genitourinary: circumcised, normal phallus, bilateral descended testes Rectal: deferred Musculoskeletal: no clubbing, cyanosis or edema Skin: no rashes Neurologic: alert and oriented x3 Psychiatric: appropriate mood and affect Hematologic: no bruising Laboratory: Procedure: Aseptic technique SPC exchanged with [address] jacques, 10 cc in the balloon an draining clear urine, new bag attached Assessment/Recommendations: 83 year old male h Principal Problem: Fever, unspecified fever cause JACQUELINE , UTI MDR - rest as per primary - follow up with Dr Stovall at [facility] for SPC exchange q 4 weeks and metastatic prostate cancer Narayan Pulido MD [facility] 2024-06-26 09:50:00 Associated Order(s): CONSULT ADULT PHYSICAL THERAPY Patient agreeable to working with physical therapy. Patient semireclining in bed and Heels offloaded? No: not required as patient is alert and oriented, as well as exhibits sufficient LE strength and ability to move/reposition LEs/heels throughout the day, No visitors present. Recommend nursing staff utilize Contact guard assist to safely assist patient with mobility out of the bed or chair. PHYSICAL THERAPY EVALUATION Consult received, chart reviewed and evaluation complete this date. Patient is referred to PT for evaluation and treatment. Patient is a 83 year old male who presents to hospital for Fever, unspecified fever cause [R50.9]. Discharge Recommendations: Therapy Needs and Potential: Patient would benefit from continued physical therapy services to address: decline in bed mobility decline in transfers decline in gait and/or balance decreased strength Challenges to Home Transition: increased risk of falls decreased safety awareness Equipment recommendations: Patient has or access to necessary equipment Current Functional Status and/or Treatment: AM-PAC 6 Clicks (Raw Score 0=Dependent, 24=Independent; Low function Raw Score 0= Dependent, 32=Independent): Raw Score - Basic Mobility : 18 T-Scale Score - Basic Mobility : 41.05 Bed Mobility: Rolling: Supervision Bridging: Supervision Supine-sit: Supervision Sit to supine: Supervision Sitting balance Good Pt utilized bed rails to help him sit up on EOB. Dizziness Yes, Pt was educated on deep breathing exercise to help with symptoms. Transfers: Sit to stand: Minimal Assistance using RW Stand to sit: Minimal Assistance using RW Static/dynamic standing balance: Good Verbal cueing provided for correct hand placement and correct use of AD PT on CGA to help the Pt for transfer as a precaution for fall. Dizziness No Ambulation: Assisted patient with ambulation as follows: 15 feet using RW and Minimal Assistance. Pt was able to walk around hospital room to a recliner. PT on CGA as a precaution for fall. Dizziness No Therapeutic exercise: patient educated in Deep breathing, Fall prevention, General strengthening, Relaxation/breathing techniques, and Safety awareness. After session, patient sitting upright in bedside chair and Heels offloaded? No: not required as patient is alert and oriented, as well as exhibits sufficient LE strength and ability to move/reposition LEs/heels throughout the day, No visitors present. Call button provided. PT informed RN of Pt status. PLAN OF CARE: While in the hospital, PT will follow patient at least 2 times per week,once or twice a day, per patient's tolerance and needs. See below for complete details. Admit Date: 06/21/2024 Hospital Diagnosis:Fever, unspecified fever cause [R50.9] PT Diagnosis: Difficulty walking and Weakness Weight Bearing Precaution: NA General Precautions: PPE used:Gloves, Gown, and Surgical mask (Contact precaution, MDRO), General, Fall,Jacques catheter Bracing/Cast present or required:N/A PMH: Past Medical History: Diagnosis Date DM (diabetes mellitus) HTN (hypertension) Hyperlipidemia PSH: No past surgical history on file. PRIOR LIVING SITUATION: in a house and with their son, DME: Rolling Walker Prior level of Mobility: ambulates with RW Suspected ischemic or hemorraghic stroke:No Subjective: Pt did not complain of pain during PT evaluation. Patient/Family Goals: To get better Patient/Family verbalizes understanding of condition: Yes PAIN: denies pain before and after session COMMUNICATION Primary Language: Citizen Of [place] Able to Verbalize needs: Yes Vision:good; no issues reported Hearing:good; no issues reported ORIENTATION/COGNITION: Oriented to: person, place, and situation Awake: Yes Alert: Yes Dizzy: Yes, during supine to sit activities. Follows Commands: Yes 1-Step Yes Multi-Step Yes Inconsistent: No NEUROLOGICAL Light Touch: within functional limits bilateral LE BALANCE: Sitting: Static: Good Dynamic: Good Standing: Static: Good Dynamic: Good RANGE OF MOTION: within functional limits bilateral LE STRENGTH: 4-/5 (G-), bilateral LE ENDURANCE: Good, Nasal canula SKIN INTEGRITY: intact PROBLEM LIST: Decline in gait, Decline in transfers, and Safety awareness deficits ASSESSMENT: Patient is a 83 year old male seen secondary to the above listed diagnosis. Patient would benefit from continued PT to address the above listed deficits to maximize independence and safety with functional mobility. Rehabilitation Potential: excellent Goals: The following goals are to maximize independence and safety with functional mobility to eventually return to prior living situation and prior functional status. Upon discharge, patient and/or family will demonstrate the followin. Rolling: Supervision Bridging: Supervision Supine-sit: Supervision Sit to supine: Supervision Sitting balance Excellent 2. Sit to stand: Supervision using RW Stand to sit: Supervision using RW 3. Supervision with ambulation, Feet: 40 using least assistive device. Treatment Plan: Gait training, Therapeutic exercise, Transfer training, Bed mobility training, and Safety education, patient/caregiver education PATIENT EDUCATION: Patient provided with preferred teaching of verbal information and demonstration on role of PT, plan of care, and goals. Shows readiness to learn. Verbal instruction and Demonstration teaching provided. Individual is able to read and verbalizes understanding of teaching provided. Total Time Tx Codes in Minutes: 20 min Total Treatment Time in Minutes: 25 min Shanelle Dias PT [place] Lic No. [id number] [facility] Department of Physical Therapy [facility] 2024-06-22 15:43:49 Associated Order(s): CONSULT NEPHROLOGY Nephrology Consult Admit Date: 06/21/2024 PCP: [place] Referring Physician: Tevin Coley MD Reason for Referral: JACQUELINE/ CKD Admitting Dx: Fever, unspecified fever cause [R50.9] CHIEF COMPLAINT: Other (No appetite ) HISTORY OF PRESENT ILLNESS: Marion Schneider is a 83 year old male that presented to the ER with fever. 83 yo male with pmh of DM, HTN, HLD, CKD, history of prostate cancer who presents to the ED secondary to fever (100.2), confusion, and urinary problems that started prior to arrival. It appears that patient's home health nurse attempted to replace jacques catheter, but was unable to reinsert catheter. Since then he has had urinary hesitancy (leaking and dribbling). ROS as stated above. All other ROS negative. Temp: [36.7 ?C (98.1 ?F)-37.7 ?C (99.9 ?F)] Heart Rate (monitor): [61-67] Pulse: [61-84] Resp: [17-29] BP: (107-150)/(37-63) MAP (mmHg): [59-92] PE: Gen: NAD HEENT: NCAT. MMM. Neck: Supple. No LAD. Lungs: Normal respiratory effort/ CTA CVS: RRR Abd: Soft. NT. +BS Ext: No C/C. 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 Continue current POC and Medications other than the changes listed. AM labs as ordered. Daily weight recommended. Stage I JACQUELINE may be due to hypovolemia CKD III with Proteinuria -No NSAIDs -Start IVF Hypocalcemia -Increase Calcitriol -Continue Oscal -Replete as ordered HTN with CKD/ CHF -Continue Hydralazine Diastolic CHF, chronic -Daily weight DM II with CKD -Continue Lantus -RISS Anemia in chronic illness -Monitor H&H CKD MBD HyperParathyroidism Vitamin D3 Deficiency Hypocalcemia -Increase Calcitriol -Continue Oscal -Replete as ordered -Start Ergo Prostate Cancer s/p SupraPubic Catheter -Continue finasteride -Continue Flomax Acute Cystitis with Hematuria -Continue Rocephin Thank you kindly for the consultation. Vitals: 06/22/24 0346 06/22/24 0744 06/22/24 1108 06/22/24 1539 BP: 120/47 114/45 125/46 110/45 Pulse: 71 66 77 66 Resp: 18 19 19 17 Temp: 37.7 ?C (99.9 ?F) 36.8 ?C (98.3 ?F) 36.8 ?C (98.2 ?F) 36.8 ?C (98.2 ?F) TempSrc: SpO2: 91% 98% 95% 95% Weight: Height: LABS - reviewed in the chart: CBC BMP PT/INR WBC x10 3 (/CMM) Date Value 07/11/2003 5.8 WBC (10*3/?L) Date Value 06/22/2024 8.18 NA (mmol/L) Date Value 06/22/2024 136 No results found for: "PT" RBC x10 6 (/CMM) Date Value 07/11/2003 4.34 RBC (10*6/?L) Date Value 06/22/2024 3.52 (L) K (mmol/L) Date Value 06/22/2024 3.7 PT INR (no units) Date Value 07/11/2003 1.0 INR (no units) Date Value 10/08/2019 1.0 PLT x10 3 (/CMM) Date Value 07/11/2003 147 (L) PLT (10*3/?L) Date Value 06/22/2024 154 CALCIUM (mg/dL) Date Value 06/22/2024 5.8 (LL) HGB Date Value 06/22/2024 10.5 g/dL (L) 07/11/2003 13.0 G/DL (L) CL (mmol/L) Date Value 06/22/2024 106 aPTT HCT (%) Date Value 06/22/2024 31.7 (L) 07/11/2003 37.6 BUN (mg/dL) Date Value 06/22/2024 59 (H) APTT (SEC) Date Value 07/11/2003 28 APTT Patient (Seconds) Date Value 10/08/2019 35 CREATININE (mg/dL) Date Value 06/22/2024 3.00 (H) IMAGING - reviewed in the chart: Hospital Encounter on 06/21/24 XR Chest 1 vw Narrative Exam: Chest (1 View), 06/21/2024 6:00 PM. Ordering Physician: HAIDER DONOHUE. History: Sepsis.. Technique: AP view of the chest. Technical Quality: Adequate. Comparison: Chest radiograph 10/26/2023. Findings: Stable cardiomegaly. No pleural effusion or pneumothorax. Bilateral lung base minimal groundglass opacities and small pulmonary nodules are most likely atypical pneumonia. No acute osseous abnormality. Minimal dextroconvex curvature of the thoracic spine. Impression Impression: Bilateral lung base minimal groundglass opacities and small pulmonary nodules are most likely atypical pneumonia. Follow-up chest radiograph in 4-6 weeks is recommended to assess for change or resolution of the pulmonary nodules. RL: 460 End of report. MEDICAL HISTORY Past Medical History: Diagnosis Date DM (diabetes mellitus) HTN (hypertension) Hyperlipidemia No past surgical history on file. ALLERGIES No Known Allergies MEDICATIONS reviewed in the chart. Current Facility-Administered Medications Medication Dose Route Frequency Last Rate Last Admin azithromycin (ZITHROMAX) tablet 500 mg 500 mg Oral DAILY calcitrioL (ROCALTROL) capsule 0.5 mcg 0.5 mcg Oral BIDPC [START ON 06/23/2024] calcium carbonate (OSCAL-500) tablet 500 mg 500 mg Oral BID MEALS cefTRIAXone (ROCEPHIN) 1,000 mg in water for injection, sterile 10 mL IV Push 1,000 mg Slow IV Push Q24H ABX heparin (porcine) injection 5,000 Units 5,000 Units Subcutaneous Q8H 5,000 Units at 06/22/24 1557 acetaminophen (TYLENOL) tablet 650 mg 650 mg Oral Q6HPRN atorvastatin (LIPITOR) tablet 10 mg 10 mg Oral QHS dextrose 50 % in water (D50W) injection 25 mL 25 mL Slow IV Push PRN docusate (COLACE) capsule 100 mg 100 mg Oral BID finasteride (PROSCAR) tablet 5 mg 5 mg Oral DAILY 5 mg at 06/22/24 0824 glucagon HCL injection 1 mg 1 mg Intramuscular PRN hydrALAZINE (APRESOLINE) tablet 100 mg 100 mg Oral TID 100 mg at 06/22/24 0823 insulin glargine (LANTUS U-100) injection 20 Units 20 Units Subcutaneous BID 10 Units at 06/22/24 0823 ondansetron (ZOFRAN (PF)) injection 4 mg 4 mg Slow IV Push Q6HPRN Sliding Scale Insulin-Regular Subcutaneous AC+HS 1 Units at 06/22/24 1136 tamsulosin (FLOMAX) capsule 0.4 mg 0.4 mg Oral DAILY 0.4 mg at 06/22/24 0824 traMADoL (ULTRAM) tablet 50 mg 50 mg Oral Q8HPRN 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 Social Determinants of Health Financial Resource Strain: Low Risk (10/27/2023) Overall Financial Resource Strain (CARDIA) Difficulty of Paying Living Expenses: Not hard at all Food Insecurity: No Food Insecurity (06/22/2024) NCSS - Food Insecurity Worried About Running Out of Food in the Last Year: No Ran Out of Food in the Last Year: No Transportation Needs: No Transportation Needs (06/22/2024) NCSS - Transportation Lack of Transportation: No Physical Activity: Inactive (10/27/2023) Exercise Vital Sign Days of Exercise per Week: 0 days Minutes of Exercise per Session: 0 min Social Connections: Unknown (10/27/2023) Social Connection and Isolation Panel [NHANES] Frequency of Communication with Friends and Family: Three times a week Marital Status: Housing Stability: Not At Risk (06/22/2024) NCSS - Housing/Utilities Has Housing: Yes Worried About Losing Housing: No Unable to Get Utilities: No FAMILY History Obesity [facility] 2023-10-27 11:05:02 Associated Order(s): CONSULT ADULT PHYSICAL THERAPY Patient agreeable to working with physical therapy. Patient met semi reclined in bed. Recommend nursing staff utilize min A to safely assist patient with mobility out of the bed or chair. PHYSICAL THERAPY EVALUATION Consult received, chart reviewed and evaluation complete this date. Patient is referred to PT for evaluation and treatment. Patient is a 82 year old male who presents to hospital for Fever, unspecified fever cause [R50.9] . Discharge Recommendations: Therapy Needs and Potential: Patient would benefit from continued physical therapy services to address: decline in bed mobility decline in transfers decline in gait and/or balance decreased strength decreased endurance Challenges to Home Transition: increased risk of falls decreased safety awareness Equipment recommendations: Patient has or access to necessary equipment Current Functional Status and/or Treatment: AM-PAC 6 Clicks (Raw Score 0=Dependent, 24=Independent; Low function Raw Score 0= Dependent, 32=Independent): Raw Score - Basic Mobility : 16 T-Scale Score - Basic Mobility : 38.32 Bed Mobility: Rolling: Minimal Assistance Educated on log rolling onto side. Dizziness No Transfers: Sit to stand: Supervision using rolling Walker. Stand to sit: Supervision using rolling Walker. Educated on pushing up on stable surface. Dizziness No Ambulation: Assisted patient with ambulation as follows: 24 feet using rolling Walker. and Minimal Assistance. For safety purposes. Dizziness No Therapeutic exercise: patient educated in Fall prevention and General strengthening. After session, patient semi reclined in bed. Call button provided. PLAN OF CARE: While in the hospital, PT will follow patient at least 3 times per week,once or twice a day, per patient's tolerance and needs. See below for complete details. Admit Date: 10/26/2023 Hospital Diagnosis:Fever, unspecified fever cause [R50.9] PT Diagnosis: Difficulty walking, Weakness, and Malaise/fatigue Weight Bearing Precaution: WBAT General Precautions: Fall,Jacques catheter, oxygen: Nasal canula Bracing/Cast present or required:N/A PMH: Past Medical History: Diagnosis Date DM (diabetes mellitus) HTN (hypertension) Hyperlipidemia PSH: History reviewed. No pertinent surgical history. Prior Living Situation: lives with their family and in a house DME: Rolling Walker Prior level of Mobility: community ambulation, house hold ambulation, ambulates with personal RW Suspected ischemic or hemorraghic stroke:No Subjective: Pt came into the hospital due to pneumonia and UTI. He is feeling better today. Patient/Family Goals: Be able to go home. Patient/Family verbalizes understanding of condition: Yes PAIN: denies pain before and after session COMMUNICATION Primary Language: Citizen Of [place] Able to Verbalize needs: Yes Vision:good; no issues reported Hearing:good; no issues reported ORIENTATION/COGNITION: Oriented to: person, place, date/time, and situation Awake: Yes Alert: Yes Dizzy: No Follows Commands: Yes 1-Step Yes Multi-Step Yes Inconsistent: No NEUROLOGICAL Light Touch: within functional limits bilateral LE BALANCE: Sitting: Static: Good Dynamic: Good Standing: Static: Good Dynamic: Good RANGE OF MOTION: within functional limits bilateral LE STRENGTH: 4/5 (Good), bilateral LE ENDURANCE: Fair+, Nasal canula 2 L O2 SKIN INTEGRITY: intact, PROBLEM LIST: Decline in bed mobility, Decline in gait, Decline in transfers, Decreased strength, Decreased endurance, and Decreased balance ASSESSMENT: Patient is a 82 year old male seen secondary to the above listed diagnosis. Patient would benefit from continued PT to address the above listed deficits to maximize independence and safety with functional mobility. Rehabilitation Potential: good Goals: The following goals are to maximize independence and safety with functional mobility to eventually return to prior living situation and prior functional status. Upon discharge, patient and/or family will demonstrate the followin. Rolling: Independent Bridging: Independent Sit to supine: Independent Scooting to edge of bed: Independent 2. Sit to stand: Independent using rolling Walker. Stand to sit: Independent using rolling Walker. 3. Supervision with ambulation, Feet: 50 using least assistive device. Treatment Plan: Gait training, Therapeutic exercise, Transfer training, and Balance training PATIENT EDUCATION: Patient provided with preferred teaching of verbal information on role of PT, plan of care. Shows readiness to learn. Verbal instruction teaching provided. Individual is able to read and verbalizes understanding of teaching provided and accurately returns demonstration of skill. Total Time Tx Codes in Minutes: 15 min Total Treatment Time in Minutes: 20 min Latesha Valderrama PT [place] PT License [id number] [facility] Department (phone) (fax) [facility] Latesha Valderrama PT [facility] 2023-10-27 11:00:52 Associated Order(s): CONSULT NEPHROLOGY Renal consult completed 10/27/23 [facility] History and Physical Notes Date/Time Note Provider Source 2024-06-21 20:46:55 [facility] ADMIT H&P Date of Service: 06/21/2024 CHIEF COMPLAINT: fever, confusion, and urinary problem Subjective History of Present Illness 83 yo male with pmh of DM, HTN, HLD, CKD, history of prostate cancer who presents to the ED secondary to fever (100.2), confusion, and urinary problems that started prior to arrival. It appears that patient's home health nurse attempted to replace jacques catheter, but was unable to reinsert catheter. Since then he has had urinary hesitancy (leaking and dribbling). PAST MEDICAL HISTORY Past Medical History: Diagnosis Date DM (diabetes mellitus) HTN (hypertension) Hyperlipidemia Past Surgical History Unable to obtain Past Family History Unable to obtain ALLERGIES No Known Allergies MEDICATIONS No current facility-administered medications on file prior to encounter. Current Outpatient Medications on File Prior to Encounter Medication Sig Dispense Refill SPIRONOLACTONE 25 mg tablet TAKE 1 TABLET BY MOUTH IN THE MORNING 30 tablet 0 TAMSULOSIN 0.4 mg 24 hr capsule Take 1 capsule by mouth in the morning 30 capsule 0 bumetanide 1 mg tablet TAKE 1 TABLET BY MOUTH IN THE MORNING AND 1 IN THE EVENING 60 tablet 2 hydrALAZINE 100 mg tablet Take 1 tablet by mouth in the morning and 1 tablet at noon and 1 tablet in the evening. 90 tablet 11 insulin glargine 100 unit/mL injection 40 am and 35 pm 10 mL 11 dapagliflozin propanediol (FARXIGA) 10 mg tablet Take 1 tablet by mouth in the morning. 30 tablet 11 furosemide 40 mg tablet 1 tablet Orally Once a day HYDROcodone-acetaminophen 5-325 mg tablet 1 tablet as needed Orally every 6 hrs pravastatin 20 mg tablet 1 tablet Orally Once a day SANTYL 250 unit/gram ointment atorvastatin 10 mg tablet Take 1 tablet by mouth at bedtime. 30 tablet 11 HUMALOG U-100 INSULIN 100 unit/mL solution INJECT 6 UNITS SUBCUTANEOUSLY IN THE MORNING AND 6 UNITS AT NOON AND 6 UNITS IN THE EVENING WITH MEALS docusate 100 mg capsule Take 1 capsule by mouth in the morning and 1 capsule in the evening. 90 capsule 3 finasteride 5 mg tablet Take 1 tablet by mouth in the morning. 90 tablet 3 magnesium oxide 400 mg (241.3 mg magnesium) tablet Take 1 tablet by mouth in the morning. 90 tablet 3 I attest that the foregoing medication list in the medical record is true, accurate and complete to the best of my knowledge. 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 Social Determinants of Health Financial Resource Strain: Low Risk (10/27/2023) Overall Financial Resource Strain (CARDIA) Difficulty of Paying Living Expenses: Not hard at all Food Insecurity: No Food Insecurity (10/27/2023) Hunger Vital Sign Worried About Running Out of Food in the Last Year: Never true Ran Out of Food in the Last Year: Never true Transportation Needs: No Transportation Needs (08/30/2022) PRAPARE - Transportation Lack of Transportation (Medical): No Lack of Transportation (Non-Medical): No Physical Activity: Inactive (10/27/2023) Exercise Vital Sign Days of Exercise per Week: 0 days Minutes of Exercise per Session: 0 min Social Connections: Unknown (10/27/2023) Social Connection and Isolation Panel [NHANES] Frequency of Communication with Friends and Family: Three times a week Marital Status: Housing Stability: Low Risk (10/27/2023) Housing Stability Vital Sign Unable to Pay for Housing in the Last Year: No Number of Places Lived in the Last Year: 1 Unstable Housing in the Last Year: No REVIEW OF SYSTEMS Review of Systems Constitutional: Positive for fever. Negative for activity change, appetite change, chills, diaphoresis, fatigue and unexpected weight change. HENT: Negative. Eyes: Negative. Respiratory: Negative. Breasts: Negative. Cardiovascular: Negative. Gastrointestinal: Negative. Genitourinary: Positive for bladder incontinence. Negative for dysuria, urgency, frequency, hematuria, flank pain, decreased urine volume, discharge, penile swelling, scrotal swelling, enuresis, difficulty urinating, genital sores, penile pain, testicular pain and nocturia. Musculoskeletal: Negative. Skin: Negative. Neurological: Negative. Psychiatric/Behavioral: Positive for confusion. Negative for agitation, behavioral problems, decreased concentration, dysphoric mood, hallucinations, self-injury, sleep disturbance and suicidal ideas. The patient is not nervous/anxious and is not hyperactive. Endocrine: Endocrine negative Objective PHYSICAL EXAMINATION Vitals: 06/21/24 1753 06/21/24 1800 06/21/24 1900 06/21/241999 BP: 127/54 107/43 (!) 114/37 Pulse: 63 62 61 Resp: 28 29 23 Temp: 38.1 ?C (100.5 ?F) 37.6 ?C (99.6 ?F) 37.6 ?C (99.6 ?F) TempSrc: Oral Tympanic Oral SpO2: 94% 93% 94% Weight: 250 lb (113.4 kg) Height: 6' (1.829 m) Physical Exam Vitals and nursing note reviewed. Constitutional: General: He is not in acute distress. Appearance: Normal appearance. He is not ill-appearing, toxic-appearing or diaphoretic. HENT: Head: Normocephalic and atraumatic. Right Ear: External ear normal. Left Ear: External ear normal. Nose: Nose normal. No congestion or rhinorrhea. Eyes: General: No scleral icterus. Extraocular Movements: Extraocular movements intact. Conjunctiva/sclera: Conjunctivae normal. Pupils: Pupils are equal, round, and reactive to light. Cardiovascular: Rate and Rhythm: Normal rate and regular rhythm. Pulmonary: Effort: Pulmonary effort is normal. Breath sounds: Normal breath sounds. Abdominal: General: Abdomen is flat. Bowel sounds are normal. There is no distension. Palpations: Abdomen is soft. Tenderness: There is no abdominal tenderness. There is no guarding. Musculoskeletal: General: Normal range of motion. Cervical back: Normal range of motion and neck supple. Right lower leg: No edema. Left lower leg: No edema. Skin: General: Skin is warm. Neurological: Mental Status: He is alert. Psychiatric: Mood and Affect: Mood normal. Behavior: Behavior normal. Thought Content: Thought content normal. Judgment: Judgment normal. LABS/IMAGING - reviewed Exam: Chest (1 View), 06/21/2024 6:00 PM. Ordering Physician: HAIDER DONOHUE. History: Sepsis.. Technique: AP view of the chest. Technical Quality: Adequate. Comparison: Chest radiograph 10/26/2023. Findings: Stable cardiomegaly. No pleural effusion or pneumothorax. Bilateral lung base minimal groundglass opacities and small pulmonary nodules are most likely atypical pneumonia. No acute osseous abnormality. Minimal dextroconvex curvature of the thoracic spine. IMPRESSION Impression: Bilateral lung base minimal groundglass opacities and small pulmonary nodules are most likely atypical pneumonia. Follow-up chest radiograph in 4-6 weeks is recommended to assess for change or resolution of the pulmonary nodules. Assessment & Plan Marion Schneider is a 83 year old male with PMH as listed above, admitted to the hospital with: Acute cystitis/Fever/Acute on chronic kidney disease: -- Will continue with intravenous ceftriaxone -- Urine culture is pending -- Nephrology -- Will need to get urology consult for replacement of his suprapubic catheter Hypocalcemia: -- Will replace calcium gluconate and repeat calcium levels 3. Acute diarrhea: noted by his bedside nurse -- Stool studies (eg, culture, occult blood, clostridium difficle) 4. DM: -- Will order for insulin sliding scale 5. HTN: -- Will resume hydralazine 6. HLD -- Will continue with Lipitor Prophylaxis: DVT- heparin Code Status: Full Code Estimated LOS: This inpatient admission will likely require greater than or equal to 2 Midnights. Management is not feasible as an outpatient and there is concern for adverse outcomes if not managed in an inpatient setting. Advance care planning discussed for 18 mins with patient at bedside. Surrogate decision maker: Ernesto Clarkblsaravinder (child) - [facility] 2023-10-27 02:04:35 MEDICINE [facility] ADMIT H&P Date of Service: 10/27/2023 CHIEF COMPLAINT: altered mental status, fever Subjective History of Present Illness 82 yo male with pmh of DM, HTN, HLD who presents to the ED secondary to altered mental status and fever. Last normal was AxOX2. All he recalls is that he is in the hospital because of a "pee bag" problem. He denies any fever, chills, abdominal pain, or hematuria. PAST MEDICAL HISTORY Past Medical History: Diagnosis Date DM (diabetes mellitus) HTN (hypertension) Hyperlipidemia Past Surgical History None reported Past Family History Noncontributory ALLERGIES No Known Allergies MEDICATIONS No current facility-administered medications on file prior to encounter. Current Outpatient Medications on File Prior to Encounter Medication Sig Dispense Refill SPIRONOLACTONE 25 mg tablet TAKE 1 TABLET BY MOUTH IN THE MORNING 30 tablet 0 TAMSULOSIN 0.4 mg 24 hr capsule Take 1 capsule by mouth in the morning 30 capsule 0 bumetanide 1 mg tablet TAKE 1 TABLET BY MOUTH IN THE MORNING AND 1 IN THE EVENING 60 tablet 2 hydrALAZINE 100 mg tablet Take 1 tablet by mouth in the morning and 1 tablet at noon and 1 tablet in the evening. 90 tablet 11 insulin glargine 100 unit/mL injection 40 am and 35 pm 10 mL 11 dapagliflozin propanediol (FARXIGA) 10 mg tablet Take 1 tablet by mouth in the morning. 30 tablet 11 furosemide 40 mg tablet 1 tablet Orally Once a day HYDROcodone-acetaminophen 5-325 mg tablet 1 tablet as needed Orally every 6 hrs pravastatin 20 mg tablet 1 tablet Orally Once a day SANTYL 250 unit/gram ointment atorvastatin 10 mg tablet Take 1 tablet by mouth at bedtime. 30 tablet 11 HUMALOG U-100 INSULIN 100 unit/mL solution INJECT 6 UNITS SUBCUTANEOUSLY IN THE MORNING AND 6 UNITS AT NOON AND 6 UNITS IN THE EVENING WITH MEALS docusate 100 mg capsule Take 1 capsule by mouth in the morning and 1 capsule in the evening. 90 capsule 3 finasteride 5 mg tablet Take 1 tablet by mouth in the morning. 90 tablet 3 magnesium oxide 400 mg (241.3 mg magnesium) tablet Take 1 tablet by mouth in the morning. 90 tablet 3 I attest that the foregoing medication list in the medical record is true, accurate and complete to the best of my knowledge. 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 Social Determinants of Health Financial Resource Strain: Low Risk (08/30/2022) Overall Financial Resource Strain (CARDIA) Difficulty of Paying Living Expenses: Not hard at all Food Insecurity: No Food Insecurity (08/30/2022) Hunger Vital Sign Worried About Running Out of Food in the Last Year: Never true Ran Out of Food in the Last Year: Never true Transportation Needs: No Transportation Needs (08/30/2022) PRAPARE - Transportation Lack of Transportation (Medical): No Lack of Transportation (Non-Medical): No Physical Activity: Insufficiently Active (08/30/2022) Exercise Vital Sign Days of Exercise per Week: 2 days Minutes of Exercise per Session: 10 min Social Connections: Unknown (08/30/2022) Social Connection and Isolation Panel [NHANES] Frequency of Communication with Friends and Family: More than three times a week Marital Status: Housing Stability: Low Risk (08/30/2022) Housing Stability Vital Sign Unable to Pay for Housing in the Last Year: No Number of Places Lived in the Last Year: 1 Unstable Housing in the Last Year: No REVIEW OF SYSTEMS Review of Systems Constitutional: Positive for fever. Negative for activity change, appetite change, chills, diaphoresis, fatigue and unexpected weight change. HENT: Negative. Eyes: Negative. Respiratory: Negative. Breasts: Negative. Cardiovascular: Negative. Gastrointestinal: Negative. Genitourinary: Negative. Musculoskeletal: Negative. Skin: Negative. Neurological: Negative. Psychiatric/Behavioral: Positive for confusion. Negative for agitation, behavioral problems, decreased concentration, dysphoric mood, hallucinations, self-injury, sleep disturbance and suicidal ideas. The patient is not nervous/anxious and is not hyperactive. Endocrine: Endocrine negative Objective PHYSICAL EXAMINATION Vitals: 10/26/23 2300 10/26/23 2326 10/27/23 0009 10/27/23 0031 BP: 130/47 (!) 145/45 106/44 BP Location: Left arm Patient Position: Supine Pulse: 75 70 63 Resp: 18 18 Temp: 37.7 ?C (99.9 ?F) 36.7 ?C (98.1 ?F) TempSrc: Oral SpO2: 98% 96% 93% Weight: 117.9 kg (259 lb 14.8 oz) Height: 1.829 m (6' 0.01") PF: (!) 2 L/min Physical Exam Vitals and nursing note reviewed. Constitutional: General: He is not in acute distress. Appearance: Normal appearance. He is not ill-appearing, toxic-appearing or diaphoretic. HENT: Head: Normocephalic and atraumatic. Right Ear: External ear normal. Left Ear: External ear normal. Nose: Nose normal. No congestion. Mouth/Throat: Mouth: Mucous membranes are moist. Pharynx: No oropharyngeal exudate or posterior oropharyngeal erythema. Eyes: General: No scleral icterus. Extraocular Movements: Extraocular movements intact. Conjunctiva/sclera: Conjunctivae normal. Pupils: Pupils are equal, round, and reactive to light. Cardiovascular: Rate and Rhythm: Normal rate and regular rhythm. Heart sounds: No murmur heard. No friction rub. No gallop. Pulmonary: Effort: Pulmonary effort is normal. No respiratory distress. Breath sounds: Normal breath sounds. No wheezing or rales. Chest: Chest wall: No tenderness. Abdominal: General: Abdomen is flat. Bowel sounds are normal. There is no distension. Palpations: Abdomen is soft. Tenderness: There is no abdominal tenderness. There is no guarding. Musculoskeletal: General: Normal range of motion. Cervical back: Normal range of motion and neck supple. Right lower leg: Edema (trace) present. Left lower leg: Edema (trace) present. Skin: General: Skin is warm and dry. Neurological: Mental Status: He is alert. Psychiatric: Mood and Affect: Mood normal. Behavior: Behavior normal. Thought Content: Thought content normal. Judgment: Judgment normal. LABS/IMAGING - reviewed EXAM: XR CHEST 1 VW COMPARISON: Chest x-ray 09/04/2022 HISTORY: AMS FINDINGS: Lungs: The lung volumes are normal No focal opacities. No pleural abnormality. Heart/Mediastinum: The cardiac silhouette appears enlarged. Bones and soft tissues: No acute osseous findings are detected. IMPRESSION No acute cardiopulmonary process. Assessment & Plan Marion Schneider is a 82 year old male with PMH as listed above, admitted to the hospital with: Acute cystitis: -- Will continue with intravenous antibiotics -- Nausea and pain control -- Urine culture is pending DM: -- Will continue with insulin glargine as well as insulin sliding scale HTN: -- Will continue with hydralazine and spironolactone HLD -- Will continue with pravastatin Prophylaxis: DVT- enoxaparin Code Status: Full Code Estimated LOS: This inpatient admission will likely require greater than or equal to 2 Midnights. Management is not feasible as an outpatient and there is concern for adverse outcomes if not managed in an inpatient setting. Advance care planning discussed for 18 mins with patient at bedside. Surrogate decision maker: Ernesto Schneider (child) - [facility] Notes Date/Time Note Provider Source 2024-06-27 18:03:12 Problem: Falls, Risk of Goal: Absence of falls Outcome: Adequate for discharge Problem: Pain Goal: Reduction in pain sensation Outcome: Adequate for discharge Problem: Discharge Planning Goal: Adequate for discharge Outcome: Adequate for discharge Problem: Venous Thromboembolism, (actual or risk of) Goal: Prevent further complications associated with VTE diagnosis (Actual) Outcome: Adequate for discharge Problem: Respiratory Function - Impaired Goal: Able to cough effectively Outcome: Adequate for discharge Goal: Adequate oxygenation Outcome: Adequate for discharge Goal: Adequate work of breathing Outcome: Adequate for discharge HOUSE RECEIVER Zayra Mart RN [facility] 2024-06-27 16:32:48 Problem: Falls, Risk of Goal: Absence of falls Outcome: Adequate for discharge Problem: Pain Goal: Reduction in pain sensation Outcome: Adequate for discharge Problem: Discharge Planning Goal: Adequate for discharge Outcome: Adequate for discharge Problem: Venous Thromboembolism, (actual or risk of) Goal: Prevent further complications associated with VTE diagnosis (Actual) Outcome: Adequate for discharge Problem: Respiratory Function - Impaired Goal: Able to cough effectively Outcome: Adequate for discharge Goal: Adequate oxygenation Outcome: Adequate for discharge Goal: Adequate work of breathing Outcome: Adequate for discharge [facility] 2024-06-27 04:26:27 Problem: Falls, Risk of Goal: Absence of falls Outcome: Progressing as expected Problem: Pain Goal: Reduction in pain sensation Outcome: Progressing as expected Problem: Respiratory Function - Impaired Goal: Able to cough effectively Outcome: Progressing as expected Goal: Adequate oxygenation Outcome: Progressing as expected Goal: Adequate work of breathing Outcome: Progressing as expected Hays RN [facility] 2024-06-26 12:37:04 Problem: Falls, Risk of Goal: Absence of falls Outcome: Progressing as expected Problem: Pain Goal: Reduction in pain sensation Outcome: Progressing as expected Problem: Discharge Planning Goal: Adequate for discharge Outcome: Progressing as expected Problem: Venous Thromboembolism, (actual or risk of) Goal: Prevent further complications associated with VTE diagnosis (Actual) Outcome: Progressing as expected Problem: Respiratory Function - Impaired Goal: Able to cough effectively Outcome: Progressing as expected Goal: Adequate oxygenation Outcome: Progressing as expected Goal: Adequate work of breathing Outcome: Progressing as expected HOUSE RECEIVER Yessy Ayala RN [facility] 2024-06-25 21:11:38 Problem: Falls, Risk of Goal: Absence of falls Outcome: Progressing as expected Problem: Pain Goal: Reduction in pain sensation Outcome: Progressing as expected Problem: Discharge Planning Goal: Adequate for discharge Outcome: Progressing as expected Problem: Venous Thromboembolism, (actual or risk of) Goal: Prevent further complications associated with VTE diagnosis (Actual) Outcome: Progressing as expected Problem: Respiratory Function - Impaired Goal: Able to cough effectively Outcome: Progressing as expected Goal: Adequate oxygenation Outcome: Progressing as expected Goal: Adequate work of breathing Outcome: Progressing as expected HOUSE RECEIVER Kristan Higuera RN [facility] 2024-06-24 23:42:08 Problem: Falls, Risk of Goal: Absence of falls Outcome: Progressing as expected Problem: Pain Goal: Reduction in pain sensation Outcome: Progressing as expected Problem: Discharge Planning Goal: Adequate for discharge Outcome: Progressing as expected Problem: Venous Thromboembolism, (actual or risk of) Goal: Prevent further complications associated with VTE diagnosis (Actual) Outcome: Progressing as expected Problem: Respiratory Function - Impaired Goal: Able to cough effectively Outcome: Progressing as expected Goal: Adequate oxygenation Outcome: Progressing as expected Goal: Adequate work of breathing Outcome: Progressing as expected HOUSE RECEIVER Lola Morel RN [facility] 2024-06-24 18:12:00 Problem: Falls, Risk of Goal: Absence of falls Outcome: Progressing as expected Problem: Pain Goal: Reduction in pain sensation Outcome: Progressing as expected Problem: Discharge Planning Goal: Adequate for discharge Outcome: Progressing as expected Problem: Venous Thromboembolism, (actual or risk of) Goal: Prevent further complications associated with VTE diagnosis (Actual) Outcome: Progressing as expected Problem: Respiratory Function - Impaired Goal: Able to cough effectively Outcome: Progressing as expected Goal: Adequate oxygenation Outcome: Progressing as expected Goal: Adequate work of breathing Outcome: Progressing as expected [facility] Iris Goldstein RN [facility] 2024-06-24 01:01:14 Problem: Falls, Risk of Goal: Absence of falls Outcome: Progressing as expected Problem: Pain Goal: Reduction in pain sensation Outcome: Progressing as expected Problem: Discharge Planning Goal: Adequate for discharge Outcome: Progressing as expected Problem: Venous Thromboembolism, (actual or risk of) Goal: Prevent further complications associated with VTE diagnosis (Actual) Outcome: Progressing as expected [facility] 2024-06-23 12:17:46 Problem: Falls, Risk of Goal: Absence of falls Outcome: Progressing as expected Problem: Pain Goal: Reduction in pain sensation Outcome: Progressing as expected Problem: Discharge Planning Goal: Adequate for discharge Outcome: Progressing as expected Problem: Venous Thromboembolism, (actual or risk of) Goal: Prevent further complications associated with VTE diagnosis (Actual) Outcome: Progressing as expected Problem: Respiratory Function - Impaired Goal: Able to cough effectively Outcome: Progressing as expected Goal: Adequate oxygenation Outcome: Progressing as expected Goal: Adequate work of breathing Outcome: Progressing as expected [facility] 2024-06-23 05:09:12 Problem: Falls, Risk of Goal: Absence of falls Outcome: Progressing as expected Problem: Pain Goal: Reduction in pain sensation Outcome: Progressing as expected Problem: Discharge Planning Goal: Adequate for discharge Outcome: Progressing as expected Problem: Venous Thromboembolism, (actual or risk of) Goal: Prevent further complications associated with VTE diagnosis (Actual) Outcome: Progressing as expected Problem: Respiratory Function - Impaired Goal: Able to cough effectively Outcome: Progressing as expected Goal: Adequate oxygenation Outcome: Progressing as expected Goal: Adequate work of breathing Outcome: Progressing as expected [facility] 2024-06-22 16:46:34 Problem: Falls, Risk of Goal: Absence of falls Outcome: Progressing as expected Problem: Pain Goal: Reduction in pain sensation Outcome: Progressing as expected Problem: Discharge Planning Goal: Adequate for discharge Outcome: Progressing as expected Problem: Venous Thromboembolism, (actual or risk of) Goal: Prevent further complications associated with VTE diagnosis (Actual) Outcome: Progressing as expected Problem: Respiratory Function - Impaired Goal: Able to cough effectively Outcome: Progressing as expected Goal: Adequate oxygenation Outcome: Progressing as expected Goal: Adequate work of breathing Outcome: Progressing as expected [facility] Vilma Kapoor RN [facility] 2024-06-22 06:37:51 Spoke to lab about adding on Procalcitonin level that was ordered by Dr. Merida. It was confirmed that it could be added on and This was sent out which takes 1-2 days. [facility] 2024-06-22 00:08:06 Problem: Falls, Risk of Goal: Absence of falls Outcome: Progressing as expected Problem: Pain Goal: Reduction in pain sensation Outcome: Progressing as expected Problem: Discharge Planning Goal: Adequate for discharge Outcome: Progressing as expected [facility] 2024-06-21 21:51:03 Patient admitted to [facility] Med surg for diagnosis of fever. Patient agrees to admission, discussed plan of care with patient and family. Patient is awake, A&Ox4, RR even and unlabored on RA. Color appropriate for race. PIV intact x1. No adverse reaction to medications administered while in ED. Belongings with patient to unit. HOUSE RECEIVER Tatyana Roland RN [facility] 2024-06-21 21:38:52 Nurse Report Report given to Med Surg Nurse. Chief complaint, assessment findings, infusion verify and orders reviewed. Tatyana Roland RN HOUSE RECEIVER [facility] 2024-06-21 17:47:00 Pt arrived via [facility] from home states son called due to pt not wanting to eat today, pt had a fever for EMS 100.2F, hx prostate cancer, has jacques in place with hazy nella colored urine. Pt states he is not in any pain, just has no appetite. EMS gave 100ml NS. Pt came with [id number] DNR in place HOUSE RECEIVER Krysta Campos RN [facility] 2024-01-22 22:28:03 Pt given printed and verbal discharge instructions regarding Encounter for jacques catheter replacement Pt verbalized understanding of instructions, pt awake alert oriented, resp reg unlabored, skin w/d, color appropriate for race, moves all ext well,pt encouraged to follow up with pcp Advised to seek medical attention for new/prolonged/worsening of symptoms Awake, alert oriented, resp reg unlabored, skin w/d, pt leaving amb with steady gait, in no apparent distress Iris Love RN [facility] 2024-01-22 21:24:02 CC: Pt's home health nurse attempted to replace jacques catheter, but was unable to reinsert catheter. Pt states he is leaking everywhere. Awake, alert, oriented, resp reg unlabored, skin intact, color appropriate for race, moves all ext without difficulty, amb with walker Glenna Izquierdo RN [facility] - Health 2024-01-22 21:10:00 [facility] Emergency Department Note Patient Name: Marion Schneider Date of : 1940 83 year old male Treatment Room: Room/bed info not found Primary Care Physician: Mallory Cameron Patient Escorted by: Family [5] Mode of Arrival: Personal means [1] EMS Treatment Prior to ED Arrival: Travel and Exposure Screening: Symptoms Does patient have any of these symptoms?: (not recorded) Exposure Screening Has patient had contact with someone with a communicable disease in the last month?: (not recorded) Diseases exposed to:: (not recorded) Is Patient ?: (not recorded) Exposure Date: (not recorded) Chief Complaint: Chief Complaint Patient presents with Other Needs urinary catheter History of Present Illness: This patient relates that he had his Jacques catheter removed and that the nurse was unable to replace it. The patient only relates leaking and dribbling now. History provided by: Patient Difficulty Urinating Presenting symptoms comment: Patient has incontinence and difficulty completely emptying his bladder. Relieved by: Nothing Worsened by: Nothing Associated symptoms: no abdominal pain and no fever Past Medical History/Immunizations: Past Medical History: Diagnosis Date DM (diabetes mellitus) HTN (hypertension) Hyperlipidemia Tetanus received in last 5 years: Unknown Allergies: No Known Allergies Past Social History: Tobacco Use Never smoked or used smokeless tobacco. Passive Exposure: Past Alcohol Use Yes; 2.0 standard drinks of alcohol per week; 2 Cans of beer. Drug Use Never. Past Surgical History: History reviewed. No pertinent surgical history. Review of Systems: Review of Systems Constitutional: Negative for chills and fever. Gastrointestinal: Negative for abdominal pain. Genitourinary: Positive for difficulty urinating. Physical Exam: ED Triage Vitals [01/22/242126] Weight 113.4 kg (250 lb) Actual or estimated Estimated by patient/family report Height 1.829 m (6') BP 103/51 Pulse 65 Resp 16 Temp 37.4 ?C (99.3 ?F) Temp source Oral SpO2 100 % Measured on Room air Physical Exam Constitutional: Appearance: He is not ill-appearing. HENT: Head: Normocephalic and atraumatic. Cardiovascular: Rate and Rhythm: Normal rate and regular rhythm. Pulmonary: Effort: Pulmonary effort is normal. Breath sounds: Normal breath sounds. Abdominal: General: There is no distension. Palpations: Abdomen is soft. Tenderness: There is no abdominal tenderness. There is no guarding or rebound. Musculoskeletal: Cervical back: Neck supple. No rigidity. Skin: General: Skin is warm. Capillary Refill: Capillary refill takes less than 2 seconds. Coloration: Skin is not jaundiced or pale. Neurological: Mental Status: He is alert. Radiology: No orders to display Lab Results: Lab Results - No data to display EKG: If EKG completed, see Procedure Note. Orders and Treatments: Orders Placed This Encounter Procedures Urinalysis No orders of the defined types were placed in this encounter. First Provider Eval: ED Events Date/Time Event User Comments 01/22/242127 Medical Screening Begins LEO PARDO DO -- 01/22/242127 First Provider Evaluation LEO PARDO DO -- ED COURSE Diagnosis/Impression as of 01/22/242154 Encounter for Jacques catheter replacement Procedures: Procedures MDM: Medical Decision Making Patient was evaluated for the complaint of Other (Needs urinary catheter) Diagnoses considered but not limited to: Urinary retention Chronic incontinence Dysfunctional Jacques BPH. Labs:were not ordered. Imaging:Was not ordered Procedures:were not performed. History, physical exam findings, results of visit, diagnosis, medication regimens and plan of future care have been considered. Additional MDM may be found in the ED course. Vital signs were rechecked before final disposition and determined to be stable. Flowsheet Documentation: The Jacques catheter was placed by nursing staff. Scoring Tools: No data recorded Disposition/Condition: ED Disposition ED Disposition Disch - Home Condition Stable Comment -- Discharge Medications: Patient's Medications START taking these medications No medications on file CONTINUE taking these medications which have NOT CHANGED ATORVASTATIN 10 MG TABLET Take 1 tablet by mouth at bedtime. BUMETANIDE 1 MG TABLET TAKE 1 TABLET BY MOUTH IN THE MORNING AND 1 IN THE EVENING DAPAGLIFLOZIN PROPANEDIOL (FARXIGA) 10 MG TABLET Take 1 tablet by mouth in the morning. DOCUSATE 100 MG CAPSULE Take 1 capsule by mouth in the morning and 1 capsule in the evening. FINASTERIDE 5 MG TABLET Take 1 tablet by mouth in the morning. FUROSEMIDE 40 MG TABLET 1 tablet Orally Once a day HUMALOG U-100 INSULIN 100 UNIT/ML SOLUTION INJECT 6 UNITS SUBCUTANEOUSLY IN THE MORNING AND 6 UNITS AT NOON AND 6 UNITS IN THE EVENING WITH MEALS HYDRALAZINE 100 MG TABLET Take 1 tablet by mouth in the morning and 1 tablet at noon and 1 tablet in the evening. HYDROCODONE-ACETAMINOPHEN 5-325 MG TABLET 1 tablet as needed Orally every 6 hrs INSULIN GLARGINE 100 UNIT/ML INJECTION 40 am and 35 pm MAGNESIUM OXIDE 400 MG (241.3 MG MAGNESIUM) TABLET Take 1 tablet by mouth in the morning. PRAVASTATIN 20 MG TABLET 1 tablet Orally Once a day SANTYL 250 UNIT/GRAM OINTMENT SPIRONOLACTONE 25 MG TABLET TAKE 1 TABLET BY MOUTH IN THE MORNING TAMSULOSIN 0.4 MG 24 HR CAPSULE Take 1 capsule by mouth in the morning START taking Modified Medications as Prescribed No medications on file STOP taking these medications No medications on file Follow-up: Contact information for follow-up Mallory Cameron MD Specialty: FM-FAMILY MEDICINE Relationship: PCP - General [address] [facility] [id number] Instructions: As needed Electronically signed by: Leo Pardo DO 01/22/242154 [facility] 2023-10-31 14:56:37 TRANSITIONAL CARE MANAGEMENT ASSESSMENT 10/31/2023 Marion Schneider [id number] Marion Schneider is a 82 year old /White male was admitted on 10/26/23 to [facility], [facility] MED SURG. He was discharged on 10/29/23 with discharge disposition of HR- Routine Discharge. Admitting Physician: Bobby Merida Discharge Diagnosis: # Acute Infective Cystitis with Hematuria #SIRS d/t cystitis No linked episodes TCM [id number] outreach documentation: Discharge Assessment Chart Assessed: 10/31/23 Chart Reviewed - Post Discharge Call Deferred due to Change in Discharge Status.: Discharged to Inpatient Rehab (Rehabilitation location: [facility], [address] [place] [id number] (P) [phone] ([phone]) TCM Outreach Completed: 10/31/23 Future Appointments: Future Appointments Provider Department Dept Phone 12/08/2023 4:15 PM Mallory Cameron MD [facility] [phone] Peewee Hooker RN [facility] 2023-10-29 12:39:12 Problem: Falls, Risk of Goal: Absence of falls Outcome: Adequate for discharge Problem: Pain Goal: Control of pain at or below patient's documented comfort goal Outcome: Adequate for discharge Goal: Reduction in pain sensation Outcome: Adequate for discharge Problem: Discharge Planning Goal: Adequate for discharge Outcome: Adequate for discharge Goal: Effective communication Outcome: Adequate for discharge Problem: Skin integrity Impaired (Risk or Actual) Goal: Wound healing Outcome: Adequate for discharge Goal: Prevention of new skin breakdown Outcome: Adequate for discharge Problem: Venous Thromboembolism, (actual or risk of) Goal: Absence of venous thromboembolism (Risk) Outcome: Adequate for discharge Goal: Prevent further complications associated with VTE diagnosis (Actual) Outcome: Adequate for discharge Problem: Infection Risk Goal: Absence of infection Outcome: Adequate for discharge Chioma Ragsdale RN [facility] 2023-10-29 04:35:45 Problem: Falls, Risk of Goal: Absence of falls Outcome: Progressing as expected Problem: Pain Goal: Control of pain at or below patient's documented comfort goal Outcome: Progressing as expected Goal: Reduction in pain sensation Outcome: Progressing as expected Problem: Discharge Planning Goal: Adequate for discharge Outcome: Progressing as expected Goal: Effective communication Outcome: Progressing as expected Problem: Skin integrity Impaired (Risk or Actual) Goal: Wound healing Outcome: Progressing as expected Goal: Prevention of new skin breakdown Outcome: Progressing as expected Problem: Venous Thromboembolism, (actual or risk of) Goal: Absence of venous thromboembolism (Risk) Outcome: Progressing as expected Goal: Prevent further complications associated with VTE diagnosis (Actual) Outcome: Progressing as expected Problem: Infection Risk Goal: Absence of infection Outcome: Progressing as expected Lola Morel RN [facility] 2023-10-28 12:39:38 Problem: Falls, Risk of Goal: Absence of falls Outcome: Progressing as expected Problem: Pain Goal: Control of pain at or below patient's documented comfort goal Outcome: Progressing as expected Goal: Reduction in pain sensation Outcome: Progressing as expected Problem: Discharge Planning Goal: Adequate for discharge Outcome: Progressing as expected Goal: Effective communication Outcome: Progressing as expected Problem: Skin integrity Impaired (Risk or Actual) Goal: Wound healing Outcome: Progressing as expected Goal: Prevention of new skin breakdown Outcome: Progressing as expected Problem: Venous Thromboembolism, (actual or risk of) Goal: Absence of venous thromboembolism (Risk) Outcome: Progressing as expected Goal: Prevent further complications associated with VTE diagnosis (Actual) Outcome: Progressing as expected Problem: Infection Risk Goal: Absence of infection Outcome: Progressing as expected T Jassi Hill RN [facility] 2023-10-27 12:52:11 Problem: Falls, Risk of Goal: Absence of falls Outcome: Progressing as expected Problem: Pain Goal: Control of pain at or below patient's documented comfort goal Outcome: Progressing as expected Goal: Reduction in pain sensation Outcome: Progressing as expected Problem: Discharge Planning Goal: Adequate for discharge Outcome: Progressing as expected Goal: Effective communication Outcome: Progressing as expected Problem: Skin integrity Impaired (Risk or Actual) Goal: Wound healing Outcome: Progressing as expected Goal: Prevention of new skin breakdown Outcome: Progressing as expected Problem: Venous Thromboembolism, (actual or risk of) Goal: Absence of venous thromboembolism (Risk) Outcome: Progressing as expected Goal: Prevent further complications associated with VTE diagnosis (Actual) Outcome: Progressing as expected Problem: Infection Risk Goal: Absence of infection Outcome: Progressing as expected [facility] 2023-10-27 01:49:25 Problem: Falls, Risk of Goal: Absence of falls Outcome: Progressing as expected Problem: Pain Goal: Control of pain at or below patient's documented comfort goal Outcome: Progressing as expected Goal: Reduction in pain sensation Outcome: Progressing as expected Problem: Discharge Planning Goal: Adequate for discharge Outcome: Progressing as expected Goal: Effective communication Outcome: Progressing as expected Problem: Skin integrity Impaired (Risk or Actual) Goal: Wound healing Outcome: Progressing as expected Goal: Prevention of new skin breakdown Outcome: Progressing as expected Problem: Venous Thromboembolism, (actual or risk of) Goal: Absence of venous thromboembolism (Risk) Outcome: Progressing as expected Goal: Prevent further complications associated with VTE diagnosis (Actual) Outcome: Progressing as expected Problem: Infection Risk Goal: Absence of infection Outcome: Progressing as expected [facility] 2023-10-26 23:36:46 Patient admitted to Med Surg for diagnosis of UTI, disorientation, and fever Patient agrees to admission, discussed plan of care with patient and family. Patient is awake, alert, oriented, resp reg unlabored, color appropriate for race, PIV intact No adverse reaction to medications administered while in ED Belongings with patient to unit Report to Lola GREGORIO Wolf Hunt RN [facility] 2023-10-26 23:00:32 Report given to JG Palacios Krysta Campos RN [facility] 2023-10-26 22:56:40 Rec'd report from Andres GREGORIO. Assumed care of pt at this time. Sanam Palacios RN [facility] 2023-10-26 18:14:10 Patient to ED for AMS and fever. Reports son called and said he wasn't acting right. His jacques was dark and was recently changed. Patient normally A&OX4 but A&Ox2 now. No complaints at this time. Blayne Gomez RN [facility] 2023-10-26 18:10:00 EMERGENCY DEPARTMENT ENCOUNTER [facility] Patient Name: Marion Schneider Date of : 1940 82 year old Exam Room[facility] Primary Care Physician: Mallory Cameron Pre- Hospital Patient Escorted by: Self [9] Mode of Arrival: EMS - [facility] [43] EMS Treatment Prior to ED Arrival: PELLETIZER treatment: IVF;Saline lock;court recording monitor;Antipyretic PELLETIZER treatment comments: 500 mg PO Tylenol ED Events None Chief Complaint Chief Complaint Patient presents with Fever Altered mental status ED Triage Notes Blayne Gomez RN 10/26/2023 18:15 Patient to ED for AMS and fever. Reports son called and said he wasn't acting right. His jacques was dark and was recently changed. Patient normally A&OX4 but A&Ox2 now. No complaints at this time. HPI Marion Schneider is a 82 year old male with fever and altered mental status from home. Son called EMS when he was not acting right. AOx2. Knows name and place. Has indwelling jacques. Fever 102. Past Medical History / Immunizations Past Medical History: Diagnosis Date DM (diabetes mellitus) HTN (hypertension) Hyperlipidemia Tetanus received in last 5 years: Yes Childhood immunizations: Up-to-date Past Surgical History No past surgical history on file. Allergies No Known Allergies Social History Tobacco Use Never smoked or used smokeless tobacco. Passive Exposure: Past Alcohol Use Yes; 2.0 standard drinks of alcohol per week; 2 Cans of beer. Drug Use Never. Review of Systems Review of Systems Unable to perform ROS: Mental status change Physical Exam ED Triage Vitals Weight 10/26/23 1815 117.9 kg (260 lb) Actual or estimated -- Height 10/26/23 181 1.829 m (6') BP 10/26/23 1815 106/50 Pulse 10/26/23 1815 75 Resp 10/26/23 1815 18 Temp 10/26/23 181 38.2 ?C (100.7 ?F) Temp source 10/26/232009 Oral SpO2 10/26/231814 92 % Measured on 10/26/231814 Room air Physical Exam Vitals and nursing note reviewed. Constitutional: Appearance: He is well-developed. HENT: Head: Normocephalic and atraumatic. Eyes: General: No scleral icterus. Conjunctiva/sclera: Conjunctivae normal. Pupils: Pupils are equal, round, and reactive to light. Neck: Vascular: No JVD. Cardiovascular: Rate and Rhythm: Normal rate and regular rhythm. Heart sounds: Normal heart sounds. Pulmonary: Effort: Pulmonary effort is normal. Breath sounds: Normal breath sounds. No stridor. Abdominal: General: Bowel sounds are normal. Palpations: Abdomen is soft. Musculoskeletal: General: Normal range of motion. Cervical back: Normal range of motion and neck supple. Skin: General: Skin is warm and dry. Neurological: Mental Status: He is alert and oriented to person, place, and time. Psychiatric: Attention and Perception: Attention normal. Behavior: Behavior normal. Thought Content: Thought content normal. Cognition and Memory: Cognition is impaired. Labs Lab Results CBC WITH DIFF - Abnormal Result Value Ref Range WBC 14.27 (*) 4.20 - 10.70 10*3/?L RBC 3.87 (*) 4.26 - 5.52 10*6/?L HGB 11.3 (*) 12.2 - 16.4 g/dL HCT 35.5 (*) 38.4 - 49.3 % MCV 91.7 81.7 - 95.6 fL MCH 29.2 26.1 - 32.7 pg MCHC 31.8 31.2 - 35.0 g/dL RDW-SD 50.8 38.5 - 51.6 fL RDW-CV 15.0 12.1 - 15.4 % PLT 198 150 - 328 10*3/?L MPV 9.1 (*) 9.8 - 13.0 fL NRBC/100 WBC 0.0 0.0 - 10.0 /100 WBCs NRBC x10 3 <0.01 10*3/?L GRAN MAT (NEUT) % 87.9 % IMM GRAN % 0.80 % LYMPH % 4.3 % MONO % 6.9 % EOS % 0.0 % BASO % 0.1 % GRAN MAT x10 3 (ANC) 12.53 (*) 1.99 - 6.95 10*3/uL IMM GRAN x10 3 0.12 (*) 0.00 - 0.06 10*3/uL LYMPH x10 3 0.62 (*) 1.09 - 3.23 10*3/uL MONO x10 3 0.98 0.36 - 1.02 10*3/uL EOS x10 3 <0.03 (*) 0.06 - 0.53 10*3/uL BASO x10 3 <0.03 0.01 - 0.09 10*3/uL COMP. METABOLIC PANEL (26842) - Abnormal NA 138 135 - 145 mmol/L K 4.8 3.5 - 5.0 mmol/L CL 108 98 - 108 mmol/L CO2 TOTAL 25 23 - 31 mmol/L AGAP 5 2 - 16 BUN 41 (*) 7 - 23 mg/dL GLUCOSE 126 (*) 70 - 110 mg/dL CREATININE 1.65 (*) 0.60 - 1.25 mg/dL TOTAL BILI 0.6 0.1 - 1.1 mg/dL CALCIUM 7.9 (*) 8.6 - 10.6 mg/dL T PROTEIN 6.5 6.3 - 8.2 g/dL ALBUMIN 3.5 3.5 - 5.0 g/dL ALK PHOS 110 34 - 122 U/L ALTv 15 5 - 50 U/L AST(SGOT) 19 13 - 40 U/L eGFR 41.7 mL/min/1.73m2 N-TERMINAL PRO-BNP - Abnormal NT-proBNP 2,120 (*) <=125 pg/mL URINALYSIS - Abnormal APPEARANCE Cloudy (*) Clear COLOR Nella (*) Yellow PH 8.0 4.8 - 8.0 SP GRAVITY 1.014 1.003 - 1.030 GLU U QUAL Normal Normal BLOOD 2+ (*) Negative KETONES Negative Negative PROTEIN 100 mg/dL (*) Negative UROBILIN Normal Normal BILIRUBIN Negative Negative NITRITE Positive (*) Negative LEUK CORDELL 500/uL (*) Negative RBC/HPF 13 (*) 0 - 3 HPF WBC/HPF 13 (*) 0 - 5 HPF BACTERIA Moderate (*) Negative AMORPHOUS Rare Rare HPF CA OXALATE 1 <=1 HPF TRIPL PHOS 1 <=1 HPF LIPASE - Normal LIPASE 58 0 - 220 U/L MAGNESIUM - Normal MAGNESIUM 2.2 1.7 - 2.4 mg/dL TROPONIN I - Normal TROPONIN I 0.020 <=0.034 ng/mL INFLUENZA A/B RSV COVID NAAT - Normal Influenza A NAAT Negative Negative Influenza B NAAT Negative Negative RSV by PCR Negative Negative SARS-CoV-2 NAAT Negative Negative LACTIC ACID WHOLE BLOOD - Normal LACTIC ACID 1.45 0.50 - 2.20 mmol/L URINE CULTURE Imaging XR CHEST 1 VW Preliminary Result EXAM: XR CHEST 1 VW COMPARISON: Chest x-ray 09/04/2022 HISTORY: AMS FINDINGS: Lungs: The lung volumes are normal No focal opacities. No pleural abnormality. Heart/Mediastinum: The cardiac silhouette appears enlarged. Bones and soft tissues: No acute osseous findings are detected. IMPRESSION No acute cardiopulmonary process. Preliminary Report Dictated by Resident: Traci De Paz Orders and Treatments Orders Placed This Encounter Procedures XR CHEST 1 VW Cbc with Diff Comp. Metabolic Panel (50206) Lipase Magnesium N-Terminal Pro-Bnp Troponin I Urinalysis Urine Culture Influenza A B RSV COVID NAAT Lactic Acid Whole Blood Lab Only COVID Interpretation Orders Placed This Encounter Medications piperacillin-tazobactam (ZOSYN) 3.375 g in NaCl 0.9% (NS) 100 mL MINI-BAG Procedures Procedures MDM Patient was evaluated for an emergency medical condition related to Fever and Altered mental status . Diagnoses considered but not limited to: Confusion Hypernatremia Hypoglycemia Pneumonia Sepsis Urinary Tract Infection. Labs:were ordered, and resulted, any relevant abnormalities were considered. Abnormal Labs Reviewed CBC WITH DIFF - Abnormal; Notable for the following components: Result Value WBC 14.27 (*) RBC 3.87 (*) HGB 11.3 (*) HCT 35.5 (*) MPV 9.1 (*) GRAN MAT x10 3 (ANC) 12.53 (*) IMM GRAN x10 3 0.12 (*) LYMPH x10 3 0.62 (*) EOS x10 3 <0.03 (*) All other components within normal limits COMP. METABOLIC PANEL (00998) - Abnormal; Notable for the following components: BUN 41 (*) GLUCOSE 126 (*) CREATININE 1.65 (*) CALCIUM 7.9 (*) All other components within normal limits N-TERMINAL PRO-BNP - Abnormal; Notable for the following components: NT-proBNP 2,120 (*) All other components within normal limits Narrative: Positive: Heart Failure Likely URINALYSIS - Abnormal; Notable for the following components: APPEARANCE Cloudy (*) COLOR Nella (*) BLOOD 2+ (*) PROTEIN 100 mg/dL (*) NITRITE Positive (*) LEUK CORDELL 500/uL (*) RBC/HPF 13 (*) WBC/HPF 13 (*) BACTERIA Moderate (*) All other components within normal limits Imaging:Ordered, and resulted, any relevant abnormalities were considered. ED Course as of 10/26/232146Oct 26, 20232138 BACTERIA(!): Moderate [PS] 2138 RBC/HPF(!): 13 [PS] 2138 LEUK CORDELL(!): 500/uL [PS] 2138 NITRITE(!): Positive [PS] 1932 WBC x10 3 (!): 14.27 [PS] 1821 Temp: 38.2 ?C (100.7 ?F) [PS] ED Course User Index [PS] Haider Donohue, Diagnosis/Impression as of 10/26/232146 Fever, unspecified fever cause Urinary tract infection associated with indwelling urethral catheter, initial encounter Disorientation AdmissionCare Guideline: Urinary Tract Infection (UTI) - INPT, Inpatient Based on the indications selected for the patient, the bed status of Inpatient was determined to be MET The following indications were selected as present at the time of evaluation of the patient: - Confusional state (eg, disorientation, difficulty following commands, deficit in attention) that persists (eg, for more than few hours) despite appropriate treatment (eg, of underlying cause) AdmissionCare documentation entered by: Haider Donohue [facility], 28th edition, Copyright ? 2023 [facility] [employer] All Rights Reserved. [id number]:40:24-05:00 Medical Decision Making Problems Addressed: Disorientation: acute illness or injury Fever, unspecified fever cause: acute illness or injury Urinary tract infection associated with indwelling urethral catheter, initial encounter: complicated acute illness or injury with systemic symptoms Amount and/or Complexity of Data Reviewed Independent Historian: EMS Details: Patient unable to provide history. EMS provided history. External Data Reviewed: notes. Details: Transthoracic echo (TTE) Result Date: 09/02/2022 ? Left Ventricle: Left ventricle size is normal. Mildly increased wall thickness. Normal systolic function with a visually estimated EF of 55 - 60%. There is pseudonormal diastolic dysfunction. Elevated left ventricular filling pressure. ? Right Ventricle: Right ventricle size is normal. Mildly reduced systolic function. ? IVC/SVC: IVC diameter is greater than 21 mm and decreases less than 50% during inspiration; therefore the estimated right atrial pressure is elevated (~15 mmHg). ? Tricuspid Valve: Right ventricular systolic pressure is 50-55 mmHg. ? Left Atrium: Left atrium is moderately dilated. Labs: ordered. Decision-making details documented in ED Course. Radiology: ordered. Risk Decision regarding hospitalization. Rhythm Strip Interpretation: 59 Sinus Bradycardia Pulse Oximetry: is not hypoxic. Interpreted. Reassessment:gradually improving Communication with it web development consultant: Internal Medicine ,discussed pertinent aspects of the case and recommends: Admission for further evaluation and management. Limitations to patient care and compliance: none. Plan & Summary: Marion Schneider is a 82 year old male presenting for complaint(s) listed within the note. Fever improved. UTI on labs. IVF and zosyn started. Able to answer basic questions. Admitted to . Case discussed and level of care determined with admitting provider. History, physical exam findings, results of visit, diagnosis, medication regimens and plan of future care have been considered. Additional MDM may be found in the ED course. Vital signs were rechecked before final disposition and determined to be expected for patient's clinical condition.. Disposition & Follow Up ED Disposition ED Disposition Admit - Inpatient Condition Stable Comment -- Patient's Medications START taking these medications No medications on file CONTINUE taking these medications which have NOT CHANGED ATORVASTATIN 10 MG TABLET Take 1 tablet by mouth at bedtime. BUMETANIDE 1 MG TABLET TAKE 1 TABLET BY MOUTH IN THE MORNING AND 1 IN THE EVENING DAPAGLIFLOZIN PROPANEDIOL (FARXIGA) 10 MG TABLET Take 1 tablet by mouth in the morning. DOCUSATE 100 MG CAPSULE Take 1 capsule by mouth in the morning and 1 capsule in the evening. FINASTERIDE 5 MG TABLET Take 1 tablet by mouth in the morning. FUROSEMIDE 40 MG TABLET 1 tablet Orally Once a day HUMALOG U-100 INSULIN 100 UNIT/ML SOLUTION INJECT 6 UNITS SUBCUTANEOUSLY IN THE MORNING AND 6 UNITS AT NOON AND 6 UNITS IN THE EVENING WITH MEALS HYDRALAZINE 100 MG TABLET Take 1 tablet by mouth in the morning and 1 tablet at noon and 1 tablet in the evening. HYDROCODONE-ACETAMINOPHEN 5-325 MG TABLET 1 tablet as needed Orally every 6 hrs INSULIN GLARGINE 100 UNIT/ML INJECTION 40 am and 35 pm MAGNESIUM OXIDE 400 MG (241.3 MG MAGNESIUM) TABLET Take 1 tablet by mouth in the morning. PRAVASTATIN 20 MG TABLET 1 tablet Orally Once a day SANTYL 250 UNIT/GRAM OINTMENT SPIRONOLACTONE 25 MG TABLET TAKE 1 TABLET BY MOUTH IN THE MORNING TAMSULOSIN 0.4 MG 24 HR CAPSULE Take 1 capsule by mouth in the morning START taking Modified Medications as Prescribed No medications on file STOP taking these medications No medications on file Future Appointments In 1 month Mallory Cameron MD [facility], [place] Dodie, LUIS MIGUEL Donohue DO [employer] is used frequently and may produce errors. Promptly contact for obvious discrepancies. Haider Donohue DO 10/26/232146 [facility] 2023-10-26 18:10:00 AdmissionCare Guideline: Urinary Tract Infection (UTI) - INPT, Inpatient Based on the indications selected for the patient, the bed status of Inpatient was determined to be MET The following indications were selected as present at the time of evaluation of the patient: - Confusional state (eg, disorientation, difficulty following commands, deficit in attention) that persists (eg, for more than few hours) despite appropriate treatment (eg, of underlying cause) AdmissionCare documentation entered by: Haider Donohue [facility], 28th edition, Copyright ? 2023 [facility] [employer] [facility] All Rights Reserved. [id number]:00 [facility] 2023-10-26 07:45:54 Last Refilled: Disp Refills Start End FARIDA SPIRONOLACTONE 25 mg tablet 30 tablet 0 09/27/2023 -- No Sig: TAKE 1 TABLET BY MOUTH IN THE MORNING Sent to pharmacy as: spironolactone 25 mg tablet (ALDACTONE) Class: eRX Route: Oral Order: [id number] Date/Time Signed: 09/27/2023 06:51 E-Prescribing Status: Receipt confirmed by pharmacy (09/27/2023 6:51 AM CDT) Notes: Recent Visits Date Type Provider Dept 06/08/23 Office Visit Mallory Cameron MD [facility] 03/08/23 Office Visit Mallory Cameron MD [facility] 11/17/22 Office Visit Mallory Cameron MD [facility] 10/13/22 Office Visit Mallory Cameron MD [facility] Showing recent visits within past 540 days with a meds authorizing provider and meeting all other requirements Future Appointments Date Type Provider Dept 12/08/23 Appointment Mallory Cameron MD [facility] Showing future appointments within next 150 days with a meds authorizing provider and meeting all other requirements Office Visit on 06/08/2023 Component Date Value POCT HBA1C 06/08/2023 7.4 (A) Urgent Care on 05/29/2023 Component Date Value POCT GLU 05/29/2023 320 (H) Office Visit on 03/08/2023 Component Date Value POCT HBA1C 03/08/2023 6.5 (A) Swati Valles RN [facility] 2023-09-27 06:50:37 Last Refilled: Disp Refills Start End FARIDA SPIRONOLACTONE 25 mg tablet 30 tablet 0 08/29/2023 -- No Sig: TAKE 1 TABLET BY MOUTH IN THE MORNING Sent to pharmacy as: spironolactone 25 mg tablet (ALDACTONE) Class: eRX Route: Oral Order: [id number] Date/Time Signed: 08/29/2023 08:14 E-Prescribing Status: Receipt confirmed by pharmacy (08/29/2023 8:14 AM C Recent Visits Date Type Provider Dept 06/08/23 Office Visit Mallory Cameron MD [facility] 03/08/23 Office Visit Mallory Cameron MD [facility] 11/17/22 Office Visit Mallory Cameron MD [facility] 10/13/22 Office Visit Mallory Cameron MD [facility] Showing recent visits within past 540 days with a meds authorizing provider and meeting all other requirements Future Appointments Date Type Provider Dept 12/08/23 Appointment Mallory Cameron MD [facility] Showing future appointments within next 150 days with a meds authorizing provider and meeting all other requirements Parvin Hunt [facility] 2023-08-17 07:31:59 Last Refilled: BUMETANIDE 1 mg [id number]/19/2023--NoSig: TAKE 1 TABLET BY MOUTH IN THE MORNING AND 1 IN THE EVENINGSent to pharmacy as: bumetanide 1 mg tablet (BUMEX)Class: eRXRoute: OralOrder: [id number]/Time Signed: 07/19/2023 10:21E-Prescribing Status: Receipt confirmed by pharmacy (07/19/2023 10:21 AM WAREHOUSE RECEIVER) Recent Visits Date Type Provider Dept 06/08/23 Office Visit Mallory Cameron MD [facility] 03/08/23 Office Visit Mallory Cameron MD [facility] 11/17/22 Office Visit Mallory Cameron MD [facility] 10/13/22 Office Visit Mallory Cameron MD [facility] Showing recent visits within past 540 days with a meds authorizing provider and meeting all other requirements Future Appointments Date Type Provider Dept 12/08/23 Appointment Mallory Cameron MD [facility] Showing future appointments within next 150 days with a meds authorizing provider and meeting all other requirements Parvin Hunt [facility] 2023-07-05 16:10:21 Patient son bought DNR form . Placed in provider box to review and sign [facility] Shelly Gore [facility] 2023-06-24 11:19:38 Marion Schneider is a 82 year old male Ernesto called requesting a refill for pt. He states that this med was prescribed at [facility], and they brought the medication list to Dr. Cameron at last appointment. Please advise. [facility] [address] [place] [address] [facility] 2023-06-23 14:06:45 Called pharmacy spoke with pharmacist gace directions for test strips - test 2 X daily [facility] 2023-06-23 13:28:07 Marion Schneider is a 82 year old male Mamdi with [facility] calling requesting clarification on test strips. Please advise. Plata [facility] 2023-06-21 09:30:57 Images from the original note were not included. Notes: 03/29/23 Last Refilled: [facility] [address] [place] [address] Recent Visits Date Type Provider Dept 06/08/23 Office Visit Mallory Cameron MD [facility] 03/08/23 Office Visit Mallory Cameron MD [facility] 11/17/22 Office Visit Mallory Cameron MD [facility] 10/13/22 Office Visit Mallory Cameron MD [facility] 12/30/21 Office Visit Mallory Cameron MD [facility] Showing recent visits within past 540 days with a meds authorizing provider and meeting all other requirements Future Appointments No visits were found meeting these conditions. Showing future appointments within next 150 days with a meds authorizing provider and meeting all other requirements Name from pharmacy: Spironolactone 25 MG Oral Tablet Will file in chart as: SPIRONOLACTONE 25 mg tablet Sig: Take 1 tablet by mouth in the morning. Original sig: TAKE 1 TABLET BY MOUTH IN THE MORNING Disp: 30 tablet Refills: 0 Start: 06/21/2023 Class: eRX Last ordered: 2 months ago (03/29/2023) by Mallory Cameron MD Last refill: 05/27/2023 Rx #: [id number] Cardiovascular: Diuretics - Potassium Sparing [id number]/21/2023 05:51 AM Protocol Details K in normal range and within 180 days Cr in normal range and within 180 days Valid encounter within last 12 months To be filled at: [facility] [address] [place] [address] [facility] Cara Aly MA [facility] 2023-06-17 10:12:56 Called pharmacy spoke with the pharmacist gave quantity # 100 and test 1 to 2 times daily [facility] 2023-06-17 09:57:11 Marion Schneider is a 82 year old male Maggie from [facility] called stating that they have an RX prescription for Test strips for the patient and they marla clarification for the quantity and the instruction Please advise [facility] [address] [place] [id number] [facility] Moriah Leonard [facility] 2023-06-13 15:40:59 Monitor patient [facility] 2023-06-13 14:35:45 Marion Schneider is a 82 year old male Jazmin with [facility] is notifying the clinic that the patient fell down today on 06/13/23. Patient is not in pain and has no bruises as of yet. Please advise if you have questions. [phone] Melo [facility] 2023-06-13 10:18:54 Pt son calling in requesting refill. Rehab changed his medicine and dosage to lantus 400 cc in the morning and 35 cc at night daily.Med refilled in urgent care on the 14 ([place]) [facility] [address] [place] [id number] Clayton [facility] 2023-05-30 13:46:47 This was not filled by DR Cameron [facility] 2023-05-28 15:08:52 Images from the original note were not included. [facility] Connie Will [facility] 2023-05-20 12:43:49 Patient called in asking for atorvastatin prescription. Patient states he was taking medication while in rehab. Please review and advise. HOUSE RECEIVER Ana Yi RN [facility] 2023-05-20 12:34:01 Marion Schneider is a 82 year old male son is calling requesting new prescription for Atorvastatin, states was taking medication while in [facility] . [facility] [address] [place] [id number] Pop [facility] 2023-05-17 11:37:51 Refill auth request for ATORVASTATIN 10MG. Printed and placed in providers box for review Wild [facility] 2023-01-04 16:40:44 Formatting of this n ote is different from the original. Recent Visits Date Type Provider Dept 11/17/22 Office Visit Mallory Cameron MD [facility] 10/13/22 Office Visit Mallory Cameron MD [facility] 12/30/21 Office Visit Mallory Cameron MD [facility] 11/02/21 Office Visit Mallory Cameron MD [facility] Showing recent visits within past 540 days with a meds authorizing provider and meeting all other requirements Future Appointments Date Type Provider Dept 02/21/23 Appointment Mallory Cameron MD [facility] Showing future appointments within next 150 days with a meds authorizing provider and meeting all other requirements Last refill was Medication hydrALAZINE 100 mg tablet (Order [id number]) Order Information Date and Time Ordering Department Ordering/Authorizing 09/07/2022 10:58 AM Tevin Henry MD Outpatient Medication Detail Disp Refills Start End FARIDA hydrALAZINE 100 mg tablet 90 tablet 0 09/07/2022 10/07/2022 No Sig: Take 1 tablet by mouth in the morning and 1 tablet at noon and 1 tablet in the evening. Do all this for 30 days. T [facility] 2023-01-04 16:38:22 Formatting of this n ote might be different from the original. hydrALAZINE 100 mg tablet requested to [facility] in [place] Rikki Benitez [facility] 2022-12-06 13:52:41 Formatting of this n ote might be different from the original. Received Outpatient Laboratory Report. Placed in the providers box. Janelle Echols [facility] 2022-12-06 13:47:18 Formatting of this n ote might be different from the original. Received [facility] client coordination note report. Placed in providers basket. Jeanna Arnold [facility] 2022-12-06 08:35:46 Formatting of this n ote might be different from the original. Surgical clearance forms was in Dr Cameron in basket it was signed and I faxed it this morning [facility] 2022-12-04 12:28:37 Formatting of this n ote might be different from the original. Medication list printed and faxed to [phone] Unaware of other forms for surgical clearance. Please review and advise. [facility] 2022-12-03 13:39:36 Formatting of this n ote might be different from the original. Lisa is calling again to follow up on the below request. She would at least like the medication list to be sent in. She states patient is scheduled for surgery on Tuesday. Fax number [phone]. Jayleen Moe [facility] 2022-12-02 10:21:42 Formatting of this n ote might be different from the original. Dr. Anupama Camacho office is calling about form for surgical clearance. The person they spoke to 12/01/22. Told office the form will be expedited this morning. [id number] Denise Vegas [facility] 2022-12-01 16:30:27 Formatting of this n ote might be different from the original. Form has been placed in 's basket for signing [facility] 2022-12-01 16:11:19 Formatting of this n ote might be different from the original. Gomez Gonzalez is checking on form sent last month on 11/05 regarding procedure on Tuesday. Please advise. Marleen Miramontes [facility] 2022-12-01 13:08:19 Formatting of this n ote might be different from the original. Lisa with Dr. Camacho's office is needing the clearance form kale. Patient has a procedure Tuesday and it's needed for that. Calista Ga [facility] 2022-11-05 14:26:38 Formatting of this n ote might be different from the original. Received request from Anupama Camacho MD to schedule procedure. Placed in providers basket. Jeanna Arnold [facility]
[2024-09-21] MEDS ORDERED: ONDANSETRON 4 MG/2 ML VIAL IV PRN (14:39)
[2024-09-21] MEDS ORDERED: BISACODYL 10 MG RECTAL SUPP PR PRN (14:40)
[2024-09-21] MEDS ORDERED: ACETAMINOPHEN 650MG/RECT SUPP PR PRN (14:41)
[2024-09-21] MEDS ORDERED: LORazepam 2 MG/ML VIAL IV PRN (14:43)
[2024-09-21 15:33] VITALS: O2SAT 93; BMI 34.7
[2024-09-21] MEDS: SCOPOLAMINE HYDROBROMIDE PATCH TD SCH (16:29)
[2024-09-21] MEDS: MORPHINE 4 MG/ML SYR IV PRN (16:29)
[2024-09-22 06:39] VITALS: BP 134/39; TEMP 97.4
== END 2024-09-22 08:00 | disposition expired | DRG 951 ==
LOC: 3RD-ICU 12:52
PROVIDERS: ADMIT Emergency Medicine; ATTEND Emergency Medicine
DX: Z51.5 Encounter for palliative care (principal)